=== PATIENT | male | born 1965 | race Caucasian/White ===

== ENCOUNTER → 2018-02-12 16:12 | Outpatient (CLI) | payer MEDICAID, SELFPAY ==
[2018-02-12 16:33] LABS: Creatinine,Urine Random 330 mg/dL (20-320)
[2018-02-12 18:45] LABS: Alanine Aminotransferase 29 U/L (12-78); Albumin Level 3.9 gm/dL (3.4-5.0); Albumin/Globulin Ratio 1.1 (1.1-1.8); Alkaline Phosphatase 65 U/L (46-116); Aspartate Amino Transferase 22 U/L (15-37); Bilirubin,Total 1.1 mg/dL (0.2-1.0); Blood Urea Nitrogen 18 mg/dL (7-18); Carbon Dioxide 30 mmol/L (21.0-32.0); Chloride 105 mmol/L (98-107); Chol/HDL Ratio 1.8 (1-3.5); Cholesterol 128 mg/dL (140-200); Creatinine,Serum 0.96 mg/dL (0.70-1.30); Estimated Glomerular Filt Rate 82 ml/min (>60); GFR (African American) 100 ML/MIN (>60); Globulin 3.4 gm/dl (1.3-3.2); Glucose 101 mg/dL (74-106); HDL Cholesterol 70 mg/dL (27-67); LDL Cholesterol 40 mg/dL (0-130); Sodium 144 mmol/L (136-145); Total Protein,Serum 7.3 gm/dL (6.4-8.2); Triglycerides 88 mg/dL (30-200); VLDL Cholesterol 18 mg/dL (0-40)
[2018-02-12 18:50] LABS: Hemoglobin A1C 5.4 % (0.0-7.0)
== END ==
PROVIDERS: Visit Provider Nurse Practitioner Family
DX: E11.42 Type 2 diabetes mellitus with diabetic polyneuropathy (principal); E78.5 Hyperlipidemia, unspecified; I10 Essential (primary) hypertension
CPT/HCPCS: 36415; 80053; 80061; 82570; 83036

== ENCOUNTER → 2018-08-20 11:19 | Outpatient (CLI) | payer MEDICAID, SELFPAY ==
[2018-08-20 11:55] LABS: Hemoglobin A1C 5.7 % (0.0-7.0)
[2018-08-20 12:49] LABS: Alanine Aminotransferase 25 U/L (12-78); Albumin Level 3.6 gm/dL (3.4-5.0); Albumin/Globulin Ratio 1.1 (1.1-1.8); Alkaline Phosphatase 68 U/L (46-116); Anion Gap 9.8 mEq/L (5-15); Aspartate Amino Transferase 14 U/L (15-37); Blood Urea Nitrogen 13 mg/dL (7-18); Calcium 8.4 mg/dL (8.5-10.1); Carbon Dioxide 29 mmol/L (21.0-32.0); Chloride 104 mmol/L (98-107); Chol/HDL Ratio 1.9 (1-3.5); Cholesterol 114 mg/dL (140-200); Estimated Glomerular Filt Rate 101 ml/min (>60); GFR (African American) 122 ML/MIN (>60); Globulin 3.4 gm/dl (1.3-3.2); Glucose 116 mg/dL (74-106); HDL Cholesterol 60 mg/dL (27-67); LDL Cholesterol 39 mg/dL (0-130); Potassium 3.8 mmoL/L (3.5-5.1); Sodium 139 mmol/L (136-145); Triglycerides 77 mg/dL (30-200); VLDL Cholesterol 15 mg/dL (0-40)
[2018-08-21 10:17] LABS: Creatinine, Urine 115.2 mg/dL (Not Estab.); Microalbumin, Urine 168.2 ug/mL (Not Estab.)
== END ==
PROVIDERS: Visit Provider Nurse Practitioner Family
DX: E11.42 Type 2 diabetes mellitus with diabetic polyneuropathy (principal); E78.5 Hyperlipidemia, unspecified
CPT/HCPCS: 36415; 80053; 80061; 82043; 82570; 83036

== ENCOUNTER → 2019-01-24 16:22 | Outpatient (CLI) | payer MEDICAID, SELFPAY ==
--- NOTE | 2019-01-24 | XR_ITS ---
XR chest 2V HISTORY: Cough, smoker ORDERING PHYSICIAN: aMyra Williamson APRN PATIENT AGE: 53 years COMPARISON: None FINDINGS: The cardiomediastinal silhouette and pulmonary vascularity are within normal limits. The lungs are clear without infiltrates, suspicious nodules, or pleural effusions. Calcified granuloma is present in the right lower lung zone. No acute bony abnormalities. IMPRESSION: Negative chest, no acute finding
[2019-01-24 17:31] LABS: Basophils % 0.2 % (0.1-2.0); Eosinophils # 0.3 K/mm3 (0.0-0.4); Eosinophils % 4.1 % (0.1-12.0); Hematocrit 35.1 % (42.0-52.0); Hemoglobin 12.1 g/dL (14.1-18.0); Lymphocytes # 1.5 K/mm3 (0.7-4.5); Lymphocytes % 21.5 % (10-50); Mean Corpuscular HGB Conc 34.6 g/dL (31.8-35.4); Mean Corpuscular Hemoglobin 33.2 pg (27.0-31.2); Mean Corpuscular Volume 96.1 fl (80-94); Mean Platelet Volume 8.2 fl (7.4-10.4); Monocytes # 0.2 K/mm3 (0.1-1.0); Monocytes % 3.2 % (1.7-9.3); Neutrophils % 70.9 % (37.0-80.0); Platelet Count 137 K/mm3 (142-424); Red Blood Count 3.65 M/mm3 (4.60-6.20); Red Cell Distribution Width 14.1 % (11.5-17.5)
[2019-01-24 18:34] LABS: Alanine Aminotransferase 36 U/L (12-78); Albumin Level 3.7 gm/dL (3.4-5.0); Albumin/Globulin Ratio 1.1 (1.1-1.8); Alkaline Phosphatase 72 U/L (46-116); Anion Gap 15.7 mEq/L (5-15); Aspartate Amino Transferase 20 U/L (15-37); Bilirubin,Total 1.3 mg/dL (0.2-1.0); Blood Urea Nitrogen 10 mg/dL (7-18); Calcium 8.8 mg/dL (8.5-10.1); Carbon Dioxide 27 mmol/L (21.0-32.0); Chloride 104 mmol/L (98-107); Chol/HDL Ratio 1.9 (1-3.5); Cholesterol 110 mg/dL (140-200); Creatinine,Serum 0.89 mg/dL (0.70-1.30); Estimated Glomerular Filt Rate 89 ml/min (>60); GFR (African American) 108 ML/MIN (>60); Globulin 3.3 gm/dl (1.3-3.2); Glucose 95 mg/dL (74-106); HDL Cholesterol 57 mg/dL (27-67); LDL Cholesterol 33 mg/dL (0-130); Potassium 3.7 mmoL/L (3.5-5.1); Sodium 143 mmol/L (136-145); Triglycerides 101 mg/dL (30-200); VLDL Cholesterol 20 mg/dL (0-40)
[2019-01-24 18:58] LABS: Hemoglobin A1C 5.2 % (0.0-7.0)
[2019-01-26 06:18] LABS: Creatinine, Urine 231.1 mg/dL (Not Estab.); Microalbumin, Urine 307.1 ug/mL (Not Estab.)
[2019-01-29 14:03] LABS: Ferritin 367 ng/mL (8-388)
[2019-01-31 08:55] LABS: Iron 142 ug/dL (38-169); UIBC 187 ug/dL (111-343)
[2019-01-31 09:32] LABS: Iron Saturation 43 % (15-55)
[2019-01-31 14:08] LABS: Folate 11.6 ng/mL (>3.0); Vitamin B12 1092 pg/mL (232-1245)
== END ==
PROVIDERS: PCP Nurse Practitioner Family; Visit Provider Nurse Practitioner Family
DX: R05 Cough (principal); E11.42 Type 2 diabetes mellitus with diabetic polyneuropathy; E78.5 Hyperlipidemia, unspecified
CPT/HCPCS: 36415; 71046; 80053; 80061; 82043; 82570; 82607; 82728; 82746; 83036; 83540; 83550; 85025

== ENCOUNTER → 2019-03-29 09:59 | Outpatient (CLI) | payer MEDICAID, SELFPAY ==
--- NOTE | 2019-03-29 10:22 | XR_ITS ---
XR foot RT min 3V HISTORY: ITS.REASON: CELLULITIS OF GREAT TOE ORDERING PHYSICIAN: Fox Chávez MD PATIENT AGE: 54 years COMPARISON: None FINDINGS: No fracture or dislocation. No lytic or blastic change. There is normal mineralization.. The joint spaces are well-preserved. No significant degenerative/arthritic changes. No erosive changes evident. There are calcific densities along the plantar aspect just distal to the small plantar calcaneal spur. IMPRESSION: No acute process. Soft tissue calcifications could be sequela from chronic plantar fasciitis.
[2019-03-29 11:07] LABS: Basophils % 0.3 % (0.1-2.0); Eosinophils # 0.2 K/mm3 (0.0-0.4); Eosinophils % 1.3 % (0.1-12.0); Hematocrit 34.3 % (42.0-52.0); Hemoglobin 10.7 g/dL (14.1-18.0); Lymphocytes # 1.5 K/mm3 (0.7-4.5); Lymphocytes % 11.9 % (10-50); Mean Corpuscular HGB Conc 31.2 g/dL (31.8-35.4); Mean Corpuscular Hemoglobin 30.7 pg (27.0-31.2); Mean Corpuscular Volume 98.3 fl (80-94); Mean Platelet Volume 8.1 fl (7.4-10.4); Monocytes # 0.3 K/mm3 (0.1-1.0); Monocytes % 2.4 % (1.7-9.3); Neutrophils # 10.5 K/mm3 (1.8-7.8); Neutrophils % 84.1 % (37.0-80.0); Platelet Count 192 K/mm3 (142-424); Red Blood Count 3.48 M/mm3 (4.60-6.20); White Blood Count 12.4 K/mm3 (4.8-10.8)
[2019-03-29 11:54] LABS: Alanine Aminotransferase 27 U/L (12-78); Albumin Level 3.1 gm/dL (3.4-5.0); Albumin/Globulin Ratio 0.8 (1.1-1.8); Alkaline Phosphatase 84 U/L (46-116); Anion Gap 10.4 mEq/L (5-15); Aspartate Amino Transferase 15 U/L (15-37); Bilirubin,Total 0.8 mg/dL (0.2-1.0); Blood Urea Nitrogen 14 mg/dL (7-18); C-Reactive Protein 2.1 mg/L (0.0-0.9); Calcium 8.5 mg/dL (8.5-10.1); Carbon Dioxide 29 mmol/L (21.0-32.0); Chloride 101 mmol/L (98-107); Creatinine,Serum 0.87 mg/dL (0.70-1.30); Estimated Glomerular Filt Rate 91 ml/min (>60); GFR (African American) 111 ML/MIN (>60); Glucose 137 mg/dL (74-106); Potassium 4.4 mmoL/L (3.5-5.1); Sodium 136 mmol/L (136-145); Total Protein,Serum 7.1 gm/dL (6.4-8.2)
[2019-03-29 13:40] LABS: Erythrocyte Sedimentation Rate < 140 mm/hr (0-20)
== END ==
PROVIDERS: Visit Provider Internal Medicine Adolescent Medicine
DX: L03.031 Cellulitis of right toe (principal)
CPT/HCPCS: 36415; 73630; 80053; 85025; 85651; 86140; 87040

== ENCOUNTER 2019-04-01 09:16 | Observation (INO) ==
--- NOTE | 2019-04-01 10:36 | Pharmacy Consult Notes ---
[facility] Pharmacy VTE Monitoring - Patient Demographics Admission date: 04/01/19 Report Date: 04/01/19 Time: 10:35 Allergies/Adverse Reactions: Patient Allergies No Known Allergies Allergy (Unverified 03/12/19 13:53) Height: 1.8 m Weight: 109.032 kg - VTE Risk Was VTE Risk Assessment Performed: Yes VTE Score: 2 VTE Risk Level: Very Low Risk Clinical Trial Participant: No - Prophylaxis VTE Prophylaxis Ordered?: Yes Types of VTE Prophylaxis: TEDS Knee High
[2019-04-01 11:28] LABS: Basophils # 0.1 K/mm3 (0-0.2); Basophils % 0.4 % (0.1-2.0); Eosinophils # 0.3 K/mm3 (0.0-0.4); Hematocrit 34.7 % (42.0-52.0); Hemoglobin 10.9 g/dL (14.1-18.0); Lymphocytes # 2.1 K/mm3 (0.7-4.5); Lymphocytes % 15.4 % (10-50); Mean Corpuscular HGB Conc 31.5 g/dL (31.8-35.4); Mean Corpuscular Volume 101.5 fl (80-94); Mean Platelet Volume 8.5 fl (7.4-10.4); Monocytes # 0.2 K/mm3 (0.1-1.0); Monocytes % 1.6 % (1.7-9.3); Neutrophils # 10.8 K/mm3 (1.8-7.8); Neutrophils % 80.6 % (37.0-80.0); Platelet Count 217 K/mm3 (142-424); Red Blood Count 3.42 M/mm3 (4.60-6.20); White Blood Count 13.4 K/mm3 (4.8-10.8)
[2019-04-01 11:58] LABS: Albumin Level 2.8 gm/dL (3.4-5.0); Albumin/Globulin Ratio 0.7 (1.1-1.8); Anion Gap 11.2 mEq/L (5-15); Bilirubin,Total 0.7 mg/dL (0.2-1.0); C-Reactive Protein 0.4 mg/L (0.0-0.9); Calcium 8.4 mg/dL (8.5-10.1); Globulin 4.3 gm/dl (1.3-3.2); Total Protein,Serum 7.1 gm/dL (6.4-8.2)
--- NOTE | 2019-04-01 12:34 | Consult Report ---
*Admission Date: 04/01/19 *Reason for consult:: R great toe cellulitis *History of present illness: Mr. Mendiola is a 54 y/ DM male who was admitted from Dr. Chávez's office this morning for right great toe cellulitis. Patient/ said 1 to 2 weeks ago he was wearing a pair of work boots which rubbed a blister on the medial right great toe. He states last week a wound developed and there was some drainage. He states he saw Dr. Alcala on Monday. Monday x-rays were ordered and taken which were negative for bone infection. Patient states he followed up this morning and the area was more swollen with more drainage and increased pain. He was admitted for a work-up and treatment for possible osteomyelitis. He denies a history of ulceration or amputation. He denies any stents in his heart or leg. Denies tingling and burning pain he just reports some throbbing to the toe. Review of Systems - Review of Systems Review of systems:: pertinent systems reviewed and negative unless documented below - Eyes Denies blurry vision - ENT Denies abnormal hearing - *Cardiovascular Denies chest pain, Denies shortness of breath - *Respiratory Denies cough, Denies shortness of breath - *Gastrointestinal Denies nausea, Denies vomiting - *Genitourinary Denies painful urination - *Musculoskeletal Reports joint swelling (R HIPJ) - Integumentary/Breasts Reports skin ulcer, Reports wounds [facility] History I have reviewed the patient's past medical history: Yes Medical History: Reports:: Diabetes Mellitus Type 2 Denies:: Diabetes Mellitus Type 1 *Have you ever received a pneumonia vaccine?: No *Have you received a flu vaccine this season?: No Other Surgeries: Yes: No Previous Surgery, Colonoscopy - *Social History Educational Level: Attended High School Smoking Status: Former smoker Tobacco Type: cigarettes Smoking End Date: 25 years Alcohol Intake: current Alcohol Intake Frequency:: 0-2 drinks per day *Occupational Status:: employed Housing: house Household Members: significant other *Travel in the last 8 weeks: None - Psychiatric History Expresses thoughts of harming self/others: None Suicide Plan Description: No Plan Family Hx:: No significant family history Meds Home Medications Medication Instructions Recorded Confirmed Type atorvastatin 40 mg tablet 40 mg PO HS 03/13/19 04/01/19 History ferrous sulfate 325 mg (65 mg 325 mg PO HS 03/13/19 04/01/19 History iron) tablet losartan 25 mg tablet 25 mg PO HS 03/13/19 04/01/19 History meloxicam 7.5 mg tablet 7.5 mg PO HS 03/13/19 04/01/19 History metformin 500 mg tablet 500 mg PO HS 03/13/19 04/01/19 History omeprazole 20 mg capsule,delayed 20 mg PO HS 03/13/19 04/01/19 History release Allergies Allergy/AdvReac Type Severity Reaction Status Date / Time No Known Allergies Allergy Unverified 03/12/19 13:53 Exam Vital signs and Labs for Last 24 Hours: Temp Pulse Resp BP Pulse Ox 97.6 F 62 20 137/71 99 04/01/19 09:33 04/01/19 09:33 04/01/19 09:33 04/01/19 09:33 04/01/19 09:33 Laboratory Results - last 24 hr 04/01/19 10:30: WBC 13.4 H, RBC 3.42 L, Hgb 10.9 L, Hct 34.7 L, MCV 101.5 H, MCH 31.9 H, MCHC 31.5 L, RDW 14.0, Plt Count 217, MPV 8.5, Neut % (Auto) 80.6 H, Lymph % (Auto) 15.4, [place] % (Auto) 1.6 L, Eos % (Auto) 2.0, Baso % (Auto) 0.4, Neut # (Auto) 10.8 H, Lymph # (Auto) 2.1, [place] # (Auto) 0.2, Eos # (Auto) 0.3, Baso # (Auto) 0.1 04/01/19 10:30: Sodium 138, Potassium 5.2 H, Chloride 103, Carbon Dioxide 29, Anion Gap 11.2, BUN 13, Creatinine 0.82, Estimated Creat Clear 159, Estimated GFR 98, Est GFR ( Amer) 118, Glucose 130 H, Calcium 8.4 L, Total Bilirubin 0.7, AST 38 H, ALT 29, Alkaline Phosphatase 77, C-Reactive Protein 0.4, Total Protein 7.1, Albumin 2.8 L, Globulin 4.3 H, Albumin/Globulin Ratio 0.7 L 04/01/19 11:03: POC Glucose 128 H I & O for Last 24 hours: Intake & Output 03/30/19 03/31/19 04/01/19 04/02/19 11:59 11:59 11:59 11:59 Weight 240 lb 6 oz - *Routine HEENT Exam Head: Present: normocephalic Eye: Present: PERRL - *Routine Neck Exam Present: supple - *Routine Respiratory Exam Present: accessory muscle use - *Routine Cardiovascular Exam Present: RRR - *Routine Abdominal Exam Present: soft. Absent: guarding - *Routine Rectal Exam Patient deferred: visual exam - *Routine Exam Patient deferred: penile exam - *Routine Extremities Exam Present: edema (R foot), pulses intact. Absent: calf tenderness, amputation - *Routine Skin Exam Present: erythema (R great toe), warm, wounds - *Routine Neurological Exam Present: alert, oriented X3, moving all extremities - Detailed Lower Extremity Exam Top foot image: 1 - Right great toe: 1) Medial dorsal blister: ~1.2 x 1.6cm of discoloration and skin sloughing. Purulence drainage noted when a stab incision made with 15' blade. Does not probe thru deep fascia into bone. 2) Plantar distal hallux ulcer: pre debridement callus 1.4 x 1.4cm. 15' blade thru skin, sub q some serosanginous drainage expressed. Did not probe to bone. Post debridement central ulcer, wound base 100% granular: 0.5 x 0.4 x 0.4cm. Edema and erythema localized to the great toe. No ascending cellulitis noted to foot. Non palpable lymph nodes. Results - Labs Result Diagrams: 04/01/19 10:30 04/01/19 10:30 Labs: Abnormal lab results 04/01/19 04/01/19 04/01/19 Range/Units 10:30 10:30 11:03 WBC 13.4 H (4.8-10.8) K/mm3 RBC 3.42 L (4.60-6.20) M/mm3 Hgb 10.9 L (14.1-18.0) g/dL Hct 34.7 L (42.0-52.0) % MCV 101.5 H (80-94) fl MCH 31.9 H (27.0-31.2) pg MCHC 31.5 L (31.8-35.4) g/dL Neut % (Auto) 80.6 H (37.0-80.0) % [place] % (Auto) 1.6 L (1.7-9.3) % Neut # (Auto) 10.8 H (1.8-7.8) K/mm3 Potassium 5.2 H (3.5-5.1) mmoL/L Glucose 130 H (74-106) mg/dL POC Glucose 128 H (70-110) Calcium 8.4 L (8.5-10.1) mg/dL AST 38 H (15-37) U/L Albumin 2.8 L (3.4-5.0) gm/dL Globulin 4.3 H (1.3-3.2) gm/dl Albumin/Globulin Ratio 0.7 L (1.1-1.8) H & H 04/01/19 Range/Units 10:30 Hgb 10.9 L (14.1-18.0) g/dL Hct 34.7 L (42.0-52.0) % All other labs normal. - Diagnostic results Ankle/Foot x-ray: report reviewed, image reviewed Ankle/Foot MRI: pending Assessment and Plan (1) Cellulitis of great toe, right Current visit: Yes Status: Acute Category: Medical Code(s): L03.031 - Cellulitis of right toe (2) Diabetic ulcer of toe Current visit: Yes Status: Acute Category: Medical Code(s): E11.621 - Type 2 diabetes mellitus with foot ulcer; L97.509 - Non-pressure chronic ulcer of other part of unspecified foot with unspecified severity (3) Diabetes mellitus Current visit: Yes Status: Acute Category: Medical Code(s): E11.9 - Type 2 diabetes mellitus without complications (4) Pain of right great toe Current visit: Yes Status: Acute Category: Medical Code(s): M79.674 - Pain in right toe(s) - Assessment and plan all Dx Assessment and Plan for all problems:: Infected Wound: Right hallux ulcer: I discussed with the patient the importance of proper hygiene and maintaining a clean healthy wound bed to avoid the infection spreading. The wound was cleansed with betadine. Utilizing a 15 blade, the wound was sharply excisionally debrided through skin into sub q layer. Biofilm and fibrotic slough were debrided. The wound did not probe thru deep fascia and into the bone. There was positive drainage and purulence noted from dorsal medial blister. Wound culture obtained. Sujey-wound cellulitis noted. Plantar ulcer debrided in the same manner. It did not probe through deep fascia or bone. Non-palpable popliteal lymph nodes. Post-debridement the wound base was: 100 % granular. The wound measured 0.5 x 0.4 x 0.4 cm. 1. Dressing applied: betadine dry sterile dressing 2. MRI w/wout to evaluate for right hallux osteomyelitis 3. NWB in post op shoe with DME assistance 4. Order infection panel: CBC, ESR, CRP, Ha1c, wound culture. 5. IV antibiotics 6. I explained that the treatment will depend on the results of the MRI. We discussed the x-ray shows no definitive cortical erosion. I explained that there is a 10 to 14-day lag. On x-ray did show osteomyelitis. MRI is more sensitive exam. Obtain MRI today/tomorrow. Discussed local wound care with IV antibiotics vs surgery for right hallux amp if osteomyelitis is present. All questions answered patient and his verbalized understanding. 7. Follow-up after MRI
--- NOTE | 2019-04-01 13:21 | Pharmacy Consult Notes ---
- Pharmacy Consult Date: 04/01/19 Time: 13:20 Referring provider: DR. FIELDS Reason for Consult:: VANCOMYCIN DOSING Allergies and ADEs:: Allergies Allergy/AdvReac Type Severity Reaction Status Date / Time No Known Allergies Allergy Unverified 03/12/19 13:53 Home Medications:: Home Medications Medication Instructions Recorded Confirmed Type atorvastatin 40 mg tablet 40 mg PO HS 03/13/19 04/01/19 History ferrous sulfate 325 mg (65 mg 325 mg PO HS 03/13/19 04/01/19 History iron) tablet losartan 25 mg tablet 25 mg PO HS 03/13/19 04/01/19 History meloxicam 7.5 mg tablet 7.5 mg PO HS 03/13/19 04/01/19 History metformin 500 mg tablet 500 mg PO HS 03/13/19 04/01/19 History omeprazole 20 mg capsule,delayed 20 mg PO HS 03/13/19 04/01/19 History release Height: 1.8 m Weight: 109.032 kg Laboratory Results:: Laboratory Results - last 24 hr 04/01/19 10:30: WBC 13.4 H, RBC 3.42 L, Hgb 10.9 L, Hct 34.7 L, MCV 101.5 H, MCH 31.9 H, MCHC 31.5 L, RDW 14.0, Plt Count 217, MPV 8.5, Neut % (Auto) 80.6 H, Lymph % (Auto) 15.4, [place] % (Auto) 1.6 L, Eos % (Auto) 2.0, Baso % (Auto) 0.4, Neut # (Auto) 10.8 H, Lymph # (Auto) 2.1, [place] # (Auto) 0.2, Eos # (Auto) 0.3, Baso # (Auto) 0.1 04/01/19 10:30: Sodium 138, Potassium 5.2 H, Chloride 103, Carbon Dioxide 29, Anion Gap 11.2, BUN 13, Creatinine 0.82, Estimated Creat Clear 159, Estimated GFR 98, Est GFR ( Amer) 118, Glucose 130 H, Calcium 8.4 L, Total Bilirubin 0.7, AST 38 H, ALT 29, Alkaline Phosphatase 77, C-Reactive Protein 0.4, Total Protein 7.1, Albumin 2.8 L, Globulin 4.3 H, Albumin/Globulin Ratio 0.7 L 04/01/19 11:03: POC Glucose 128 H Medical History: Reports:: Diabetes Mellitus Type 2 Denies:: Diabetes Mellitus Type 1 Assessment and Plan (1) Cellulitis of great toe, right Current visit: Yes Status: Acute Category: Medical Code(s): L03.031 - Cellulitis of right toe (2) Diabetic ulcer of toe Current visit: Yes Status: Acute Category: Medical Code(s): E11.621 - Type 2 diabetes mellitus with foot ulcer; L97.509 - Non-pressure chronic ulcer of other part of unspecified foot with unspecified severity (3) Diabetes mellitus Current visit: Yes Status: Acute Category: Medical Code(s): E11.9 - Type 2 diabetes mellitus without complications (4) Pain of right great toe Current visit: Yes Status: Acute Category: Medical Code(s): M79.674 - Pain in right toe(s) - Assessment and plan all Dx Assessment and Plan for all problems:: BASED ON PATIENT FACTORS, RECOMMEND VANCOMYCIN 2,250MG IV EVERY 12 HOURS. PHARMACY WILL OBTAIN TROUGH LEVEL PRIOR TO FOURTH DOSE AND ADJUST DOSE APPROPRIATE. -DONTAE KAPLAN, FELICIAD
--- NOTE | 2019-04-01 18:03 | History & Physical Report ---
*Admission Date: 04/01/19 *Chief complaint: Right great toe cellulitis-failure of outpatient therapy *History of present illness: Patient presented to my office last week with redness and ulceration of the base of the right great toe. He states that his initial injury was rubbing this on some work boots. Denies fever. In the office he was found to have significant redness of the toe, with infectious ulcer on the ball of the great toe. I could not probe any bony structures and initiated outpatient oral antibiotic therapy, labs showed normal white count, elevated sed rate but x-rays were unremarkable, and I saw him back this morning with no improvement and admitted him for podiatry consultation, IV antibiotics and further diagnostic testing. [facility] History I have reviewed the patient's past medical history: Yes Medical History: Reports:: Diabetes Mellitus Type 2 Denies:: Diabetes Mellitus Type 1 *Have you ever received a pneumonia vaccine?: No *Have you received a flu vaccine this season?: No Other Surgeries: Yes: No Previous Surgery, Colonoscopy - *Social History Educational Level: Attended High School Smoking Status: Former smoker Tobacco Type: cigarettes Smoking End Date: Alcohol Intake: current Alcohol Intake Frequency:: 0-2 drinks per day *Occupational Status:: employed Housing: house Household Members: significant other *Travel in the last 8 weeks: None - Psychiatric History Expresses thoughts of harming self/others: None Suicide Plan Description: No Plan Family Hx:: No significant family history Review of Systems - Review of Systems Review of systems:: pertinent systems reviewed and negative unless documented below Patient denies cardiac, pulmonary, GI or symptoms. No neuro symptoms. No other joints or skin areas involved with redness or swelling. - *Neurologic Denies abnormal hearing Meds Home Medications Medication Instructions Recorded Confirmed Type atorvastatin 40 mg tablet 40 mg PO HS 03/13/19 04/01/19 History ferrous sulfate 325 mg (65 mg 325 mg PO HS 03/13/19 04/01/19 History iron) tablet losartan 25 mg tablet 25 mg PO HS 03/13/19 04/01/19 History meloxicam 7.5 mg tablet 7.5 mg PO HS 03/13/19 04/01/19 History metformin 500 mg tablet 500 mg PO HS 03/13/19 04/01/19 History omeprazole 20 mg capsule,delayed 20 mg PO HS 03/13/19 04/01/19 History release Allergies Allergy/AdvReac Type Severity Reaction Status Date / Time No Known Allergies Allergy Unverified 03/12/19 13:53 Exam Vital signs and Labs for Last 24 Hours: Temp Pulse Resp BP Pulse Ox 98.2 F 58 L 20 182/62 H 99 04/01/19 15:45 04/01/19 15:45 04/01/19 15:45 04/01/19 15:45 04/01/19 15:45 Laboratory Results - last 24 hr 04/01/19 10:30: WBC 13.4 H, RBC 3.42 L, Hgb 10.9 L, Hct 34.7 L, MCV 101.5 H, MCH 31.9 H, MCHC 31.5 L, RDW 14.0, Plt Count 217, MPV 8.5, Neut % (Auto) 80.6 H, Lymph % (Auto) 15.4, [place] % (Auto) 1.6 L, Eos % (Auto) 2.0, Baso % (Auto) 0.4, Neut # (Auto) 10.8 H, Lymph # (Auto) 2.1, [place] # (Auto) 0.2, Eos # (Auto) 0.3, Baso # (Auto) 0.1 04/01/19 10:30: Sodium 138, Potassium 5.2 H, Chloride 103, Carbon Dioxide 29, Anion Gap 11.2, BUN 13, Creatinine 0.82, Estimated Creat Clear 159, Estimated GFR 98, Est GFR ( Amer) 118, Glucose 130 H, Calcium 8.4 L, Total Bilirubin 0.7, AST 38 H, ALT 29, Alkaline Phosphatase 77, C-Reactive Protein 0.4, Total Protein 7.1, Albumin 2.8 L, Globulin 4.3 H, Albumin/Globulin Ratio 0.7 L 04/01/19 10:30: ESR 48 H 04/01/19 10:30: Hemoglobin A1c 6.4 04/01/19 11:03: POC Glucose 128 H I & O for Last 24 hours: Intake & Output 03/30/19 03/31/19 04/01/19 04/02/19 11:59 11:59 11:59 11:59 Intake Total 1047 / 1047 Balance 1047 / 1047 Weight 240 lb 6 oz Microbiology Reports for the Last 24 Hours: Microbiology 04/01/19 10:30 Toe,Right Great Gram Stain - Final 04/01/19 12:14 Toe,Right Great Gram Stain - Final Narrative: Cardiopulmonary exam unremarkable, heart rate regular. Lungs clear. Cranial nerves intact. ENT exam clear. Abdomen soft and nontender. Extremities clear of infection except for the great toe as noted in the H&P. Assessment and Plan (1) Cellulitis of great toe, right Current visit: Yes Status: Acute Category: Medical Code(s): L03.031 - Cellulitis of right toe (2) Diabetic ulcer of toe Current visit: Yes Status: Acute Category: Medical Code(s): E11.621 - Type 2 diabetes mellitus with foot ulcer; L97.509 - Non-pressure chronic ulcer of other part of unspecified foot with unspecified severity (3) Diabetes mellitus Current visit: Yes Status: Acute Category: Medical Code(s): E11.9 - Type 2 diabetes mellitus without complications (4) Pain of right great toe Current visit: Yes Status: Acute Category: Medical Code(s): M79.674 - Pain in right toe(s) - Assessment and plan all Dx Assessment and Plan for all problems:: Given multiple risk factors for immunosuppression I will admit to hospital for vancomycin therapy, intravenous clindamycin and podiatry consultation.
--- NOTE | 2019-04-02 08:21 | Progress Note ---
Subjective Date: 04/02/19 Time: 08:05 Principal diagnosis: R Hallux cellulitis, DM ulcer Interval history: Mr. Mendiola is a 54-year-old diabetic male who was admitted for evaluation diagnostic imaging and IV antibiotics for right great toe cellulitis. He denies any new complaints. He states the pain is swelling has reduced since he started the IV antibiotics. Patient had MRI imaging last night. He denies any new complaints and denies N/V, F/C, SOB/CP. PN: Obj Ex Vital signs: Temp Pulse Resp BP Pulse Ox 97.6 F 66 20 165/78 H 97 04/02/19 08:00 04/02/19 08:00 04/02/19 08:00 04/02/19 08:00 04/02/19 08:00 - Constitutional no acute distress - Routine HEENT Exam Head: Present: normocephalic - Routine Neck Exam Present: supple - Routine Chest/Breast/Axilla Exam Chest wall: Absent: tenderness - Routine Respiratory Exam Present: accessory muscle use - Routine Abdominal Exam Present: soft. Absent: guarding - Routine Extremities Exam Present: edema (decreased to right hallux), pulses intact, normal capillary refill. Absent: calf tenderness, extremity cold to touch - Detailed Lower Extremity Exam Top foot image: 1 - Right great toe: 1) Medial dorsal blister now skin sloughing: ~1.2 x 1.6cm. No purulent drainage. Does not probe thru deep fascia into bone. 2) Plantar distal hallux ulcer: 15' blade thru skin, sub q some serosanginous drainage expressed. Did not probe to deep fasica or bone. Post debridement central ulcer, wound base 100% granular: 0.5 x 0.4 x 0.4cm. Edema and erythema localized to the great toe, improving. No ascending cellulitis noted to foot. Non palpable lymph nodes. Overall decreased pain and swelling. - Routine Skin Exam Present: erythema, wounds - Routine Neurological Exam Present: alert, oriented X3, moving all extremities - Routine Psychiatric Exam Present: normal affect Progress Note: A&P (1) Cellulitis of great toe, right Status: Acute Current Visit: Yes (2) Diabetic ulcer of toe Status: Acute Current Visit: Yes (3) Diabetes mellitus Status: Acute Current Visit: Yes (4) Pain of right great toe Status: Acute Current Visit: Yes Assessment and Plan for All Diagnoses:: Infected Wound: Right hallux ulcer: WCx, 04/01/19: gram stain [facility] MRI right foot, w/wout 04/01/19: Images reviewed and evaluated by myself. Report noted. Skin discussed with patient and his . Skin shows soft tissue swelling around the right hallux. No cortical erosions or bony changes consistent with osteomyelitis. No abscess noted. Incidental finding of a talar osteochondral defect. I discussed with the patient the importance of proper hygiene and maintaining a clean healthy wound bed to avoid the infection spreading. The wound was cleansed with betadine. Utilizing a 15 blade, the wound was sharply excisionally debrided through skin into sub q layer. Biofilm and fibrotic slough were debrided. The wound did not probe thru deep fascia and into the bone. There was no purulent drainage. Sujey-wound cellulitis noted to be improving. Plantar ulcer debrided in the same manner. It did not probe through deep fascia or bone. Non-palpable popliteal lymph nodes. Post-debridement the wound base was: 100 % granular. The wound measured 0.5 x 0.4 x 0.4 cm. 1. Dressing applied: betadine dry sterile dressing 2. MRI w/wout: (-) for right hallux osteomyelitis 3. PWB in short boot to heel with DME assistance (crutches, walker) 4. Transition from IV to oral Abx x 2 weeks 5. Discussed local wound care with antibiotics. Patient to change dressing daily with betadine soaked 4x4s, dry 4x4s, krystle/kerlix, secure with Michael or coban. Keep area clean and dry. All questions answered patient and his verbalized understanding. 6. Follow-up outpatient in one week
--- NOTE | 2019-04-02 10:59 | Discharge Summary ---
General - General Admission date:: 04/01/19 Discharge date: 04/02/19 HPI HPI: Patient presented to my office last week with redness and ulceration of the base of the right great toe. He states that his initial injury was rubbing this on some work boots. Denies fever. In the office he was found to have significant redness of the toe, with infectious ulcer on the ball of the great toe. I could not probe any bony structures and initiated outpatient oral antibiotic therapy, labs showed normal white count, elevated sed rate but x-rays were unremarkable, and I saw him back this morning with no improvement and admitted him for podiatry consultation, IV antibiotics and further diagnostic testing. Hospital Course Hospital Course: Admitted for toe wound. Saw podiatry. Wound was debrided with healthy base noted. MRI obtained to assess for any osteomyelitis. Found to be negative for osteomyelitis and responding to antibiotics as an inpatient. Discussion with podiatry led to decision to discharge with oral antibiotic course and weekly follow-up for reassessment of wound. Counseled to avoid wet environments while wound is healing to minimize any further infection or risk for osteo. Patient is remained afebrile, hemodynamically stable. Denies nausea, vomiting, diarrhea, headache, chest pain, shortness of breath. Wound not painful per his report. Plan to transition oral antibiotics as ordered. Medically stable for discharge home. Close follow-up as scheduled Objective Vital signs: Temp Pulse Resp BP Pulse Ox 97.6 F 66 20 165/78 H 97 04/02/19 08:00 04/02/19 08:00 04/02/19 08:00 04/02/19 08:00 04/02/19 08:00 - *Routine HEENT Exam Head: Present: normocephalic Eye: Present: EOMI, PERRL ENT: Present: mucous membranes moist - *Routine Neck Exam Present: supple. Absent: JVD - *Routine Respiratory Exam Present: CTA bilaterally. Absent: prolonged expiratory phase, rales, wheezes - *Routine Cardiovascular Exam Present: RRR, Normal S1, Normal S2. Absent: murmur - *Routine Abdominal Exam Present: soft, normoactive bowel sounds - *Routine Rectal Exam Patient deferred: visual exam - *Routine Exam Patient deferred: penile exam - *Routine Extremities Exam Absent: cyanosis, clubbing, edema Comments: Right great toe with debrided wound on medial plantar surface, beefy pink tissue with minimal bleeding. No surrounding erythema. Healthy appearing wound. Base visible. - *Routine Skin Exam Present: intact. Absent: cyanosis, erythema - *Routine Neurological Exam Present: alert, oriented X3, CN II-XII intact. Absent: altered mental status Results Labs on day of discharge: Labs from last 24 hours 04/02/19 04/01/19 04/01/19 06:48 22:54 17:53 WBC RBC Hgb Hct MCV MCH MCHC RDW Plt Count MPV Neut % (Auto) Lymph % (Auto) [place] % (Auto) Eos % (Auto) Baso % (Auto) Neut # (Auto) Lymph # (Auto) [place] # (Auto) Eos # (Auto) Baso # (Auto) ESR Sodium Potassium Chloride Carbon Dioxide Anion Gap BUN Creatinine Estimated Creat Clear Estimated GFR Est GFR ( Amer) Glucose POC Glucose 128 H 131 H 107 Hemoglobin A1c Calcium Total Bilirubin AST ALT Alkaline Phosphatase C-Reactive Protein Total Protein Albumin Globulin Albumin/Globulin Ratio 04/01/19 04/01/19 04/01/19 11:03 10:30 10:30 WBC RBC Hgb Hct MCV MCH MCHC RDW Plt Count MPV Neut % (Auto) Lymph % (Auto) [place] % (Auto) Eos % (Auto) Baso % (Auto) Neut # (Auto) Lymph # (Auto) [place] # (Auto) Eos # (Auto) Baso # (Auto) ESR 48 H Sodium Potassium Chloride Carbon Dioxide Anion Gap BUN Creatinine Estimated Creat Clear Estimated GFR Est GFR ( Amer) Glucose POC Glucose 128 H Hemoglobin A1c 6.4 Calcium Total Bilirubin AST ALT Alkaline Phosphatase C-Reactive Protein Total Protein Albumin Globulin Albumin/Globulin Ratio 04/01/19 04/01/19 10:30 10:30 WBC 13.4 H RBC 3.42 L Hgb 10.9 L Hct 34.7 L MCV 101.5 H MCH 31.9 H MCHC 31.5 L RDW 14.0 Plt Count 217 MPV 8.5 Neut % (Auto) 80.6 H Lymph % (Auto) 15.4 [place] % (Auto) 1.6 L Eos % (Auto) 2.0 Baso % (Auto) 0.4 Neut # (Auto) 10.8 H Lymph # (Auto) 2.1 [place] # (Auto) 0.2 Eos # (Auto) 0.3 Baso # (Auto) 0.1 ESR Sodium 138 Potassium 5.2 H Chloride 103 Carbon Dioxide 29 Anion Gap 11.2 BUN 13 Creatinine 0.82 Estimated Creat Clear 159 Estimated GFR 98 Est GFR ( Amer) 118 Glucose 130 H POC Glucose Hemoglobin A1c Calcium 8.4 L Total Bilirubin 0.7 AST 38 H ALT 29 Alkaline Phosphatase 77 C-Reactive Protein 0.4 Total Protein 7.1 Albumin 2.8 L Globulin 4.3 H Albumin/Globulin Ratio 0.7 L DS: Diagnosis - Discharge Diagnosis (1) Cellulitis of great toe, right Status: Acute (2) Diabetic ulcer of toe Status: Acute (3) Diabetes mellitus Status: Chronic (4) Pain of right great toe Status: Acute Discharge Plan - Patient Discharge Instructions ACTIVITY: Continue current activity DIET: continue same diet Patient Instructions: How to Take Care of Your Feet If You Have Diabetes, DI for Cellulitis -- Adult, Cellulitis, How To Wash Your Hands - Follow up Plan Follow up with: Fox Chávez MD [Primary Care Provider] - 04/09/19 12:15 pm Marcia Mares DPM [Staff Physician] - 04/09/19 1:00 pm Disposition: Home, Self-Residential Medications: Home Medications Medication Instructions Recorded Confirmed Type atorvastatin 40 mg tablet 40 mg PO HS 03/13/19 04/01/19 History ferrous sulfate 325 mg (65 mg 325 mg PO HS 03/13/19 04/01/19 History iron) tablet losartan 25 mg tablet 25 mg PO HS 03/13/19 04/01/19 History meloxicam 7.5 mg tablet 7.5 mg PO HS 03/13/19 04/01/19 History metformin 500 mg tablet 500 mg PO HS 03/13/19 04/01/19 History omeprazole 20 mg capsule,delayed 20 mg PO HS 03/13/19 04/01/19 History release Ciprofloxacin [Cipro 500mg/5ml 500 mg PO BID 8 Days #16 ml 04/02/19 Rx Oral Susp] Clindamycin HCl [Clindamycin HCl 300 mg PO Q8 8 Days #24 cap 04/02/19 Rx 300mg Cap] Prescriptions/Medication Reconciliation: New Clindamycin HCl [Clindamycin HCl 300mg Cap] 300 mg PO Q8 8 Days #24 cap Ciprofloxacin [Cipro 500mg/5ml Oral Susp] 500 mg PO BID 8 Days #16 ml Continued omeprazole 20 mg capsule,delayed release 20 mg PO HS atorvastatin 40 mg tablet 40 mg PO HS metformin 500 mg tablet 500 mg PO HS ferrous sulfate 325 mg (65 mg iron) tablet 325 mg PO HS losartan 25 mg tablet 25 mg PO HS meloxicam 7.5 mg tablet 7.5 mg PO HS
--- NOTE | 2019-04-02 14:17 | Pharmacy Consult Notes ---
- Pharmacy Consult Date: 04/02/19 Time: 14:14 Referring provider: DR. FIELDS Reason for Consult:: VANCOMYCIN TROUGH LEVEL Allergies and ADEs:: Allergies Allergy/AdvReac Type Severity Reaction Status Date / Time No Known Allergies Allergy Unverified 03/12/19 13:53 Home Medications:: Home Medications Medication Instructions Recorded Confirmed Type atorvastatin 40 mg tablet 40 mg PO HS 03/13/19 04/01/19 History ferrous sulfate 325 mg (65 mg 325 mg PO HS 03/13/19 04/01/19 History iron) tablet losartan 25 mg tablet 25 mg PO HS 03/13/19 04/01/19 History meloxicam 7.5 mg tablet 7.5 mg PO HS 03/13/19 04/01/19 History metformin 500 mg tablet 500 mg PO HS 03/13/19 04/01/19 History omeprazole 20 mg capsule,delayed 20 mg PO HS 03/13/19 04/01/19 History release Ciprofloxacin [Cipro 500mg/5ml 500 mg PO BID 8 Days #16 ml 04/02/19 Rx Oral Susp] Clindamycin HCl [Clindamycin HCl 300 mg PO Q8 8 Days #24 cap 04/02/19 Rx 300mg Cap] Height: 1.8 m Weight: 120.372 kg Laboratory Results:: Laboratory Results - last 24 hr 04/01/19 10:30: Hemoglobin A1c 6.4 04/01/19 17:53: POC Glucose 107 04/01/19 22:54: POC Glucose 131 H 04/02/19 06:48: POC Glucose 128 H 04/02/19 12:59: Vancomycin Trough 11.6 Medical History: Reports:: Diabetes Mellitus Type 2 Denies:: Diabetes Mellitus Type 1 Assessment and Plan (1) Cellulitis of great toe, right Current visit: Yes Status: Acute Category: Medical Code(s): L03.031 - Cellulitis of right toe (2) Diabetic ulcer of toe Current visit: Yes Status: Acute Category: Medical Code(s): E11.621 - Type 2 diabetes mellitus with foot ulcer; L97.509 - Non-pressure chronic ulcer of other part of unspecified foot with unspecified severity (3) Diabetes mellitus Current visit: Yes Status: Chronic Category: Medical Code(s): E11.9 - Type 2 diabetes mellitus without complications (4) Pain of right great toe Current visit: Yes Status: Acute Category: Medical Code(s): M79.674 - Pain in right toe(s) - Assessment and plan all Dx Assessment and Plan for all problems:: BASED ON VANCOMYCIN TROUGH LEVEL AND PATIENT FACTORS, RECOMMEND CONTINUING VANCOMYCIN 2250 MG IV Q12H. PHARMACY WILL CONTINUE TO MONITOR DAILY.
== END 2019-04-02 14:45 | disposition home or self-care (01) ==
LOC: INTOOBSV 09:16 → 2ND 09:16
PROVIDERS: ADMIT Internal Medicine Adolescent Medicine; ATTEND Internal Medicine Adolescent Medicine
CPT/HCPCS: 36415; 73630; 73720; 80053; 80202; 82962; 83036; 85025; 85651; 86140; 87040; 87070; 87077; 87205; 93005; A9576; G0378; J3370

== ENCOUNTER 2019-05-07 15:30 | Outpatient (RCR) | payer MEDICAID, SELFPAY ==
--- NOTE | 2019-04-24 16:53 | HMH.PTOPWND ---
Rehab Outpt Wound Evaluation Rehab OP Wound Evaluation Start: 04/24/19 16:41 Freq: Status: Active Protocol: Document 04/24/19 16:41 [email or web address] (Rec: 04/24/19 16:53 [email or web address] [id number]) Electronically Signed By Jayden Piedra PT 04/24/19 16:41 Subjective/History History History This is the initial Wound clinic PT evaluation for Kamron Mendiola. PT is a 54 y/o male referred to PT wound clinic for non-healing DFU on R great toe. Pt was referred to PT from DPM Suzan. Pt reports wound occurred in early February after he got a new pair of boots . Pt reports boots rubbed a callous . Pt reports wound grew and became severely infected which required over night hospitalization for IV antibiotics. Subjective Subjective Pt reprots DPM wishes him to begin therapy for wound care and he is changing dressing at home. Pt also reports he has a job where his foot is prone to getting moist. Wound Eval Wound Right Proximal Great Toe Wound Type Diabetic Foot Ulcer Wound Length (cm) 0.5 Wound Width (cm) 0.3 Wound Bed Appearance Beefy Red Percentage Granulated (%) 100 Wound Margins Description Well Defined Surrounding Tissue Appearance Macerated Drainage Description None Drainage Amount None Drainage Odor No Odor Dressing Status Dry & Intact Wound Topical Solution/Irrigant Antibiotic Irrigant Primary Dressing Silver Dressing Comment teg AG mesh Wound Secondary Dressing Type Gauze Roll/Wrap Wound Debridement Method Sharps Wound Debridement Amount of Tissue Minimal Removed Dressing Change Date 04/24/19 Right Distal Great Toe Wound Type Diabetic Foot Ulcer Is This a Chronic Wound Yes Wound Length (cm) 0.5 Wound Width (cm) 0.3 Wound Bed Appearance Beefy Red Percentage Granulated (%) 100 Wound Margins Description Well Defined Surrounding Tissue Appearance Undermined,Macerated Surrounding Tissue Temperature Warm Drainage Description None Drainag
== END 2019-05-07 15:35 | disposition home or self-care (01) ==
LOC: PT 15:30
PROVIDERS: Visit Provider Podiatrist
DX: E11.621 Type 2 diabetes mellitus with foot ulcer (principal); L97.501 Non-pressure chronic ulcer of other part of unspecified foot limited to breakdown of skin
CPT/HCPCS: 97161; 97597

== ENCOUNTER → 2019-10-28 15:44 | Outpatient (CLI) | payer OTHER, SELFPAY ==
--- NOTE | 2019-10-28 | XR_ITS ---
PROCEDURE: XR CHEST 2V CLINICAL HISTORY: COUGH COMPARISON: No exams were available for comparison FINDINGS: Mild cardiomegaly without failure. Increased markings right lung base suggestive of an area of infiltrate. There is some mild bronchial thickening on the right No acute bony abnormalities. IMPRESSION: Patchy infiltrate in the right lung base Dictated by: Reynaldo Issa MD 10/28/2019 17:48 Electronically signed by Reynaldo Issa MD in [place] 10/28/2019 17:48
== END ==
PROVIDERS: PCP Internal Medicine Adolescent Medicine; Visit Provider Nurse Practitioner Family
DX: R05 Cough (principal)
CPT/HCPCS: 71046

== ENCOUNTER → 2020-03-19 16:34 | Outpatient (CLI) | payer OTHER, SELFPAY ==
[2020-03-19 16:48] LABS: Basophils % 0.3 % (0.1-2.0); Eosinophils # 0.1 K/mm3 (0.0-0.4); Eosinophils % 2.3 % (0.1-12.0); Hematocrit 39.1 % (42.0-52.0); Lymphocytes # 1.3 K/mm3 (0.7-4.5); Lymphocytes % 30.5 % (10-50); Mean Corpuscular HGB Conc 33.2 g/dL (31.8-35.4); Mean Corpuscular Hemoglobin 34.6 pg (27.0-31.2); Mean Corpuscular Volume 104.2 fl (80-94); Mean Platelet Volume 8.8 fl (7.4-10.4); Monocytes # 0.1 K/mm3 (0.1-1.0); Monocytes % 1.5 % (1.7-9.3); Neutrophils # 2.8 K/mm3 (1.8-7.8); Neutrophils % 65.3 % (37.0-80.0); Platelet Count 172 K/mm3 (142-424); Red Blood Count 3.75 M/mm3 (4.60-6.20); Red Cell Distribution Width 15.5 % (11.5-17.5); White Blood Count 4.3 K/mm3 (4.8-10.8)
[2020-03-19 17:29] LABS: Creatinine,Urine Random 304 mg/dL (Not Estab.); Hemoglobin A1C 7.5 % (4.0-6.0); Microalbumin/Creatinine Ratio 92.9
[2020-03-19 18:10] LABS: Chloride 99 mmol/L (98-107); Potassium 4.5 mmoL/L (3.5-5.1); Sodium 138 mmol/L (136-145)
[2020-03-19 18:13] LABS: Alanine Aminotransferase 60 U/L (12-78); Albumin Level 4.3 g/dl (3.5-5.0); Albumin/Globulin Ratio 1.4 (1.1-1.8); Alkaline Phosphatase 69 U/L (38-126); Anion Gap 11.5 mEq/L (5-15); Aspartate Amino Transferase 50 U/L (17-59); Bilirubin,Total 1.4 mg/dl (0.2-1.3); Calcium 9.2 mg/dl (8.4-10.2); Carbon Dioxide 32 mmol/L (22.0-30.0); Cholesterol 155 mg/dl (140-200); Glucose 151 mg/dl (74-100); Total Protein,Serum 7.3 g/dl (6.3-8.2); Triglycerides 252 mg/dl (30-150); VLDL Cholesterol 50 mg/dL (0-40)
[2020-03-19 18:14] LABS: Chol/HDL Ratio 3.2 (1-3.5); HDL Cholesterol 48 mg/dl (40-60)
[2020-03-19 18:18] LABS: Blood Urea Nitrogen 19 mg/dl (9-20); Estimated Glomerular Filt Rate 78 ml/min (>60); GFR (African American) 94 ML/MIN (>60)
[2020-03-19 18:24] LABS: Direct LDL Cholesterol 62.93 mg/dL (100-129)
== END ==
PROVIDERS: Visit Provider Nurse Practitioner Family
DX: E78.5 Hyperlipidemia, unspecified (principal); I10 Essential (primary) hypertension; E11.42 Type 2 diabetes mellitus with diabetic polyneuropathy; J44.1 Chronic obstructive pulmonary disease with (acute) exacerbation; Z79.84 Long term (current) use of oral hypoglycemic drugs
CPT/HCPCS: 36415; 80053; 80061; 82043; 82570; 83036; 85025

== ENCOUNTER → 2020-03-25 09:46 | Outpatient (CLI) | payer OTHER, SELFPAY | PROVIDERS: PCP Internal Medicine Adolescent Medicine; Visit Provider Nurse Practitioner Family | DX: R06.09 Other forms of dyspnea (principal) | CPT/HCPCS: 94060; 94727; 94729 ==

== ENCOUNTER 2021-03-15 09:30 | Outpatient (RCR) | payer OTHER, SELFPAY ==
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
== END 2021-03-15 09:35 | disposition home or self-care (01) ==
LOC: PT 09:30
PROVIDERS: PCP Internal Medicine Adolescent Medicine; Visit Provider Nurse Practitioner Family
DX: S51.802D Unspecified open wound of left forearm, subsequent encounter (principal)
CPT/HCPCS: 97162; 97597

== ENCOUNTER → 2021-07-11 17:18 | Outpatient (CLI) | payer OTHER, SELFPAY | PROVIDERS: PCP Nurse Practitioner Family; Visit Provider Nurse Practitioner Family | DX: Z20.822 Contact with and (suspected) exposure to COVID-19 (principal) ==

== ENCOUNTER 2021-07-11 17:36 | Inpatient (IN) | payer OTHER, SELFPAY ==
[2021-07-11] VITALS (14 sets, daily range): BP systolic 107–149; BP diastolic 69–89; PULSE 80–96; RESP 15–34; TEMP 36.7–37.1; O2SAT 74–94; BMI 39.0; BMI 37.6
[2021-07-11 17:54] LABS: Influenza A, PCR Not Detected (NotDetected); Influenza B, PCR Not Detected (NotDetected)
--- NOTE | 2021-07-11 18:10 | XR_ITS ---
PROCEDURE INFORMATION: Exam: XR Chest Exam date and time: 07/11/2021 6:10 PM Age: 56 years old Clinical indication: Cough and shortness of breath; Additional info: R/O covid, cough, SOA, low o2 sat TECHNIQUE: Imaging protocol: XR of the chest. Views: 1 view. COMPARISON: CR XR CHEST 2V 10/28/2019 4:02 PM FINDINGS: Tubes, catheters and devices: Two metallic structures project over the right medial chest. Recommend clinical correlation for something external to the patient. Lungs: Mild bibasilar atelectasis. Pleural spaces: Unremarkable. No pleural effusion. No pneumothorax. Heart/Mediastinum: Unremarkable. No cardiomegaly. Bones/joints: Unremarkable. IMPRESSION: Two metallic structures project over the right medial chest. Recommend clinical correlation for something external to the patient. Mild bibasilar atelectasis.
[2021-07-11 18:14] LABS: ABG Base Excess -0.7 mmol/L (-2.4-2.3); ABG HCO3 23.7 mmhg (22.0-26.0); ABG Oxygen Saturation 96 % (90-100); ABG PH 7.42 mmol/L (7.35-7.45); ABG PO2 77.8 mmhg (80-100); ABG TCO2 24.8 mmhg (23-27); Allen's Test Acceptable; Oxygen 100 %
[2021-07-11 18:15] LABS: Source Left Radial
[2021-07-11 18:19] LABS: Coronavirus 19, PCR Detected (NotDetected)
--- NOTE | 2021-07-11 18:23 | HMH.EDGENADL ---
ED Disposition Clinical Impression: Pneumonia due to COVID-19 virus, Hyperglycemia Respiratory failure with hypoxia Qualifiers: Chronicity: acute Qualified Code(s): J96.01 - Acute respiratory failure with hypoxia Disposition: Admitted As Inpatient Condition on Discharge: Serious Referrals: Mayra Williamson APRN [Primary Care Provider] - - Critical Care Critical Care Time: No Attestation: On 07/11/21, the high probability of a clinically significant, sudden or life threatening deterioration of the following system(s) required my full and direct attention, intervention and personal management. The time I documented below is in addition to time spent performing reported procedures but includes the following listed in this critical care notation. Medical Decision Making - [place] Inquiry Pt receiving controlled substance: No Vital Signs: 07/11/21 17:37 Temperature 98.7 F Temperature Source Oral Pulse Rate [Right Radial] 95 H Respiratory Rate 34 H Blood Pressure [Right Arm] 121/76 Blood Pressure Mean [Right Arm] 91 Blood Pressure Source [Right Arm] Automatic Cuff Blood Pressure Position [Right Arm] Sitting 02 Sat by Pulse Oximetry 74 L Oxygen Delivery Method Room Air - Lab Data Lab Results 07/11/21 17:32: SARS-CoV-2 (PCR) Detected A, Influenza A Untype (PCR) Not detected, Influenza Type B (PCR) Not detected 07/11/21 18:00: WBC 12.6 H, RBC 4.17 L, Hgb 13.0 L, Hct 42.5, MCV 101.8 H, MCH 31.2, MCHC 30.6 L, RDW 14.5, Plt Count 399, MPV 9.5, Neut % (Auto) 87.9 H, Lymph % (Auto) 9.8 L, [place] % (Auto) 1.0 L, Eos % (Auto) 0.2, Baso % (Auto) 1.1, Neut # (Auto) 11.1 H, Lymph # (Auto) 1.2, [place] # (Auto) 0.1, Eos # (Auto) 0.0, Baso # (Auto) 0.1, Total Counted 100, Neutrophils % (Manual) 81 H, Band Neutrophils % 9.0 H, Lymphocytes % (Manual) 10, Platelet Estimate Normal, Hypochromasia 2+, Macrocytosis 1+, Rouleaux 1+ 07/11/21 18:00: Sodium 140, Potassium 4.4, Chloride 98, Carbon Dioxide 29, Anion Gap 17.4 H, BUN 25 H, Creatinine 0.90, Estimated Creat Clear 165, Estimated GFR 87, Est GFR ( Amer) 106, Glucose 258 H, Calcium 8.7, Total Bilirubin 1.7 H, AST 45, ALT 45, Alkaline Phosphatase 78, Total Protein 7.7, Albumin 4.2, Globulin 3.5 H, Albumin/Globulin Ratio 1.2 07/11/21 18:00: Lactate 2.7 H 07/11/21 18:09: Specimen Source Left radial, O2 % 100, ABG pH 7.42, ABG pCO2 37.0, ABG pO2 77.8 L, ABG HCO3 23.7, ABG Total CO2 24.8, ABG O2 Saturation 96, ABG Base Excess -0.7, Reynaldo Test Acceptable Result diagrams: 07/11/21 18:00 07/11/21 18:00 Orders (Tests/Meds): ED MEDICATIONS Generic Name Dose Route Start Last Admin Trade Name Merry PRN Reason Stop Dose Admin Ceftriaxone Sodium 1 gm/ 50 mls @ 100 mls/hr 07/11/21 19:15 07/11/21 19:25 Sodium Chloride IV 07/25/21 19:14 100 mls/hr Q24H ABIODUN Administration Azithromycin 500 mg/ Sodium 250 mls @ 250 mls/hr 07/11/21 19:15 Chloride IV 07/25/21 19:14 Q24H ABIODUN Discontinued Medications Generic Name Dose Route Start Last Admin Trade Name Merry PRN Reason Stop Dose Admin Dexamethasone Sodium Phosphate 10 mg 07/11/21 18:31 07/11/21 18:49 Dexamethasone 4mg/Ml 1ml Vial IV 07/11/21 18:32 10 mg ONCE ONE Administration Iopamidol 70 ml 07/11/21 19:04 07/11/21 19:06 Iopamidol-370 (76%);100ml Bottle IV 07/11/21 19:05 70 ml ONCE ONE Administration Sodium Chloride 40 ml 07/11/21 19:04 07/11/21 19:06 0.9 % Sodium Chloride 50 Ml Vial IV 07/11/21 19:05 40 ml ONCE ONE Administration Sodium Chloride 10 ml 07/11/21 19:04 07/11/21 19:06 Sodium Chloride 0.9% 10ml Syr (Rad Only) IV 07/11/21 19:05 10 ml ONCE ONE Administration ORDERS Category Date Time Status Blood Culture Stat Micro 07/11/21 18:00 Received - CT Data CT Scan: Chest (CTA) Time Received: 19:[address] Reviewed: Yes: I have viewed the radiologist's interpretation Findings Narrative: PROCEDURE INFORMATION: Exam: CTA Chest With Contrast Exam
[2021-07-11 18:27] LABS: Chloride 98 mmol/L (98-107); Potassium 4.4 mmoL/L (3.5-5.1); Sodium 140 mmol/L (136-145)
[2021-07-11 18:28] LABS: Basophils # 0.1 K/mm3 (0-0.2); Basophils % 1.1 % (0.1-2.0); Eosinophils % 0.2 % (0.1-12.0); Hematocrit 42.5 % (42.0-52.0); Lymphocytes # 1.2 K/mm3 (0.7-4.5); Lymphocytes % 9.8 % (10-50); Mean Corpuscular HGB Conc 30.6 g/dL (31.8-35.4); Mean Corpuscular Hemoglobin 31.2 pg (27.0-31.2); Mean Corpuscular Volume 101.8 fl (80-94); Mean Platelet Volume 9.5 fl (7.4-10.4); Monocytes # 0.1 K/mm3 (0.1-1.0); Neutrophils # 11.1 K/mm3 (1.8-7.8); Neutrophils % 87.9 % (37.0-80.0); Platelet Count 399 K/mm3 (142-424); Red Blood Count 4.17 M/mm3 (4.60-6.20); Red Cell Distribution Width 14.5 % (11.5-17.5); White Blood Count 12.6 K/mm3 (4.8-10.8)
[2021-07-11 18:30] LABS: Alanine Aminotransferase 45 U/L (12-78); Albumin Level 4.2 g/dl (3.5-5.0); Albumin/Globulin Ratio 1.2 (1.1-1.8); Alkaline Phosphatase 78 U/L (38-126); Anion Gap 17.4 mEq/L (5-15); Aspartate Amino Transferase 45 U/L (17-59); Bilirubin,Total 1.7 mg/dl (0.2-1.3); Blood Urea Nitrogen 25 mg/dl (9-20); Calcium 8.7 mg/dl (8.4-10.2); Carbon Dioxide 29 mmol/L (22.0-30.0); Creatinine Clearance Estimated 165 mL/min (50-200); Estimated Glomerular Filt Rate 87 ml/min (>60); GFR (African American) 106 ML/MIN (>60); Globulin 3.5 g/dL (1.3-3.2); Glucose 258 mg/dl (74-100); Total Protein,Serum 7.7 g/dl (6.3-8.2)
[2021-07-11 18:31] LABS: Lactic Acid 2.7 mmol/L (0.7-2.1)
[2021-07-11 18:33] LABS: MANUAL DIFFERENTIAL MANUAL DIFFERENTIAL (MANUAL DIFF)
--- NOTE | 2021-07-11 18:33 | CT_ITS ---
PROCEDURE INFORMATION: Exam: CTA Chest With Contrast Exam date and time: 07/11/2021 6:33 PM Age: 56 years old Clinical indication: Cough and shortness of breath and other: Covid 19; Additional info: Hypoxic resp failure, covid 19 TECHNIQUE: Imaging protocol: Computed tomographic angiography of the chest with contrast. 3D rendering (Not supervised by radiologist): MIP and/or 3D reconstructed images were created by the technologist. Radiation optimization: All CT scans at this facility use at least one of these dose optimization techniques: automated exposure control; mA and/or kV adjustment per patient size (includes targeted exams where dose is matched to clinical indication); or iterative reconstruction. Contrast material: ISOVUE 370; Contrast volume: 70 ml; Contrast route: INTRAVENOUS (IV); COMPARISON: CR XR CHEST PORTABLE 07/11/2021 6:18 PM FINDINGS: Pulmonary arteries: No PE to the segmetnal level. Aorta: Unremarkable. No aortic aneurysm. Lungs: Moderate bilateral airspace disease. Pleural spaces: Unremarkable. No pneumothorax. No pleural effusion. Heart: Coronary artery calcifications. Lymph nodes: Unremarkable. No enlarged lymph nodes. Liver: Mild hepatic hypoattenuation. Bones/joints: Unremarkable. No acute fracture. Soft tissues: Unremarkable. Other findings: Gall stones. IMPRESSION: 1. No PE to the segmetnal level. 2. Moderate bilateral airspace disease compatiple with pneumonia. 3. Gall stones.
[2021-07-11 18:47] LABS: Hypochromasia 2+; Lymphocytes % 10 % (10-50); Macrocytosis 1+; Neutrophils % 81 % (42-76); Platelet Estimate Normal; Rouleaux 1+; Total Cells Counted 100
--- NOTE | 2021-07-11 19:29 | PC.NURSE ---
spoke with patient and . obtained water per request. adjusted HOB. at bedside. dr roger leon
--- NOTE | 2021-07-11 19:42 | PC.NURSE ---
speaking with MD Sasha at this time
[2021-07-11 22:14] LABS: Reflex Lactic Add Lactic Reflex
[2021-07-11 22:38] LABS: Lactic Acid Follow Up (RFLX 1) 1.6 mmol/L (0.7-2.1)
[2021-07-12] VITALS (12 sets, daily range): BP systolic 117–165; BP diastolic 55–87; PULSE 60–100; RESP 18–24; TEMP 36.4–36.9; O2SAT 88–99; BMI 37.6
--- NOTE | 2021-07-12 04:52 | PC.NURSE ---
pt admitted 07/11 for + Covid Pneumonia. pt arrived on non rebreather, attempted to switch to nasal cannula at 5L and was unable to keep sats above 85%, non-rebreather placed and order obtained for vapotherm, pt has been on vapotherm 30/100 and o2 sats have been 93 to 100 percent. pt noted to have some occassional sleep apnea through the night. pt with productive cough at times. VSS, NSR.
[2021-07-12 06:24] LABS: Alanine Aminotransferase 34 U/L (12-78); Albumin Level 3.6 g/dl (3.5-5.0); Albumin/Globulin Ratio 1.1 (1.1-1.8); Alkaline Phosphatase 65 U/L (38-126); Anion Gap 9.5 mEq/L (5-15); Aspartate Amino Transferase 36 U/L (17-59); Bilirubin,Total 1.1 mg/dl (0.2-1.3); Blood Urea Nitrogen 26 mg/dl (9-20); Calcium 8.1 mg/dl (8.4-10.2); Carbon Dioxide 32 mmol/L (22.0-30.0); Chloride 100 mmol/L (98-107); Creatinine Clearance Estimated 178 mL/min (50-200); Estimated Glomerular Filt Rate 100 ml/min (>60); GFR (African American) 121 ML/MIN (>60); Globulin 3.4 g/dL (1.3-3.2); Glucose 244 mg/dl (74-100); Potassium 4.5 mmoL/L (3.5-5.1); Sodium 137 mmol/L (136-145)
[2021-07-12 06:42] LABS: Basophils # 0.1 K/mm3 (0-0.2); Basophils % 0.7 % (0.1-2.0); Eosinophils % 0.3 % (0.1-12.0); Hematocrit 38.7 % (42.0-52.0); Hemoglobin 11.9 g/dL (14.1-18.0); Lymphocytes # 1.5 K/mm3 (0.7-4.5); Lymphocytes % 11.2 % (10-50); Mean Corpuscular HGB Conc 30.7 g/dL (31.8-35.4); Mean Corpuscular Hemoglobin 31.2 pg (27.0-31.2); Mean Corpuscular Volume 101.9 fl (80-94); Mean Platelet Volume 9.5 fl (7.4-10.4); Monocytes # 0.2 K/mm3 (0.1-1.0); Monocytes % 1.4 % (1.7-9.3); Neutrophils # 11.9 K/mm3 (1.8-7.8); Neutrophils % 86.4 % (37.0-80.0); Platelet Count 390 K/mm3 (142-424); Red Blood Count 3.79 M/mm3 (4.60-6.20); Red Cell Distribution Width 14.4 % (11.5-17.5); White Blood Count 13.7 K/mm3 (4.8-10.8)
[2021-07-12 06:46] LABS: MANUAL DIFFERENTIAL MANUAL DIFFERENTIAL (MANUAL DIFF)
--- NOTE | 2021-07-12 07:41 | P.CONPHA_ITS ---
[facility] Pharmacy VTE Monitoring - Patient Demographics Admission date: 07/11/21 Report Date: 07/12/21 Time: 07:41 Allergies/Adverse Reactions: Patient Allergies No Known Allergies Allergy (Verified 07/11/21 21:54) Height: 1.8 m Weight: 122.016 kg Patient Problems: Current Active Problems Pneumonia due to COVID-19 virus (Acute) Respiratory failure with hypoxia (Acute) Hyperglycemia (Acute) - VTE Risk Labs: VTE Related Lab Results Hgb 11.9 g/dL (14.1-18.0) L 07/12/21 05:40 Hct 38.7 % (42.0-52.0) L 07/12/21 05:40 Plt Count 390 K/mm3 (142-424) 07/12/21 05:40 BUN 26 mg/dl (9-20) H 07/12/21 05:40 Creatinine 0.80 mg/dl (0.66-1.25) 07/12/21 05:40 Estimated Creat Clear 178 mL/min (50-200) 07/12/21 05:40 Was VTE Risk Assessment Performed: Yes VTE Risk Level: Moderate Risk - Prophylaxis VTE Prophylaxis Ordered?: Yes Types of VTE Prophylaxis: TEDS Knee High, Pharmacological Location of Applied Device: Bilateral Lower Extremeties Pharmacologic Type: Enoxaparin
[2021-07-12 07:43] LABS: Lymphocytes % 11 % (10-50); Monocytes % 1 % (2-9); Neutrophils % 88 % (42-76); Total Cells Counted 100
[2021-07-12 07:44] LABS: Hypochromasia 3+; Macrocytosis 2+; Platelet Estimate Normal
--- NOTE | 2021-07-12 07:50 | HMH.PHAINT ---
MEDICATION RECONCILIATION COMPLETED ON PATIENT USING EXTERNAL FILL HISTORY FROM PHARMACY. -DONTAE KAPLAN, FELICIAD
[2021-07-12 10:00] LABS: Hemoglobin A1C 7.1 % (4.0-6.0)
--- NOTE | 2021-07-12 10:52 | HMH.HP ---
*Admission Date: 07/11/21 *Chief complaint: Cough and shortness of air *History of present illness: 56-year-old white male with history of COPD, chronic bronchitis and heavy tobacco use who is unvaccinated for COVID-19 who 4 days ago was seen in our offices with coughing congestion, did not have a history of Covid exposure, was treated with antibiotics and steroids and really did not improve much, over the next couple of days did realize he been exposed to Covid and came to the emergency department on July 12 to be tested but was noted to be dyspneic, and hypoxic, sent over to the emergency department, found to have Covid pneumonia on chest x-ray and CT scanning. No evidence of PE but was hypoxic, placed on Vapotherm and placed in the COVID intensive care unit. This morning feels better, no complaints of nausea or vomiting, feels less short of air on Vapotherm administration. [facility] History I have reviewed the patient's past medical history: Yes Medical History: Reports:: Chronic Obstructive Pulmonary Disease (COPD), Diabetes Mellitus Type 1, Diabetes Mellitus Type 2, Hyperlipidemia, Hypertension *Have you ever received a pneumonia vaccine?: No *Have you received a flu vaccine this season?: No Other Surgeries: Yes: No Previous Surgery, Colonoscopy Amputation: No Fractures: No - *Social History Last grade of school completed: 11th or 12th Smoking Status: Former smoker Tobacco Type: cigarettes #Yrs smoked (if former smoker): 27 Alcohol Intake: current Alcohol Intake Frequency:: 3 or more drinks per day Substance Use Type: denies use *Occupational Status:: employed Housing: house Household Members: significant other *Travel in the last 8 weeks: None Family Hx:: Other Meds Home Medications Medication Instructions Recorded Confirmed Type meloxicam 7.5 mg tablet 7.5 mg PO HS 03/13/19 07/11/21 History omeprazole 20 mg capsule,delayed 20 mg PO HS 03/13/19 07/11/21 History release albuterol sulfate 90 mcg/actuation 2 puffs IH Q4HP PRN 11/05/19 07/12/21 History aerosol inhaler Atorvastatin Calcium [Lipitor 40mg 40 mg PO HS 07/12/21 07/12/21 History Tab] Doxycycline Monohydrate 100 mg PO BID 07/12/21 07/12/21 History [Doxycycline Amelia 100mg Tab] Glycopyrrolate/Formoterol Fum 2 puffs IH BID 07/12/21 07/12/21 History [Bevespi Aerosphere Inhaler] Losartan Potassium [Cozaar 100mg 100 mg PO DAILY 07/12/21 07/12/21 History Tablets] Metformin HCl [Metformin 1000mg 1,000 mg PO BIDWMEAL 07/12/21 07/12/21 History Tablets] Allergies Allergy/AdvReac Type Severity Reaction Status Date / Time No Known Allergies Allergy Verified 07/11/21 21:54 Exam Vital signs and Labs for Last 24 Hours: Temp Pulse Resp BP Pulse Ox 97.8 F 83 24 117/55 L 94 L 07/12/21 03:48 07/12/21 08:00 07/12/21 08:00 07/12/21 08:00 07/12/21 08:00 Laboratory Results - last 24 hr 07/11/21 17:32: SARS-CoV-2 (PCR) Detected A, Influenza A Untype (PCR) Not detected, Influenza Type B (PCR) Not detected 07/11/21 18:00: WBC 12.6 H, RBC 4.17 L, Hgb 13.0 L, Hct 42.5, MCV 101.8 H, MCH 31.2, MCHC 30.6 L, RDW 14.5, Plt Count 399, MPV 9.5, Neut % (Auto) 87.9 H, Lymph % (Auto) 9.8 L, [place] % (Auto) 1.0 L, Eos % (Auto) 0.2, Baso % (Auto) 1.1, Neut # (Auto) 11.1 H, Lymph # (Auto) 1.2, [place] # (Auto) 0.1, Eos # (Auto) 0.0, Baso # (Auto) 0.1, Total Counted 100, Neutrophils % (Manual) 81 H, Band Neutrophils % 9.0 H, Lymphocytes % (Manual) 10, Platelet Estimate Normal, Hypochromasia 2+, Macrocytosis 1+, Rouleaux 1+ 07/11/21 18:00: Sodium 140, Potassium 4.4, Chloride 98, Carbon Dioxide 29, Anion Gap 17.4 H, BUN 25 H, Creatinine 0.90, Estimated Creat Clear 165, Estimated GFR 87, Est GFR ( Amer) 106, Glucose 258 H, Calcium 8.7, Total Bilirubin 1.7 H, AST 45, ALT 45, Alkaline Phosphatase 78, Total Protein 7.7, Albumin 4.2, Globulin 3.5 H, Albumin/Globulin Ratio 1.2 07/11/21 18:00: Lactate 2.7 H 07/11/21 18:09: Specimen Source Left radial, O2
[2021-07-12 11:31] LABS: POC Glucose,Bedside 236 (70-110)
[2021-07-12 11:31] LABS: POC Glucose,Bedside 202 (70-110)
[2021-07-12 17:12] LABS: POC Glucose,Bedside 241 (70-110)
[2021-07-12 21:37] LABS: POC Glucose,Bedside 176 (70-110)
[2021-07-13] VITALS (12 sets, daily range): BP systolic 107–177; BP diastolic 52–92; PULSE 70–92; RESP 17–26; TEMP 36.7–37.1; O2SAT 88–95; BMI 37.6
--- NOTE | 2021-07-13 08:36 | P.PN_ITS ---
Internal Medicine - PN: Subj *Date: 07/13/21 *Time: 08:36 Interval history: Patient remains hemodynamically stable this morning. Proning intermittently with improvement in his saturations to mid 90s. Still on maximal Vapotherm. Remains afebrile. No nausea or vomiting. Tolerating p.o. intake. Exam Vital signs and Labs for Last 24 Hours: Temp Pulse Resp BP Pulse Ox 98.1 F 74 17 177/92 H 90 L 07/13/21 08:00 07/13/21 08:00 07/13/21 08:00 07/13/21 08:00 07/13/21 08:00 Laboratory Results - last 24 hr 07/11/21 22:04: POC Glucose 202 H 07/12/21 05:40: Hemoglobin A1c 7.1 H 07/12/21 06:36: POC Glucose 236 H 07/12/21 16:41: POC Glucose 241 H 07/12/21 20:57: POC Glucose 176 H I & O for Last 24 hours: Intake & Output 07/11/21 07/11/21 07/12/21 07/13/21 00:59 23:59 23:59 23:59 Intake Total 2751 / 2751 60 / 60 Output Total 801 / 801 Balance 1950 / 1950 60 / 60 Weight 122 kg 122.1 kg Narrative: - Constitutional Mild distress on Vapotherm nasal cannula - *Routine HEENT Exam Head: Present: normocephalic Eye: Present: EOMI, PERRL ENT: Present: mucous membranes moist - *Routine Neck Exam Present: supple. Absent: lymphadenopathy - *Routine Respiratory Exam Present: CTA bilaterally - *Routine Cardiovascular Exam Present: RRR - *Routine Abdominal Exam Present: soft, normoactive bowel sounds. Absent: tenderness - *Routine Extremities Exam Absent: cyanosis, clubbing, edema - *Routine Skin Exam Present: warm. Absent: rash - *Routine Neurological Exam Present: alert, oriented X3 Assessment and Plan (1) Pneumonia due to COVID-19 virus Status: Acute Category: Medical Code(s): U07.1 - COVID-19; J12.82 - Pneumonia due to coronavirus disease 2019 (2) Respiratory failure with hypoxia Status: Acute Qualifiers: Chronicity: acute Qualified Code(s): J96.01 - Acute respiratory failure wit h hypoxia Category: Medical Code(s): J96.91 - Respiratory failure, unspecified with hypoxia (3) Essential hypertension Status: Chronic Category: Medical Code(s): I10 - Essential (primary) hypertension (4) Diabetes mellitus Status: Chronic Category: Medical Code(s): E11.9 - Type 2 diabetes mellitus without complications (5) Obesity, Class II, BMI 35-39.9 Status: Chronic Category: Medical Code(s): E66.9 - Obesity, unspecified - Assessment and plan all Dx Assessment and Plan for all problems:: 56-year-old male admitted for worsening hypoxemic respiratory failure secondary to COVID-19 pneumonia. Initiated on oxygen, tolerating maximal Vapotherm at this time. Problems addressed as follows COVID-19 pneumonia Acute hypoxemic respiratory failure -Treatment per protocol with remdesivir, baricitinib, steroids, vitamin cocktail. -Prophylactic Lovenox -DuoNebs every 6hrs -Continue noninvasive oxygenation with goal saturation greater 90%. Prone if able. Hyperglycemia/diabetes -Sliding scale insulin. Complicates his risk of worsening/complex Covid course. Obesity, complicates all aspects of his care Diabetic diet Full code
[2021-07-13 10:17] LABS: Chloride 103 mmol/L (98-107); Potassium 3.8 mmoL/L (3.5-5.1); Sodium 141 mmol/L (136-145)
[2021-07-13 10:19] LABS: Blood Urea Nitrogen 20 mg/dl (9-20); Creatinine Clearance Estimated 204 mL/min (50-200); Estimated Glomerular Filt Rate 117 ml/min (>60); GFR (African American) 141 ML/MIN (>60)
[2021-07-13 10:20] LABS: Alanine Aminotransferase 33 U/L (12-78); Albumin Level 3.6 g/dl (3.5-5.0); Albumin/Globulin Ratio 1.1 (1.1-1.8); Alkaline Phosphatase 75 U/L (38-126); Anion Gap 9.8 mEq/L (5-15); Aspartate Amino Transferase 41 U/L (17-59); Bilirubin,Total 0.9 mg/dl (0.2-1.3); Carbon Dioxide 32 mmol/L (22.0-30.0); Globulin 3.3 g/dL (1.3-3.2); Glucose 149 mg/dl (74-100); Magnesium 2.5 mg/dl (1.6-2.3); Total Protein,Serum 6.9 g/dl (6.3-8.2)
[2021-07-13 11:21] LABS: POC Glucose,Bedside 137 (70-110)
[2021-07-13 16:33] LABS: POC Glucose,Bedside 208 (70-110)
[2021-07-13 21:17] LABS: POC Glucose,Bedside 149 (70-110)
[2021-07-14] VITALS (12 sets, daily range): BP systolic 124–150; BP diastolic 55–72; PULSE 56–95; RESP 18–25; TEMP 36.6–36.9; O2SAT 85–97; BMI 38.0
--- NOTE | 2021-07-14 04:37 | PC.NURSE ---
no acute changes overnight. pt continues on vapotherm, 40L 100%. Pt has proned for a majority of the shift, sats increase to high 90s when doing so. Sats are otherwise in the low 90s. No c/o pain or difficulty breathing. able to make needs known to staff, VSS, call light in reach, no concerns at this time.
[2021-07-14 05:41] LABS: POC Glucose,Bedside 220 (70-110)
[2021-07-14 06:38] LABS: Alanine Aminotransferase 34 U/L (12-78); Albumin Level 3.2 g/dl (3.5-5.0); Alkaline Phosphatase 70 U/L (38-126); Anion Gap 10.5 mEq/L (5-15); Aspartate Amino Transferase 46 U/L (17-59); Bilirubin,Total 0.9 mg/dl (0.2-1.3); Blood Urea Nitrogen 19 mg/dl (9-20); Calcium 7.8 mg/dl (8.4-10.2); Carbon Dioxide 32 mmol/L (22.0-30.0); Chloride 101 mmol/L (98-107); Creatinine Clearance Estimated 205 mL/min (50-200); Estimated Glomerular Filt Rate 117 ml/min (>60); GFR (African American) 141 ML/MIN (>60); Globulin 3.2 g/dL (1.3-3.2); Glucose 203 mg/dl (74-100); Magnesium 2.5 mg/dl (1.6-2.3); Potassium 4.5 mmoL/L (3.5-5.1); Sodium 139 mmol/L (136-145); Total Protein,Serum 6.4 g/dl (6.3-8.2)
[2021-07-14 06:47] LABS: Basophils # 0.2 K/mm3 (0-0.2); Basophils % 1.2 % (0.1-2.0); Eosinophils # 0.1 K/mm3 (0.0-0.4); Eosinophils % 0.6 % (0.1-12.0); Hemoglobin 11.1 g/dL (14.1-18.0); Lymphocytes # 1.1 K/mm3 (0.7-4.5); Lymphocytes % 5.7 % (10-50); Mean Corpuscular HGB Conc 31.7 g/dL (31.8-35.4); Mean Corpuscular Hemoglobin 31.5 pg (27.0-31.2); Mean Corpuscular Volume 99.2 fl (80-94); Mean Platelet Volume 8.5 fl (7.4-10.4); Monocytes # 0.3 K/mm3 (0.1-1.0); Monocytes % 1.7 % (1.7-9.3); Neutrophils # 18.1 K/mm3 (1.8-7.8); Neutrophils % 90.9 % (37.0-80.0); Platelet Count 425 K/mm3 (142-424); Red Blood Count 3.53 M/mm3 (4.60-6.20); Red Cell Distribution Width 14.1 % (11.5-17.5); White Blood Count 19.9 K/mm3 (4.8-10.8)
[2021-07-14 06:48] LABS: MANUAL DIFFERENTIAL MANUAL DIFFERENTIAL (MANUAL DIFF)
--- NOTE | 2021-07-14 07:41 | HMH.ACPN2 ---
Internal Medicine - PN: Subj *Date: 07/14/21 *Time: 07:41 Interval history: Patient slept comfortably. His FiO2 has gone up just a little bit to 40%, but O2 saturations remain acceptable. He is alert, and oriented. Exam Vital signs and Labs for Last 24 Hours: Temp Pulse Resp BP Pulse Ox 98 F 71 18 130/55 L 96 07/14/21 04:00 07/14/21 06:13 07/14/21 04:00 07/14/21 04:00 07/14/21 06:13 Laboratory Results - last 24 hr 07/13/21 09:35: Sodium 141, Potassium 3.8, Chloride 103, Carbon Dioxide 32 H, Anion Gap 9.8, BUN 20, Creatinine 0.70, Estimated Creat Clear 204, Estimated GFR 117, Est GFR ( Amer) 141, Glucose 149 H, Calcium 8.0 L, Magnesium 2.5 H, Total Bilirubin 0.9, AST 41, ALT 33, Alkaline Phosphatase 75, Total Protein 6.9, Albumin 3.6, Globulin 3.3 H, Albumin/Globulin Ratio 1.1 07/13/21 11:14: POC Glucose 137 H 07/13/21 16:25: POC Glucose 208 H 07/13/21 20:12: POC Glucose 149 H 07/14/21 05:22: WBC 19.9 H D, RBC 3.53 L, Hgb 11.1 L, Hct 35.0 L, MCV 99.2 H, MCH 31.5 H, MCHC 31.7 L, RDW 14.1, Plt Count 425 H, MPV 8.5, Neut % (Auto) 90.9 H, Lymph % (Auto) 5.7 L, [place] % (Auto) 1.7, Eos % (Auto) 0.6, Baso % (Auto) 1.2, Neut # (Auto) 18.1 H, Lymph # (Auto) 1.1, [place] # (Auto) 0.3, Eos # (Auto) 0.1, Baso # (Auto) 0.2 07/14/21 05:22: Sodium 139, Potassium 4.5, Chloride 101, Carbon Dioxide 32 H, Anion Gap 10.5, BUN 19, Creatinine 0.70, Estimated Creat Clear 205, Estimated GFR 117, Est GFR ( Amer) 141, Glucose 203 H D, Calcium 7.8 L, Magnesium 2.5 H, Total Bilirubin 0.9, AST 46, ALT 34, Alkaline Phosphatase 70, Total Protein 6.4, Albumin 3.2 L D, Globulin 3.2, Albumin/Globulin Ratio 1.0 L 07/14/21 05:23: POC Glucose 220 H I & O for Last 24 hours: Intake & Output 07/11/21 07/12/21 07/13/21 07/14/21 11:59 11:59 11:59 11:59 Intake Total 1487 / 1487 1324 / 1324 510 / 510 Output Total 800 / 800 1325 / 1325 Balance 1486 / 1486 524 / 524 -815 / -815 Weight 269 lb 269 lb 2.951 oz 271 lb 8 oz Microbiology Reports for the Last 24 Hours: Microbiology 07/11/21 18:00 Blood Blood Culture - Preliminary NO GROWTH AFTER 48 HOURS 07/11/21 18:00 Blood Blood Culture - Preliminary NO GROWTH AFTER 48 HOURS 07/12/21 02:25 Sputum - Expectorated Sputum Gram Stain - Final 07/12/21 02:25 Sputum - Expectorated Sputum Sputum Culture - Preliminary Narrative: Patient is alert, pleasant. Oriented x3. Some wheezing in both lower lung pollack, but good air movement, no crackles. Heart rate regular. Abdomen soft, no rash. Neurologically intact, oropharynx clear. Assessment and Plan (1) Pneumonia due to COVID-19 virus Status: Acute Category: Medical Code(s): U07.1 - COVID-19; J12.82 - Pneumonia due to coronavirus disease 2019 (2) Respiratory failure with hypoxia Status: Acute Qualifiers: Chronicity: acute Qualified Code(s): J96.01 - Acute respiratory failure with hypoxia Category: Medical Code(s): J96.91 - Respiratory failure, unspecified with hypoxia (3) Essential hypertension Status: Chronic Category: Medical Code(s): I10 - Essential (primary) hypertension (4) Diabetes mellitus Status: Chronic Category: Medical Code(s): E11.9 - Type 2 diabetes mellitus without complications (5) Obesity, Class II, BMI 35-39.9 Status: Chronic Category: Medical Code(s): E66.9 - Obesity, unspecified - Assessment and plan all Dx Assessment and Plan for all problems:: Overall fairly stable, increased oxygen requirement is slightly concerning. Continue current aggressive therapy. Continue supportive care.
[2021-07-14 08:12] LABS: Lymphocytes % 10 % (10-50); Monocytes % 4 % (2-9); Neutrophils % 84 % (42-76); Platelet Estimate Normal; RBC Morphology Normal; Total Cells Counted 100
--- NOTE | 2021-07-14 11:34 | DIET.NUTRFU ---
Addendum entered by Susi Hunter RD, [place] 07/28/21 15:15: PO intakes 50%, BG moderate-high avg. 230, weight down additional 4#. BID supplements on diet order, please encourage/cue at meal times. Addendum entered by Susi Hunter RD, 07/27/21 13:57: PO intakes 50%, BG moderate-high avg. 175. Weight stable. Addendum entered by Susi Hunter RD, 07/23/21 11:40: PO intakes 75%, BG moderate-high avg. 200, weight not documented past 48h. No changes to regimen at this time, continuing to monitor. Addendum entered by Susi Hunter RD, [place] 07/21/21 11:08: PO intakes 75%, BG moderate-high avg. 215, weight down 13# since admission, supplement increased to BID. Addendum entered by Susi Hunter RD, [place] 07/19/21 18:09: PO intakes 50-75%, BG moderate-high avg. 220, weight down 8#. Once daily supplement added to order. Addendum entered by Susi Hunter 07/16/21 14:43: PO intakes 75-100%, BG moderate avg. 180, weight stable. Original Note: PO intakes 50-75%, BG moderate avg 175, weight up 2# from admission.
[2021-07-14 12:04] LABS: POC Glucose,Bedside 189 (70-110)
[2021-07-14 17:05] LABS: POC Glucose,Bedside 248 (70-110)
[2021-07-15] VITALS (11 sets, daily range): BP systolic 104–140; BP diastolic 43–85; PULSE 68–114; RESP 18–32; TEMP 36.5–37.2; O2SAT 88–94; BMI 37.8
[2021-07-15 01:17] LABS: POC Glucose,Bedside 189 (70-110)
--- NOTE | 2021-07-15 06:34 | PC.NURSE ---
Patient takes his non-rebreather on and off.
[2021-07-15 07:06] LABS: Alanine Aminotransferase 35 U/L (12-78); Albumin Level 3.3 g/dl (3.5-5.0); Alkaline Phosphatase 80 U/L (38-126); Anion Gap 8.2 mEq/L (5-15); Aspartate Amino Transferase 42 U/L (17-59); Blood Urea Nitrogen 18 mg/dl (9-20); Calcium 8.2 mg/dl (8.4-10.2); Carbon Dioxide 33 mmol/L (22.0-30.0); Chloride 100 mmol/L (98-107); Creatinine Clearance Estimated 238 mL/min (50-200); Estimated Glomerular Filt Rate 139 ml/min (>60); GFR (African American) 169 ML/MIN (>60); Globulin 3.4 g/dL (1.3-3.2); Glucose 188 mg/dl (74-100); Potassium 4.2 mmoL/L (3.5-5.1); Sodium 137 mmol/L (136-145); Total Protein,Serum 6.7 g/dl (6.3-8.2)
--- NOTE | 2021-07-15 08:15 | XR_ITS ---
PROCEDURE: XR CHEST PORTABLE CLINICAL HISTORY: f/u icu exam COMPARISON: CR XR CHEST 2V from 10/28/[address] ANGIO CHEST PE PROTOCOL from 07/11/2021 CR XR CHEST PORTABLE from 07/11/2021 FINDINGS: There is cardiomegaly. No definite failure. There is overall diffuse ground-glass attenuation of the right lung and left lower lobe consistent with pneumonia which is worse from 07/11/2021. No acute bony abnormalities. IMPRESSION: Worsening right upper lobe, right lower lobe and left lower lobe pneumonia Dictated by: Reynaldo Issa MD 07/15/2021 14:56 Reynaldo Issa MD in [facility] 07/15/2021 14:56
--- NOTE | 2021-07-15 08:16 | HMH.ACPN2 ---
Internal Medicine - PN: Subj *Date: 07/15/21 *Time: 08:16 Interval history: Patient continues to feel okay except for some nasal congestion and has a mild productive cough. Unfortunately, his oxygen requirement has increased and is now on a nonrebreather mask superimposed over his Vapotherm. He is alert, talkative, pleasant and has been eating his food vigorously. Exam Vital signs and Labs for Last 24 Hours: Temp Pulse Resp BP Pulse Ox 98 F 68 20 127/54 L 92 L 07/15/21 04:00 07/15/21 06:40 07/15/21 04:00 07/15/21 04:00 07/15/21 06:40 Laboratory Results - last 24 hr 07/14/21 11:56: POC Glucose 189 H 07/14/21 16:46: POC Glucose 248 H 07/14/21 19:52: POC Glucose 189 H 07/15/21 05:29: Sodium 137, Potassium 4.2, Chloride 100, Carbon Dioxide 33 H, Anion Gap 8.2, BUN 18, Creatinine 0.60 L, Estimated Creat Clear 238, Estimated GFR 139, Est GFR ( Amer) 169, Glucose 188 H, Calcium 8.2 L, Total Bilirubin 1.0, AST 42, ALT 35, Alkaline Phosphatase 80, Total Protein 6.7, Albumin 3.3 L, Globulin 3.4 H, Albumin/Globulin Ratio 1.0 L I & O for Last 24 hours: Intake & Output 07/12/21 07/13/21 07/14/21 07/15/21 11:59 11:59 11:59 11:59 Intake Total 1487 / 1487 1324 / 1324 870 / 870 480 / 480 Output Total 800 / 800 2075 / 2075 1000 / 1000 Balance 1486 / 1486 524 / 524 -1205 / -1205 -520 / -520 Weight 269 lb 269 lb 2.951 oz 271 lb 8 oz 270 lb Microbiology Reports for the Last 24 Hours: Microbiology 07/14/21 10:30 Sputum - Expectorated Sputum Gram Stain - Final 07/12/21 02:25 Sputum - Expectorated Sputum Gram Stain - Final 07/12/21 02:25 Sputum - Expectorated Sputum Sputum Culture - Final Normal Respiratory Marilia Narrative: Loose rhonchi and crackles in both lung pollack. However symmetric and fairly good air entry. Heart rate regular. Abdomen soft, oropharynx clear. No JVD. No rash, no edema. No neurologic deficits. Assessment and Plan (1) Pneumonia due to COVID-19 virus Status: Acute Category: Medical Code(s): U07.1 - COVID-19; J12.82 - Pneumonia due to coronavirus disease 2018 (2) Respiratory failure with hypoxia Status: Acute Qualifiers: Chronicity: acute Qualified Code(s): J96.01 - Acute respiratory failure with hypoxia Category: Medical Code(s): J96.91 - Respiratory failure, unspecified with hypoxia (3) Essential hypertension Status: Chronic Category: Medical Code(s): I10 - Essential (primary) hypertension (4) Diabetes mellitus Status: Chronic Category: Medical Code(s): E11.9 - Type 2 diabetes mellitus without complications (5) Obesity, Class II, BMI 35-39.9 Status: Chronic Category: Medical Code(s): E66.9 - Obesity, unspecified - Assessment and plan all Dx Assessment and Plan for all problems:: Worsening oxygen requirement. Lungs have some crackly sounds, add bacterial coverage with Levaquin. Lasix trial today. Mucomyst for sputum clearance. Continue oxygen support.
--- NOTE | 2021-07-15 11:35 | HMH.ACPN ---
Internal Medicine - PN: Subj *Date: 07/15/21 *Time: 11:35 Exam Vital signs and Labs for Last 24 Hours: Temp Pulse Resp BP Pulse Ox 98.9 F 99 H 32 H 140/62 88 L 07/15/21 08:00 07/15/21 08:00 07/15/21 08:00 07/15/21 08:00 07/15/21 08:00 Laboratory Results - last 24 hr 07/14/21 11:56: POC Glucose 189 H 07/14/21 16:46: POC Glucose 248 H 07/14/21 19:52: POC Glucose 189 H 07/15/21 05:29: Sodium 137, Potassium 4.2, Chloride 100, Carbon Dioxide 33 H, Anion Gap 8.2, BUN 18, Creatinine 0.60 L, Estimated Creat Clear 238, Estimated GFR 139, Est GFR ( Amer) 169, Glucose 188 H, Calcium 8.2 L, Total Bilirubin 1.0, AST 42, ALT 35, Alkaline Phosphatase 80, Total Protein 6.7, Albumin 3.3 L, Globulin 3.4 H, Albumin/Globulin Ratio 1.0 L I & O for Last 24 hours: Intake & Output 07/12/21 07/13/21 07/14/21 07/15/21 23:59 23:59 23:59 23:59 Intake Total 2751 / 2751 570 / 570 840 / 840 240 / 240 Output Total 801 / 801 825 / 1325 2250 / 2250 0 / 0 Balance 1950 / 1950 -255 / -755 -1410 / -1410 240 / 240 Weight 122 kg 122.1 kg 123.15 kg 122.47 kg Microbiology Reports for the Last 24 Hours: Microbiology 07/14/21 10:30 Sputum - Expectorated Sputum Gram Stain - Final 07/12/21 02:25 Sputum - Expectorated Sputum Gram Stain - Final 07/12/21 02:25 Sputum - Expectorated Sputum Sputum Culture - Final Normal Respiratory Marilia Assessment and Plan (1) Pneumonia due to COVID-19 virus Status: Acute Category: Medical Code(s): U07.1 - COVID-19; J12.82 - Pneumonia due to coronavirus disease 2019 (2) Respiratory failure with hypoxia Status: Acute Qualifiers: Chronicity: acute Qualified Code(s): J96.01 - Acute respiratory failure with hypoxia Category: Medical Code(s): J96.91 - Respiratory failure, unspecified with hypoxia (3) Essential hypertension Status: Chronic Category: Medical Code(s): I10 - Essential (primary) hypertension (4) Diabetes mellitus Status: Chronic Category: Medical Code(s): E11.9 - Type 2 diabetes mellitus without complications (5) Obesity, Class II, BMI 35-39.9 Status: Chronic Category: Medical Code(s): E66.9 - Obesity, unspecified The patient's infection will respond to the chosen ABx?: Yes Is the patient receiving the right drug, dose, and route?: Yes Could a more targeted ABx be ordered?: No (AFEBRILE, CONTINUE CURRENT ABX.)
[2021-07-15 16:48] LABS: POC Glucose,Bedside 176 (70-110)
--- NOTE | 2021-07-15 18:23 | PC.NURSE ---
Pt is alert and oriented x4. He remains on 40L vapotherm with 100% NRB. He was given lasix this morning with 1800 mls of urine out thus far. He states that he does feel like he is breathing a little easier and that he hasn't had to supplement with the NRB as much. Glucose was 186/175 at checks. Covered with SSI. He states he is unable to prone so he lays on his side instead. No complaints voiced this shift.
[2021-07-15 21:13] LABS: POC Glucose,Bedside 160 (70-110)
[2021-07-16] VITALS (14 sets, daily range): BP systolic 107–158; BP diastolic 46–76; PULSE 65–92; RESP 18–24; TEMP 36.6–37.6; O2SAT 85–98; BMI 37.5
--- NOTE | 2021-07-16 03:32 | PC.NURSE ---
pt still on vapotherm 40/100 and non rebreather throughout the night, when patient is resting on left side 02 sats remain lower 90's, when patient is up and ambulating or on side of bed sats drop 83 to 86 percent. pt stated he felt better earlier in the day after lasix was administered.
[2021-07-16 05:47] LABS: Basophils # 0.3 K/mm3 (0-0.2); Basophils % 0.9 % (0.1-2.0); Eosinophils # 0.1 K/mm3 (0.0-0.4); Eosinophils % 0.3 % (0.1-12.0); Hematocrit 35.3 % (42.0-52.0); Hemoglobin 11.2 g/dL (14.1-18.0); Lymphocytes # 1.1 K/mm3 (0.7-4.5); Lymphocytes % 3.2 % (10-50); Mean Corpuscular HGB Conc 31.9 g/dL (31.8-35.4); Mean Corpuscular Hemoglobin 31.4 pg (27.0-31.2); Mean Corpuscular Volume 98.5 fl (80-94); Mean Platelet Volume 9.2 fl (7.4-10.4); Monocytes # 0.4 K/mm3 (0.1-1.0); Monocytes % 1.2 % (1.7-9.3); Neutrophils # 32.9 K/mm3 (1.8-7.8); Neutrophils % 94.4 % (37.0-80.0); Platelet Count 530 K/mm3 (142-424); Red Blood Count 3.58 M/mm3 (4.60-6.20); Red Cell Distribution Width 14.7 % (11.5-17.5); White Blood Count 34.9 K/mm3 (4.8-10.8)
[2021-07-16 05:54] LABS: MANUAL DIFFERENTIAL MANUAL DIFFERENTIAL (MANUAL DIFF)
[2021-07-16 05:56] LABS: Alanine Aminotransferase 36 U/L (12-78); Albumin Level 3.3 g/dl (3.5-5.0); Alkaline Phosphatase 87 U/L (38-126); Anion Gap 10.2 mEq/L (5-15); Aspartate Amino Transferase 39 U/L (17-59); Blood Urea Nitrogen 22 mg/dl (9-20); Calcium 8.3 mg/dl (8.4-10.2); Carbon Dioxide 30 mmol/L (22.0-30.0); Chloride 99 mmol/L (98-107); Creatinine Clearance Estimated 203 mL/min (50-200); Estimated Glomerular Filt Rate 117 ml/min (>60); GFR (African American) 141 ML/MIN (>60); Globulin 3.4 g/dL (1.3-3.2); Glucose 196 mg/dl (74-100); Potassium 4.2 mmoL/L (3.5-5.1); Sodium 135 mmol/L (136-145); Total Protein,Serum 6.7 g/dl (6.3-8.2)
[2021-07-16 06:25] LABS: POC Glucose,Bedside 192 (70-110)
--- NOTE | 2021-07-16 06:51 | HMH.ACPN2 ---
Internal Medicine - PN: Subj *Date: 07/16/21 *Time: 08:35 Interval history: Mr. Mendiola is remained stable overnight. On maximal noninvasive therapy with saturations in the low to mid 90s. Afebrile. Reviewed labs this morning showing increase in white cell count. Cultures reviewed, positive for multiple gram-positive pathogens. Afebrile. Tolerating fair p.o. intake. Laying on his left side on exam this morning with sats 93 to 96%. Denies nausea, vomiting, diarrhea. Exam Vital signs and Labs for Last 24 Hours: Temp Pulse Resp BP Pulse Ox 97.8 F 77 22 139/49 L 92 L 07/16/21 04:00 07/16/21 05:40 07/16/21 04:00 07/16/21 04:00 07/16/21 04:00 Laboratory Results - last 24 hr 07/15/21 05:29: Sodium 137, Potassium 4.2, Chloride 100, Carbon Dioxide 33 H, Anion Gap 8.2, BUN 18, Creatinine 0.60 L, Estimated Creat Clear 238, Estimated GFR 139, Est GFR ( Amer) 169, Glucose 188 H, Calcium 8.2 L, Total Bilirubin 1.0, AST 42, ALT 35, Alkaline Phosphatase 80, Total Protein 6.7, Albumin 3.3 L, Globulin 3.4 H, Albumin/Globulin Ratio 1.0 L 07/15/21 16:25: POC Glucose 176 H 07/15/21 20:53: POC Glucose 160 H 07/16/21 05:20: Sodium 135 L, Potassium 4.2, Chloride 99, Carbon Dioxide 30, Anion Gap 10.2, BUN 22 H, Creatinine 0.70, Estimated Creat Clear 203, Estimated GFR 117, Est GFR ( Amer) 141, Glucose 196 H, Calcium 8.3 L, Total Bilirubin 1.0, AST 39, ALT 36, Alkaline Phosphatase 87, Total Protein 6.7, Albumin 3.3 L, Globulin 3.4 H, Albumin/Globulin Ratio 1.0 L 07/16/21 05:20: WBC 34.9 H* D, RBC 3.58 L, Hgb 11.2 L, Hct 35.3 L, MCV 98.5 H, MCH 31.4 H, MCHC 31.9, RDW 14.7, Plt Count 530 H, MPV 9.2, Neut % (Auto) 94.4 H, Lymph % (Auto) 3.2 L, [place] % (Auto) 1.2 L, Eos % (Auto) 0.3, Baso % (Auto) 0.9, Neut # (Auto) 32.9 H, Lymph # (Auto) 1.1, [place] # (Auto) 0.4, Eos # (Auto) 0.1, Baso # (Auto) 0.3 H 07/16/21 05:33: POC Glucose 192 H I & O for Last 24 hours: Intake & Output 07/13/21 07/14/21 07/15/21 07/16/21 23:59 23:59 23:59 23:59 Intake Total 570 / 570 840 / 840 1300 / 1300 Output Total 825 / 1325 2250 / 2250 2100 / 2100 Balance -255 / -755 -1410 / -1410 -800 / -800 Weight 122.1 kg 123.15 kg 122.47 kg 121.8 kg Narrative: - Constitutional Mild distress on Vapotherm nasal cannula - *Routine HEENT Exam Head: Present: normocephalic Eye: Present: EOMI, PERRL ENT: Present: mucous membranes moist - *Routine Neck Exam Present: supple. Absent: lymphadenopathy - *Routine Respiratory Exam Present: CTA bilaterally, no wheeze or crackles - *Routine Cardiovascular Exam Present: RRR - *Routine Abdominal Exam Present: soft, normoactive bowel sounds. Absent: tenderness - *Routine Extremities Exam Absent: cyanosis, clubbing, edema - *Routine Skin Exam Present: warm. Absent: rash - *Routine Neurological Exam Present: alert, oriented X3 Assessment and Plan (1) Pneumonia due to COVID-19 virus Status: Acute Category: Medical Code(s): U07.1 - COVID-19; J12.82 - Pneumonia due to coronavirus disease 2019 (2) Respiratory failure with hypoxia Status: Acute Qualifiers: Chronicity: acute Qualified Code(s): J96.01 - Acute respiratory failure with hypoxia Category: Medical Code(s): J96.91 - Respiratory failure, unspecified with hypoxia (3) Essential hypertension Status: Chronic Category: Medical Code(s): I10 - Essential (primary) hypertension (4) Diabetes mellitus Status: Chronic Category: Medical Code(s): E11.9 - Type 2 diabetes mellitus without complications (5) Obesity, Class II, BMI 35-39.9 Status: Chronic Category: Medical Code(s): E66.9 - Obesity, unspecified - Assessment and plan all Dx Assessment and Plan for all problems:: 56-year-old male admitted for worsening hypoxemic respiratory failure secondary to COVID-19 pneumonia. Initiated on oxygen, tolerating maximal Vapotherm at this time. Problems addressed as follows COVID-19 pneumonia Acute hypoxe
--- NOTE | 2021-07-16 08:52 | HMH.PHACONS ---
- Pharmacy Consult Date: 07/16/21 Time: 08:53 Referring provider: DR TURNER Reason for Consult:: VANCOMYCIN DOSING CONSULT Allergies and ADEs:: Allergies Allergy/AdvReac Type Severity Reaction Status Date / Time No Known Allergies Allergy Verified 07/11/21 21:54 Home Medications:: Home Medications Medication Instructions Recorded Confirmed Type meloxicam 7.5 mg tablet 7.5 mg PO HS 03/13/19 07/11/21 History omeprazole 20 mg capsule,delayed 20 mg PO HS 03/13/19 07/11/21 History release albuterol sulfate 90 mcg/actuation 2 puffs IH Q4HP PRN 11/05/19 07/12/21 History aerosol inhaler Atorvastatin Calcium [Lipitor 40mg 40 mg PO HS 07/12/21 07/12/21 History Tab] Doxycycline Monohydrate 100 mg PO BID 07/12/21 07/12/21 History [Doxycycline Clare 100mg Tab] Glycopyrrolate/Formoterol Fum 2 puffs IH BID 07/12/21 07/12/21 History [Bevespi Aerosphere Inhaler] Losartan Potassium [Cozaar 100mg 100 mg PO DAILY 07/12/21 07/12/21 History Tablets] Metformin HCl [Metformin 1000mg 1,000 mg PO BIDWMEAL 07/12/21 07/12/21 History Tablets] Height: 1.8 m Weight: 121.8 kg Laboratory Results:: Laboratory Results - last 24 hr 07/15/21 16:25: POC Glucose 176 H 07/15/21 20:53: POC Glucose 160 H 07/16/21 05:20: Sodium 135 L, Potassium 4.2, Chloride 99, Carbon Dioxide 30, Anion Gap 10.2, BUN 22 H, Creatinine 0.70, Estimated Creat Clear 203, Estimated GFR 117, Est GFR ( Amer) 141, Glucose 196 H, Calcium 8.3 L, Total Bilirubin 1.0, AST 39, ALT 36, Alkaline Phosphatase 87, Total Protein 6.7, Albumin 3.3 L, Globulin 3.4 H, Albumin/Globulin Ratio 1.0 L 07/16/21 05:20: WBC 34.9 H* D, RBC 3.58 L, Hgb 11.2 L, Hct 35.3 L, MCV 98.5 H, MCH 31.4 H, MCHC 31.9, RDW 14.7, Plt Count 530 H, MPV 9.2, Neut % (Auto) 94.4 H, Lymph % (Auto) 3.2 L, [place] % (Auto) 1.2 L, Eos % (Auto) 0.3, Baso % (Auto) 0.9, Neut # (Auto) 32.9 H, Lymph # (Auto) 1.1, [place] # (Auto) 0.4, Eos # (Auto) 0.1, Baso # (Auto) 0.3 H 07/16/21 05:33: POC Glucose 192 H Medical History: Reports:: Chronic Obstructive Pulmonary Disease (COPD), Diabetes Mellitus Type 1, Diabetes Mellitus Type 2, Hyperlipidemia, Hypertension Assessment and Plan (1) Pneumonia due to COVID-19 virus Status: Acute Category: Medical Code(s): U07.1 - COVID-19; J12.82 - Pneumonia due to coronavirus disease 2019 (2) Respiratory failure with hypoxia Status: Acute Qualifiers: Chronicity: acute Qualified Code(s): J96.01 - Acute respiratory failure with hypoxia Category: Medical Code(s): J96.91 - Respiratory failure, unspecified with hypoxia (3) Essential hypertension Status: Chronic Category: Medical Code(s): I10 - Essential (primary) hypertension (4) Diabetes mellitus Status: Chronic Category: Medical Code(s): E11.9 - Type 2 diabetes mellitus without complications (5) Obesity, Class II, BMI 35-39.9 Status: Chronic Category: Medical Code(s): E66.9 - Obesity, unspecified - Assessment and plan all Dx Assessment and Plan for all problems:: Objective: Age: 56 yo Serum creatinine: 0.7 mg/dL Height: 70.9 Inches Weight (kg): 121.8 Assessment: IBW (kg): 75.07 Dosing wt(kg): 121.8 Estimated Creatinine clearance (ml/min): 125.1 CRCL method: Cockcroft and Gault using ibw(default). Drug selected: Vancomycin Loading dose (mg): Vd (liters): 60.9 (factor used: 0.5 L/kg) Danyel (hr-1): 0.108 Half life (hrs): 6.42 CLvanco=?? 6.577 L/hr Recommended dose: 1500 mg Interval: 12 hrs Infusion time (hrs): 2.0 Predicted peak (mcg/mL): 30.5 Predicted trough (mcg/mL): 10.36 Total body weight is being used for vancomycin dosing. Recommendations: Give Vancomycin 1500 mg q 12 hrs with an expected Cpeak of 30.5 mcg/ml and an expected Ctrough of 10.36 mcg/ml AUC 0-24 /M
[2021-07-16 11:40] LABS: POC Glucose,Bedside 169 (70-110)
[2021-07-16 16:11] LABS: Lymphocytes % 10 % (10-50); Monocytes % 2 % (2-9); Neutrophils % 86 % (42-76); Total Cells Counted 100
[2021-07-16 16:12] LABS: Platelet Estimate Slight Increase
[2021-07-16 20:46] LABS: POC Glucose,Bedside 217 (70-110)
[2021-07-16 20:46] LABS: POC Glucose,Bedside 252 (70-110)
[2021-07-17] VITALS (12 sets, daily range): BP systolic 135–151; BP diastolic 53–67; PULSE 70–101; RESP 20–24; TEMP 36.8–37; O2SAT 89–96; BMI 37.1
[2021-07-17 06:04] LABS: POC Glucose,Bedside 229 (70-110)
[2021-07-17 07:40] LABS: Alanine Aminotransferase 33 U/L (12-78); Albumin Level 3.2 g/dl (3.5-5.0); Albumin/Globulin Ratio 0.9 (1.1-1.8); Alkaline Phosphatase 86 U/L (38-126); Anion Gap 9.1 mEq/L (5-15); Aspartate Amino Transferase 35 U/L (17-59); Bilirubin,Total 0.8 mg/dl (0.2-1.3); Blood Urea Nitrogen 23 mg/dl (9-20); Calcium 8.3 mg/dl (8.4-10.2); Carbon Dioxide 31 mmol/L (22.0-30.0); Chloride 99 mmol/L (98-107); Creatinine Clearance Estimated 201 mL/min (50-200); Estimated Glomerular Filt Rate 117 ml/min (>60); GFR (African American) 141 ML/MIN (>60); Globulin 3.5 g/dL (1.3-3.2); Glucose 196 mg/dl (74-100); Potassium 4.1 mmoL/L (3.5-5.1); Sodium 135 mmol/L (136-145); Total Protein,Serum 6.7 g/dl (6.3-8.2)
[2021-07-17 08:00] LABS: Basophils # 0.6 K/mm3 (0-0.2); Basophils % 1.7 % (0.1-2.0); Eosinophils # 0.1 K/mm3 (0.0-0.4); Eosinophils % 0.2 % (0.1-12.0); Hemoglobin 10.8 g/dL (14.1-18.0); Lymphocytes # 0.4 K/mm3 (0.7-4.5); Lymphocytes % 1.1 % (10-50); Mean Corpuscular HGB Conc 32.7 g/dL (31.8-35.4); Mean Corpuscular Hemoglobin 32.1 pg (27.0-31.2); Mean Corpuscular Volume 98.4 fl (80-94); Mean Platelet Volume 10.2 fl (7.4-10.4); Monocytes # 0.4 K/mm3 (0.1-1.0); Monocytes % 1.2 % (1.7-9.3); Neutrophils # 36.2 K/mm3 (1.8-7.8); Neutrophils % 95.9 % (37.0-80.0); Platelet Count 508 K/mm3 (142-424); Red Blood Count 3.36 M/mm3 (4.60-6.20); Red Cell Distribution Width 14.9 % (11.5-17.5); White Blood Count 37.7 K/mm3 (4.8-10.8)
[2021-07-17 08:05] LABS: MANUAL DIFFERENTIAL MANUAL DIFFERENTIAL (MANUAL DIFF)
--- NOTE | 2021-07-17 08:08 | HMH.ACPN2 ---
Internal Medicine - PN: Subj *Date: 07/17/21 *Time: 08:08 Interval history: Events of yesterday noted with worsening chest x-ray, sputum culture/Gram stain with lots of gram-positive cocci, antibiotic change discussed with Dr. Baez, agree with change. Patient states he feels about the same, continue to have some sputum production. Is not short of air on current oxygen requirement. Exam Vital signs and Labs for Last 24 Hours: Temp Pulse Resp BP Pulse Ox 98.5 F 80 22 144/66 H 94 L 07/17/21 04:00 07/17/21 06:45 07/17/21 04:00 07/17/21 04:00 07/17/21 06:45 Laboratory Results - last 24 hr 07/16/21 05:20: Total Counted 100, Neutrophils % (Manual) 86 H, Band Neutrophils % 2.0, Lymphocytes % (Manual) 10, Monocytes % (Manual) 2, Platelet Estimate Slight increase 07/16/21 11:32: POC Glucose 169 H 07/16/21 16:36: POC Glucose 217 H 07/16/21 20:29: POC Glucose 252 H 07/17/21 05:56: POC Glucose 229 H 07/17/21 06:39: Sodium 135 L, Potassium 4.1, Chloride 99, Carbon Dioxide 31 H, Anion Gap 9.1, BUN 23 H, Creatinine 0.70, Estimated Creat Clear 201, Estimated GFR 117, Est GFR ( Amer) 141, Glucose 196 H, Calcium 8.3 L, Total Bilirubin 0.8, AST 35, ALT 33, Alkaline Phosphatase 86, Total Protein 6.7, Albumin 3.2 L, Globulin 3.5 H, Albumin/Globulin Ratio 0.9 L 07/17/21 06:39: WBC 37.7 H*, RBC 3.36 L, Hgb 10.8 L, Hct 33.0 L, MCV 98.4 H, MCH 32.1 H, MCHC 32.7, RDW 14.9, Plt Count 508 H, MPV 10.2, Neut % (Auto) 95.9 H, Lymph % (Auto) 1.1 L, [place] % (Auto) 1.2 L, Eos % (Auto) 0.2, Baso % (Auto) 1.7, Neut # (Auto) 36.2 H, Lymph # (Auto) 0.4 L, [place] # (Auto) 0.4, Eos # (Auto) 0.1, Baso # (Auto) 0.6 H I & O for Last 24 hours: Intake & Output 07/14/21 07/15/21 07/16/21 07/17/21 11:59 11:59 11:59 11:59 Intake Total 870 / 870 720 / 720 1420 / 1420 1150 / 1150 Output Total 2075 / 2075 1000 / 1000 2950 / 2950 500 / 500 Balance -1205 / -1205 -280 / -280 -1530 / -1530 650 / 650 Weight 271 lb 8 oz 270 lb 268 lb 8.368 oz 265 lb 10.512 oz Microbiology Reports for the Last 24 Hours: Microbiology 07/11/21 18:00 Blood Blood Culture - Final NO GROWTH AFTER 5 DAYS 07/11/21 18:00 Blood Blood Culture - Final NO GROWTH AFTER 5 DAYS 07/14/21 10:30 Sputum - Expectorated Sputum Gram Stain - Final 07/14/21 10:30 Sputum - Expectorated Sputum Sputum Culture - Preliminary Narrative: Alert, pleasant, ENT exam clear. Lungs have good air movement, some rhonchi bilaterally. Heart rate regular. No rash, no edema. Neurologically intact. Abdomen soft. Assessment and Plan (1) Pneumonia due to COVID-19 virus Status: Acute Category: Medical Code(s): U07.1 - COVID-19; J12.82 - Pneumonia due to coronavirus disease 2019 (2) Respiratory failure with hypoxia Status: Acute Qualifiers: Chronicity: acute Qualified Code(s): J96.01 - Acute respiratory failure with hypoxia Category: Medical Code(s): J96.91 - Respiratory failure, unspecified with hypoxia (3) Essential hypertension Status: Chronic Category: Medical Code(s): I10 - Essential (primary) hypertension (4) Diabetes mellitus Status: Chronic Category: Medical Code(s): E11.9 - Type 2 diabetes mellitus without complications (5) Obesity, Class II, BMI 35-39.9 Status: Chronic Category: Medical Code(s): E66.9 - Obesity, unspecified - Assessment and plan all Dx Assessment and Plan for all problems:: Continue current COVID-19 care. Continue oxygen supplementation. Encourage incentive spirometry. Continue current antibiotics.
[2021-07-17 11:03] LABS: Lymphocytes % 3 % (10-50); Monocytes % 2 % (2-9); Neutrophils % 93 % (42-76); Nucleated Red Blood Cells 1; Total Cells Counted 100
[2021-07-17 11:04] LABS: Platelet Estimate Slight Increase; RBC Morphology Normal
[2021-07-17 11:48] LABS: POC Glucose,Bedside 254 (70-110)
[2021-07-17 17:01] LABS: POC Glucose,Bedside 253 (70-110)
[2021-07-17 21:05] LABS: POC Glucose,Bedside 209 (70-110)
[2021-07-17 21:57] LABS: Vancomycin,Trough 8.5 ug/mL (5.0-10.0)
[2021-07-18] VITALS (15 sets, daily range): BP systolic 117–150; BP diastolic 58–75; PULSE 60–109; RESP 18–26; TEMP 36.6–37.1; O2SAT 87–96; BMI 36.1
[2021-07-18 01:59] LABS: Vancomycin,Peak 20.6 ug/ml (11-39)
[2021-07-18 05:47] LABS: POC Glucose,Bedside 216 (70-110)
[2021-07-18 05:54] LABS: Peripheral Smear Review Scanned Result
--- NOTE | 2021-07-18 06:12 | PC.NURSE ---
pt reports he slept on and off throughout the night. states he attempted to sleep on his stomach, however, he could not tolerate it. vapotherm 40L/100% and nonrebreather remain in place. tolerating well. uses the urinal independently. clear yellow urine noted. no c/o pain or discomfort voiced.
[2021-07-18 07:17] LABS: MANUAL DIFFERENTIAL MANUAL DIFFERENTIAL (MANUAL DIFF)
[2021-07-18 07:40] LABS: Alanine Aminotransferase 43 U/L (12-78); Albumin Level 3.7 g/dl (3.5-5.0); Alkaline Phosphatase 104 U/L (38-126); Anion Gap 14.1 mEq/L (5-15); Aspartate Amino Transferase 45 U/L (17-59); Blood Urea Nitrogen 22 mg/dl (9-20); Calcium 9.8 mg/dl (8.4-10.2); Carbon Dioxide 29 mmol/L (22.0-30.0); Chloride 98 mmol/L (98-107); Creatinine Clearance Estimated 195 mL/min (50-200); Estimated Glomerular Filt Rate 117 ml/min (>60); GFR (African American) 141 ML/MIN (>60); Globulin 3.7 g/dL (1.3-3.2); Glucose 188 mg/dl (74-100); Potassium 4.1 mmoL/L (3.5-5.1); Sodium 137 mmol/L (136-145); Total Protein,Serum 7.4 g/dl (6.3-8.2)
--- NOTE | 2021-07-18 08:24 | HMH.ACPN2 ---
Internal Medicine - PN: Subj *Date: 07/18/21 *Time: 08:24 Interval history: Patient is awake, alert. Remains on Vapotherm and nonrebreather. Appears comfortable. Notes that he has been eating well. When he gets up and moves around he becomes short of air and has some coughing. Tolerating antibiotics well. Sputum production continues. Exam Vital signs and Labs for Last 24 Hours: Temp Pulse Resp BP Pulse Ox 97.8 F 109 H 22 117/74 92 L 07/18/21 08:00 07/18/21 08:00 07/18/21 08:00 07/18/21 08:00 07/18/21 08:00 Laboratory Results - last 24 hr 07/17/21 06:39: Total Counted 100, Neutrophils % (Manual) 93 H, Lymphocytes % (Manual) 3 L, Monocytes % (Manual) 2, Basophils % (Manual) 2.0 H, Nucleated RBCs 1, Platelet Estimate Slight increase, RBC Morphology Normal 07/17/21 11:34: POC Glucose 254 H 07/17/21 16:51: POC Glucose 253 H 07/17/21 20:29: Vancomycin Trough 8.5 07/17/21 20:49: POC Glucose 209 H 07/18/21 01:15: Vancomycin Peak 20.6 07/18/21 05:35: POC Glucose 216 H 07/18/21 06:30: Sodium 137, Potassium 4.1, Chloride 98, Carbon Dioxide 29, Anion Gap 14.1, BUN 22 H, Creatinine 0.70, Estimated Creat Clear 195, Estimated GFR 117, Est GFR ( Amer) 141, Glucose 188 H, Calcium 9.8, Total Bilirubin 1.0, AST 45 D, ALT 43 D, Alkaline Phosphatase 104, Total Protein 7.4, Albumin 3.7 D, Globulin 3.7 H, Albumin/Globulin Ratio 1.0 L I & O for Last 24 hours: Intake & Output 07/15/21 07/16/21 07/17/21 07/18/21 11:59 11:59 11:59 11:59 Intake Total 720 / 720 1420 / 1420 1270 / 1270 1260 / 1260 Output Total 1000 / 1000 2950 / 2950 1275 / 1275 1950 / 1950 Balance -280 / -280 -1530 / -1530 -5 / -5 -690 / -690 Weight 270 lb 268 lb 8.368 oz 265 lb 10.512 oz 258 lb Microbiology Reports for the Last 24 Hours: Microbiology 07/14/21 10:30 Sputum - Expectorated Sputum Gram Stain - Final 07/14/21 10:30 Sputum - Expectorated Sputum Sputum Culture - Preliminary Gram Negative Rods Narrative: Pleasant and talkative, alert, oriented. No rash, abdomen soft, heart rate regular. Lungs have rhonchorous air sounds but good air movement. ENT exam otherwise clear. No JVD. No edema noted. Assessment and Plan (1) Pneumonia due to COVID-19 virus Status: Acute Category: Medical Code(s): U07.1 - COVID-19; J12.82 - Pneumonia due to coronavirus disease 2018 (2) Respiratory failure with hypoxia Status: Acute Qualifiers: Chronicity: acute Qualified Code(s): J96.01 - Acute respiratory failure with hypoxia Category: Medical Code(s): J96.91 - Respiratory failure, unspecified with hypoxia (3) Essential hypertension Status: Chronic Category: Medical Code(s): I10 - Essential (primary) hypertension (4) Diabetes mellitus Status: Chronic Category: Medical Code(s): E11.9 - Type 2 diabetes mellitus without complications (5) Obesity, Class II, BMI 35-39.9 Status: Chronic Category: Medical Code(s): E66.9 - Obesity, unspecified - Assessment and plan all Dx Assessment and Plan for all problems:: Remains very tenuous but stable. Continue broad-spectrum antibiotics. Await official sputum culture report. Check labs and chest x-ray tomorrow. Osbaldo today given his good response to this a couple of days ago and hopefully help with oxygenation.
[2021-07-18 08:34] LABS: Basophils # 0.6 K/mm3 (0-0.2); Basophils % 1.1 % (0.1-2.0); Eosinophils # 0.1 K/mm3 (0.0-0.4); Eosinophils % 0.1 % (0.1-12.0); Hematocrit 36.9 % (42.0-52.0); Lymphocytes # 0.7 K/mm3 (0.7-4.5); Lymphocytes % 1.2 % (10-50); Mean Corpuscular HGB Conc 32.5 g/dL (31.8-35.4); Mean Corpuscular Volume 98.3 fl (80-94); Monocytes # 0.5 K/mm3 (0.1-1.0); Neutrophils # 50.4 K/mm3 (1.8-7.8); Neutrophils % 96.6 % (37.0-80.0); Platelet Count 610 K/mm3 (142-424); Red Blood Count 3.75 M/mm3 (4.60-6.20); Red Cell Distribution Width 14.6 % (11.5-17.5)
[2021-07-18 09:33] LABS: White Blood Count 52.2 K/mm3 (4.8-10.8)
--- NOTE | 2021-07-18 09:38 | PC.NURSE ---
lab confirmed repeat draw notified md of critical wbc
[2021-07-18 09:43] LABS: Lymphocytes % 3 % (10-50); Monocytes % 1 % (2-9); Neutrophils % 95 % (42-76); Total Cells Counted 100
[2021-07-18 09:47] LABS: RBC Morphology Normal
[2021-07-18 09:48] LABS: Platelet Estimate Slight Increase
[2021-07-18 11:30] LABS: POC Glucose,Bedside 221 (70-110)
[2021-07-18 16:10] LABS: POC Glucose,Bedside 299 (70-110)
[2021-07-18 21:05] LABS: POC Glucose,Bedside 185 (70-110)
[2021-07-19] VITALS (12 sets, daily range): BP systolic 120–145; BP diastolic 63–84; PULSE 60–100; RESP 18–22; TEMP 36.4–36.9; O2SAT 88–93; BMI 35.8
--- NOTE | 2021-07-19 04:29 | PC.NURSE ---
Pt remains on vapotherm 40L and 100% with o2 saturation 88-92%. Pt has voiced no c/o of pain thus far in shift. Pt gave himself a bed bath and tolerated well.
[2021-07-19 06:06] LABS: POC Glucose,Bedside 219 (70-110)
--- NOTE | 2021-07-19 06:30 | XR_ITS ---
PROCEDURE INFORMATION: Exam: XR Chest Exam date and time: 07/19/2021 6:30 AM Age: 56 years old Clinical indication: Cough and shortness of breath and other: Covid 19; Additional info: F/u icu exam covid SOB cough TECHNIQUE: Imaging protocol: XR of the chest. Views: 1 view. COMPARISON: CR XR CHEST PORTABLE 07/15/2021 9:32 AM FINDINGS: Lungs: Persistent bilateral patchy lung airspace disease with shifting opacities, now worse in the right lower lung field and slightly improved in the left lung base. Pleural spaces: Unremarkable. No pleural effusion. No pneumothorax. Heart/Mediastinum: Cardiomegaly. Bones/joints: Unremarkable. IMPRESSION: Persistent bilateral patchy lung airspace disease compatible with pneumonia.
[2021-07-19 07:05] LABS: Basophils # 0.4 K/mm3 (0-0.2); Basophils % 0.7 % (0.1-2.0); Eosinophils # 0.1 K/mm3 (0.0-0.4); Eosinophils % 0.1 % (0.1-12.0); Hematocrit 32.8 % (42.0-52.0); Hemoglobin 10.8 g/dL (14.1-18.0); Lymphocytes # 1.1 K/mm3 (0.7-4.5); Lymphocytes % 2.1 % (10-50); Mean Corpuscular HGB Conc 32.8 g/dL (31.8-35.4); Mean Corpuscular Hemoglobin 31.6 pg (27.0-31.2); Mean Corpuscular Volume 96.3 fl (80-94); Mean Platelet Volume 10.5 fl (7.4-10.4); Monocytes # 0.6 K/mm3 (0.1-1.0); Monocytes % 1.2 % (1.7-9.3); Neutrophils # 47.8 K/mm3 (1.8-7.8); Neutrophils % 95.9 % (37.0-80.0); Platelet Count 519 K/mm3 (142-424); Red Blood Count 3.41 M/mm3 (4.60-6.20); Red Cell Distribution Width 14.6 % (11.5-17.5)
[2021-07-19 07:32] LABS: Alanine Aminotransferase 37 U/L (12-78); Albumin Level 3.2 g/dl (3.5-5.0); Albumin/Globulin Ratio 0.9 (1.1-1.8); Alkaline Phosphatase 100 U/L (38-126); Anion Gap 11.4 mEq/L (5-15); Aspartate Amino Transferase 47 U/L (17-59); Bilirubin,Total 0.8 mg/dl (0.2-1.3); Blood Urea Nitrogen 26 mg/dl (9-20); Calcium 9.4 mg/dl (8.4-10.2); Carbon Dioxide 29 mmol/L (22.0-30.0); Chloride 99 mmol/L (98-107); Creatinine Clearance Estimated 226 mL/min (50-200); Estimated Glomerular Filt Rate 139 ml/min (>60); GFR (African American) 169 ML/MIN (>60); Globulin 3.6 g/dL (1.3-3.2); Glucose 186 mg/dl (74-100); Potassium 4.4 mmoL/L (3.5-5.1); Sodium 135 mmol/L (136-145); Total Protein,Serum 6.8 g/dl (6.3-8.2)
[2021-07-19 07:51] LABS: White Blood Count 49.8 K/mm3 (4.8-10.8)
[2021-07-19 07:53] LABS: MANUAL DIFFERENTIAL MANUAL DIFFERENTIAL (MANUAL DIFF)
[2021-07-19 07:59] LABS: Lymphocytes % 6 % (10-50); Macrocytosis 2+; Neutrophils % 93 % (42-76); Platelet Estimate Normal; Total Cells Counted 100
[2021-07-19 08:00] LABS: Hypochromasia 2+
--- NOTE | 2021-07-19 08:13 | HMH.ACPN2 ---
Internal Medicine - PN: Subj *Date: 07/19/21 *Time: 08:13 Interval history: Overall patient is unchanged clinically, has been able to be off of the nonrebreather on top of the Vapotherm for the last couple of hours. Did have a little bit of hypoxia this morning when he was being moved around for his x-ray testing. Exam Vital signs and Labs for Last 24 Hours: Temp Pulse Resp BP Pulse Ox 97.6 F 83 20 142/72 H 90 L 07/19/21 04:00 07/19/21 05:44 07/19/21 04:00 07/19/21 04:00 07/19/21 04:00 Laboratory Results - last 24 hr 07/18/21 06:30: WBC 52.2 H* D, RBC 3.75 L, Hgb 12.0 L D, Hct 36.9 L, MCV 98.3 H, MCH 32.0 H, MCHC 32.5, RDW 14.6, Plt Count 610 H, MPV 10.0, Neut % (Auto) 96.6 H, Lymph % (Auto) 1.2 L, [place] % (Auto) 1.0 L, Eos % (Auto) 0.1, Baso % (Auto) 1.1, Neut # (Auto) 50.4 H, Lymph # (Auto) 0.7, [place] # (Auto) 0.5, Eos # (Auto) 0.1, Baso # (Auto) 0.6 H, Total Counted 100, Neutrophils % (Manual) 95 H, Lymphocytes % (Manual) 3 L, Monocytes % (Manual) 1 L, Basophils % (Manual) 1.0, Platelet Estimate Slight increase, RBC Morphology Normal 07/18/21 11:23: POC Glucose 221 H 07/18/21 16:04: POC Glucose 299 H 07/18/21 20:52: POC Glucose 185 H 07/19/21 05:34: Sodium 135 L, Potassium 4.4, Chloride 99, Carbon Dioxide 29, Anion Gap 11.4, BUN 26 H, Creatinine 0.60 L, Estimated Creat Clear 226, Estimated GFR 139, Est GFR ( Amer) 169, Glucose 186 H, Calcium 9.4, Total Bilirubin 0.8, AST 47, ALT 37, Alkaline Phosphatase 100, Total Protein 6.8, Albumin 3.2 L D, Globulin 3.6 H, Albumin/Globulin Ratio 0.9 L 07/19/21 05:34: WBC 49.8 H*, RBC 3.41 L, Hgb 10.8 L, Hct 32.8 L, MCV 96.3 H, MCH 31.6 H, MCHC 32.8, RDW 14.6, Plt Count 519 H, MPV 10.5 H, Neut % (Auto) 95.9 H, Lymph % (Auto) 2.1 L, [place] % (Auto) 1.2 L, Eos % (Auto) 0.1, Baso % (Auto) 0.7, Neut # (Auto) 47.8 H, Lymph # (Auto) 1.1, [place] # (Auto) 0.6, Eos # (Auto) 0.1, Baso # (Auto) 0.4 H, Total Counted 100, Neutrophils % (Manual) 93 H, Band Neutrophils % 1.0, Lymphocytes % (Manual) 6 L, Platelet Estimate Normal, Hypochromasia 2+, Macrocytosis 2+ 07/19/21 05:56: POC Glucose 219 H I & O for Last 24 hours: Intake & Output 07/16/21 07/17/21 07/18/21 07/19/21 11:59 11:59 11:59 11:59 Intake Total 1420 / 1420 1270 / 1270 1260 / 1260 600 / 600 Output Total 2950 / 2950 1275 / 1275 2950 / 2950 1050 / 1050 Balance -1530 / -1530 -5 / -5 -1690 / -1690 -450 / -450 Weight 268 lb 8.368 oz 265 lb 10.512 oz 258 lb 256 lb 1.6 oz Microbiology Reports for the Last 24 Hours: Microbiology 07/14/21 10:30 Sputum - Expectorated Sputum Gram Stain - Final 07/14/21 10:30 Sputum - Expectorated Sputum Sputum Culture - Final Serratia marcescens Narrative: Pleasant, talkative, good spirits. Lungs have rhonchi but good air movement, heart rate regular. Abdomen soft. O2 saturation 95% on Vapotherm. Abdomen soft, no rash. Assessment and Plan (1) Pneumonia due to COVID-19 virus Status: Acute Category: Medical Code(s): U07.1 - COVID-19; J12.82 - Pneumonia due to coronavirus disease 2018 (2) Respiratory failure with hypoxia Status: Acute Qualifiers: Chronicity: acute Qualified Code(s): J96.01 - Acute respiratory failure with hypoxia Category: Medical Code(s): J96.91 - Respiratory failure, unspecified with hypoxia (3) Essential hypertension Status: Chronic Category: Medical Code(s): I10 - Essential (primary) hypertension (4) Diabetes mellitus Status: Chronic Category: Medical Code(s): E11.9 - Type 2 diabetes mellitus without complications (5) Obesity, Class II, BMI 35-39.9 Status: Chronic Category: Medical Code(s): E66.9 - Obesity, unspecified - Assessment and plan all Dx Assessment and Plan for all problems:: Continue current antibiotics. Continue awaiting sputum cultures. Continue COVID-19 treatment and oxygen support. Leukocytosis significantly more prominent yesterday. Back below 50,000 this
[2021-07-19 12:38] LABS: POC Glucose,Bedside 200 (70-110)
[2021-07-19 17:56] LABS: POC Glucose,Bedside 263 (70-110)
[2021-07-19 22:17] LABS: Vancomycin,Trough 12.8 ug/mL (5.0-10.0)
[2021-07-19 22:21] LABS: POC Glucose,Bedside 251 (70-110)
--- NOTE | 2021-07-19 23:04 | PC.NURSE ---
Called [facility] and spoke with christiano Jolley dose of vancomycin is okay to give.
[2021-07-20] VITALS (12 sets, daily range): BP systolic 135–145; BP diastolic 64–77; PULSE 59–100; RESP 12–36; TEMP 36.4–37; O2SAT 88–98; BMI 35.4
[2021-07-20 02:35] LABS: Vancomycin,Peak 34.9 ug/ml (11-39)
--- NOTE | 2021-07-20 03:26 | PC.NURSE ---
Patient has used the non-rebreather intermittently this RN's shift. IS usage reenforced, patient verbalized understanding. Patient monitors own oxygen saturation in the room, patient requests to leave the monitor on.
[2021-07-20 05:34] LABS: POC Glucose,Bedside 208 (70-110)
[2021-07-20 06:26] LABS: Basophils # 0.2 K/mm3 (0-0.2); Basophils % 0.5 % (0.1-2.0); Eosinophils # 0.1 K/mm3 (0.0-0.4); Eosinophils % 0.2 % (0.1-12.0); Hematocrit 33.3 % (42.0-52.0); Hemoglobin 10.7 g/dL (14.1-18.0); Lymphocytes # 1.1 K/mm3 (0.7-4.5); Lymphocytes % 2.5 % (10-50); Mean Corpuscular Hemoglobin 31.2 pg (27.0-31.2); Mean Corpuscular Volume 97.8 fl (80-94); Mean Platelet Volume 9.8 fl (7.4-10.4); Monocytes # 0.5 K/mm3 (0.1-1.0); Monocytes % 1.1 % (1.7-9.3); Neutrophils # 43.1 K/mm3 (1.8-7.8); Neutrophils % 95.7 % (37.0-80.0); Platelet Count 485 K/mm3 (142-424); Red Blood Count 3.41 M/mm3 (4.60-6.20); Red Cell Distribution Width 14.7 % (11.5-17.5)
[2021-07-20 06:34] LABS: Alanine Aminotransferase 41 U/L (12-78); Albumin/Globulin Ratio 0.8 (1.1-1.8); Alkaline Phosphatase 104 U/L (38-126); Anion Gap 9.1 mEq/L (5-15); Aspartate Amino Transferase 40 U/L (17-59); Bilirubin,Total 0.6 mg/dl (0.2-1.3); Blood Urea Nitrogen 23 mg/dl (9-20); Calcium 8.4 mg/dl (8.4-10.2); Carbon Dioxide 31 mmol/L (22.0-30.0); Chloride 98 mmol/L (98-107); Creatinine Clearance Estimated 224 mL/min (50-200); Estimated Glomerular Filt Rate 139 ml/min (>60); GFR (African American) 169 ML/MIN (>60); Globulin 3.6 g/dL (1.3-3.2); Glucose 203 mg/dl (74-100); Potassium 4.1 mmoL/L (3.5-5.1); Sodium 134 mmol/L (136-145); Total Protein,Serum 6.6 g/dl (6.3-8.2)
[2021-07-20 06:37] LABS: MANUAL DIFFERENTIAL MANUAL DIFFERENTIAL (MANUAL DIFF); White Blood Count 45.1 K/mm3 (4.8-10.8)
--- NOTE | 2021-07-20 06:40 | PC.NURSE ---
At 0636 Tabitha from lab called with a critical WBC count of 45.1 Name, and result verified x2. Dr. Wilkerson (oncall) paged at [phone]
--- NOTE | 2021-07-20 07:53 | HMH.ACPN2 ---
Internal Medicine - PN: Subj *Date: 07/20/21 *Time: 07:53 Interval history: Overall patient is unchanged clinically, has been on Vapotherm alone for 24 hours. Oxygen saturations remain between 88 and 92%. Afebrile. Labs this morning show slight improvement in leukocytosis but still quite elevated. Patient has no new complaints Exam Vital signs and Labs for Last 24 Hours: Temp Pulse Resp BP Pulse Ox 97.6 F 83 20 137/71 88 L 07/20/21 04:00 07/20/21 06:26 07/20/21 04:00 07/20/21 04:00 07/20/21 06:26 Laboratory Results - last 24 hr 07/19/21 05:34: Total Counted 100, Neutrophils % (Manual) 93 H, Band Neutrophils % 1.0, Lymphocytes % (Manual) 6 L, Platelet Estimate Normal, Hypochromasia 2+, Macrocytosis 2+ 07/19/21 12:18: POC Glucose 200 H 07/19/21 16:26: POC Glucose 263 H 07/19/21 19:53: POC Glucose 251 H 07/19/21 21:36: Vancomycin Trough 12.8 H 07/20/21 01:55: Vancomycin Peak 34.9 07/20/21 05:17: Sodium 134 L, Potassium 4.1, Chloride 98, Carbon Dioxide 31 H, Anion Gap 9.1, BUN 23 H, Creatinine 0.60 L, Estimated Creat Clear 224, Estimated GFR 139, Est GFR ( Amer) 169, Glucose 203 H, Calcium 8.4, Total Bilirubin 0.6, AST 40, ALT 41, Alkaline Phosphatase 104, Total Protein 6.6, Albumin 3.0 L, Globulin 3.6 H, Albumin/Globulin Ratio 0.8 L 07/20/21 05:17: WBC 45.1 H*, RBC 3.41 L, Hgb 10.7 L, Hct 33.3 L, MCV 97.8 H, MCH 31.2, MCHC 32.0, RDW 14.7, Plt Count 485 H, MPV 9.8, Neut % (Auto) 95.7 H, Lymph % (Auto) 2.5 L, [place] % (Auto) 1.1 L, Eos % (Auto) 0.2, Baso % (Auto) 0.5, Neut # (Auto) 43.1 H, Lymph # (Auto) 1.1, [place] # (Auto) 0.5, Eos # (Auto) 0.1, Baso # (Auto) 0.2 07/20/21 05:17: POC Glucose 208 H I & O for Last 24 hours: Intake & Output 07/17/21 07/18/21 07/19/21 07/20/21 23:59 23:59 23:59 23:59 Intake Total 840 / 1140 1140 / 1140 960 / 960 250 / 250 Output Total 2125 / 2625 2550 / 3150 1850 / 1850 250 / 250 Balance -1285 / -1485 -1410 / -2010 -890 / -890 0 / 0 Weight 120.5 kg 117.027 kg 116.165 kg 114.957 kg Microbiology Reports for the Last 24 Hours: Microbiology 07/14/21 10:30 Sputum - Expectorated Sputum Gram Stain - Final 07/14/21 10:30 Sputum - Expectorated Sputum Sputum Culture - Final Serratia marcescens Narrative: - Constitutional Mild distress on Vapotherm nasal cannula - *Routine HEENT Exam Head: Present: normocephalic Eye: Present: EOMI, PERRL ENT: Present: mucous membranes moist - *Routine Neck Exam Present: supple. Absent: lymphadenopathy - *Routine Respiratory Exam Present: good airmovement, faint crackles in LL base. no wheeze or rhonchi - *Routine Cardiovascular Exam Present: RRR - *Routine Abdominal Exam Present: soft, normoactive bowel sounds. Absent: tenderness - *Routine Extremities Exam Absent: cyanosis, clubbing, edema - *Routine Skin Exam Present: warm. Absent: rash - *Routine Neurological Exam Present: alert, oriented X3 Assessment and Plan (1) Pneumonia due to COVID-19 virus Status: Acute Category: Medical Code(s): U07.1 - COVID-19; J12.82 - Pneumonia due to coronavirus disease 2019 (2) Respiratory failure with hypoxia Status: Acute Qualifiers: Chronicity: acute Qualified Code(s): J96.01 - Acute respiratory failure with hypoxia Category: Medical Code(s): J96.91 - Respiratory failure, unspecified with hypoxia (3) Essential hypertension Status: Chronic Category: Medical Code(s): I10 - Essential (primary) hypertension (4) Diabetes mellitus Status: Chronic Category: Medical Code(s): E11.9 - Type 2 diabetes mellitus without complications (5) Obesity, Class II, BMI 35-39.9 Status: Chronic Category: Medical Code(s): E66.9 - Obesity, unspecified - Assessment and plan all Dx Assessment and Plan for all problems:: 56-year-old male admitted for worsening hypoxemic respiratory failure secondary to COVID-19 pneumonia. Tolerating oxygen, tolerating maximal
[2021-07-20 08:22] LABS: C-Reactive Protein 56.5 mg/L (0-4)
[2021-07-20 08:25] LABS: Hypochromasia 1+; Lymphocytes % 3 % (10-50); Macrocytosis 1+; Neutrophils % 97 % (42-76); Platelet Estimate Normal; Total Cells Counted 100
[2021-07-20 08:52] LABS: Erythrocyte Sedimentation Rate 92 mm/hr (0-20)
[2021-07-20 12:18] LABS: POC Glucose,Bedside 182 (70-110)
--- NOTE | 2021-07-20 13:22 | HMH.ACPN ---
Internal Medicine - PN: Subj *Date: 07/20/21 *Time: 13:22 Exam Vital signs and Labs for Last 24 Hours: Temp Pulse Resp BP Pulse Ox 98.6 F 75 36 H 143/70 H 88 L 07/20/21 12:00 07/20/21 12:00 07/20/21 12:00 07/20/21 12:00 07/20/21 12:00 Laboratory Results - last 24 hr 07/19/21 16:26: POC Glucose 263 H 07/19/21 19:53: POC Glucose 251 H 07/19/21 21:36: Vancomycin Trough 12.8 H 07/20/21 01:55: Vancomycin Peak 34.9 07/20/21 05:17: Sodium 134 L, Potassium 4.1, Chloride 98, Carbon Dioxide 31 H, Anion Gap 9.1, BUN 23 H, Creatinine 0.60 L, Estimated Creat Clear 224, Estimated GFR 139, Est GFR ( Amer) 169, Glucose 203 H, Calcium 8.4, Total Bilirubin 0.6, AST 40, ALT 41, Alkaline Phosphatase 104, Total Protein 6.6, Albumin 3.0 L, Globulin 3.6 H, Albumin/Globulin Ratio 0.8 L 07/20/21 05:17: WBC 45.1 H*, RBC 3.41 L, Hgb 10.7 L, Hct 33.3 L, MCV 97.8 H, MCH 31.2, MCHC 32.0, RDW 14.7, Plt Count 485 H, MPV 9.8, Neut % (Auto) 95.7 H, Lymph % (Auto) 2.5 L, [place] % (Auto) 1.1 L, Eos % (Auto) 0.2, Baso % (Auto) 0.5, Neut # (Auto) 43.1 H, Lymph # (Auto) 1.1, [place] # (Auto) 0.5, Eos # (Auto) 0.1, Baso # (Auto) 0.2, Total Counted 100, Neutrophils % (Manual) 97 H, Lymphocytes % (Manual) 3 L, Platelet Estimate Normal, Hypochromasia 1+, Macrocytosis 1+ 07/20/21 05:17: POC Glucose 208 H 07/20/21 05:17: ESR 92 H 07/20/21 05:17: C-Reactive Protein 56.5 H 07/20/21 12:07: POC Glucose 182 H I & O for Last 24 hours: Intake & Output 07/17/21 07/18/21 07/19/21 07/20/21 23:59 23:59 23:59 23:59 Intake Total 840 / 1140 1140 / 1140 960 / 960 490 / 490 Output Total 2125 / 2625 2550 / 3150 1850 / 1850 250 / 250 Balance -1285 / -1485 -1410 / -2010 -890 / -890 240 / 240 Weight 120.5 kg 117.027 kg 116.165 kg 114.957 kg Assessment and Plan (1) Pneumonia due to COVID-19 virus Status: Acute Category: Medical Code(s): U07.1 - COVID-19; J12.82 - Pneumonia due to coronavirus disease 2019 (2) Respiratory failure with hypoxia Status: Acute Qualifiers: Chronicity: acute Qualified Code(s): J96.01 - Acute respiratory failure with hypoxia Category: Medical Code(s): J96.91 - Respiratory failure, unspecified with hypoxia (3) Essential hypertension Status: Chronic Category: Medical Code(s): I10 - Essential (primary) hypertension (4) Diabetes mellitus Status: Chronic Category: Medical Code(s): E11.9 - Type 2 diabetes mellitus without complications (5) Obesity, Class II, BMI 35-39.9 Status: Chronic Category: Medical Code(s): E66.9 - Obesity, unspecified The patient's infection will respond to the chosen ABx?: Yes Is the patient receiving the right drug, dose, and route?: Yes Could a more targeted ABx be ordered?: No (WBC CONTINUES TO BE ELEVATED 40K+, SPUTUM CX + FOR SERRATIA--SENS TO LEVAQU)
[2021-07-20 17:27] LABS: POC Glucose,Bedside 261 (70-110)
[2021-07-20 20:34] LABS: POC Glucose,Bedside 257 (70-110)
[2021-07-21] VITALS (9 sets, daily range): BP systolic 115–158; BP diastolic 63–76; PULSE 60–104; RESP 14–26; TEMP 36.6–37.2; O2SAT 85–96; BMI 35.3
[2021-07-21 07:20] LABS: Basophils # 0.5 K/mm3 (0-0.2); Basophils % 0.9 % (0.1-2.0); Eosinophils # 0.1 K/mm3 (0.0-0.4); Eosinophils % 0.2 % (0.1-12.0); Hematocrit 35.3 % (42.0-52.0); Hemoglobin 11.4 g/dL (14.1-18.0); Lymphocytes # 0.7 K/mm3 (0.7-4.5); Lymphocytes % 1.3 % (10-50); Mean Corpuscular HGB Conc 32.3 g/dL (31.8-35.4); Mean Corpuscular Hemoglobin 31.3 pg (27.0-31.2); Monocytes # 0.7 K/mm3 (0.1-1.0); Monocytes % 1.2 % (1.7-9.3); Neutrophils # 54.4 K/mm3 (1.8-7.8); Neutrophils % 96.4 % (37.0-80.0); Platelet Count 587 K/mm3 (142-424); Red Blood Count 3.64 M/mm3 (4.60-6.20); Red Cell Distribution Width 14.5 % (11.5-17.5)
[2021-07-21 07:39] LABS: Alanine Aminotransferase 50 U/L (12-78); Albumin Level 3.3 g/dl (3.5-5.0); Albumin/Globulin Ratio 0.9 (1.1-1.8); Alkaline Phosphatase 131 U/L (38-126); Anion Gap 12.2 mEq/L (5-15); Aspartate Amino Transferase 49 U/L (17-59); Bilirubin,Total 0.7 mg/dl (0.2-1.3); Blood Urea Nitrogen 28 mg/dl (9-20); Calcium 8.6 mg/dl (8.4-10.2); Carbon Dioxide 31 mmol/L (22.0-30.0); Chloride 96 mmol/L (98-107); Creatinine Clearance Estimated 167 mL/min (50-200); Estimated Glomerular Filt Rate 100 ml/min (>60); GFR (African American) 121 ML/MIN (>60); Globulin 3.8 g/dL (1.3-3.2); Glucose 168 mg/dl (74-100); Potassium 4.2 mmoL/L (3.5-5.1); Sodium 135 mmol/L (136-145); Total Protein,Serum 7.1 g/dl (6.3-8.2)
[2021-07-21 07:51] LABS: MANUAL DIFFERENTIAL MANUAL DIFFERENTIAL (MANUAL DIFF); White Blood Count 56.5 K/mm3 (4.8-10.8)
--- NOTE | 2021-07-21 08:14 | P.PN_ITS ---
Internal Medicine - PN: Subj *Date: 07/21/21 *Time: 08:14 Interval history: Patient really feels about the same, continues to be in the low 90s on Vapotherm with intermittent nonrebreather. Feels tired but thinks this is just from being in the same room for about 2 weeks. Leukocytosis remains impressive and is gone up over the past 24 hours. Exam Vital signs and Labs for Last 24 Hours: Temp Pulse Resp BP Pulse Ox 98 F 85 18 136/76 96 07/21/21 04:00 07/21/21 06:30 07/21/21 04:00 07/21/21 04:00 07/21/21 06:30 Laboratory Results - last 24 hr 07/20/21 05:17: Total Counted 100, Neutrophils % (Manual) 97 H, Lymphocytes % (Manual) 3 L, Platelet Estimate Normal, Hypochromasia 1+, Macrocytosis 1+ 07/20/21 05:17: ESR 92 H 07/20/21 05:17: C-Reactive Protein 56.5 H 07/20/21 12:07: POC Glucose 182 H 07/20/21 17:11: POC Glucose 261 H 07/20/21 20:21: POC Glucose 257 H 07/21/21 06:10: Sodium 135 L, Potassium 4.2, Chloride 96 L, Carbon Dioxide 31 H, Anion Gap 12.2, BUN 28 H, Creatinine 0.80 D, Estimated Creat Clear 167, Renuka mated GFR 100, Est GFR ( Amer) 121 D, Glucose 168 H, Calcium 8.6, Total Bilirubin 0.7, AST 49, ALT 50, Alkaline Phosphatase 131 H, Total Protein 7.1, Albumin 3.3 L, Globulin 3.8 H, Albumin/Globulin Ratio 0.9 L 07/21/21 06:10: WBC 56.5 H* D, RBC 3.64 L, Hgb 11.4 L, Hct 35.3 L, MCV 97.0 H, MCH 31.3 H, MCHC 32.3, RDW 14.5, Plt Count 587 H, MPV 10.0, Neut % (Auto) 96.4 H , Lymph % (Auto) 1.3 L, [place] % (Auto) 1.2 L, Eos % (Auto) 0.2, Baso % (Auto) 0.9, Neut # (Auto) 54.4 H, Lymph # (Auto) 0.7, [place] # (Auto) 0.7, Eos # (Auto) 0.1, Baso # (Auto) 0.5 H I & O for Last 24 hours: Intake & Output 07/18/21 07/19/21 07/20/21 07/21/21 11:59 11:59 11:59 11:59 Intake Total 1260 / 1260 960 / 960 1090 / 1090 720 / 720 Output Total 2950 / 2950 1050 / 1050 1500 / 1500 1150 / 1150 Balance -1690 / -1690 -90 / -90 -410 / -410 -430 / -430 Weight 258 lb 256 lb 1.6 oz 253 lb 7 oz 252 lb 10 oz Narrative: Patient's exam is unchanged, no rash, breathing fairly easily at rest. Rhonchorous lungs, heart rate regular, soft abdomen, ENT exam clear. Neurologically intact Assessment and Plan (1) Pneumonia due to COVID-19 virus Status: Acute Category: Medical Code(s): U07.1 - COVID-19; J12.82 - Pneumonia due to coronavirus disease 2018 (2) Respiratory failure with hypoxia Status: Acute Qualifiers: Chronicity: acute Qualified Code(s): J96.01 - Acute respiratory failure with hypoxia Category: Medical Code(s): J96.91 - Respiratory failure, unspecified with hypoxia (3) Essential hypertension Status: Chronic Category: Medical Code(s): I10 - Essential (primary) hypertension (4) Diabetes mellitus Status: Chronic Category: Medical Code(s): E11.9 - Type 2 diabetes mellitus without complications (5) Obesity, Class II, BMI 35-39.9 Status: Chronic Category: Medical Code(s): E66.9 - Obesity, unspecified - Assessment and plan all Dx Assessment and Plan for all problems:: Patient is stable but plateaued. Continues to have a significant oxygen requirement. Continue current therapy. I have asked Dr. Nicole to look at a slide to see about his leukocytosis
[2021-07-21 09:02] LABS: Hypochromasia 2+; Lymphocytes % 7 % (10-50); Macrocytosis 2+; Neutrophils % 93 % (42-76); Nucleated Red Blood Cells 1; Platelet Estimate Normal; Total Cells Counted 100
[2021-07-21 12:09] LABS: POC Glucose,Bedside 135 (70-110)
[2021-07-21 17:52] LABS: POC Glucose,Bedside 157 (70-110)
--- NOTE | 2021-07-21 18:15 | PC.NURSE ---
Pt has been pleasant and cooperative this shift. A&O X4. No complaints of pain. SOA reported with exertion. Pt is currently receiving O2 via Vapotherm/Non-Rebreather @ 40 LPM with sats. >85%. Lung sounds reveal expiratory rhonchi. No edema noted. Skin C/D/I. Pt ambulates independently to/from the [facility] and in the room. Pt has sat up on the side of the bed for the majority of the day. Pt also lies laterally and rotates between sides. Pt voids clear, dark-yellow urine without issue. No BM thus far this shift. FSBS results have been 135 and 157. VSS. Call light within reach. Will continue to monitor.
[2021-07-22] VITALS (12 sets, daily range): BP systolic 121–147; BP diastolic 49–70; PULSE 70–100; RESP 14–32; TEMP 36.8–36.9; O2SAT 88–100; BMI 35.3
[2021-07-22 01:34] LABS: POC Glucose,Bedside 197 (70-110)
[2021-07-22 06:25] LABS: POC Glucose,Bedside 211 (70-110)
--- NOTE | 2021-07-22 07:57 | HMH.ACPN2 ---
Internal Medicine - PN: Subj *Date: 07/22/21 *Time: 07:57 Interval history: Patient is up on the side of the bed, continues to be about the same. No major shortness of air episodes and less he does his incentive spirometry more than 3 or 4 times in a row. He still continues to cough up occasional mucus. Exam Vital signs and Labs for Last 24 Hours: Temp Pulse Resp BP Pulse Ox 98.4 F 77 18 146/64 H 88 L 07/22/21 04:00 07/22/21 06:01 07/22/21 04:00 07/22/21 04:00 07/22/21 06:01 Laboratory Results - last 24 hr 07/21/21 05:49: POC Glucose 197 H 07/21/21 06:10: Total Counted 100, Neutrophils % (Manual) 93 H, Lymphocytes % (Manual) 7 L, Nucleated RBCs 1, Platelet Estimate Normal, Hypochromasia 2+, Macrocytosis 2+ 07/21/21 11:57: POC Glucose 135 H 07/21/21 17:07: POC Glucose 157 H 07/22/21 06:11: POC Glucose 211 H I & O for Last 24 hours: Intake & Output 07/19/21 07/20/21 07/21/21 07/22/21 11:59 11:59 11:59 11:59 Intake Total 960 / 960 1090 / 1090 960 / 960 1070 / 1070 Output Total 1050 / 1050 1500 / 1500 1150 / 1725 2150 / 2150 Balance -90 / -90 -410 / -410 -190 / -765 -1080 / -1080 Weight 256 lb 1.6 oz 253 lb 7 oz 252 lb 10 oz 252 lb 10.008 oz Narrative: No change in exam, alert, oriented. Lungs have good air movement but scattered rhonchi, heart rate regular. Abdomen soft. No distal edema. No rash. Neurologically intact. Assessment and Plan (1) Pneumonia due to COVID-19 virus Status: Acute Category: Medical Code(s): U07.1 - COVID-19; J12.82 - Pneumonia due to coronavirus disease 2019 (2) Respiratory failure with hypoxia Status: Acute Qualifiers: Chronicity: acute Qualified Code(s): J96.01 - Acute respiratory failure with hypoxia Category: Medical Code(s): J96.91 - Respiratory failure, unspecified with hypoxia (3) Essential hypertension Status: Chronic Category: Medical Code(s): I10 - Essential (primary) hypertension (4) Diabetes mellitus Status: Chronic Category: Medical Code(s): E11.9 - Type 2 diabetes mellitus without complications (5) Obesity, Class II, BMI 35-39.9 Status: Chronic Category: Medical Code(s): E66.9 - Obesity, unspecified - Assessment and plan all Dx Assessment and Plan for all problems:: Overall's plateaued. Pathology is reviewing the slide for his leukocytosis. Check labs tomorrow.
[2021-07-22 10:30] LABS: Anion Gap 9.2 mEq/L (5-15); Blood Urea Nitrogen 29 mg/dl (9-20); Calcium 8.4 mg/dl (8.4-10.2); Carbon Dioxide 31 mmol/L (22.0-30.0); Chloride 96 mmol/L (98-107); Creatinine Clearance Estimated 134 mL/min (50-200); Estimated Glomerular Filt Rate 77 ml/min (>60); GFR (African American) 94 ML/MIN (>60); Glucose 255 mg/dl (74-100); Potassium 4.2 mmoL/L (3.5-5.1); Sodium 132 mmol/L (136-145)
[2021-07-22 10:35] LABS: Vancomycin,Trough 10.8 ug/mL (5.0-10.0)
--- NOTE | 2021-07-22 10:52 | HMH.PHACONS ---
- Pharmacy Consult Date: 07/22/21 Time: 10:52 Referring provider: DIAMOND Reason for Consult:: VANCOMYCIN DOSING Allergies and ADEs:: Allergies Allergy/AdvReac Type Severity Reaction Status Date / Time No Known Allergies Allergy Verified 07/11/21 21:54 Home Medications:: Home Medications Medication Instructions Recorded Confirmed Type meloxicam 7.5 mg tablet 7.5 mg PO HS 03/13/19 07/11/21 History omeprazole 20 mg capsule,delayed 20 mg PO HS 03/13/19 07/11/21 History release albuterol sulfate 90 mcg/actuation 2 puffs IH Q4HP PRN 11/05/19 07/12/21 History aerosol inhaler Atorvastatin Calcium [Lipitor 40mg 40 mg PO HS 07/12/21 07/12/21 History Tab] Doxycycline Monohydrate 100 mg PO BID 07/12/21 07/12/21 History [Doxycycline [place] 100mg Tab] Glycopyrrolate/Formoterol Fum 2 puffs IH BID 07/12/21 07/12/21 History [Bevespi Aerosphere Inhaler] Losartan Potassium [Cozaar 100mg 100 mg PO DAILY 07/12/21 07/12/21 History Tablets] Metformin HCl [Metformin 1000mg 1,000 mg PO BIDWMEAL 07/12/21 07/12/21 History Tablets] Height: 1.8 m Weight: 114.589 kg Laboratory Results:: Laboratory Results - last 24 hr 07/21/21 05:49: POC Glucose 197 H 07/21/21 11:57: POC Glucose 135 H 07/21/21 17:07: POC Glucose 157 H 07/22/21 06:11: POC Glucose 211 H 07/22/21 09:34: Sodium 132 L, Potassium 4.2, Chloride 96 L, Carbon Dioxide 31 H, Anion Gap 9.2, BUN 29 H, Creatinine 1.00 D, Estimated Creat Clear 134, Estimated GFR 77, Est GFR ( Amer) 94 D, Glucose 255 H, Calcium 8.4 07/22/21 09:34: Vancomycin Trough 10.8 H Medical History: Reports:: Chronic Obstructive Pulmonary Disease (COPD), Diabetes Mellitus Type 1, Diabetes Mellitus Type 2, Hyperlipidemia, Hypertension Assessment and Plan (1) Pneumonia due to COVID-19 virus Status: Acute Category: Medical Code(s): U07.1 - COVID-19; J12.82 - Pneumonia due to coronavirus disease 2019 (2) Respiratory failure with hypoxia Status: Acute Qualifiers: Chronicity: acute Qualified Code(s): J96.01 - Acute respiratory failure with hypoxia Category: Medical Code(s): J96.91 - Respiratory failure, unspecified with hypoxia (3) Essential hypertension Status: Chronic Category: Medical Code(s): I10 - Essential (primary) hypertension (4) Diabetes mellitus Status: Chronic Category: Medical Code(s): E11.9 - Type 2 diabetes mellitus without complications (5) Obesity, Class II, BMI 35-39.9 Status: Chronic Category: Medical Code(s): E66.9 - Obesity, unspecified - Assessment and plan all Dx Assessment and Plan for all problems:: Objective: Age: 56 yo Serum creatinine: 1.0 mg/dL Height: 70.9 Inches Weight (kg): 121.8 Assessment: IBW (kg): 75.07 Dosing wt(kg): 121.8 Estimated Creatinine clearance (ml/min): 125.1 CRCL method: Cockcroft and Gault using ibw(default). Drug selected: Vancomycin Loading dose (mg): Vd (liters): 60.9 (factor used: 0.5 L/kg) Danyel (hr-1): 0.108 Half life (hrs): 6.42 CLvanco=?? 6.577 L/hr Recommended dose: 1500 mg Interval: 12 hrs Infusion time (hrs): 2.0 Predicted peak (mcg/mL): 30.5 Predicted trough (mcg/mL): 10.36 Total body weight is being used for vancomycin dosing. TROUGH: 10.8 (07/22/21 @ 09:34) Recommendations: CONTINUE Vancomycin 1500 mg q 12 hrs with an expected Cpeak of 30.5 mcg/ml and an expected Ctrough of 10.36 mcg/ml AUC 0-24 /MIRANDA Data: MIRANDA 0.5 mcg/mL:?? AUC/MIRANDA:? 912.3 MIRANDA 1.0 mcg/mL:?? AUC/MIRANDA:? 456.1 --------- MIRANDA 1.5 mcg/mL:?? AUC/MIRANDA:? 304.1 MIRANDA 2.0 mcg/mL:?? AUC/MIRANDA:? 228.1 Thank you for the consult, will continue to follow.
[2021-07-22 11:27] LABS: POC Glucose,Bedside 211 (70-110)
--- NOTE | 2021-07-22 17:08 | PC.NURSE ---
Pt has been pleasant and cooperative this shift. A&O X4. No complaints of pain. SOA reported with exertion. Pt is currently receiving O2 via Vapotherm/Non-Rebreather @ 40 LPM with sats. >85%. Lung sounds reveal expiratory rhonchi. No edema noted. Telemetry reveals NSR. Skin C/D/I. Pt ambulates independently to/from the [facility] and in the room. Pt sat up in the recliner for several hours this AM. Pt also lies laterally and rotates between sides. Pt voids clear, dark-yellow urine without issue. No BM thus far this shift. FSBS results have been 211 and 108. VSS. Call light within reach. Will continue to monitor.
[2021-07-22 17:58] LABS: POC Glucose,Bedside 108 (70-110)
[2021-07-22 20:52] LABS: POC Glucose,Bedside 164 (70-110)
[2021-07-23] VITALS (12 sets, daily range): BP systolic 118–144; BP diastolic 62–83; PULSE 57–86; RESP 15–26; TEMP 36.5–36.9; O2SAT 90–96; BMI 35.3
[2021-07-23 06:16] LABS: POC Glucose,Bedside 224 (70-110)
[2021-07-23 06:55] LABS: Basophils # 0.3 K/mm3 (0-0.2); Basophils % 0.8 % (0.1-2.0); Eosinophils # 0.1 K/mm3 (0.0-0.4); Eosinophils % 0.3 % (0.1-12.0); Hematocrit 33.6 % (42.0-52.0); Hemoglobin 10.8 g/dL (14.1-18.0); Lymphocytes # 0.7 K/mm3 (0.7-4.5); Lymphocytes % 1.7 % (10-50); Mean Corpuscular Hemoglobin 30.5 pg (27.0-31.2); Mean Corpuscular Volume 95.3 fl (80-94); Mean Platelet Volume 9.8 fl (7.4-10.4); Monocytes # 0.6 K/mm3 (0.1-1.0); Monocytes % 1.4 % (1.7-9.3); Neutrophils # 37.5 K/mm3 (1.8-7.8); Neutrophils % 95.7 % (37.0-80.0); Platelet Count 461 K/mm3 (142-424); Red Blood Count 3.53 M/mm3 (4.60-6.20); Red Cell Distribution Width 14.8 % (11.5-17.5); White Blood Count 39.2 K/mm3 (4.8-10.8)
[2021-07-23 06:58] LABS: MANUAL DIFFERENTIAL MANUAL DIFFERENTIAL (MANUAL DIFF)
--- NOTE | 2021-07-23 07:05 | HMH.ACPN2 ---
Internal Medicine - PN: Subj *Date: 07/23/21 *Time: 14:13 Interval history: Overall patient is unchanged clinically, continues to have symptoms that are stable. Appears to clinically have plateaued. Continues Vapotherm, occasional nonrebreather when moved and is short of breath. Sitting up on his own, getting to bedside chair. Oxygen saturations in the mid 90s on exam. -Denies diarrhea, nausea, chest pain. Exam Vital signs and Labs for Last 24 Hours: Temp Pulse Resp BP Pulse Ox 98.0 F 69 18 144/70 H 94 L 07/23/21 04:00 07/23/21 06:37 07/23/21 04:00 07/23/21 04:00 07/23/21 06:37 Laboratory Results - last 24 hr 07/22/21 09:34: Sodium 132 L, Potassium 4.2, Chloride 96 L, Carbon Dioxide 31 H, Anion Gap 9.2, BUN 29 H, Creatinine 1.00 D, Estimated Creat Clear 134, Estimated GFR 77, Est GFR ( Amer) 94 D, Glucose 255 H, Calcium 8.4 07/22/21 09:34: Vancomycin Trough 10.8 H 07/22/21 11:03: POC Glucose 211 H 07/22/21 16:09: POC Glucose 108 07/22/21 20:35: POC Glucose 164 H 07/23/21 05:39: WBC 39.2 H* D, RBC 3.53 L, Hgb 10.8 L, Hct 33.6 L, MCV 95.3 H, MCH 30.5, MCHC 32.0, RDW 14.8, Plt Count 461 H, MPV 9.8, Neut % (Auto) 95.7 H, Lymph % (Auto) 1.7 L, [place] % (Auto) 1.4 L, Eos % (Auto) 0.3, Baso % (Auto) 0.8, Neut # (Auto) 37.5 H, Lymph # (Auto) 0.7, [place] # (Auto) 0.6, Eos # (Auto) 0.1, Baso # (Auto) 0.3 H 07/23/21 06:02: POC Glucose 224 H I & O for Last 24 hours: Intake & Output 07/20/21 07/21/21 07/22/21 07/23/21 23:59 23:59 23:59 23:59 Intake Total 1210 / 1210 1310 / 1310 970 / 970 Output Total 1400 / 1400 850 / 1750 1775 / 1775 250 / 250 Balance -190 / -190 460 / -440 -805 / -805 -250 / -250 Weight 114.957 kg 114.589 kg 114.589 kg 114.589 kg Narrative: - Constitutional Mild distress on Vapotherm nasal cannula - *Routine HEENT Exam Head: Present: normocephalic Eye: Present: EOMI, PERRL ENT: Present: mucous membranes moist - *Routine Neck Exam Present: supple. Absent: lymphadenopathy - *Routine Respiratory Exam Present: good airmovement, faint crackles in LL base. no wheeze or rhonchi - *Routine Cardiovascular Exam Present: RRR - *Routine Abdominal Exam Present: soft, normoactive bowel sounds. Absent: tenderness - *Routine Extremities Exam Absent: cyanosis, clubbing, edema - *Routine Skin Exam Present: warm. Absent: rash - *Routine Neurological Exam Present: alert, oriented X3 Assessment and Plan (1) Pneumonia due to COVID-19 virus Status: Acute Category: Medical Code(s): U07.1 - COVID-19; J12.82 - Pneumonia due to coronavirus disease 2019 (2) Respiratory failure with hypoxia Status: Acute Qualifiers: Chronicity: acute Qualified Code(s): J96.01 - Acute respiratory failure with hypoxia Category: Medical Code(s): J96.91 - Respiratory failure, unspecified with hypoxia (3) Essential hypertension Status: Chronic Category: Medical Code(s): I10 - Essential (primary) hypertension (4) Diabetes mellitus Status: Chronic Category: Medical Code(s): E11.9 - Type 2 diabetes mellitus without complications (5) Obesity, Class II, BMI 35-39.9 Status: Chronic Category: Medical Code(s): E66.9 - Obesity, unspecified - Assessment and plan all Dx Assessment and Plan for all problems:: 56-year-old male admitted for worsening hypoxemic respiratory failure secondary to COVID-19 pneumonia. Tolerating oxygen, tolerating maximal Vapotherm at this time. Encouraged incentive spirometer. Problems addressed as follows COVID-19 pneumonia Acute hypoxemic respiratory failure --Clinically appears to have plateaued. No worsening status however not improving as would be anticipated. -Treatment per protocol: Has completed remdesivir. Has 2 more days of baricitinib left. Continuing steroids and vitamins. -Prophylactic Lovenox -DuoNebs every 6hrs; incentive spirometer, aggressive pulmonary toilet -Continue noninvasive oxygenation with goal saturation gr
[2021-07-23 07:12] LABS: Alanine Aminotransferase 43 U/L (12-78); Albumin Level 2.9 g/dl (3.5-5.0); Albumin/Globulin Ratio 0.8 (1.1-1.8); Alkaline Phosphatase 148 U/L (38-126); Anion Gap 10.7 mEq/L (5-15); Aspartate Amino Transferase 47 U/L (17-59); Bilirubin,Total 0.7 mg/dl (0.2-1.3); Blood Urea Nitrogen 25 mg/dl (9-20); Carbon Dioxide 30 mmol/L (22.0-30.0); Chloride 96 mmol/L (98-107); Creatinine Clearance Estimated 191 mL/min (50-200); Estimated Glomerular Filt Rate 117 ml/min (>60); GFR (African American) 141 ML/MIN (>60); Globulin 3.6 g/dL (1.3-3.2); Glucose 201 mg/dl (74-100); Potassium 4.7 mmoL/L (3.5-5.1); Sodium 132 mmol/L (136-145); Total Protein,Serum 6.5 g/dl (6.3-8.2)
[2021-07-23 08:23] LABS: Lymphocytes % 2 % (10-50); Monocytes % 1 % (2-9); Neutrophils % 97 % (42-76); Total Cells Counted 100
[2021-07-23 08:25] LABS: Platelet Estimate Slight Increase; RBC Morphology Normal
[2021-07-23 08:29] LABS: Peripheral Smear Review Scanned Result
[2021-07-23 12:12] LABS: POC Glucose,Bedside 164 (70-110)
--- NOTE | 2021-07-23 17:50 | PC.NURSE ---
Patient is NSR on the monitor. Patient is on 100% non-rebreather abd on vapotherm at 40 L and 100%. Patient is up ad-ortega. Patient up to chair today. Alert and oriented times 4. Bed in lowest position and phone and call light in reach.
[2021-07-23 22:15] LABS: POC Glucose,Bedside 285 (70-110)
[2021-07-24] VITALS (15 sets, daily range): BP systolic 120–143; BP diastolic 59–77; PULSE 57–100; RESP 20–28; TEMP 36.4–36.8; O2SAT 88–98; BMI 35.2
[2021-07-24 07:36] LABS: Basophils # 0.7 K/mm3 (0-0.2); Basophils % 1.3 % (0.1-2.0); Eosinophils # 0.2 K/mm3 (0.0-0.4); Eosinophils % 0.3 % (0.1-12.0); Hematocrit 36.5 % (42.0-52.0); Hemoglobin 11.8 g/dL (14.1-18.0); Lymphocytes # 0.4 K/mm3 (0.7-4.5); Lymphocytes % 0.7 % (10-50); Mean Corpuscular HGB Conc 32.4 g/dL (31.8-35.4); Mean Corpuscular Hemoglobin 31.4 pg (27.0-31.2); Mean Corpuscular Volume 96.7 fl (80-94); Mean Platelet Volume 9.9 fl (7.4-10.4); Monocytes # 0.5 K/mm3 (0.1-1.0); Monocytes % 0.9 % (1.7-9.3); Neutrophils # 50.7 K/mm3 (1.8-7.8); Neutrophils % 96.7 % (37.0-80.0); Platelet Count 606 K/mm3 (142-424); Red Blood Count 3.77 M/mm3 (4.60-6.20); Red Cell Distribution Width 14.8 % (11.5-17.5)
[2021-07-24 07:55] LABS: Alanine Aminotransferase 57 U/L (12-78); Albumin Level 3.5 g/dl (3.5-5.0); Albumin/Globulin Ratio 0.9 (1.1-1.8); Alkaline Phosphatase 214 U/L (38-126); Anion Gap 10.6 mEq/L (5-15); Aspartate Amino Transferase 57 U/L (17-59); Bilirubin,Total 0.9 mg/dl (0.2-1.3); Blood Urea Nitrogen 29 mg/dl (9-20); Calcium 8.7 mg/dl (8.4-10.2); Carbon Dioxide 32 mmol/L (22.0-30.0); Chloride 95 mmol/L (98-107); Creatinine Clearance Estimated 166 mL/min (50-200); Estimated Glomerular Filt Rate 100 ml/min (>60); GFR (African American) 121 ML/MIN (>60); Globulin 4.1 g/dL (1.3-3.2); Glucose 248 mg/dl (74-100); Magnesium 2.4 mg/dl (1.6-2.3); Potassium 4.6 mmoL/L (3.5-5.1); Sodium 133 mmol/L (136-145); Total Protein,Serum 7.6 g/dl (6.3-8.2)
[2021-07-24 08:41] LABS: White Blood Count 52.4 K/mm3 (4.8-10.8)
[2021-07-24 08:42] LABS: MANUAL DIFFERENTIAL MANUAL DIFFERENTIAL (MANUAL DIFF)
--- NOTE | 2021-07-24 08:45 | HMH.ACPN2 ---
Internal Medicine - PN: Subj *Date: 07/24/21 *Time: 08:45 Interval history: No major changes in health patient feels today. Dr. Baez reduced his Vapotherm FiO2 to 95% overnight but then this was increased by respiratory therapy. Patient is comfortable Exam Vital signs and Labs for Last 24 Hours: Temp Pulse Resp BP Pulse Ox 97.5 F L 85 24 143/77 H 98 07/24/21 07:43 07/24/21 07:43 07/24/21 07:43 07/24/21 07:43 07/24/21 07:43 Laboratory Results - last 24 hr 07/23/21 11:37: POC Glucose 164 H 07/23/21 22:06: POC Glucose 285 H 07/24/21 06:48: WBC 52.4 H* D, RBC 3.77 L, Hgb 11.8 L, Hct 36.5 L, MCV 96.7 H, MCH 31.4 H, MCHC 32.4, RDW 14.8, Plt Count 606 H D, MPV 9.9, Neut % (Auto) 96.7 H, Lymph % (Auto) 0.7 L, [place] % (Auto) 0.9 L, Eos % (Auto) 0.3, Baso % (Auto) 1.3, Neut # (Auto) 50.7 H, Lymph # (Auto) 0.4 L, [place] # (Auto) 0.5, Eos # (Auto) 0.2, Baso # (Auto) 0.7 H 07/24/21 06:48: Sodium 133 L, Potassium 4.6, Chloride 95 L, Carbon Dioxide 32 H, Anion Gap 10.6, BUN 29 H, Creatinine 0.80, Estimated Creat Clear 166, Estimated GFR 100, Est GFR ( Amer) 121, Glucose 248 H, Calcium 8.7, Magnesium 2.4 H, Total Bilirubin 0.9, AST 57, ALT 57 D, Alkaline Phosphatase 214 H, Total Protein 7.6, Albumin 3.5 D, Globulin 4.1 H, Albumin/Globulin Ratio 0.9 L I & O for Last 24 hours: Intake & Output 07/21/21 07/22/21 07/23/21 07/24/21 11:59 11:59 11:59 11:59 Intake Total 960 / 960 1430 / 1430 970 / 970 900 / 900 Output Total 1150 / 1725 2625 / 2625 250 / 250 1700 / 1700 Balance -190 / -765 -1195 / -1195 720 / 720 -800 / -800 Weight 252 lb 10 oz 252 lb 10.008 oz 252 lb 10.008 oz 251 lb 9.6 oz Narrative: Patient is pleasant, alert, no changes in oxygenation status. Lungs have rhonchi, good air movement, heart rate regular, abdomen soft, no edema, no clubbing. Assessment and Plan (1) Pneumonia due to COVID-19 virus Status: Acute Category: Medical Code(s): U07.1 - COVID-19; J12.82 - Pneumonia due to coronavirus disease 2018 (2) Respiratory failure with hypoxia Status: Acute Qualifiers: Chronicity: acute Qualified Code(s): J96.01 - Acute respiratory failure with hypoxia Category: Medical Code(s): J96.91 - Respiratory failure, unspecified with hypoxia (3) Essential hypertension Status: Chronic Category: Medical Code(s): I10 - Essential (primary) hypertension (4) Diabetes mellitus Status: Chronic Category: Medical Code(s): E11.9 - Type 2 diabetes mellitus without complications (5) Obesity, Class II, BMI 35-39.9 Status: Chronic Category: Medical Code(s): E66.9 - Obesity, unspecified - Assessment and plan all Dx Assessment and Plan for all problems:: No changes in plan. I weaned his Vapotherm FiO2 down to 95%. I have asked nursing staff to keep it there for any sats over 85%. We need to start weaning and see how we can progress to oxygen delivery more amenable to home use.
--- NOTE | 2021-07-24 09:07 | PC.NURSE ---
Dr. Chávez was made awarw of critical WBC this am. NNO given.
[2021-07-24 10:31] LABS: Lymphocytes % 7 % (10-50); Monocytes % 2 % (2-9); Neutrophils % 91 % (42-76); RBC Morphology Normal; Total Cells Counted 100
[2021-07-24 10:32] LABS: Platelet Estimate Marked Increase
[2021-07-24 12:26] LABS: POC Glucose,Bedside 226 (70-110)
[2021-07-24 17:07] LABS: POC Glucose,Bedside 254 (70-110)
--- NOTE | 2021-07-24 19:43 | PC.NURSE ---
Vapo on [address] and [address] %. [address] Chávez ok with sats 85% and above.
[2021-07-25] VITALS (12 sets, daily range): BP systolic 124–155; BP diastolic 64–83; PULSE 61–100; RESP 21–26; TEMP 36.3–37.1; O2SAT 84–93; BMI 34.9
--- NOTE | 2021-07-25 08:41 | HMH.ACPN2 ---
Internal Medicine - PN: Subj *Date: 07/25/21 *Time: 08:41 Interval history: Patient is been able to tolerate going down to 85% FiO2 on Vapotherm over the past 24 hours. His O2 saturations have been in the low 90% range. He is minimally shortness of air at rest. Eating well. No other complaints. Exam Vital signs and Labs for Last 24 Hours: Temp Pulse Resp BP Pulse Ox 98.5 F 97 H 24 135/72 91 L 07/25/21 07:53 07/25/21 07:53 07/25/21 07:53 07/25/21 07:53 07/25/21 07:53 Laboratory Results - last 24 hr 07/24/21 06:48: WBC 52.4 H* D, RBC 3.77 L, Hgb 11.8 L, Hct 36.5 L, MCV 96.7 H, MCH 31.4 H, MCHC 32.4, RDW 14.8, Plt Count 606 H D, MPV 9.9, Neut % (Auto) 96.7 H, Lymph % (Auto) 0.7 L, [place] % (Auto) 0.9 L, Eos % (Auto) 0.3, Baso % (Auto) 1.3, Neut # (Auto) 50.7 H, Lymph # (Auto) 0.4 L, [place] # (Auto) 0.5, Eos # (Auto) 0.2, Baso # (Auto) 0.7 H, Total Counted 100, Neutrophils % (Manual) 91 H, Lymphocytes % (Manual) 7 L, Monocytes % (Manual) 2, Platelet Estimate Marked increase, RBC Morphology Normal 07/24/21 11:53: POC Glucose 226 H 07/24/21 15:32: POC Glucose 254 H I & O for Last 24 hours: Intake & Output 07/22/21 07/23/21 07/24/21 07/25/21 11:59 11:59 11:59 11:59 Intake Total 1430 / 1430 970 / 970 900 / 900 1140 / 1140 Output Total 2625 / 2625 250 / 250 1700 / 1700 1050 / 1050 Balance -1195 / -1195 720 / 720 -800 / -800 90 / 90 Weight 252 lb 10.008 oz 252 lb 10.008 oz 251 lb 9.6 oz 250 lb Narrative: Patient is pleasant, talkative, vital signs normal. O2 sats were 90% after he finished breakfast on the 85% Vapotherm. Lungs have good air movement. Heart rate regular. No edema or clubbing. No cyanosis or rash. Assessment and Plan (1) Pneumonia due to COVID-19 virus Status: Acute Category: Medical Code(s): U07.1 - COVID-19; J12.82 - Pneumonia due to coronavirus disease 2018 (2) Respiratory failure with hypoxia Status: Acute Qualifiers: Chronicity: acute Qualified Code(s): J96.01 - Acute respiratory failure with hypoxia Category: Medical Code(s): J96.91 - Respiratory failure, unspecified with hypoxia (3) Essential hypertension Status: Chronic Category: Medical Code(s): I10 - Essential (primary) hypertension (4) Diabetes mellitus Status: Chronic Category: Medical Code(s): E11.9 - Type 2 diabetes mellitus without complications (5) Obesity, Class II, BMI 35-39.9 Status: Chronic Category: Medical Code(s): E66.9 - Obesity, unspecified - Assessment and plan all Dx Assessment and Plan for all problems:: Very minimal improvement with oxygenation status. Continue current therapy.
--- NOTE | 2021-07-25 19:04 | PC.NURSE ---
No acute changes. VSS. Remains on vapotherm at 35 L and 85%. has used non rebreather intermittently.
[2021-07-25 20:05] LABS: POC Glucose,Bedside 262 (70-110)
[2021-07-25 21:16] LABS: POC Glucose,Bedside 258 (70-110)
[2021-07-25 21:16] LABS: POC Glucose,Bedside 187 (70-110)
[2021-07-26] VITALS (12 sets, daily range): BP systolic 115–146; BP diastolic 58–89; PULSE 60–104; RESP 18–24; TEMP 36.6–36.8; O2SAT 85–96; BMI 34.8
[2021-07-26 07:27] LABS: Anion Gap 11.4 mEq/L (5-15); Blood Urea Nitrogen 25 mg/dl (9-20); Calcium 8.5 mg/dl (8.4-10.2); Carbon Dioxide 31 mmol/L (22.0-30.0); Chloride 94 mmol/L (98-107); Creatinine Clearance Estimated 188 mL/min (50-200); Estimated Glomerular Filt Rate 117 ml/min (>60); GFR (African American) 141 ML/MIN (>60); Glucose 148 mg/dl (74-100); Potassium 4.4 mmoL/L (3.5-5.1); Sodium 132 mmol/L (136-145)
[2021-07-26 07:30] LABS: Basophils # 0.7 K/mm3 (0-0.2); Basophils % 1.5 % (0.1-2.0); Eosinophils # 0.1 K/mm3 (0.0-0.4); Eosinophils % 0.3 % (0.1-12.0); Hematocrit 33.2 % (42.0-52.0); Hemoglobin 10.7 g/dL (14.1-18.0); Lymphocytes # 0.7 K/mm3 (0.7-4.5); Lymphocytes % 1.5 % (10-50); Mean Corpuscular HGB Conc 32.2 g/dL (31.8-35.4); Mean Corpuscular Hemoglobin 30.7 pg (27.0-31.2); Mean Corpuscular Volume 95.2 fl (80-94); Mean Platelet Volume 9.5 fl (7.4-10.4); Monocytes # 0.5 K/mm3 (0.1-1.0); Monocytes % 1.1 % (1.7-9.3); Neutrophils # 44.9 K/mm3 (1.8-7.8); Neutrophils % 95.7 % (37.0-80.0); Platelet Count 473 K/mm3 (142-424); Red Blood Count 3.49 M/mm3 (4.60-6.20)
[2021-07-26 07:45] LABS: White Blood Count 46.9 K/mm3 (4.8-10.8)
[2021-07-26 07:47] LABS: MANUAL DIFFERENTIAL MANUAL DIFFERENTIAL (MANUAL DIFF)
[2021-07-26 08:32] LABS: Eosinophils % 1 % (0-3); Lymphocytes % 7 % (10-50); Monocytes % 1 % (2-9); Neutrophils % 91 % (42-76); Platelet Estimate Slight Increase; RBC Morphology Normal; Total Cells Counted 100
--- NOTE | 2021-07-26 08:46 | P.PN_ITS ---
Internal Medicine - PN: Subj *Date: 07/26/21 *Time: 08:46 Interval history: Overall patient feels about the same, unfortunately, his FiO2 was turned back to 100% through the night. I had intended for him to be weaned down, with permissive O2 saturations going down to 80 to 85% given his long-term Covid status and normal mental status. I have turned his FiO2 personally down to 90% on his Vapotherm. Exam Vital signs and Labs for Last 24 Hours: Temp Pulse Resp BP Pulse Ox 98.3 F 99 H 24 127/66 86 L 07/26/21 08:00 07/26/21 08:00 07/26/21 08:00 07/26/21 08:00 07/26/21 08:00 Laboratory Results - last 24 hr 07/25/21 11:10: POC Glucose 187 H 07/25/21 15:54: POC Glucose 258 H 07/25/21 19:58: POC Glucose 262 H 07/26/21 05:33: WBC 46.9 H*, RBC 3.49 L, Hgb 10.7 L, Hct 33.2 L, MCV 95.2 H, MCH 30.7, MCHC 32.2, RDW 15.0, Plt Count 473 H, MPV 9.5, Neut % (Auto) 95.7 H, Lymph % (Auto) 1.5 L, [place] % (Auto) 1.1 L, Eos % (Auto) 0.3, Baso % (Auto) 1.5, Neut # (Auto) 44.9 H, Lymph # (Auto) 0.7, [place] # (Auto) 0.5, Eos # (Auto) 0.1, Baso # (Auto) 0.7 H, Total Counted 100, Neutrophils % (Manual) 91 H, Lymphocytes % (Man ual) 7 L, Monocytes % (Manual) 1 L, Eosinophils % (Manual) 1, Platelet Estimate Slight increase, RBC Morphology Normal 07/26/21 05:33: Sodium 132 L, Potassium 4.4, Chloride 94 L, Carbon Dioxide 31 H, Anion Gap 11.4, BUN 25 H, Creatinine 0.70, Estimated Creat Clear 188, Estimated GFR 117, Est GFR ( Amer) 141, Glucose 148 H, Calcium 8.5 I & O for Last 24 hours: Intake & Output 07/23/21 07/24/21 07/25/21 07/26/21 11:59 11:59 11:59 11:59 Intake Total 970 / 970 900 / 900 1140 / 1140 1080 / 1080 Output Total 250 / 250 1700 / 1700 1050 / 1050 1875 / 1875 Balance 720 / 720 -800 / -800 90 / 90 -795 / -795 Weight 252 lb 10.008 oz 251 lb 9.6 oz 250 lb 249 lb Narrative: Patient is alert, O2 saturations are at 88% after he has been moving around and having breakfast. Rhonchorous lung sounds, no rash, pleasant, talkative, extremely tired of being in the hospital. Logically intact. Assessment and Plan (1) Pneumonia due to COVID-19 virus Status: Acute Category: Medical Code(s): U07.1 - COVID-19; J12.82 - Pneumonia due to coronavirus disease 2019 (2) Respiratory failure with hypoxia Status: Acute Qualifiers: Chronicity: acute Qualified Code(s): J96.01 - Acute respiratory failure with hypoxia Category: Medical Code(s): J96.91 - Respiratory failure, unspecified with hypoxia (3) Essential hypertension Status: Chronic Category: Medical Code(s): I10 - Essential (primary) hypertension (4) Diabetes mellitus Status: Chronic Category: Medical Code(s): E11.9 - Type 2 diabetes mellitus without complications (5) Obesity, Class II, BMI 35-39.9 Status: Chronic Category: Medical Code(s): E66.9 - Obesity, unspecified - Assessment and plan all Dx Assessment and Plan for all problems:: My intention is to wean down FiO2 for O2 saturations greater than 85% at rest. I have reiterated this to nursing staff and placed an order in the computer. We will follow his leukocytosis. Pathology report pending.
--- NOTE | 2021-07-26 09:33 | PC.NURSE ---
Kyler gave RT verbal order for SPo2 >80%
--- NOTE | 2021-07-26 12:44 | PC.NURSE ---
Estelason updated permissive spo2 to 85% or greater
--- NOTE | 2021-07-26 14:06 | PC.NURSE ---
Patient had a brief incidence of SPO2 in the 50's with a readable waveform. Patient fio2 increased for less than 5 minutes to hyperoxygenate. Patient returned to fio2 85% 35L. RN will continue to wean patient
[2021-07-26 20:46] LABS: POC Glucose,Bedside 151 (70-110)
[2021-07-27] VITALS (12 sets, daily range): BP systolic 128–151; BP diastolic 56–74; PULSE 69–100; RESP 19–27; TEMP 36.6–36.9; O2SAT 85–94; BMI 34.8
--- NOTE | 2021-07-27 03:54 | PC.NURSE ---
Addendum entered by Teri Gunter RN 07/27/21 04:05: correction: pt currently on 40L 85% on vapotherm, unable to tolerate any lower settings at this time. Original Note: RT has tried multiple times this shift to decrease pt O2 vapotherm settings, pt was unable to tolerate and desated to the 60s each time even when sleeping. Pt currently on 40L 100%, and pt has had to use the NRB several times to recover during these episodes, sats would not recover otherwise.
[2021-07-27 06:09] LABS: POC Glucose,Bedside 203 (70-110)
[2021-07-27 06:09] LABS: POC Glucose,Bedside 227 (70-110)
[2021-07-27 06:09] LABS: POC Glucose,Bedside 132 (70-110)
[2021-07-27 06:30] LABS: Basophils # 0.2 K/mm3 (0-0.2); Basophils % 0.6 % (0.1-2.0); Eosinophils # 0.1 K/mm3 (0.0-0.4); Eosinophils % 0.4 % (0.1-12.0); Hematocrit 32.9 % (42.0-52.0); Hemoglobin 10.7 g/dL (14.1-18.0); Lymphocytes # 0.8 K/mm3 (0.7-4.5); Lymphocytes % 1.9 % (10-50); Mean Corpuscular HGB Conc 32.5 g/dL (31.8-35.4); Mean Corpuscular Hemoglobin 30.9 pg (27.0-31.2); Mean Corpuscular Volume 95.2 fl (80-94); Mean Platelet Volume 9.7 fl (7.4-10.4); Monocytes # 0.4 K/mm3 (0.1-1.0); Monocytes % 1.1 % (1.7-9.3); Neutrophils # 37.4 K/mm3 (1.8-7.8); Platelet Count 442 K/mm3 (142-424); Red Blood Count 3.46 M/mm3 (4.60-6.20); Red Cell Distribution Width 15.1 % (11.5-17.5)
[2021-07-27 06:33] LABS: Alanine Aminotransferase 61 U/L (12-78); Albumin Level 3.1 g/dl (3.5-5.0); Albumin/Globulin Ratio 0.9 (1.1-1.8); Alkaline Phosphatase 176 U/L (38-126); Anion Gap 9.5 mEq/L (5-15); Aspartate Amino Transferase 52 U/L (17-59); Bilirubin,Total 0.8 mg/dl (0.2-1.3); Blood Urea Nitrogen 27 mg/dl (9-20); Calcium 8.4 mg/dl (8.4-10.2); Carbon Dioxide 31 mmol/L (22.0-30.0); Chloride 96 mmol/L (98-107); Creatinine Clearance Estimated 165 mL/min (50-200); Estimated Glomerular Filt Rate 100 ml/min (>60); GFR (African American) 121 ML/MIN (>60); Globulin 3.5 g/dL (1.3-3.2); Glucose 220 mg/dl (74-100); Potassium 4.5 mmoL/L (3.5-5.1); Sodium 132 mmol/L (136-145); Total Protein,Serum 6.6 g/dl (6.3-8.2)
[2021-07-27 06:34] LABS: MANUAL DIFFERENTIAL MANUAL DIFFERENTIAL (MANUAL DIFF)
--- NOTE | 2021-07-27 07:05 | HMH.ACPN2 ---
Internal Medicine - PN: Subj *Date: 07/27/21 *Time: 17:26 Interval history: Continuing to wean oxygen. Patient 80% Vapotherm today with saturations in the high 80s to low 90s at rest. Occasionally needing nonrebreather mask to rebound after periods of exertion. Remains afebrile. Tolerating fair p.o. intake. Not using incentive spirometer regularly. Encouraged to use more often. Exam Vital signs and Labs for Last 24 Hours: Temp Pulse Resp BP Pulse Ox 98 F 71 24 136/74 90 L 07/27/21 04:00 07/27/21 05:41 07/27/21 04:00 07/27/21 04:00 07/27/21 05:41 Laboratory Results - last 24 hr 07/26/21 05:33: WBC 46.9 H*, RBC 3.49 L, Hgb 10.7 L, Hct 33.2 L, MCV 95.2 H, MCH 30.7, MCHC 32.2, RDW 15.0, Plt Count 473 H, MPV 9.5, Neut % (Auto) 95.7 H, Lymph % (Auto) 1.5 L, [place] % (Auto) 1.1 L, Eos % (Auto) 0.3, Baso % (Auto) 1.5, Neut # (Auto) 44.9 H, Lymph # (Auto) 0.7, [place] # (Auto) 0.5, Eos # (Auto) 0.1, Baso # (Auto) 0.7 H, Total Counted 100, Neutrophils % (Manual) 91 H, Lymphocytes % (Manual) 7 L, Monocytes % (Manual) 1 L, Eosinophils % (Manual) 1, Platelet Estimate Slight increase, RBC Morphology Normal 07/26/21 05:33: Sodium 132 L, Potassium 4.4, Chloride 94 L, Carbon Dioxide 31 H, Anion Gap 11.4, BUN 25 H, Creatinine 0.70, Estimated Creat Clear 188, Estimated GFR 117, Est GFR ( Amer) 141, Glucose 148 H, Calcium 8.5 07/26/21 11:36: POC Glucose 151 H 07/26/21 16:45: POC Glucose 132 H 07/26/21 20:27: POC Glucose 203 H 07/27/21 05:22: WBC 39.0 H*, RBC 3.46 L, Hgb 10.7 L, Hct 32.9 L, MCV 95.2 H, MCH 30.9, MCHC 32.5, RDW 15.1, Plt Count 442 H, MPV 9.7, Neut % (Auto) 96.0 H, Lymph % (Auto) 1.9 L, [place] % (Auto) 1.1 L, Eos % (Auto) 0.4, Baso % (Auto) 0.6, Neut # (Auto) 37.4 H, Lymph # (Auto) 0.8, [place] # (Auto) 0.4, Eos # (Auto) 0.1, Baso # (Auto) 0.2 07/27/21 05:22: Sodium 132 L, Potassium 4.5, Chloride 96 L, Carbon Dioxide 31 H, Anion Gap 9.5, BUN 27 H, Creatinine 0.80, Estimated Creat Clear 165, Estimated GFR 100, Est GFR ( Amer) 121, Glucose 220 H D, Calcium 8.4, Total Bilirubin 0.8, AST 52, ALT 61, Alkaline Phosphatase 176 H, Total Protein 6.6, Albumin 3.1 L, Globulin 3.5 H, Albumin/Globulin Ratio 0.9 L 07/27/21 05:23: POC Glucose 227 H I & O for Last 24 hours: Intake & Output 07/24/21 07/25/21 07/26/21 07/27/21 23:59 23:59 23:59 23:59 Intake Total 1140 / 1140 1020 / 1020 4081 / 4081 Output Total 1150 / 1150 1875 / 1875 1200 / 1500 700 / 700 Balance -10 / -10 -855 / -855 2881 / 2581 -700 / -700 Weight 114.124 kg 113.398 kg 112.945 kg 112.945 kg Narrative: - Constitutional Mild distress on Vapotherm nasal cannula - *Routine HEENT Exam Head: Present: normocephalic Eye: Present: EOMI, PERRL ENT: Present: mucous membranes moist - *Routine Neck Exam Present: supple. Absent: lymphadenopathy - *Routine Respiratory Exam Present: good airmovement, faint crackles in LL base. no wheeze or rhonchi - *Routine Cardiovascular Exam Present: RRR - *Routine Abdominal Exam Present: soft, normoactive bowel sounds. Absent: tenderness - *Routine Extremities Exam Absent: cyanosis, clubbing, edema - *Routine Skin Exam Present: warm. Absent: rash - *Routine Neurological Exam Present: alert, oriented X3 Assessment and Plan (1) Pneumonia due to COVID-19 virus Status: Acute Category: Medical Code(s): U07.1 - COVID-19; J12.82 - Pneumonia due to coronavirus disease 2019 (2) Respiratory failure with hypoxia Status: Acute Qualifiers: Chronicity: acute Qualified Code(s): J96.01 - Acute respiratory failure with hypoxia Category: Medical Code(s): J96.91 - Respiratory failure, unspecified with hypoxia (3) Essential hypertension Status: Chronic Category: Medical Code(s): I10 - Essential (primary) hypertension (4) Diabetes mellitus Status: Chronic Category: Medical Code(s): E11.9 - Type 2 diabetes mellitus without complications (5) Obesity, Class II, BMI 35-39.9 Status:
[2021-07-27 09:09] LABS: Hypochromasia 1+; Lymphocytes % 7 % (10-50); Macrocytosis 1+; Monocytes % 1 % (2-9); Neutrophils % 92 % (42-76); Platelet Estimate Normal; Total Cells Counted 100
[2021-07-27 17:05] LABS: POC Glucose,Bedside 247 (70-110)
[2021-07-28] VITALS (15 sets, daily range): BP systolic 126–162; BP diastolic 70–93; PULSE 60–105; RESP 18–33; TEMP 36.3–37.3; O2SAT 84–100; BMI 33.9
--- NOTE | 2021-07-28 05:41 | PC.NURSE ---
no acute changes. Pt currently on 40L 75% vapotherm. NRB used at times. O2 sat 85%. Other VSS. Medications administered per nov. FSBS 200s. No other concerns. Will continue to monitor.
[2021-07-28 06:12] LABS: Basophils # 0.5 K/mm3 (0-0.2); Basophils % 1.1 % (0.1-2.0); Eosinophils # 0.1 K/mm3 (0.0-0.4); Eosinophils % 0.3 % (0.1-12.0); Hematocrit 32.2 % (42.0-52.0); Hemoglobin 10.7 g/dL (14.1-18.0); Lymphocytes # 0.8 K/mm3 (0.7-4.5); Lymphocytes % 1.8 % (10-50); Mean Corpuscular HGB Conc 33.3 g/dL (31.8-35.4); Mean Corpuscular Hemoglobin 31.8 pg (27.0-31.2); Mean Corpuscular Volume 95.6 fl (80-94); Mean Platelet Volume 9.4 fl (7.4-10.4); Monocytes # 0.6 K/mm3 (0.1-1.0); Monocytes % 1.3 % (1.7-9.3); Neutrophils # 44.8 K/mm3 (1.8-7.8); Neutrophils % 95.5 % (37.0-80.0); Platelet Count 432 K/mm3 (142-424); Red Blood Count 3.37 M/mm3 (4.60-6.20); Red Cell Distribution Width 15.4 % (11.5-17.5)
[2021-07-28 06:15] LABS: White Blood Count 46.9 K/mm3 (4.8-10.8)
[2021-07-28 06:16] LABS: Alanine Aminotransferase 52 U/L (12-78); Albumin Level 3.2 g/dl (3.5-5.0); Albumin/Globulin Ratio 0.9 (1.1-1.8); Alkaline Phosphatase 166 U/L (38-126); Anion Gap 7.8 mEq/L (5-15); Aspartate Amino Transferase 40 U/L (17-59); Bilirubin,Total 0.7 mg/dl (0.2-1.3); Blood Urea Nitrogen 28 mg/dl (9-20); Calcium 8.7 mg/dl (8.4-10.2); Carbon Dioxide 33 mmol/L (22.0-30.0); Chloride 96 mmol/L (98-107); Creatinine Clearance Estimated 183 mL/min (50-200); Estimated Glomerular Filt Rate 117 ml/min (>60); GFR (African American) 141 ML/MIN (>60); Globulin 3.6 g/dL (1.3-3.2); Glucose 253 mg/dl (74-100); Magnesium 2.5 mg/dl (1.6-2.3); Potassium 4.8 mmoL/L (3.5-5.1); Sodium 132 mmol/L (136-145); Total Protein,Serum 6.8 g/dl (6.3-8.2)
[2021-07-28 06:17] LABS: MANUAL DIFFERENTIAL MANUAL DIFFERENTIAL (MANUAL DIFF)
--- NOTE | 2021-07-28 06:30 | PC.NURSE ---
Critical lab results WBC 46.9 reported to
--- NOTE | 2021-07-28 07:30 | HMH.ACPN2 ---
Internal Medicine - PN: Subj *Date: 07/28/21 *Time: 11:35 Interval history: Stable overnight in high 80s low 90s on Vapotherm. Continues have difficulty weaning. Desats abruptly with any exertion. Discussed benefits of trying BiPAP given his difficulty recovering after decompensation. Tolerating fair p.o. intake. No fever, nausea, vomiting. Questions answered on rounds Exam Vital signs and Labs for Last 24 Hours: Temp Pulse Resp BP Pulse Ox 97.5 F L 87 25 H 138/73 86 L 07/28/21 04:00 07/28/21 05:30 07/28/21 04:00 07/28/21 04:00 07/28/21 05:30 Laboratory Results - last 24 hr 07/27/21 05:22: Total Counted 100, Neutrophils % (Manual) 92 H, Lymphocytes % (Manual) 7 L, Monocytes % (Manual) 1 L, Platelet Estimate Normal, Hypochromasia 1+, Macrocytosis 1+ 07/27/21 16:57: POC Glucose 247 H 07/28/21 05:26: WBC 46.9 H*, RBC 3.37 L, Hgb 10.7 L, Hct 32.2 L, MCV 95.6 H, MCH 31.8 H, MCHC 33.3, RDW 15.4, Plt Count 432 H, MPV 9.4, Neut % (Auto) 95.5 H, Lymph % (Auto) 1.8 L, [place] % (Auto) 1.3 L, Eos % (Auto) 0.3, Baso % (Auto) 1.1, Neut # (Auto) 44.8 H, Lymph # (Auto) 0.8, [place] # (Auto) 0.6, Eos # (Auto) 0.1, Baso # (Auto) 0.5 H 07/28/21 05:26: Sodium 132 L, Potassium 4.8, Chloride 96 L, Carbon Dioxide 33 H, Anion Gap 7.8, BUN 28 H, Creatinine 0.70, Estimated Creat Clear 183, Estimated GFR 117, Est GFR ( Amer) 141, Glucose 253 H, Calcium 8.7, Magnesium 2.5 H, Total Bilirubin 0.7, AST 40, ALT 52, Alkaline Phosphatase 166 H, Total Protein 6.8, Albumin 3.2 L, Globulin 3.6 H, Albumin/Globulin Ratio 0.9 L I & O for Last 24 hours: Intake & Output 07/25/21 07/26/21 07/27/21 07/28/21 23:59 23:59 23:59 23:59 Intake Total 1020 / 1020 4081 / 4081 1080 / 1080 Output Total 1875 / 1875 1200 / 1500 1025 / 1025 350 / 350 Balance -855 / -855 2881 / 2581 55 / 55 -350 / -350 Weight 113.398 kg 112.945 kg 112.945 kg 110.024 kg Narrative: - Constitutional Mild distress on Vapotherm nasal cannula - *Routine HEENT Exam Head: Present: normocephalic Eye: Present: EOMI, PERRL ENT: Present: mucous membranes moist - *Routine Neck Exam Present: supple. Absent: lymphadenopathy - *Routine Respiratory Exam Present: good airmovement, faint crackles in LL base. no wheeze or rhonchi - *Routine Cardiovascular Exam Present: RRR - *Routine Abdominal Exam Present: soft, normoactive bowel sounds. Absent: tenderness - *Routine Extremities Exam Absent: cyanosis, clubbing, edema - *Routine Skin Exam Present: warm. Absent: rash - *Routine Neurological Exam Present: alert, oriented X3 Assessment and Plan (1) Pneumonia due to COVID-19 virus Status: Acute Category: Medical Code(s): U07.1 - COVID-19; J12.82 - Pneumonia due to coronavirus disease 2019 (2) Respiratory failure with hypoxia Status: Acute Qualifiers: Chronicity: acute Qualified Code(s): J96.01 - Acute respiratory failure with hypoxia Category: Medical Code(s): J96.91 - Respiratory failure, unspecified with hypoxia (3) Essential hypertension Status: Chronic Category: Medical Code(s): I10 - Essential (primary) hypertension (4) Diabetes mellitus Status: Chronic Category: Medical Code(s): E11.9 - Type 2 diabetes mellitus without complications (5) Obesity, Class II, BMI 35-39.9 Status: Chronic Category: Medical Code(s): E66.9 - Obesity, unspecified - Assessment and plan all Dx Assessment and Plan for all problems:: 56-year-old male admitted for worsening hypoxemic respiratory failure secondary to COVID-19 pneumonia. Tolerating oxygen, tolerating Vapotherm at this time. Encouraged incentive spirometer. Problems addressed as follows COVID-19 pneumonia Acute hypoxemic respiratory failure --Clinically appears to have plateaued. No worsening status however marginally improving as would be anticipated. -Treatment per protocol: Has completed remdesivir, baricitinib, - Continuing steroids and vitamins. Weaning steroids given
[2021-07-28 07:40] LABS: Hypochromasia 2+; Lymphocytes % 9 % (10-50); Macrocytosis 2+; Neutrophils % 91 % (42-76); Platelet Estimate Normal; Total Cells Counted 100
--- NOTE | 2021-07-28 09:00 | PC.NURSE ---
pt agreeable to Bipap per Dr. Baez's recommendations. Pt also agreeable to complete facial shave. Education provided regarding Bipap. New order for Bipap 90% 17/02 received and RT (Rosaura) notified.
--- NOTE | 2021-07-28 10:15 | PC.NURSE ---
pt now on Bipap 90% 17/02 rate 18. O2 sat staying above 90%.
[2021-07-28 12:13] LABS: POC Glucose,Bedside 216 (70-110)
--- NOTE | 2021-07-28 12:22 | PC.NURSE ---
pt switched to Vapotherm 40L/90% for meals. Will switch back to Bipap after meal.
[2021-07-28 17:11] LABS: POC Glucose,Bedside 296 (70-110)
[2021-07-29] VITALS (13 sets, daily range): BP systolic 128–152; BP diastolic 61–93; PULSE 64–110; RESP 18–26; TEMP 36.4–37; O2SAT 86–98; BMI 33.5
[2021-07-29 05:16] LABS: POC Glucose,Bedside 120 (70-110)
[2021-07-29 05:16] LABS: POC Glucose,Bedside 185 (70-110)
--- NOTE | 2021-07-29 07:31 | HMH.ACPN2 ---
Internal Medicine - PN: Subj *Date: 07/29/21 *Time: 09:28 Interval history: Tolerated BiPAP overnight. Saturations doing much better in the mid to high 90s. Did not get breakfast this morning as he was not transition to Vapotherm. Discussed transitioning to Vapotherm for eating. Patient able to sit upright in bed for the first time in many days on exam today. Showing slight improvement in tolerance with BiPAP. No nausea, vomiting, fever, diarrhea. Exam Vital signs and Labs for Last 24 Hours: Temp Pulse Resp BP Pulse Ox 98.2 F 73 23 133/70 97 07/29/21 04:00 07/29/21 04:00 07/29/21 04:00 07/29/21 04:00 07/29/21 04:00 Laboratory Results - last 24 hr 07/28/21 05:26: Total Counted 100, Neutrophils % (Manual) 91 H, Lymphocytes % (Manual) 9 L, Platelet Estimate Normal, Hypochromasia 2+, Macrocytosis 2+ 07/28/21 12:06: POC Glucose 216 H 07/28/21 17:04: POC Glucose 296 H 07/28/21 20:36: POC Glucose 185 H 07/29/21 05:05: POC Glucose 120 H I & O for Last 24 hours: Intake & Output 07/26/21 07/27/21 07/28/21 07/29/21 23:59 23:59 23:59 23:59 Intake Total 4081 / 4081 1080 / 1080 1080 / 1080 Output Total 1200 / 1500 1025 / 1025 1000 / 1000 Balance 2881 / 2581 55 / 55 80 / 80 Weight 112.945 kg 112.945 kg 110.024 kg 108.862 kg Narrative: - Constitutional Mild distress on BiPAP - *Routine HEENT Exam Head: Present: normocephalic Eye: Present: EOMI, PERRL ENT: Present: mucous membranes moist - *Routine Neck Exam Present: supple. Absent: lymphadenopathy - *Routine Respiratory Exam Present: good airmovement, no crackles, wheeze or rhonchi - *Routine Cardiovascular Exam Present: RRR - *Routine Abdominal Exam Present: soft, normoactive bowel sounds. Absent: tenderness - *Routine Extremities Exam Absent: cyanosis, clubbing, edema - *Routine Skin Exam Present: warm. Absent: rash - *Routine Neurological Exam Present: alert, oriented X3 Assessment and Plan (1) Pneumonia due to COVID-19 virus Status: Acute Category: Medical Code(s): U07.1 - COVID-19; J12.82 - Pneumonia due to coronavirus disease 2019 (2) Respiratory failure with hypoxia Status: Acute Qualifiers: Chronicity: acute Qualified Code(s): J96.01 - Acute respiratory failure with hypoxia Category: Medical Code(s): J96.91 - Respiratory failure, unspecified with hypoxia (3) Essential hypertension Status: Chronic Category: Medical Code(s): I10 - Essential (primary) hypertension (4) Diabetes mellitus Status: Chronic Category: Medical Code(s): E11.9 - Type 2 diabetes mellitus without complications (5) Obesity, Class II, BMI 35-39.9 Status: Chronic Category: Medical Code(s): E66.9 - Obesity, unspecified - Assessment and plan all Dx Assessment and Plan for all problems:: 56-year-old male admitted for worsening hypoxemic respiratory failure secondary to COVID-19 pneumonia. Tolerating oxygen, tolerating Vapotherm at this time. Encouraged incentive spirometer. Problems addressed as follows COVID-19 pneumonia Acute hypoxemic respiratory failure --Clinically appears to have plateaued. No worsening status however marginally improving as would be anticipated. -Treatment per protocol: Has completed remdesivir, baricitinib, - Continuing steroids and vitamins. Weaning steroids given duration of therapy > 14days. -Prophylactic Lovenox -DuoNebs every 6hrs; incentive spirometer, aggressive pulmonary toilet -Continue noninvasive oxygenation with goal saturation greater 90%. Prone if able. -switched to BiPAP yesterday, subjectively better with improved oxygenation. Vapotherm to eat. - Completed empiric antibiotics, no indication for further antibiotics at this time. - repeat CXR today to assess pneumonia evolution given difficulty weaning O2, actually appears much better with improvement in upper lung pollack bilaterally and improved visualization of costophrenic angles and diaphragm bilaterally H
--- NOTE | 2021-07-29 07:33 | XR_ITS ---
PROCEDURE INFORMATION: Exam: XR Chest Exam date and time: 07/29/2021 7:33 AM Age: 56 years old Clinical indication: Shortness of breath; Additional info: Monitor changes in pneumonia, unable to wean o2 TECHNIQUE: Imaging protocol: XR of the chest. Views: 1 view. COMPARISON: CR XR CHEST PORTABLE 07/19/2021 5:44 AM FINDINGS: Lungs: Patchy bilateral mid lower lung infiltrates with subtle improvement on the right. Pleural spaces: Unremarkable. No pleural effusion. No pneumothorax. Heart/Mediastinum: Unremarkable. No cardiomegaly. Bones/joints: Unremarkable. IMPRESSION: Persistent patchy bilateral mid lower lung infiltrates with subtle improvement on the right.
[2021-07-29 12:29] LABS: POC Glucose,Bedside 215 (70-110)
[2021-07-29 21:53] LABS: POC Glucose,Bedside 217 (70-110)
[2021-07-30] VITALS (11 sets, daily range): BP systolic 106–157; BP diastolic 57–82; PULSE 70–109; RESP 12–28; TEMP 36.6–37.1; O2SAT 87–98; BMI 33.7
--- NOTE | 2021-07-30 05:25 | PC.NURSE ---
pt remained on vapotherm 40L, 100% t/o shift, did have several times that O2 desat to low 70's with exertion and coughing
--- NOTE | 2021-07-30 08:50 | HMH.ACPN2 ---
Internal Medicine - PN: Subj *Date: 07/30/21 *Time: 11:28 Interval history: Patient appears comfortable this morning. Discontinued using BiPAP yesterday midday and is worn just Vapotherm. This is allowed him to eat. Stressed the importance of wearing BiPAP at night however. Afebrile, hemodynamically stable, no nausea, vomiting, diarrhea. Exam Vital signs and Labs for Last 24 Hours: Temp Pulse Resp BP Pulse Ox 98.0 F 109 H 12 129/82 87 L 07/30/21 08:00 07/30/21 08:00 07/30/21 08:00 07/30/21 08:00 07/30/21 08:00 Laboratory Results - last 24 hr 07/29/21 12:06: POC Glucose 215 H 07/29/21 21:40: POC Glucose 217 H I & O for Last 24 hours: Intake & Output 07/27/21 07/28/21 07/29/21 07/30/21 23:59 23:59 23:59 23:59 Intake Total 1080 / 1080 1080 / 1080 480 / 480 240 / 240 Output Total 1025 / 1025 1000 / 1000 575 / 1175 600 / 600 Balance 55 / 55 80 / 80 -95 / -695 -360 / -360 Weight 112.945 kg 110.024 kg 108.862 kg 109.316 kg Narrative: - Constitutional Mild distress on vapotherm - *Routine HEENT Exam Head: Present: normocephalic Eye: Present: EOMI, PERRL ENT: Present: mucous membranes moist - *Routine Neck Exam Present: supple. Absent: lymphadenopathy - *Routine Respiratory Exam Present: good airmovement, no crackles, wheeze or rhonchi - *Routine Cardiovascular Exam Present: RRR - *Routine Abdominal Exam Present: soft, normoactive bowel sounds. Absent: tenderness - *Routine Extremities Exam Absent: cyanosis, clubbing, edema - *Routine Skin Exam Present: warm. Absent: rash - *Routine Neurological Exam Present: alert, oriented X3 Assessment and Plan (1) Pneumonia due to COVID-19 virus Status: Acute Category: Medical Code(s): U07.1 - COVID-19; J12.82 - Pneumonia due to coronavirus disease 2019 (2) Respiratory failure with hypoxia Status: Acute Qualifiers: Chronicity: acute Qualified Code(s): J96.01 - Acute respiratory failure with hypoxia Category: Medical Code(s): J96.91 - Respiratory failure, unspecified with hypoxia (3) Essential hypertension Status: Chronic Category: Medical Code(s): I10 - Essential (primary) hypertension (4) Diabetes mellitus Status: Chronic Category: Medical Code(s): E11.9 - Type 2 diabetes mellitus without complications (5) Obesity, Class II, BMI 35-39.9 Status: Chronic Category: Medical Code(s): E66.9 - Obesity, unspecified - Assessment and plan all Dx Assessment and Plan for all problems:: 56-year-old male admitted for worsening hypoxemic respiratory failure secondary to COVID-19 pneumonia. Tolerating oxygen, tolerating Vapotherm at this time. Encouraged incentive spirometer. Problems addressed as follows COVID-19 pneumonia Acute hypoxemic respiratory failure --Clinically appears to have plateaued. No worsening status however marginally improving as would be anticipated. -Treatment per protocol: Has completed remdesivir, baricitinib, - Continuing steroids and vitamins. Weaning steroids given duration of therapy > 14days. -Prophylactic Lovenox -DuoNebs every 6hrs; incentive spirometer, aggressive pulmonary toilet -Continue noninvasive oxygenation with goal saturation greater 90%. Prone if able. -switched to BiPAP at night, Vapotherm during the day/eating. - Completed empiric antibiotics, no indication for further antibiotics at this time. - repeat CXR today to assess pneumonia evolution given difficulty weaning O2, actually appears much better with improvement in upper lung [place] bilaterally and improved visualization of costophrenic angles and diaphragm bilaterally Hyperglycemia/diabetes -Sliding scale insulin. Complicates his risk of worsening/complex Covid course. Leukocytosis -Peripheral smear reviewed, consistent with reactive neutrophilia. Given mild leukocytosis on admission of 13,000 and drastic increase after initiation of steroids, interpretation is this is all related to his acut
[2021-07-30 09:26] LABS: Basophils # 0.4 K/mm3 (0-0.2); Basophils % 0.9 % (0.1-2.0); Eosinophils # 0.1 K/mm3 (0.0-0.4); Eosinophils % 0.3 % (0.1-12.0); Hematocrit 32.5 % (42.0-52.0); Hemoglobin 10.7 g/dL (14.1-18.0); Lymphocytes # 0.7 K/mm3 (0.7-4.5); Lymphocytes % 1.8 % (10-50); Mean Corpuscular HGB Conc 32.9 g/dL (31.8-35.4); Mean Corpuscular Hemoglobin 31.4 pg (27.0-31.2); Mean Corpuscular Volume 95.2 fl (80-94); Mean Platelet Volume 9.3 fl (7.4-10.4); Monocytes # 0.4 K/mm3 (0.1-1.0); Monocytes % 0.9 % (1.7-9.3); Neutrophils # 37.9 K/mm3 (1.8-7.8); Platelet Count 413 K/mm3 (142-424); Red Blood Count 3.42 M/mm3 (4.60-6.20); Red Cell Distribution Width 15.8 % (11.5-17.5); White Blood Count 39.5 K/mm3 (4.8-10.8)
[2021-07-30 09:30] LABS: MANUAL DIFFERENTIAL MANUAL DIFFERENTIAL (MANUAL DIFF)
[2021-07-30 09:44] LABS: Chloride 95 mmol/L (98-107)
[2021-07-30 09:45] LABS: Potassium 4.7 mmoL/L (3.5-5.1); Sodium 132 mmol/L (136-145)
[2021-07-30 09:47] LABS: Alanine Aminotransferase 49 U/L (12-78); Aspartate Amino Transferase 43 U/L (17-59); Blood Urea Nitrogen 37 mg/dl (9-20); Creatinine Clearance Estimated 142 mL/min (50-200); Estimated Glomerular Filt Rate 87 ml/min (>60); GFR (African American) 106 ML/MIN (>60)
[2021-07-30 09:48] LABS: Albumin Level 3.3 g/dl (3.5-5.0); Albumin/Globulin Ratio 0.9 (1.1-1.8); Alkaline Phosphatase 173 U/L (38-126); Anion Gap 10.7 mEq/L (5-15); Bilirubin,Total 1.5 mg/dl (0.2-1.3); Calcium 8.4 mg/dl (8.4-10.2); Carbon Dioxide 31 mmol/L (22.0-30.0); Globulin 3.5 g/dL (1.3-3.2); Glucose 261 mg/dl (74-100); Magnesium 2.3 mg/dl (1.6-2.3); Total Protein,Serum 6.8 g/dl (6.3-8.2)
[2021-07-30 10:40] LABS: Lymphocytes % 3 % (10-50); Monocytes % 2 % (2-9); Neutrophils % 94 % (42-76); RBC Morphology Normal; Total Cells Counted 100
[2021-07-30 10:41] LABS: Platelet Estimate Normal
--- NOTE | 2021-07-30 12:04 | DIET.NUTRFU ---
Pt with improved PO intake. 50,75, and 50% at last three meals. POC Glucose- 120, 215,217. Diet being supplemented TID. Will continue to monitor.
--- NOTE | 2021-07-30 16:08 | HMH.PTEV ---
Physical Therapy Evaluation Rehab PT IP Evaluation Start: 07/30/21 10:54 Freq: ONCE Status: Active Protocol: Document 07/30/21 15:51 [email or web address] (Rec: 07/30/21 16:07 [email or web address] [id number]) Subjective/History History History Pt. is a 56 year old male who presents to [facility] Inpatient secondary to COVID- 19 and Hypoxia. Pt. currently c's/o fatigue and SOB at rest and w/ activity. Pt. reports he was admitted to the hospital >20 days ago, and that Dr. Baez wants him to participate in Physical Therapy. Pt. reports currently the only ambulating he does is to use his bedside commode at this time. Pt. reports living at home w/ his . Pt . reports working full-time and independent w/ all ADLs prior to admittance to [facility]. PMH includes Chronic Obstructive Pulmonary Disease (COPD), Diabetes Mellitus Type 1, Diabetes Mellitus Type 2, Hyperlipidemia, and Hypertension. Subjective Subjective Pt. c's/o increased fatigue and SOB upon entering room this date. Upon entering pt.'s hospital room pt. was sidelying in hospital bed participating in his breathing treatments. Pt. was willingly and ready to participate in Physical Therapy this date. Pt. was left sidelying and participating in his breathing treatment w/ call light in reach upon leaving pt.'s hospital room. Pt. desats. w/ activity including supine<>sit, sit to stand to transfer. Pt. desat. to 75% w/ sit to stand, required 2.5 minutes to sat. to 90% while being seated w/ current supplemental O2. Rehab PT IP Eval Objective Appearance Patient
--- NOTE | 2021-07-30 16:08 | HMH.PTEV ---
Physical Therapy Evaluation Rehab PT IP Evaluation Start: 07/30/21 10:54 Freq: ONCE Status: Active Protocol: Document 07/30/21 15:51 [email or web address] (Rec: 07/30/21 16:07 [email or web address] [id number]) Subjective/History History History Pt. is a 56 year old male who presents to [facility] Inpatient secondary to COVID- 19 and Hypoxia. Pt. currently c's/o fatigue and SOB at rest and w/ activity. Pt. reports he was admitted to the hospital >20 days ago, and that Dr. Baez wants him to participate in Physical Therapy. Pt. reports currently the only ambulating he does is to use his bedside commode at this time. Pt. reports living at home w/ his . Pt . reports working full-time and independent w/ all ADLs prior to admittance to [facility]. PMH includes Chronic Obstructive Pulmonary Disease (COPD), Diabetes Mellitus Type 1, Diabetes Mellitus Type 2, Hyperlipidemia, and Hypertension. Subjective Subjective Pt. c's/o increased fatigue and SOB upon entering room this date. Upon entering pt.'s hospital room pt. was sidelying in hospital bed participating in his breathing treatments. Pt. was willingly and ready to participate in Physical Therapy this date. Pt. was left sidelying and participating in his breathing treatment w/ call light in reach upon leaving pt.'s hospital room. Pt. desats. w/ activity including supine<>sit, sit to stand to transfer. Pt. desat. to 75% w/ sit to stand, required 2.5 minutes to sat. to 90% while being seated w/ current supplemental O2. Rehab PT IP Eval Objective Appearance Patient
[2021-07-30 16:38] LABS: POC Glucose,Bedside 125 (70-110)
--- NOTE | 2021-07-30 18:52 | PC.NURSE ---
pt has stayed in bed majority of this shift lying on his left side. Pt has refused to turn in bed. Still remains on vapotherm, NRB when pt feels SOB. No other acute changes or complaints, will continue to monitor.
[2021-07-31] VITALS (12 sets, daily range): BP systolic 119–129; BP diastolic 56–72; PULSE 66–97; RESP 12–26; TEMP 36.7–36.8; O2SAT 87–100; BMI 33.7
--- NOTE | 2021-07-31 08:22 | HMH.ACPN2 ---
Internal Medicine - PN: Subj *Date: 07/31/21 *Time: 13:48 Interval history: Tolerated BiPAP overnight. Oxygenation a little better this morning. Eating regularly. Worked with PT yesterday, desatted easily, but stood and got out of bed. Encouraged to get to bedside chair, stand with assistance. no fevers, normal BP. Exam Vital signs and Labs for Last 24 Hours: Temp Pulse Resp BP Pulse Ox 98.0 F 88 12 119/58 L 87 L 07/31/21 08:00 07/31/21 08:00 07/31/21 08:00 07/31/21 08:00 07/31/21 08:00 Laboratory Results - last 24 hr 07/30/21 06:04: POC Glucose 125 H 07/30/21 09:18: WBC 39.5 H*, RBC 3.42 L, Hgb 10.7 L, Hct 32.5 L, MCV 95.2 H, MCH 31.4 H, MCHC 32.9, RDW 15.8, Plt Count 413, MPV 9.3, Neut % (Auto) 96.0 H, Lymph % (Auto) 1.8 L, [place] % (Auto) 0.9 L, Eos % (Auto) 0.3, Baso % (Auto) 0.9, Neut # (Auto) 37.9 H, Lymph # (Auto) 0.7, [place] # (Auto) 0.4, Eos # (Auto) 0.1, Baso # (Auto) 0.4 H, Total Counted 100, Neutrophils % (Manual) 94 H, Band Neutrophils % 1.0, Lymphocytes % (Manual) 3 L, Monocytes % (Manual) 2, Platelet Estimate Normal, RBC Morphology Normal 07/30/21 09:18: Sodium 132 L, Potassium 4.7, Chloride 95 L, Carbon Dioxide 31 H, Anion Gap 10.7, BUN 37 H D, Creatinine 0.90 D, Estimated Creat Clear 142, Estimated GFR 87, Est GFR ( Amer) 106 D, Glucose 261 H, Calcium 8.4, Magnesium 2.3, Total Bilirubin 1.5 H, AST 43, ALT 49, Alkaline Phosphatase 173 H, Total Protein 6.8, Albumin 3.3 L, Globulin 3.5 H, Albumin/Globulin Ratio 0.9 L I & O for Last 24 hours: Intake & Output 07/28/21 07/29/21 07/30/21 07/31/21 23:59 23:59 23:59 23:59 Intake Total 1080 / 1080 480 / 480 840 / 840 240 / 240 Output Total 1000 / 1000 575 / 1175 1000 / 1150 150 / 150 Balance 80 / 80 -95 / -695 -160 / -310 90 / 90 Weight 110.024 kg 108.862 kg 109.316 kg 109.458 kg Narrative: Constitutional: Mild distress on vapotherm HEENT Exam: NCAT, EOMI, PERRL, MMM Respiratory Exam: good airmovement, no crackles, wheeze or rhonchi Cardiovascular Exam: RRR, no murmur Abdominal Exam: soft, normoactive bowel sounds; No tenderness Extremities Exam: No cyanosis, clubbing, edema Skin Exam: warm. No rash Neurological Exam: alert, oriented X3 Assessment and Plan (1) Pneumonia due to COVID-19 virus Status: Acute Category: Medical Code(s): U07.1 - COVID-19; J12.82 - Pneumonia due to coronavirus disease 2018 (2) Respiratory failure with hypoxia Status: Acute Qualifiers: Chronicity: acute Qualified Code(s): J96.01 - Acute respiratory failure with hypoxia Category: Medical Code(s): J96.91 - Respiratory failure, unspecified with hypoxia (3) Essential hypertension Status: Chronic Category: Medical Code(s): I10 - Essential (primary) hypertension (4) Diabetes mellitus Status: Chronic Category: Medical Code(s): E11.9 - Type 2 diabetes mellitus without complications (5) Obesity, Class II, BMI 35-39.9 Status: Chronic Category: Medical Code(s): E66.9 - Obesity, unspecified - Assessment and plan all Dx Assessment and Plan for all problems:: 56-year-old male admitted for worsening hypoxemic respiratory failure secondary to COVID-19 pneumonia. Tolerating oxygen, tolerating Vapotherm at this time. Encouraged incentive spirometer. Problems addressed as follows COVID-19 pneumonia Acute hypoxemic respiratory failure --Clinically plateaued. No worsening status however marginally improving as would be anticipated. -Treatment per protocol: Has completed remdesivir, baricitinib, - Continuing steroids and vitamins. Weaning steroids given duration of therapy > 14days. Dex at 8mg daily today -Prophylactic Lovenox -DuoNebs every 6hrs; incentive spirometer, aggressive pulmonary toilet -Continue noninvasive oxygenation with goal saturation greater 90%. Prone if able. -switched to BiPAP at night, Vapotherm during the day/eating. - Completed empiric antibiotics, no indication for further antibiotics a
[2021-07-31 16:46] LABS: POC Glucose,Bedside 317 (70-110)
[2021-07-31 16:46] LABS: POC Glucose,Bedside 135 (70-110)
[2021-07-31 16:46] LABS: POC Glucose,Bedside 191 (70-110)
--- NOTE | 2021-07-31 16:47 | PC.NURSE ---
Patient remains on vapotherm at this time on 40L/90%, using NRB mask as needed, reports he still feels soa and does not feel this has improved, continues to lay on his left side, reports he is unable to tolerate getting up to chair today, vss, will continue to monitor for changes.
[2021-08-01] VITALS (12 sets, daily range): BP systolic 125–154; BP diastolic 53–74; PULSE 60–94; RESP 12–25; TEMP 36.3–37; O2SAT 90–97; BMI 33.2
--- NOTE | 2021-08-01 05:34 | PC.NURSE ---
Pt currently wearing the vapotherm 40L and 90% with NRB mask used as needed. O2 has maintained at 88-93% thus far in shift. Pt did desat to low 70's while coughing x1 this shift. Pt has rested well t/o shift. Pt voiced no c/o of pain. Pt has continued to lay on his left side.
[2021-08-01 06:49] LABS: Basophils # 0.4 K/mm3 (0-0.2); Eosinophils # 0.2 K/mm3 (0.0-0.4); Eosinophils % 0.6 % (0.1-12.0); Hemoglobin 9.6 g/dL (14.1-18.0); Lymphocytes # 1.2 K/mm3 (0.7-4.5); Lymphocytes % 3.3 % (10-50); Mean Corpuscular HGB Conc 33.5 g/dL (31.8-35.4); Mean Corpuscular Hemoglobin 31.9 pg (27.0-31.2); Mean Corpuscular Volume 95.1 fl (80-94); Mean Platelet Volume 9.3 fl (7.4-10.4); Monocytes # 0.5 K/mm3 (0.1-1.0); Monocytes % 1.3 % (1.7-9.3); Neutrophils # 33.8 K/mm3 (1.8-7.8); Neutrophils % 93.8 % (37.0-80.0); Platelet Count 338 K/mm3 (142-424)
[2021-08-01 06:52] LABS: Hematocrit 28.6 % (42.0-52.0); White Blood Count 36.1 K/mm3 (4.8-10.8)
[2021-08-01 06:54] LABS: MANUAL DIFFERENTIAL MANUAL DIFFERENTIAL (MANUAL DIFF)
[2021-08-01 07:05] LABS: Lymphocytes % 10 % (10-50); Neutrophils % 79 % (42-76); Platelet Estimate Normal; RBC Morphology Normal; Rouleaux 2+; Total Cells Counted 100
[2021-08-01 07:46] LABS: Albumin Level 2.9 g/dl (3.5-5.0); Albumin/Globulin Ratio 0.9 (1.1-1.8); Alkaline Phosphatase 148 U/L (38-126); Anion Gap 9.5 mEq/L (5-15); Aspartate Amino Transferase 43 U/L (17-59); Bilirubin,Total 0.9 mg/dl (0.2-1.3); Blood Urea Nitrogen 32 mg/dl (9-20); Calcium 8.2 mg/dl (8.4-10.2); Carbon Dioxide 31 mmol/L (22.0-30.0); Chloride 98 mmol/L (98-107); Creatinine Clearance Estimated 179 mL/min (50-200); Estimated Glomerular Filt Rate 117 ml/min (>60); GFR (African American) 141 ML/MIN (>60); Globulin 3.2 g/dL (1.3-3.2); Glucose 136 mg/dl (74-100); Magnesium 2.2 mg/dl (1.6-2.3); Potassium 4.5 mmoL/L (3.5-5.1); Sodium 134 mmol/L (136-145); Total Protein,Serum 6.1 g/dl (6.3-8.2)
--- NOTE | 2021-08-01 07:46 | HMH.ACPN2 ---
Internal Medicine - PN: Subj *Date: 08/01/21 *Time: 08:55 Interval history: Remains essentially stable for the past 24 hours. Tolerating 90% Vapotherm with intermittent use of nonrebreather mask when he desats with exertion. Encouraged getting up to the bedside chair today. Also recommended he switch sides as he predominantly lays on his left side. Would benefit from increased movement and mobility. Still having mildly productive cough however sputum is off white to light yellow. Afebrile normotensive. Blood sugar stable. Reviewed insulin requirements, requiring anywhere from 20 to 30 units daily. Blood sugar above 125 this morning with basal insulin last night. Reports he did not wear BiPAP last night. Will discuss this with respiratory. Exam Vital signs and Labs for Last 24 Hours: Temp Pulse Resp BP Pulse Ox 97.8 F 70 24 154/58 H 92 L 08/01/21 04:00 08/01/21 05:50 08/01/21 04:00 08/01/21 04:00 08/01/21 05:50 Laboratory Results - last 24 hr 07/31/21 06:00: POC Glucose 135 H 07/31/21 12:07: POC Glucose 191 H 07/31/21 16:14: POC Glucose 317 H* 08/01/21 05:50: WBC 36.1 H*, RBC 3.00 L, Hgb 9.6 L, Hct 28.6 L, MCV 95.1 H, MCH 31.9 H, MCHC 33.5, RDW 16.0, Plt Count 338, MPV 9.3, Neut % (Auto) 93.8 H, Lymph % (Auto) 3.3 L, [place] % (Auto) 1.3 L, Eos % (Auto) 0.6, Baso % (Auto) 1.0, Neut # (Auto) 33.8 H, Lymph # (Auto) 1.2, [place] # (Auto) 0.5, Eos # (Auto) 0.2, Baso # (Auto) 0.4 H, Total Counted 100, Neutrophils % (Manual) 79 H, Band Neutrophils % 11.0 H, Lymphocytes % (Manual) 10, Platelet Estimate Normal, RBC Morphology Normal, [place] 2+ I & O for Last 24 hours: Intake & Output 07/29/21 07/30/21 07/31/21 08/01/21 23:59 23:59 23:59 23:59 Intake Total 480 / 480 840 / 840 960 / 960 Output Total 575 / 1175 1000 / 1150 150 / 450 300 / 300 Balance -95 / -695 -160 / -310 810 / 510 -300 / -300 Weight 108.862 kg 109.316 kg 109.458 kg 107.547 kg Narrative: Constitutional: Mild distress on vapotherm HEENT Exam: NCAT, EOMI, PERRL, MMM Respiratory Exam: good airmovement, no crackles in right lung field, minimal basilar crackles in left lung field; no wheeze or rhonchi Cardiovascular Exam: RRR, no murmur Abdominal Exam: soft, normoactive bowel sounds; No tenderness Extremities Exam: No cyanosis, clubbing, edema Skin Exam: warm. No rash Neurological Exam: alert, oriented X3 Assessment and Plan (1) Pneumonia due to COVID-19 virus Status: Acute Category: Medical Code(s): U07.1 - COVID-19; J12.82 - Pneumonia due to coronavirus disease 2019 (2) Respiratory failure with hypoxia Status: Acute Qualifiers: Chronicity: acute Qualified Code(s): J96.01 - Acute respiratory failure with hypoxia Category: Medical Code(s): J96.91 - Respiratory failure, unspecified with hypoxia (3) Essential hypertension Status: Chronic Category: Medical Code(s): I10 - Essential (primary) hypertension (4) Diabetes mellitus Status: Chronic Category: Medical Code(s): E11.9 - Type 2 diabetes mellitus without complications (5) Obesity, Class II, BMI 35-39.9 Status: Chronic Category: Medical Code(s): E66.9 - Obesity, unspecified - Assessment and plan all Dx Assessment and Plan for all problems:: 56-year-old male admitted for worsening hypoxemic respiratory failure secondary to COVID-19 pneumonia. Tolerating oxygen, tolerating Vapotherm at this time. Encouraged incentive spirometer. Problems addressed as follows COVID-19 pneumonia Acute hypoxemic respiratory failure --Clinically plateaued. No worsening status however marginally improving as would be anticipated. -Treatment per protocol: Has completed remdesivir, baricitinib, - Continuing steroids and vitamins. Weaning steroids given duration of therapy > 14days. taper q3d - Prophylactic Lovenox - DuoNebs every 6hrs; incentive spirometer, aggressive pulmonary toilet - Continue noninvasive oxygenation with goal saturation greater 90%
[2021-08-01 08:17] LABS: Alanine Aminotransferase 50 U/L (12-78)
[2021-08-01 09:11] LABS: C-Reactive Protein 26.8 mg/L (0-4)
[2021-08-01 09:30] LABS: Lactate Dehydrogenase 492 U/L (313-618)
[2021-08-01 10:34] LABS: POC Glucose,Bedside 311 (70-110)
[2021-08-01 10:34] LABS: POC Glucose,Bedside 146 (70-110)
[2021-08-01 16:54] LABS: POC Glucose,Bedside 364 (70-110)
--- NOTE | 2021-08-01 18:04 | PC.NURSE ---
No acute changes noted this shift, patient got up to chair for 1.5 hours this shift and tolerated well, encouraged patient to sit up longer and to lay on right side while in bed, he did lay on his right side for a very short period of time but reports its too hard for him to lay that way, remains on 40L/90% on vapotherm, bipap at hs, will continue to monitor.
[2021-08-02] VITALS (13 sets, daily range): BP systolic 103–140; BP diastolic 52–78; PULSE 55–96; RESP 8–31; TEMP 36.7–36.9; O2SAT 90–98; BMI 33.2
[2021-08-02 01:49] LABS: POC Glucose,Bedside 241 (70-110)
--- NOTE | 2021-08-02 05:32 | PC.NURSE ---
No acute changes this shift. Beginning of shift pt was on vapotherm 40L and 85%. Pt wore bipap t/o the night and tolerated well with O2 sat >90%. Pt voiced no c/o of pain thus far in shift. Encouraged pt to rotate sides t/o the night. Blood sugars were 21:00-241, 06:00-123. Call light within reach.
--- NOTE | 2021-08-02 07:37 | HMH.ACPN2 ---
Internal Medicine - PN: Subj *Date: 08/02/21 *Time: 08:06 Interval history: Patient able to get up out of bed yesterday into the bedside chair for couple hours. Also switch sides and laid on his right side for period of time. Worse BiPAP last night. Tolerating 85% oxygen on Vapotherm this morning with intermittent use of nonrebreather when he desats with exertion. Patient has no complaints other than shortness of breath. Tolerating breakfast. No nausea, vomiting, diarrhea. Afebrile. Hemodynamically stable. Blood sugar this morning 123 on fingerstick. Tolerating current insulin regimen. Exam Vital signs and Labs for Last 24 Hours: Temp Pulse Resp BP Pulse Ox 98.0 F 67 22 140/78 93 L 08/02/21 04:00 08/02/21 05:20 08/02/21 04:00 08/02/21 04:00 08/02/21 04:00 Laboratory Results - last 24 hr 07/31/21 20:06: POC Glucose 311 H* 08/01/21 05:20: POC Glucose 146 H 08/01/21 05:50: Sodium 134 L, Potassium 4.5, Chloride 98, Carbon Dioxide 31 H, Anion Gap 9.5, BUN 32 H, Creatinine 0.70 D, Estimated Creat Clear 179, Estimated GFR 117, Est GFR ( Amer) 141 D, Glucose 136 H, Calcium 8.2 L, Magnesium 2.2, Total Bilirubin 0.9, AST 43, ALT 50, Alkaline Phosphatase 148 H, Total Protein 6.1 L, Albumin 2.9 L, Globulin 3.2, Albumin/Globulin Ratio 0.9 L 08/01/21 08:38: Lactate Dehydrogenase 492 08/01/21 08:39: C-Reactive Protein 26.8 H 08/01/21 16:47: POC Glucose 364 H* 08/01/21 20:23: POC Glucose 241 H I & O for Last 24 hours: Intake & Output 07/30/21 07/31/21 08/01/21 08/02/21 23:59 23:59 23:59 23:59 Intake Total 840 / 840 960 / 960 840 / 840 Output Total 1000 / 1150 150 / 450 600 / 1200 600 / 600 Balance -160 / -310 810 / 510 240 / -360 -600 / -600 Weight 109.316 kg 109.458 kg 107.547 kg 107.728 kg Microbiology Reports for the Last 24 Hours: Microbiology 08/01/21 17:10 Sputum - Expectorated Sputum Gram Stain - Final Narrative: Constitutional: Mild distress on vapotherm HEENT Exam: NCAT, EOMI, PERRL, MMM Respiratory Exam: good airmovement, no crackles in right lung field, minimal basilar crackles in left lung field; no wheeze or rhonchi Cardiovascular Exam: RRR, no murmur Abdominal Exam: soft, normoactive bowel sounds; No tenderness Extremities Exam: No cyanosis, clubbing, edema Skin Exam: warm. No rash Neurological Exam: alert, oriented X3 Assessment and Plan (1) Pneumonia due to COVID-19 virus Status: Acute Category: Medical Code(s): U07.1 - COVID-19; J12.82 - Pneumonia due to coronavirus disease 2019 (2) Respiratory failure with hypoxia Status: Acute Qualifiers: Chronicity: acute Qualified Code(s): J96.01 - Acute respiratory failure with hypoxia Category: Medical Code(s): J96.91 - Respiratory failure, unspecified with hypoxia (3) Essential hypertension Status: Chronic Category: Medical Code(s): I10 - Essential (primary) hypertension (4) Diabetes mellitus Status: Chronic Category: Medical Code(s): E11.9 - Type 2 diabetes mellitus without complications (5) Obesity, Class II, BMI 35-39.9 Status: Chronic Category: Medical Code(s): E66.9 - Obesity, unspecified - Assessment and plan all Dx Assessment and Plan for all problems:: 56-year-old male admitted for worsening hypoxemic respiratory failure secondary to COVID-19 pneumonia. Tolerating oxygen, tolerating Vapotherm at this time. Encouraged incentive spirometer. Problems addressed as follows COVID-19 pneumonia Acute hypoxemic respiratory failure --Clinically plateaued. No worsening status however marginally improving as would be anticipated. -Treatment per protocol: Has completed remdesivir, baricitinib, - Continuing steroids and vitamins. Weaning steroids given duration of therapy > 14days. taper q2d - Prophylactic Xarelto - DuoNebs every 6hrs; incentive spirometer, aggressive pulmonary toilet - Continue noninvasive oxygenation with goal saturation greater 90%. Prone
--- NOTE | 2021-08-02 11:10 | DIET.NUTRFU ---
Pt PO intake 50% at last several meals. POC glucose- 146, 364, 241. Diet being supplemented BID. Will continue to monitor.
--- NOTE | 2021-08-02 11:22 | PC.NURSE ---
Report given to Acacia Garcia RN @ this time.
[2021-08-02 17:33] LABS: POC Glucose,Bedside 272 (70-110)
[2021-08-02 17:33] LABS: POC Glucose,Bedside 258 (70-110)
--- NOTE | 2021-08-02 19:25 | PC.NURSE ---
Report given to Alcira Garcia RN at 13:00. Provider called and notifiedRN that there has been a urine collection ordered for over 24 hours. RN placed new urinal and sterile container in room to collect. This information will be passed on to maintenance supervisor 2nd shift
[2021-08-02 21:37] LABS: POC Glucose,Bedside 291 (70-110)
--- NOTE | 2021-08-02 23:17 | PC.NURSE ---
He is on a bipap @ 85% FiO2 at this time. He denies pain. He reports SOA with exertion. He has been laying on his side. NSR on telemetry. No acute changes.
[2021-08-03] VITALS (11 sets, daily range): BP systolic 100–123; BP diastolic 53–72; PULSE 60–91; RESP 18–28; TEMP 35.9–36.9; O2SAT 89–99; BMI 33.4
[2021-08-03 03:48] LABS: POC Glucose,Bedside 123 (70-110)
[2021-08-03 05:07] LABS: POC Glucose,Bedside 103 (70-110)
[2021-08-03 05:50] LABS: Basophils # 0.1 K/mm3 (0-0.2); Basophils % 0.4 % (0.1-2.0); Eosinophils # 0.2 K/mm3 (0.0-0.4); Eosinophils % 0.8 % (0.1-12.0); Hematocrit 29.3 % (42.0-52.0); Hemoglobin 9.6 g/dL (14.1-18.0); Lymphocytes # 1.8 K/mm3 (0.7-4.5); Lymphocytes % 6.2 % (10-50); Mean Corpuscular HGB Conc 32.8 g/dL (31.8-35.4); Mean Corpuscular Hemoglobin 31.1 pg (27.0-31.2); Mean Corpuscular Volume 94.8 fl (80-94); Mean Platelet Volume 9.3 fl (7.4-10.4); Monocytes # 0.4 K/mm3 (0.1-1.0); Monocytes % 1.3 % (1.7-9.3); Neutrophils # 26.8 K/mm3 (1.8-7.8); Neutrophils % 91.4 % (37.0-80.0); Platelet Count 269 K/mm3 (142-424); Red Blood Count 3.09 M/mm3 (4.60-6.20); Red Cell Distribution Width 16.4 % (11.5-17.5); White Blood Count 29.3 K/mm3 (4.8-10.8)
[2021-08-03 05:56] LABS: MANUAL DIFFERENTIAL MANUAL DIFFERENTIAL (MANUAL DIFF)
[2021-08-03 05:59] LABS: Alanine Aminotransferase 63 U/L (12-78); Albumin Level 3.2 g/dl (3.5-5.0); Albumin/Globulin Ratio 0.9 (1.1-1.8); Alkaline Phosphatase 133 U/L (38-126); Anion Gap 8.3 mEq/L (5-15); Aspartate Amino Transferase 43 U/L (17-59); Bilirubin,Total 0.9 mg/dl (0.2-1.3); Blood Urea Nitrogen 29 mg/dl (9-20); Carbon Dioxide 33 mmol/L (22.0-30.0); Chloride 98 mmol/L (98-107); Creatinine Clearance Estimated 158 mL/min (50-200); Estimated Glomerular Filt Rate 100 ml/min (>60); GFR (African American) 121 ML/MIN (>60); Globulin 3.4 g/dL (1.3-3.2); Glucose 98 mg/dl (74-100); Potassium 4.3 mmoL/L (3.5-5.1); Sodium 135 mmol/L (136-145); Total Protein,Serum 6.6 g/dl (6.3-8.2)
--- NOTE | 2021-08-03 06:22 | HMH.ACPN2 ---
Internal Medicine - PN: Subj *Date: 08/03/21 *Time: 07:47 Interval history: Overnight saturations remained in the high 80s low 90s. Continues to use intermittent nonrebreather. On Vapotherm this morning 85%. BiPAP used briefly overnight until the hose popped off and it made him uncomfortable to continue to wear. Denies nausea. Complains of shortness of breath. Afebrile. Hemodynamically stable. Blood sugars well controlled Exam Vital signs and Labs for Last 24 Hours: Temp Pulse Resp BP Pulse Ox 97.8 F 67 27 H 117/56 L 92 L 08/03/21 04:00 08/03/21 05:29 08/03/21 04:00 08/03/21 04:00 08/03/21 05:29 Laboratory Results - last 24 hr 08/02/21 05:14: POC Glucose 123 H 08/02/21 12:37: POC Glucose 272 H 08/02/21 16:47: POC Glucose 258 H 08/02/21 20:59: POC Glucose 291 H 08/03/21 05:00: POC Glucose 103 08/03/21 05:25: WBC 29.3 H*, RBC 3.09 L, Hgb 9.6 L, Hct 29.3 L, MCV 94.8 H, MCH 31.1, MCHC 32.8, RDW 16.4, Plt Count 269, MPV 9.3, Neut % (Auto) 91.4 H, Lymph % (Auto) 6.2 L, [place] % (Auto) 1.3 L, Eos % (Auto) 0.8, Baso % (Auto) 0.4, Neut # (Auto) 26.8 H, Lymph # (Auto) 1.8, [place] # (Auto) 0.4, Eos # (Auto) 0.2, Baso # (Auto) 0.1 I & O for Last 24 hours: Intake & Output 07/31/21 08/01/21 08/02/21 08/03/21 23:59 23:59 23:59 23:59 Intake Total 960 / 960 840 / 840 720 / 720 10 / 10 Output Total 150 / 450 600 / 1200 600 / 1200 600 / 600 Balance 810 / 510 240 / -360 120 / -480 -590 / -590 Weight 109.458 kg 107.547 kg 107.728 kg 108.409 kg Narrative: Constitutional: Mild distress on vapotherm HEENT Exam: NCAT, EOMI, PERRL, MMM Respiratory Exam: good air movement, no crackles in bilateral lung field; no wheeze or rhonchi Cardiovascular Exam: RRR, no murmur Abdominal Exam: soft, normoactive bowel sounds; No tenderness Extremities Exam: No cyanosis, clubbing, edema Skin Exam: warm. No rash Neurological Exam: alert, oriented X3 Assessment and Plan (1) Pneumonia due to COVID-19 virus Status: Acute Category: Medical Code(s): U07.1 - COVID-19; J12.82 - Pneumonia due to coronavirus disease 2018 (2) Respiratory failure with hypoxia Status: Acute Qualifiers: Chronicity: acute Qualified Code(s): J96.01 - Acute respiratory failure with hypoxia Category: Medical Code(s): J96.91 - Respiratory failure, unspecified with hypoxia (3) Essential hypertension Status: Chronic Category: Medical Code(s): I10 - Essential (primary) hypertension (4) Diabetes mellitus Status: Chronic Category: Medical Code(s): E11.9 - Type 2 diabetes mellitus without complications (5) Obesity, Class II, BMI 35-39.9 Status: Chronic Category: Medical Code(s): E66.9 - Obesity, unspecified - Assessment and plan all Dx Assessment and Plan for all problems:: 56-year-old male admitted for worsening hypoxemic respiratory failure secondary to COVID-19 pneumonia. Tolerating oxygen, tolerating Vapotherm at this time. Encouraged incentive spirometer. Problems addressed as follows COVID-19 pneumonia Acute hypoxemic respiratory failure --Clinically plateaued. No worsening status however marginally improving as would be anticipated. -Treatment per protocol: Has completed remdesivir, baricitinib, - Continuing steroids and vitamins. Weaning steroids given duration of therapy > 14days. taper q2d - Prophylactic Xarelto - DuoNebs every 6hrs; incentive spirometer, aggressive pulmonary toilet - Continue noninvasive oxygenation with goal saturation greater 90%. Prone if able. - switched to BiPAP at night, Vapotherm during the day/eating. - Completed empiric antibiotics, no indication for further antibiotics at this time. - CRP/LDH today to assess inflammation - Repeat sputum culture from yesterday still pending. Smear shows gram-positive cocci and bacilli. Holding on antibiotics as he remains afebrile and sputum production is stable. - obtained fungal/infectious labs. Given patient's status of plateauing
--- NOTE | 2021-08-03 07:27 | XR_ITS ---
PROCEDURE: XR CHEST PORTABLE CLINICAL HISTORY: continued hypoxia, monitoring pneumonia COMPARISON: CT CT ANGIO CHEST PE PROTOCOL from 07/11/2021 CR XR CHEST PORTABLE from 07/15/2021 CR XR CHEST PORTABLE from 07/19/2021 CR XR CHEST PORTABLE from 07/29/2021 FINDINGS: There is diffuse bilateral airspace disease with some sparing of the left upper lobe. There is space disease may be slightly worse on the right. No evidence of pneumothorax. Mild cardiomegaly without failure. IMPRESSION: Bilateral pneumonia which may be slightly worse on the right Dictated by: Reynaldo Issa MD 08/03/2021 10:38 Reynaldo Issa MD in [facility] 08/03/2021 10:38
[2021-08-03 07:44] LABS: Lymphocytes % 9 % (10-50); Monocytes % 7 % (2-9); Neutrophils % 84 % (42-76); Platelet Estimate Normal; RBC Morphology Normal; Total Cells Counted 100
[2021-08-03 11:31] LABS: POC Glucose,Bedside 161 (70-110)
[2021-08-03 18:14] LABS: POC Glucose,Bedside 218 (70-110)
[2021-08-03 22:26] LABS: Fungitell(Beta D-Glucan) Serum <31 pg/mL (<80)
[2021-08-04] VITALS (10 sets, daily range): BP systolic 100–140; BP diastolic 52–68; PULSE 65–92; RESP 18–26; TEMP 36.5–36.8; O2SAT 91–98; BMI 33.0
[2021-08-04 05:38] LABS: POC Glucose,Bedside 269 (70-110)
[2021-08-04 06:58] LABS: POC Glucose,Bedside 165 (70-110)
--- NOTE | 2021-08-04 07:24 | PC.NURSE ---
pt rested well part of the night on bipap, pt was switched back to vapotherm around 2am, no other issues noted, VSS, pt on on vapotherm with sats maintained in the , tele is NSR,
--- NOTE | 2021-08-04 08:25 | HMH.ACPN2 ---
Internal Medicine - PN: Subj *Date: 08/04/21 *Time: 08:25 Interval history: Not much change, slightly more energy. Is on 85% Vapotherm with O2 saturations 95% with some supplemental nonrebreather mask. Exam Vital signs and Labs for Last 24 Hours: Temp Pulse Resp BP Pulse Ox 98.1 F 69 21 115/52 L 93 L 08/04/21 04:00 08/04/21 05:09 08/04/21 04:00 08/04/21 04:00 08/04/21 05:09 Laboratory Results - last 24 hr 08/01/21 09:39: Beta-(1,3)-D-Glucan <31 08/03/21 11:17: POC Glucose 161 H 08/03/21 16:48: POC Glucose 218 H 08/03/21 20:22: POC Glucose 269 H 08/04/21 06:26: POC Glucose 165 H I & O for Last 24 hours: Intake & Output 08/01/21 08/02/21 08/03/21 08/04/21 11:59 11:59 11:59 11:59 Intake Total 960 / 960 480 / 480 730 / 730 360 / 360 Output Total 300 / 300 900 / 900 600 / 600 1725 / 1725 Balance 660 / 660 -420 / -420 130 / 130 -1365 / -1365 Weight 237 lb 1.6 oz 237 lb 8 oz 239 lb 236 lb Microbiology Reports for the Last 24 Hours: Microbiology 08/01/21 17:10 Sputum - Expectorated Sputum Gram Stain - Final 08/01/21 17:10 Sputum - Expectorated Sputum Sputum Culture - Preliminary Narrative: Alert, pleasant, no rash, lungs clear. Abdomen soft. No edema, no rash, heart rate regular. Oropharynx clear. Neurologically intact Assessment and Plan (1) Pneumonia due to COVID-19 virus Status: Acute Category: Medical Code(s): U07.1 - COVID-19; J12.82 - Pneumonia due to coronavirus disease 2019 (2) Respiratory failure with hypoxia Status: Acute Qualifiers: Chronicity: acute Qualified Code(s): J96.01 - Acute respiratory failure with hypoxia Category: Medical Code(s): J96.91 - Respiratory failure, unspecified with hypoxia (3) Essential hypertension Status: Chronic Category: Medical Code(s): I10 - Essential (primary) hypertension (4) Diabetes mellitus Status: Chronic Category: Medical Code(s): E11.9 - Type 2 diabetes mellitus without complications (5) Obesity, Class II, BMI 35-39.9 Status: Chronic Category: Medical Code(s): E66.9 - Obesity, unspecified - Assessment and plan all Dx Assessment and Plan for all problems:: Slow progress. Continue to wean oxygen. Patient is better in regards to mobility issues.
--- NOTE | 2021-08-04 09:33 | DIET.NUTRFU ---
Plan to continue to wean oxygen per MD progress note. PO intake has been up and down with 25 and 50% at last two recorded meals. Will continue to supplement diet BID and consider an increase if PO intake does not rebound and remain stable. POC glucose- 218, 269, 165. Will continue to monitor.
[2021-08-04 12:26] LABS: POC Glucose,Bedside 152 (70-110)
--- NOTE | 2021-08-04 18:44 | PC.NURSE ---
Patient is NSR on the monitor and on vapotherm and non-rebreather when needed. Patient is up ad-ortega. Alert and oriented times 4. Phone and call light in reach and bed in lowest position. Will continue to monitor.
[2021-08-05] VITALS (11 sets, daily range): BP systolic 107–136; BP diastolic 48–66; PULSE 66–109; RESP 16–30; TEMP 36.4–37.2; O2SAT 85–97; BMI 33.3
--- NOTE | 2021-08-05 05:21 | PC.NURSE ---
Pt tolerated bipap well through the night. No c/o pain. able to use the urinal independently. Switched to vapotherm at 0400. call light in reach, no concerns at this time.
[2021-08-05 06:40] LABS: POC Glucose,Bedside 112 (70-110)
[2021-08-05 12:48] LABS: POC Glucose,Bedside 180 (70-110)
[2021-08-05 16:09] LABS: Histoplasma Gal'mannan Ag Ur <0.5 (<0.5 ng/mL)
[2021-08-05 16:43] LABS: POC Glucose,Bedside 265 (70-110)
[2021-08-05 22:05] LABS: POC Glucose,Bedside 291 (70-110)
[2021-08-06] VITALS (10 sets, daily range): BP systolic 110–145; BP diastolic 56–107; PULSE 66–100; RESP 18–29; TEMP 36.1–37.2; O2SAT 87–99; BMI 33.2
[2021-08-06 00:07] LABS: Aspergillus flavus Negative (Neg:<1:1); Aspergillus fumigatus Negative (Neg:<1:1); Aspergillus niger Negative (Neg:<1:1); Blastomyces Antibody Negative (Neg:<1:1)
[2021-08-06 05:19] LABS: POC Glucose,Bedside 116 (70-110)
--- NOTE | 2021-08-06 06:13 | PC.NURSE ---
Pt was placed on Bipap around 2300 and remained until 0400. He is currently resting on his (L) side. Vapotherm 40L 75%. Has had some desats this AM, but recovered well after applying NRB. VSS. No complaints stated. Medication administered per nov. No other concerns at this time. Will continue to monitor.
--- NOTE | 2021-08-06 06:50 | HMH.ACPN2 ---
Internal Medicine - PN: Subj *Date: 08/06/21 *Time: 08:06 Interval history: Stable overnight. Afebrile. Tolerating wean to 75% oxygen. Will attempt to wean to 70% today. No nausea or vomiting. Tolerating breakfast this morning. Continues to work with physical therapy daily and get up to the bedside chair Exam Vital signs and Labs for Last 24 Hours: Temp Pulse Resp BP Pulse Ox 97.8 F 74 24 125/57 L 94 L 08/06/21 04:00 08/06/21 06:12 08/06/21 04:00 08/06/21 04:00 08/06/21 06:12 Laboratory Results - last 24 hr 08/01/21 09:39: Blastomyces Antibody Negative, Aspergillus flavus Ab Negative, Aspergill fumigatus Ab Negative, Aspergillus niger Ab Negative 08/01/21 20:15: U Histopl Galactoman Ag <0.5, Ref Test Comments Comment 08/05/21 12:22: POC Glucose 180 H 08/05/21 16:32: POC Glucose 265 H 08/05/21 21:16: POC Glucose 291 H 08/06/21 04:53: POC Glucose 116 H I & O for Last 24 hours: Intake & Output 08/03/21 08/04/21 08/05/21 08/06/21 23:59 23:59 23:59 23:59 Intake Total 490 / 490 960 / 960 960 / 960 Output Total 1625 / 2125 1050 / 1200 1425 / 1575 150 / 150 Balance -1135 / -1635 -90 / -240 -465 / -615 -150 / -150 Weight 108.409 kg 107.048 kg 107.774 kg 107.592 kg Narrative: Constitutional: Mild distress on vapotherm HEENT Exam: NCAT, EOMI, PERRL, MMM Respiratory Exam: good air movement, no crackles in bilateral lung field; no wheeze or rhonchi Cardiovascular Exam: RRR, no murmur Abdominal Exam: soft, normoactive bowel sounds; No tenderness Extremities Exam: No cyanosis, clubbing, edema Skin Exam: warm. No rash Neurological Exam: alert, oriented X3 Assessment and Plan (1) Pneumonia due to COVID-19 virus Status: Acute Category: Medical Code(s): U07.1 - COVID-19; J12.82 - Pneumonia due to coronavirus disease 2019 (2) Respiratory failure with hypoxia Status: Acute Qualifiers: Chronicity: acute Qualified Code(s): J96.01 - Acute respiratory failure with hypoxia Category: Medical Code(s): J96.91 - Respiratory failure, unspecified with hypoxia (3) Essential hypertension Status: Chronic Category: Medical Code(s): I10 - Essential (primary) hypertension (4) Diabetes mellitus Status: Chronic Category: Medical Code(s): E11.9 - Type 2 diabetes mellitus without complications (5) Obesity, Class II, BMI 35-39.9 Status: Chronic Category: Medical Code(s): E66.9 - Obesity, unspecified - Assessment and plan all Dx Assessment and Plan for all problems:: 56-year-old male admitted for worsening hypoxemic respiratory failure secondary to COVID-19 pneumonia. Tolerating oxygen, tolerating Vapotherm at this time. Encouraged incentive spirometer. Problems addressed as follows COVID-19 pneumonia Acute hypoxemic respiratory failure --Slow clinical improvement. No worsening status however marginally improving as would be anticipated. -Treatment per protocol: Has completed remdesivir, baricitinib, empiric antibiotics - Continuing steroids and vitamins. Weaning steroids, 2 more days of therapy - Prophylactic Xarelto - DuoNebs every 6hrs; incentive spirometer, aggressive pulmonary toilet - Continue noninvasive oxygenation with goal saturation greater 90%. Prone if able. - BiPAP at night, Vapotherm during the day/eating. - Sputum and fungal labs negative/Normal Resp Amrilia from last week Hyperglycemia/diabetes -Morning glucoses improving, decrease to 6 units of insulin glargine; low intensity sliding scale insulin - Complicates his risk of difficult/complex Covid course. Leukocytosis - Improving slowly - Peripheral smear reviewed, consistent with reactive neutrophilia. Given mild leukocytosis on admission of 13,000 and drastic increase after initiation of steroids, interpretation is this is all related to his acute illness. - no improvement after weaning steroids, will evaluate for neoplastic process Obesity, complicates all aspects of his care PT/OT sai
--- NOTE | 2021-08-06 07:14 | PC.NURSE ---
Vapo cannula changed out per pt request
--- NOTE | 2021-08-06 12:00 | PC.NURSE ---
RN titrated FIO2 to 70% as per provider order
[2021-08-06 12:03] LABS: POC Glucose,Bedside 178 (70-110)
[2021-08-06 16:54] LABS: POC Glucose,Bedside 250 (70-110)
--- NOTE | 2021-08-06 17:00 | DIET.NUTRFU ---
Pt with significant PO improvement. >75% PO intake recorded at last 5 meals. Deepak to continue to attempt to wean oxygen per MD progress note. Will continue with current plan of care and monitor.
--- NOTE | 2021-08-06 17:54 | PC.NURSE ---
RN titrated FIO2 to 70% as per provider order. Patient has maintained well throughout the day with occasional SOB with excessive movement or during mealtimes. No acute events throughout shift.
[2021-08-06 20:50] LABS: POC Glucose,Bedside 279 (70-110)
[2021-08-07] VITALS (9 sets, daily range): BP systolic 110–153; BP diastolic 52–74; PULSE 65–108; RESP 18–26; TEMP 36.5–37.2; O2SAT 88–99; BMI 32.9
--- NOTE | 2021-08-07 04:07 | PC.NURSE ---
A&OX4. PT TOLERATING 40/70 VAPOTHERM WHILE AWAKE AND BIPAP WILE ASLEEP. PT HAS HAD NO C/O THUS FAR. HAS SLEPT MAJORITY OF SHIFT. PT SEEMS TO BE IN HAPPIER SPIRITS. USING URINAL TO VOID. HAS REMAINED IN BED T/O SHIFT. VSS WILL CONTINUE TO MONITOR.
[2021-08-07 06:55] LABS: POC Glucose,Bedside 126 (70-110)
[2021-08-07 07:01] LABS: Basophils % 0.2 % (0.1-2.0); Eosinophils # 0.2 K/mm3 (0.0-0.4); Eosinophils % 0.7 % (0.1-12.0); Hematocrit 27.9 % (42.0-52.0); Hemoglobin 9.1 g/dL (14.1-18.0); Lymphocytes # 1.5 K/mm3 (0.7-4.5); Lymphocytes % 6.8 % (10-50); Mean Corpuscular HGB Conc 32.6 g/dL (31.8-35.4); Mean Corpuscular Hemoglobin 31.6 pg (27.0-31.2); Mean Corpuscular Volume 96.9 fl (80-94); Mean Platelet Volume 9.5 fl (7.4-10.4); Monocytes # 0.3 K/mm3 (0.1-1.0); Monocytes % 1.2 % (1.7-9.3); Neutrophils # 19.6 K/mm3 (1.8-7.8); Neutrophils % 91.1 % (37.0-80.0); Platelet Count 190 K/mm3 (142-424); Red Blood Count 2.88 M/mm3 (4.60-6.20); Red Cell Distribution Width 17.7 % (11.5-17.5); White Blood Count 21.5 K/mm3 (4.8-10.8)
[2021-08-07 07:04] LABS: Chloride 97 mmol/L (98-107); Potassium 4.2 mmoL/L (3.5-5.1); Sodium 135 mmol/L (136-145)
[2021-08-07 07:07] LABS: Anion Gap 9.2 mEq/L (5-15); Blood Urea Nitrogen 26 mg/dl (9-20); Calcium 8.4 mg/dl (8.4-10.2); Carbon Dioxide 33 mmol/L (22.0-30.0); Creatinine Clearance Estimated 178 mL/min (50-200); Estimated Glomerular Filt Rate 117 ml/min (>60); GFR (African American) 141 ML/MIN (>60); Glucose 116 mg/dl (74-100)
[2021-08-07 07:16] LABS: MANUAL DIFFERENTIAL MANUAL DIFFERENTIAL (MANUAL DIFF)
[2021-08-07 07:43] LABS: Anisocytosis 1+; Hypochromasia 1+; Lymphocytes % 9 % (10-50); Macrocytosis 2+; Monocytes % 1 % (2-9); Neutrophils % 90 % (42-76); Platelet Estimate Normal; Total Cells Counted 100
--- NOTE | 2021-08-07 09:00 | P.PN_ITS ---
Internal Medicine - PN: Subj *Date: 08/07/21 *Time: 09:00 Interval history: Patient feels better, down to 70% FiO2 on Vapotherm. Pleasant Exam Vital signs and Labs for Last 24 Hours: Temp Pulse Resp BP Pulse Ox 98.2 F 95 H 18 131/60 89 L 08/07/21 08:00 08/07/21 08:00 08/07/21 08:00 08/07/21 08:00 08/07/21 08:00 Laboratory Results - last 24 hr 08/06/21 11:48: POC Glucose 178 H 08/06/21 16:44: POC Glucose 250 H 08/06/21 20:34: POC Glucose 279 H 08/07/21 05:06: POC Glucose 126 H 08/07/21 06:27: WBC 21.5 H*, RBC 2.88 L, Hgb 9.1 L, Hct 27.9 L, MCV 96.9 H, MCH 31.6 H, MCHC 32.6, RDW 17.7 H, Plt Count 190, MPV 9.5, Neut % (Auto) 91.1 H, Lymph % (Auto) 6.8 L, [place] % (Auto) 1.2 L, Eos % (Auto) 0.7, Baso % (Auto) 0.2, Neut # (Auto) 19.6 H, Lymph # (Auto) 1.5, [place] # (Auto) 0.3, Eos # (Auto) 0.2, Baso # (Auto) 0.0, Total Counted 100, Neutrophils % (Manual) 90 H, Lymphocytes % (Manual) 9 L, Monocytes % (Manual) 1 L, Platelet Estimate Normal, Hypochromasia 1+, Anisocytosis 1+, Macrocytosis 2+ 08/07/21 06:27: Sodium 135 L, Potassium 4.2, Chloride 97 L, Carbon Dioxide 33 H, Anion Gap 9.2, BUN 26 H, Creatinine 0.70, Estimated Creat Clear 178, Estimated GFR 117, Est GFR ( Amer) 141, Glucose 116 H, Calcium 8.4, Magnesium 2.0 I & O for Last 24 hours: Intake & Output 08/04/21 08/05/21 08/06/21 08/07/21 11:59 11:59 11:59 11:59 Intake Total 720 / 720 840 / 840 1200 / 1200 1440 / 1440 Output Total 2074 / 2074 850 / 850 725 / 725 925 / 925 Balance -1355 / -1355 -10 / -10 475 / 475 515 / 515 Weight 236 lb 237 lb 9.6 oz 237 lb 3.2 oz 235 lb 6.4 oz - Constitutional no acute distress - *Routine HEENT Exam Head: Present: normocephalic Eye: Present: EOMI, PERRL ENT: Present: mucous membranes moist - *Routine Neck Exam Present: supple. Absent: lymphadenopathy - *Routine Respiratory Exam Present: CTA bilaterally - *Routine Cardiovascular Exam Present: RRR - *Routine Abdominal Exam Present: soft, normoactive bowel sounds. Absent: tenderness - *Routine Extremities Exam Absent: cyanosis, clubbing, edema - *Routine Skin Exam Present: warm. Absent: rash - *Routine Neurological Exam Present: alert, oriented X3 Assessment and Plan (1) Pneumonia due to COVID-19 virus Status: Acute Category: Medical Code(s): U07.1 - COVID-19; J12.82 - Pneumonia due to coronavirus disease 2019 (2) Respiratory failure with hypoxia Status: Acute Qualifiers: Chronicity: acute Qualified Code(s): J96.01 - Acute respiratory failure with hypoxia Category: Medical Code(s): J96.91 - Respiratory failure, unspecified with hypoxia (3) Essential hypertension Status: Chronic Category: Medical Code(s): I10 - Essential (primary) hypertension (4) Diabetes mellitus Status: Chronic Category: Medical Code(s): E11.9 - Type 2 diabetes mellitus without complications (5) Obesity, Class II, BMI 35-39.9 Status: Chronic Category: Medical Code(s): E66.9 - Obesity, unspecified - Assessment and plan all Dx Assessment and Plan for all problems:: Good improvement, stop Lantus given normalizing glucose. Continue to wean FiO2.
[2021-08-07 11:33] LABS: POC Glucose,Bedside 226 (70-110)
[2021-08-07 21:08] LABS: POC Glucose,Bedside 235 (70-110)
[2021-08-08] VITALS (9 sets, daily range): BP systolic 115–127; BP diastolic 57–77; PULSE 69–100; RESP 18–27; TEMP 36.6–37.1; O2SAT 90–98; BMI 32.7
[2021-08-08 06:26] LABS: POC Glucose,Bedside 107 (70-110)
--- NOTE | 2021-08-08 06:30 | PC.NURSE ---
no issues through the night, pt wore bipap through the night for few hours and is on vapotherm 40/60 currently with use of non rebreather as needed with 02 sats 90-98. FSBS 107 this morning, pt hopeful to go home soon, VSS
[2021-08-08 07:55] LABS: Chloride 96 mmol/L (98-107); Potassium 4.2 mmoL/L (3.5-5.1); Sodium 135 mmol/L (136-145)
[2021-08-08 07:58] LABS: Blood Urea Nitrogen 27 mg/dl (9-20); Creatinine Clearance Estimated 177 mL/min (50-200); Estimated Glomerular Filt Rate 117 ml/min (>60); GFR (African American) 141 ML/MIN (>60)
[2021-08-08 07:59] LABS: Anion Gap 11.2 mEq/L (5-15); Calcium 8.8 mg/dl (8.4-10.2); Carbon Dioxide 32 mmol/L (22.0-30.0); Glucose 114 mg/dl (74-100)
--- NOTE | 2021-08-08 08:35 | P.PN_ITS ---
Internal Medicine - PN: Subj *Date: 08/08/21 *Time: 08:35 Interval history: Patient is awake, alert. Has been up in a chair this morning already. O2 saturations are in the low 90% exclusively on Vapotherm at 60% FiO2 without any facemask supplementation. He feels a little better, continues to feel very tired. Exam Vital signs and Labs for Last 24 Hours: Temp Pulse Resp BP Pulse Ox 98.0 F 83 20 127/57 L 94 L 08/08/21 08:00 08/08/21 08:00 08/08/21 08:00 08/08/21 08:00 08/08/21 08:00 Laboratory Results - last 24 hr 08/07/21 11:12: POC Glucose 226 H 08/07/21 20:49: POC Glucose 235 H 08/08/21 06:10: POC Glucose 107 08/08/21 06:50: Sodium 135 L, Potassium 4.2, Chloride 96 L, Carbon Dioxide 32 H, Anion Gap 11.2, BUN 27 H, Creatinine 0.70, Estimated Creat Clear 177, Estimated GFR 117, Est GFR ( Amer) 141, Glucose 114 H, Calcium 8.8 I & O for Last 24 hours: Intake & Output 08/05/21 08/06/21 08/07/21 08/08/21 11:59 11:59 11:59 11:59 Intake Total 840 / 840 1200 / 1200 1440 / 1440 1320 / 1320 Output Total 850 / 850 725 / 725 925 / 925 900 / 900 Balance -10 / -10 475 / 475 515 / 515 420 / 420 Weight 237 lb 9.6 oz 237 lb 3.2 oz 235 lb 6.4 oz 234 lb Narrative: - Constitutional no acute distress - *Routine HEENT Exam Head: Present: normocephalic Eye: Present: EOMI, PERRL ENT: Present: mucous membranes moist - *Routine Neck Exam Present: supple. Absent: lymphadenopathy - *Routine Respiratory Exam Present: CTA bilaterally - *Routine Cardiovascular Exam Present: RRR - *Routine Abdominal Exam Present: soft, normoactive bowel sounds. Absent: tenderness - *Routine Extremities Exam Absent: cyanosis, clubbing, edema - *Routine Skin Exam Present: warm. Absent: rash - *Routine Neurological Exam Present: alert, oriented X3 Assessment and Plan (1) Pneumonia due to COVID-19 virus Status: Acute Category: Medical Code(s): U07.1 - COVID-19; J12.82 - Pneumonia due to coronavirus disease 2019 (2) Respiratory failure with hypoxia Status: Acute Qualifiers: Chronicity: acute Qualified Code(s): J96.01 - Acute respiratory failure with hypoxia Category: Medical Code(s): J96.91 - Respiratory failure, unspecified with hypoxia (3) Essential hypertension Status: Chronic Category: Medical Code(s): I10 - Essential (primary) hypertension (4) Diabetes mellitus Status: Chronic Category: Medical Code(s): E11.9 - Type 2 diabetes mellitus without complications (5) Obesity, Class II, BMI 35-39.9 Status: Chronic Category: Medical Code(s): E66.9 - Obesity, unspecified - Assessment and plan all Dx Assessment and Plan for all problems:: Nice and steady improvement over the past 3 or 4 days. Continue to wean Vapotherm. Continue to wean down insulin therapy given his relatively norm alizing sugars. We stopped Lantus completely yesterday, monitor morning sugars over the next couple of days. Steroid taper continues.
[2021-08-08 11:40] LABS: POC Glucose,Bedside 182 (70-110)
[2021-08-08 16:33] LABS: POC Glucose,Bedside 284 (70-110)
[2021-08-08 16:57] LABS: POC Glucose,Bedside 265 (70-110)
[2021-08-08 22:01] LABS: POC Glucose,Bedside 253 (70-110)
[2021-08-09] VITALS (10 sets, daily range): BP systolic 107–140; BP diastolic 48–74; PULSE 73–105; RESP 18–30; TEMP 36.5–37.4; O2SAT 90–100; BMI 32.7
--- NOTE | 2021-08-09 05:51 | PC.NURSE ---
pt slept most of the night with bipap, no issues or complaints, vapotherm in use at 40/55-60 with o2 remaining low 90's.
[2021-08-09 07:02] LABS: POC Glucose,Bedside 146 (70-110)
--- NOTE | 2021-08-09 08:45 | HMH.ACPN2 ---
Internal Medicine - PN: Subj *Date: 08/09/21 *Time: 08:45 Interval history: Patient continues to improve, down to 60% FiO2 on Vapotherm. Alert, pleasant, optimistic about his improvement. Exam Vital signs and Labs for Last 24 Hours: Temp Pulse Resp BP Pulse Ox 98.0 F 105 H 22 107/48 L 95 08/09/21 07:59 08/09/21 07:59 08/09/21 07:59 08/09/21 07:59 08/09/21 07:59 Laboratory Results - last 24 hr 08/07/21 16:33: POC Glucose 284 H 08/08/21 11:33: POC Glucose 182 H 08/08/21 16:46: POC Glucose 265 H 08/08/21 20:38: POC Glucose 253 H 08/09/21 06:17: POC Glucose 146 H I & O for Last 24 hours: Intake & Output 08/06/21 08/07/21 08/08/21 08/09/21 11:59 11:59 11:59 11:59 Intake Total 1200 / 1200 1440 / 1440 1320 / 1320 1080 / 1080 Output Total 725 / 725 925 / 925 900 / 900 950 / 950 Balance 475 / 475 515 / 515 420 / 420 130 / 130 Weight 237 lb 3.2 oz 235 lb 6.4 oz 234 lb 234 lb Narrative: Rhonchi in chest, improving. Heart rate regular. Abdomen soft, no rash, globally weak but no neurologic deficits. ENT exam clear. Assessment and Plan (1) Pneumonia due to COVID-19 virus Status: Acute Category: Medical Code(s): U07.1 - COVID-19; J12.82 - Pneumonia due to coronavirus disease 2019 (2) Respiratory failure with hypoxia Status: Acute Qualifiers: Chronicity: acute Qualified Code(s): J96.01 - Acute respiratory failure with hypoxia Category: Medical Code(s): J96.91 - Respiratory failure, unspecified with hypoxia (3) Essential hypertension Status: Chronic Category: Medical Code(s): I10 - Essential (primary) hypertension (4) Diabetes mellitus Status: Chronic Category: Medical Code(s): E11.9 - Type 2 diabetes mellitus without complications (5) Obesity, Class II, BMI 35-39.9 Status: Chronic Category: Medical Code(s): E66.9 - Obesity, unspecified - Assessment and plan all Dx Assessment and Plan for all problems:: I am encouraged by his improvement vis-?-vis FiO2 requirements. Continue weaning as tolerated. Continue ambulation/mobilization/incentive spirometer. Decadron is weaning off today. Off Lantus. Glucose control fairly reasonable.
[2021-08-09 11:37] LABS: POC Glucose,Bedside 201 (70-110)
[2021-08-09 17:21] LABS: POC Glucose,Bedside 236 (70-110)
--- NOTE | 2021-08-09 18:24 | PC.NURSE ---
Remains onnn 35 L & 60% vapotherm. No acute changes. Pt encouraged to use IS and has been up to chair. Sats 92% at this time.
[2021-08-09 20:46] LABS: POC Glucose,Bedside 246 (70-110)
[2021-08-10] VITALS (11 sets, daily range): BP systolic 105–131; BP diastolic 49–69; PULSE 72–102; RESP 18–22; TEMP 36.7–36.9; O2SAT 90–100; BMI 32.8
--- NOTE | 2021-08-10 03:52 | PC.NURSE ---
Beginning of shift pt was on vapotherm 35L/60% with O2 91-95%. Pt was placed on bipap and tolerated well thus far in shift with o2 maintaining 93-94%. Pt has voiced no c/o of pain thus far in shift. Pt has remained in bed t/o shift, and slept well. Pt uses urinal to void. Call tony within reach.
[2021-08-10 05:24] LABS: POC Glucose,Bedside 154 (70-110)
--- NOTE | 2021-08-10 06:33 | SW/DCPLANNER ---
Addendum entered by Masha Sanchez 08/11/21 10:11: PATIENT CONTINUES TO NEED VAPOTHERM, HE IS GOING TO GET A UNIT OF BLOOD TODAY AND SOME LABS TO CHECK IRON LEVELS.. WILL CONTINUE TO FOLLOW DURING HIS ACUTE CARE STAY AND OFFER ANY ASSISTANCE PATIENT MAY NEED... Original Note: PATIENT CONTINUES TO BE IN THE ACUTE HOSPITAL AND SLOWLY IMPROVING..HE CONTINUES TO NEED VAPOTHERM AND MANY ATTEMPTS OF WEANING HAVE BEEN STARTED.. PATIENT RESIDES AT HOME WITH SIGNIFICANT OTHER AND IS GAINFULLY EMPLOYED. ONCE HE IS MEDICALLY READY FOR DISCHARGE HE WILL RETURN BACK HOME.. PATIENT WILL NEED 02 AND THIS WILL BE SET UP PRIOR TO DISCHARGE.. WILL CONTINUE TO FOLLOW PATIENT THROUGH HIS ACUTE CARE STAY...
--- NOTE | 2021-08-10 06:53 | HMH.ACPN2 ---
Internal Medicine - PN: Subj *Date: 08/10/21 *Time: 08:19 Interval history: Remained hemodynamically stable and afebrile overnight. Tolerating Vapotherm at 60% however uses nonrebreather liberally at this time with any desaturations. Nursing has noted that patient perseverates on his O2 monitor and is quick to use nonrebreather mask if he drops below 89%. Continuing to work with physical therapy. Family at bedside. Informed patient that we would move rooms today to de-escalate monitors in the room and for change of scenery. Exam Vital signs and Labs for Last 24 Hours: Temp Pulse Resp BP Pulse Ox 98.4 F 77 20 109/54 L 91 L 08/10/21 04:00 08/10/21 05:31 08/10/21 04:00 08/10/21 04:00 08/10/21 05:31 Laboratory Results - last 24 hr 08/09/21 06:17: POC Glucose 146 H 08/09/21 11:25: POC Glucose 201 H 08/09/21 17:04: POC Glucose 236 H 08/09/21 20:32: POC Glucose 246 H 08/10/21 05:12: POC Glucose 154 H I & O for Last 24 hours: Intake & Output 08/07/21 08/08/21 08/09/21 08/10/21 23:59 23:59 23:59 23:59 Intake Total 1200 / 1200 1320 / 1320 1200 / 1200 Output Total 1200 / 1200 500 / 650 800 / 1150 350 / 350 Balance 0 / 0 820 / 670 400 / 50 -350 / -350 Weight 106.776 kg 106.141 kg 106.141 kg 106.549 kg Narrative: Constitutional: Mild distress on vapotherm HEENT Exam: NCAT, EOMI, PERRL, MMM Respiratory Exam: good air movement, no crackles in bilateral lung field; no wheeze or rhonchi Cardiovascular Exam: RRR, no murmur Abdominal Exam: soft, normoactive bowel sounds; No tenderness Extremities Exam: No cyanosis, clubbing, edema Skin Exam: warm. No rash Neurological Exam: alert, oriented X3 Assessment and Plan (1) Pneumonia due to COVID-19 virus Status: Acute Category: Medical Code(s): U07.1 - COVID-19; J12.82 - Pneumonia due to coronavirus disease 2019 (2) Respiratory failure with hypoxia Status: Acute Qualifiers: Chronicity: acute Qualified Code(s): J96.01 - Acute respiratory failure with hypoxia Category: Medical Code(s): J96.91 - Respiratory failure, unspecified with hypoxia (3) Essential hypertension Status: Chronic Category: Medical Code(s): I10 - Essential (primary) hypertension (4) Diabetes mellitus Status: Chronic Category: Medical Code(s): E11.9 - Type 2 diabetes mellitus without complications (5) Obesity, Class II, BMI 35-39.9 Status: Chronic Category: Medical Code(s): E66.9 - Obesity, unspecified - Assessment and plan all Dx Assessment and Plan for all problems:: 56-year-old male admitted for worsening hypoxemic respiratory failure secondary to COVID-19 pneumonia. Tolerating oxygen, tolerating Vapotherm at this time. Encouraged incentive spirometer. Problems addressed as follows COVID-19 pneumonia Acute hypoxemic respiratory failure --Slow clinical improvement. No worsening status however marginally improving as would be anticipated. - Treatment per protocol has completed remdesivir, baricitinib, empiric antibiotics; finish steroid wean. -Continuing vitamins and prophylactic Xarelto. - DuoNebs every 6hrs; incentive spirometer, aggressive pulmonary toilet - Continue noninvasive oxygenation with goal saturation greater 90%. Prone if able. - BiPAP at night, Vapotherm during the day/eating. -Requested from respiratory and nursing to use nonrebreather selectively and not keep at bedside for patient to use ad ortega. Hyperglycemia/diabetes -Morning glucoses improving, on sliding scale insulin only at this time. -Anticipate transitioning to oral regimen at time of discharge - Complicates his risk of difficult/complex Covid course. Leukocytosis - Improving slowly - Peripheral smear reviewed, consistent with reactive neutrophilia. Given mild leukocytosis on admission of 13,000 and drastic increase after initiation of steroids, interpretation is this is all related to his acute illness. - If no improvement after weaning steroids, will evaluate fo
[2021-08-10 12:04] LABS: POC Glucose,Bedside 191 (70-110)
[2021-08-10 16:19] LABS: POC Glucose,Bedside 229 (70-110)
--- NOTE | 2021-08-10 19:16 | PC.NURSE ---
Pt is alert and oriented and able to make needs known. Pt remains on vapotherm at 30 L and 60 %. Pt was on 25 L and 60 % and 02 was in the high 70's/low 80's. Pts sats have ranged from 84% (with eating, etc) to 90 % at rest. Pt does take time to recover when de-satting, with exertion. CB in reach. VSS.
[2021-08-10 20:22] LABS: POC Glucose,Bedside 226 (70-110)
[2021-08-11] VITALS (20 sets, daily range): BP systolic 109–144; BP diastolic 43–88; PULSE 62–107; RESP 18–24; TEMP 36.6–37.2; O2SAT 80–98; BMI 32.8
[2021-08-11 05:25] LABS: POC Glucose,Bedside 151 (70-110)
[2021-08-11 06:51] LABS: Basophils % 0.2 % (0.1-2.0); Eosinophils # 0.1 K/mm3 (0.0-0.4); Hematocrit 25.4 % (42.0-52.0); Hemoglobin 7.7 g/dL (14.1-18.0); Lymphocytes # 1.1 K/mm3 (0.7-4.5); Lymphocytes % 9.6 % (10-50); Mean Corpuscular HGB Conc 30.6 g/dL (31.8-35.4); Mean Corpuscular Hemoglobin 29.9 pg (27.0-31.2); Mean Corpuscular Volume 97.9 fl (80-94); Mean Platelet Volume 9.5 fl (7.4-10.4); Monocytes # 0.2 K/mm3 (0.1-1.0); Monocytes % 1.6 % (1.7-9.3); Neutrophils # 9.5 K/mm3 (1.8-7.8); Neutrophils % 87.6 % (37.0-80.0); Platelet Count 163 K/mm3 (142-424); Red Blood Count 2.59 M/mm3 (4.60-6.20); Red Cell Distribution Width 18.3 % (11.5-17.5); White Blood Count 10.9 K/mm3 (4.8-10.8)
[2021-08-11 07:02] LABS: MANUAL DIFFERENTIAL MANUAL DIFFERENTIAL (MANUAL DIFF)
--- NOTE | 2021-08-11 07:29 | PC.NURSE ---
Hgb of 7.7 resulted at 05:22. Lab did not report critical. Francisco GLEASON reported lab to provider, MD Kyler. No further orders at this time
[2021-08-11 08:04] LABS: Lymphocytes % 8 % (10-50); Monocytes % 1 % (2-9); Neutrophils % 91 % (42-76); Total Cells Counted 100
[2021-08-11 08:10] LABS: Hypochromasia 1+; Platelet Estimate Normal
--- NOTE | 2021-08-11 08:53 | HMH.ACPN2 ---
Internal Medicine - PN: Subj *Date: 08/11/21 *Time: 08:53 Interval history: Overall patient feels about the same, he has been coughing up a little bit more mucus that looks cloudy and creamy yellow-colored. Exam Vital signs and Labs for Last 24 Hours: Temp Pulse Resp BP Pulse Ox 98.9 F 107 H 18 142/75 H 84 L 08/11/21 07:29 08/11/21 07:29 08/11/21 07:29 08/11/21 07:29 08/11/21 07:29 Laboratory Results - last 24 hr 08/10/21 11:46: POC Glucose 191 H 08/10/21 16:10: POC Glucose 229 H 08/10/21 20:12: POC Glucose 226 H 08/11/21 05:18: POC Glucose 151 H 08/11/21 05:22: WBC 10.9 H, RBC 2.59 L, Hgb 7.7 L, Hct 25.4 L, MCV 97.9 H, MCH 29.9, MCHC 30.6 L, RDW 18.3 H, Plt Count 163, MPV 9.5, Neut % (Auto) 87.6 H, Lymph % (Auto) 9.6 L, [place] % (Auto) 1.6 L, Eos % (Auto) 1.0, Baso % (Auto) 0.2, Neut # (Auto) 9.5 H, Lymph # (Auto) 1.1, [place] # (Auto) 0.2, Eos # (Auto) 0.1, Baso # (Auto) 0.0, Total Counted 100, Neutrophils % (Manual) 91 H, Lymphocytes % (Manual) 8 L, Monocytes % (Manual) 1 L, Platelet Estimate Normal, Hypochromasia 1+ 08/11/21 07:58: Crossmatch (AHG) See Detail I & O for Last 24 hours: Intake & Output 08/08/21 08/09/21 08/10/21 08/11/21 11:59 11:59 11:59 11:59 Intake Total 1320 / 1320 1080 / 1080 1080 / 1080 1840 / 1840 Output Total 900 / 900 950 / 950 1000 / 1000 800 / 800 Balance 420 / 420 130 / 130 80 / 80 1040 / 1040 Weight 234 lb 234 lb 234 lb 14.4 oz 234 lb 6.4 oz Narrative: Alert, pleasant. Oriented. Lungs with minimal rhonchi but good air movement, heart rate regular. Abdomen soft, no edema or clubbing. Assessment and Plan (1) Pneumonia due to COVID-19 virus Status: Acute Category: Medical Code(s): U07.1 - COVID-19; J12.82 - Pneumonia due to coronavirus disease 2018 (2) Respiratory failure with hypoxia Status: Acute Qualifiers: Chronicity: acute Qualified Code(s): J96.01 - Acute respiratory failure with hypoxia Category: Medical Code(s): J96.91 - Respiratory failure, unspecified with hypoxia (3) Essential hypertension Status: Chronic Category: Medical Code(s): I10 - Essential (primary) hypertension (4) Diabetes mellitus Status: Chronic Category: Medical Code(s): E11.9 - Type 2 diabetes mellitus without complications (5) Obesity, Class II, BMI 35-39.9 Status: Chronic Category: Medical Code(s): E66.9 - Obesity, unspecified (6) Anemia of chronic disease Status: Acute Category: Medical Code(s): D63.8 - Anemia in other chronic diseases classified elsewhere - Assessment and plan all Dx Assessment and Plan for all problems:: Hemoglobin has dipped below 8 g. Given his respiratory issues we will transfuse to keep above 8 g. 1 unit today. I think his anemia is probably from chronic disease and metabolic stress. If persist will need iron studies. No evidence of blood loss per patient or nursing staff. Continue oxygen weaning. Sputum culture given his increased mucus production.
[2021-08-11 08:58] LABS: Alanine Aminotransferase 40 U/L (12-78); Albumin Level 3.1 g/dl (3.5-5.0); Albumin/Globulin Ratio 0.9 (1.1-1.8); Alkaline Phosphatase 125 U/L (38-126); Anion Gap 3.9 mEq/L (5-15); Aspartate Amino Transferase 31 U/L (17-59); Bilirubin,Total 1.3 mg/dl (0.2-1.3); Blood Urea Nitrogen 17 mg/dl (9-20); Calcium 8.4 mg/dl (8.4-10.2); Carbon Dioxide 33 mmol/L (22.0-30.0); Chloride 99 mmol/L (98-107); Creatinine Clearance Estimated 207 mL/min (50-200); Estimated Glomerular Filt Rate 139 ml/min (>60); GFR (African American) 169 ML/MIN (>60); Globulin 3.4 g/dL (1.3-3.2); Glucose 129 mg/dl (74-100); Magnesium 1.8 mg/dl (1.6-2.3); Potassium 3.9 mmoL/L (3.5-5.1); Sodium 132 mmol/L (136-145); Total Protein,Serum 6.5 g/dl (6.3-8.2)
[2021-08-11 12:22] LABS: POC Glucose,Bedside 189 (70-110)
[2021-08-11 19:26] LABS: POC Glucose,Bedside 313 (70-110)
[2021-08-11 20:33] LABS: POC Glucose,Bedside 205 (70-110)
[2021-08-12] VITALS (10 sets, daily range): BP systolic 112–130; BP diastolic 52–87; PULSE 75–102; RESP 20–28; TEMP 36.5–36.9; O2SAT 84–98; BMI 33.3
[2021-08-12 05:26] LABS: POC Glucose,Bedside 135 (70-110)
[2021-08-12 07:03] LABS: Alanine Aminotransferase 35 U/L (12-78); Albumin Level 3.1 g/dl (3.5-5.0); Albumin/Globulin Ratio 0.9 (1.1-1.8); Alkaline Phosphatase 130 U/L (38-126); Anion Gap 4.9 mEq/L (5-15); Aspartate Amino Transferase 29 U/L (17-59); Bilirubin,Total 1.5 mg/dl (0.2-1.3); Blood Urea Nitrogen 19 mg/dl (9-20); Calcium 8.4 mg/dl (8.4-10.2); Carbon Dioxide 33 mmol/L (22.0-30.0); Chloride 100 mmol/L (98-107); Creatinine Clearance Estimated 210 mL/min (50-200); Estimated Glomerular Filt Rate 139 ml/min (>60); GFR (African American) 169 ML/MIN (>60); Globulin 3.4 g/dL (1.3-3.2); Glucose 124 mg/dl (74-100); Potassium 3.9 mmoL/L (3.5-5.1); Sodium 134 mmol/L (136-145); Total Protein,Serum 6.5 g/dl (6.3-8.2)
--- NOTE | 2021-08-12 08:40 | PC.NURSE ---
RESP CARE NOTE: Pt FIO2 decreased to 50% FIO2 per Dr Chávez request. Will continue to monitor patient.
--- NOTE | 2021-08-12 11:02 | CA_ITS ---
APPROVED REPORT EXAM: Comprehensive 2D, Doppler, and color-flow Echocardiogram Retail Assistant: Peggy Don CRT Ht: 5 ft 10 in Wt: 238lbs BSA: 2.25 BP: 145/75 mmHg Indications: Covid HX, COPD, Shortness of Breath, Diabetes, Obesity, Hyperlipidemia, Hypertension/HDD, exsmoker 2D Dimensions LVOT 1.97 cm (M/F) 1.5-2.5 M-Mode Dimensions RVDd 3.12 cm (0.9-2.6) LA Diam 4.14 cm (1.9-4.0) LVDd 4.77 cm (3.5-5.7) Ao Diam 4.43 cm (2.0-3.7) LVDs 3.56 cm (3.5-5.7) IVSd 1.48 cm (0.6-1.1) PWd 1.28 cm (0.6-1.1) EF (Teich) 50.00% FS 25.40% EDV (Teich) 106.00 mL TAPSE 1.58 (<1.7) ESV (Teich) 53.00 mL LV Diastology E Decel Time 210.00 (160-240 msec) E/A Ratio 1.02 MED E' 4.30 (< 7 cm/sec) MED A' 8.30 cm/s E'/MED E' Ratio 18.53 (>14) LAT E' 5.10 (<10 cm/sec) LAT A' 8.70 cm/s E/LAT E' Ratio 15.63 (>14) Aortic Valve AO Peak GR. 6.00 mmHg Mitral Valve MV E Max Hiram. 80.00 (40-130 cm/s) MV A Velocity 78.00 (40-130 cm/s) E/A Ratio 1.02 MV Decel. Time 210.00 (160-240 ms) MV PHT 62.00 ms Pulmonary Valve PV Peak Velocity 127.00 (50-150 cm/s) Tricuspid Valve TR P. Velocity 322.00 cm/s RAP Estimate 10.00 mmHg RVSP 51.40 mmHg Left Ventricle Left atrium is mildly enlarged, left ventricle is normal size, mild concentric left ventricular hypertrophy, visually estimated ejection fraction 55% with no regional wall motion abnormality. Diastolic parameters are inconclusive. Right Ventricle Right atrium and right ventricle are mildly enlarged with normal contractility. Aortic Valve Aortic valve is grossly normal, there is no aortic stenosis or aortic insufficiency. Mitral Valve Mitral valve grossly normal, there is trace mitral regurgitation. Tricuspid Valve Tricuspid valve grossly normal, there is trace tricuspid regurgitation, tricuspid regurgitation jet velocity is inadequate for calculation of the right ventricular systolic pressure. Pulmonic Valve Pulmonic valve is poorly visualized. Great Vessels Aortic root is normal size. Inferior vena cava is poorly visualized. Pericardium No significant pericardial effusion noted. Conclusion 1. Mild biatrial enlargement, normal left ventricular size, mild concentric left ventricular hypertrophy, visually estimated ejection fraction 55% with no regional wall motion abnormality, diastolic parameters are inconclusive. 2. Mildly enlarged right ventricle with normal contractility. 3. Trace mitral and tricuspid regurgitation. 4. No significant pericardial effusion noted. 5. Inferior vena cava is poorly visualized. Electronically signed by : Marcello Blanca MD 08/13/2021 16:02:19
--- NOTE | 2021-08-12 15:08 | HMH.ACPN2 ---
Internal Medicine - PN: Subj *Date: 08/12/21 *Time: 15:08 Interval history: Patient is about the same, tolerated 1 unit of packed cells well yesterday. Has a little bit more coughing today and is coughing up some sputum. Exam Vital signs and Labs for Last 24 Hours: Temp Pulse Resp BP Pulse Ox 98.3 F 78 24 124/64 98 08/12/21 12:00 08/12/21 12:00 08/12/21 12:00 08/12/21 12:00 08/12/21 12:00 Laboratory Results - last 24 hr 08/11/21 16:45: POC Glucose 313 H* 08/11/21 20:25: POC Glucose 205 H 08/12/21 05:08: POC Glucose 135 H 08/12/21 05:37: Sodium 134 L, Potassium 3.9, Chloride 100, Carbon Dioxide 33 H, Anion Gap 4.9 L, BUN 19, Creatinine 0.60 L, Estimated Creat Clear 210, Estimated GFR 139, Est GFR ( Amer) 169, Glucose 124 H, Calcium 8.4, Total Bilirubin 1.5 H, AST 29, ALT 35, Alkaline Phosphatase 130 H, Total Protein 6.5, Albumin 3.1 L, Globulin 3.4 H, Albumin/Globulin Ratio 0.9 L I & O for Last 24 hours: Intake & Output 08/10/21 08/11/21 08/12/21 08/13/21 11:59 11:59 11:59 11:59 Intake Total 1080 / 1080 1840 / 1840 1210 / 1210 360 / 360 Output Total 1000 / 1000 800 / 800 600 / 600 Balance 80 / 80 1040 / 1040 610 / 610 360 / 360 Weight 234 lb 14.4 oz 234 lb 6.4 oz 238 lb 5 oz Microbiology Reports for the Last 24 Hours: Microbiology 08/11/21 11:13 Sputum - Expectorated Sputum Gram Stain - Final 08/11/21 11:13 Sputum - Expectorated Sputum Sputum Culture - Preliminary Narrative: Coughing up yellow sputum, loose rhonchi. Abdomen soft, heart rate regular. No edema or clubbing. Neurologically intact, oropharynx clear Assessment and Plan (1) Pneumonia due to COVID-19 virus Status: Acute Category: Medical Code(s): U07.1 - COVID-19; J12.82 - Pneumonia due to coronavirus disease 2019 (2) Respiratory failure with hypoxia Status: Acute Qualifiers: Chronicity: acute Qualified Code(s): J96.01 - Acute respiratory failure with hypoxia Category: Medical Code(s): J96.91 - Respiratory failure, unspecified with hypoxia (3) Essential hypertension Status: Chronic Category: Medical Code(s): I10 - Essential (primary) hypertension (4) Diabetes mellitus Status: Chronic Category: Medical Code(s): E11.9 - Type 2 diabetes mellitus without complications (5) Obesity, Class II, BMI 35-39.9 Status: Chronic Category: Medical Code(s): E66.9 - Obesity, unspecified (6) Anemia of chronic disease Status: Acute Category: Medical Code(s): D63.8 - Anemia in other chronic diseases classified elsewhere - Assessment and plan all Dx Assessment and Plan for all problems:: One dose of Lasix today given recent transfusion. Check labs tomorrow. Echo today given his persistent dyspnea and for ongoing evaluation. Check sputum culture
[2021-08-13] VITALS (8 sets, daily range): BP systolic 115–121; BP diastolic 55–70; PULSE 72–94; RESP 18–36; TEMP 36.2–36.9; O2SAT 85–96; BMI 32.9
[2021-08-13 05:31] LABS: POC Glucose,Bedside 181 (70-110)
[2021-08-13 05:31] LABS: POC Glucose,Bedside 247 (70-110)
[2021-08-13 05:31] LABS: POC Glucose,Bedside 167 (70-110)
--- NOTE | 2021-08-13 06:29 | HMH.ACPN2 ---
Internal Medicine - PN: Subj *Date: 08/13/21 *Time: 08:47 Interval history: Remained stable on 60% Vapotherm. Did not wear BiPAP last night. Denies nausea or vomiting. He is not using incentive spirometer during the day. Staff continue to have a difficult time encouraging patient to participate with physical therapy or increase mobility. Resistant to doing things that make his oxygen drop in any capacity. Exam Vital signs and Labs for Last 24 Hours: Temp Pulse Resp BP Pulse Ox 98.3 F 94 H 21 121/59 L 85 L 08/13/21 04:00 08/13/21 06:14 08/13/21 04:00 08/13/21 04:00 08/13/21 06:14 Laboratory Results - last 24 hr 08/12/21 05:37: Sodium 134 L, Potassium 3.9, Chloride 100, Carbon Dioxide 33 H, Anion Gap 4.9 L, BUN 19, Creatinine 0.60 L, Estimated Creat Clear 210, Estimated GFR 139, Est GFR ( Amer) 169, Glucose 124 H, Calcium 8.4, Total Bilirubin 1.5 H, AST 29, ALT 35, Alkaline Phosphatase 130 H, Total Protein 6.5, Albumin 3.1 L, Globulin 3.4 H, Albumin/Globulin Ratio 0.9 L 08/12/21 12:24: POC Glucose 167 H 08/12/21 17:28: POC Glucose 247 H 08/13/21 05:23: POC Glucose 181 H I & O for Last 24 hours: Intake & Output 08/10/21 08/11/21 08/12/21 08/13/21 23:59 23:59 23:59 23:59 Intake Total 1720 / 1720 1330 / 1330 920 / 920 Output Total 650 / 1050 1400 / 1400 750 / 750 Balance 1070 / 670 -70 / -70 170 / 170 Weight 106.549 kg 106.322 kg 108.097 kg 106.651 kg Microbiology Reports for the Last 24 Hours: Microbiology 08/11/21 11:13 Sputum - Expectorated Sputum Gram Stain - Final 08/11/21 11:13 Sputum - Expectorated Sputum Sputum Culture - Preliminary Narrative: Constitutional: Mild distress on vapotherm HEENT Exam: NCAT, EOMI, PERRL, MMM Respiratory Exam: good air movement, no crackles in bilateral lung field; no wheeze or rhonchi Cardiovascular Exam: RRR, no murmur Abdominal Exam: soft, normoactive bowel sounds; No tenderness Extremities Exam: No cyanosis, clubbing, edema Skin Exam: warm. No rash Neurological Exam: alert, oriented X3 Assessment and Plan (1) Pneumonia due to COVID-19 virus Status: Acute Category: Medical Code(s): U07.1 - COVID-19; J12.82 - Pneumonia due to coronavirus disease 2019 (2) Respiratory failure with hypoxia Status: Acute Qualifiers: Chronicity: acute Qualified Code(s): J96.01 - Acute respiratory failure with hypoxia Category: Medical Code(s): J96.91 - Respiratory failure, unspecified with hypoxia (3) Essential hypertension Status: Chronic Category: Medical Code(s): I10 - Essential (primary) hypertension (4) Diabetes mellitus Status: Chronic Category: Medical Code(s): E11.9 - Type 2 diabetes mellitus without complications (5) Obesity, Class II, BMI 35-39.9 Status: Chronic Category: Medical Code(s): E66.9 - Obesity, unspecified (6) Anemia of chronic disease Status: Acute Category: Medical Code(s): D63.8 - Anemia in other chronic diseases classified elsewhere - Assessment and plan all Dx Assessment and Plan for all problems:: 56-year-old male admitted for worsening hypoxemic respiratory failure secondary to COVID-19 pneumonia. Tolerating oxygen, tolerating Vapotherm at this time. Encouraged incentive spirometer. Problems addressed as follows COVID-19 pneumonia Acute hypoxemic respiratory failure --Slow clinical improvement. No worsening status however marginally improving as would be anticipated. - Treatment per protocol has completed remdesivir, baricitinib, empiric antibiotics; finish steroid wean. - Continuing vitamins and prophylactic Xarelto. - DuoNebs every 6hrs; incentive spirometer, aggressive pulmonary toilet - Continue noninvasive oxygenation with goal saturation greater 90%. Prone if able. - BiPAP at night, Vapotherm during the day/eating. -Awaiting repeat sputum culture. Patient however remains afebrile, no change in sputum production, normalization of white count, and no increase in
[2021-08-13 06:40] LABS: Basophils % 0.3 % (0.1-2.0); Eosinophils # 0.2 K/mm3 (0.0-0.4); Eosinophils % 1.7 % (0.1-12.0); Hematocrit 28.3 % (42.0-52.0); Lymphocytes % 10.3 % (10-50); Mean Corpuscular HGB Conc 31.7 g/dL (31.8-35.4); Mean Corpuscular Hemoglobin 30.3 pg (27.0-31.2); Mean Corpuscular Volume 95.5 fl (80-94); Mean Platelet Volume 9.5 fl (7.4-10.4); Monocytes # 0.2 K/mm3 (0.1-1.0); Monocytes % 1.7 % (1.7-9.3); Neutrophils # 8.7 K/mm3 (1.8-7.8); Neutrophils % 85.9 % (37.0-80.0); Platelet Count 169 K/mm3 (142-424); Red Blood Count 2.96 M/mm3 (4.60-6.20); Red Cell Distribution Width 18.5 % (11.5-17.5); White Blood Count 10.1 K/mm3 (4.8-10.8)
[2021-08-13 06:42] LABS: MANUAL DIFFERENTIAL MANUAL DIFFERENTIAL (MANUAL DIFF)
[2021-08-13 06:46] LABS: Chloride 99 mmol/L (98-107); Potassium 3.9 mmoL/L (3.5-5.1); Sodium 136 mmol/L (136-145)
[2021-08-13 06:49] LABS: Alanine Aminotransferase 35 U/L (12-78); Albumin Level 3.1 g/dl (3.5-5.0); Albumin/Globulin Ratio 0.9 (1.1-1.8); Alkaline Phosphatase 128 U/L (38-126); Anion Gap 9.9 mEq/L (5-15); Aspartate Amino Transferase 31 U/L (17-59); Bilirubin,Total 1.6 mg/dl (0.2-1.3); Blood Urea Nitrogen 24 mg/dl (9-20); Calcium 8.4 mg/dl (8.4-10.2); Carbon Dioxide 31 mmol/L (22.0-30.0); Creatinine Clearance Estimated 207 mL/min (50-200); Estimated Glomerular Filt Rate 139 ml/min (>60); GFR (African American) 169 ML/MIN (>60); Globulin 3.6 g/dL (1.3-3.2); Glucose 123 mg/dl (74-100); Total Protein,Serum 6.7 g/dl (6.3-8.2)
[2021-08-13 08:41] LABS: Eosinophils % 1 % (0-3); Lymphocytes % 12 % (10-50); Monocytes % 1 % (2-9); Neutrophils % 86 % (42-76); Total Cells Counted 100
[2021-08-13 08:42] LABS: Anisocytosis 1+; Platelet Estimate Normal; RBC Morphology Normal
--- NOTE | 2021-08-13 15:21 | PC.NURSE ---
RESP CARE NOTE: Pt 98% SPO2 on 50% Venturi mask. O2 device changed to a high flow nasal cannula at 10lpm. SPO2 remains at 93%, Will continue to monitor patient and wean as tolerated.
--- NOTE | 2021-08-13 15:28 | PC.NURSE ---
RESP CARE NOTE: Pt SPO2 at 97% on 10 lpm hfnc. Oxygen decreased to 8 lpm hfnc SPO2 at 94%. Will continue to monitor and wean as tolerated.
--- NOTE | 2021-08-13 19:36 | PC.NURSE ---
Patient alert and oriented times four. Patient weaned to 8L NC, today. Rapid response was called at approximately 1815, patien't O2 sats dropped to the 50's, nurse was alerted to oxygen level. Upon arrival to room, oxygen leverl dropped to the 30's. Crash cart brought to the door and heart monitor placed on patient. NC was turned up to 15L and non rebreather was also placed on patient. Patient's oxygen levels came back up quickly, the ER physician arrived to room and patient was back to low 90's O2 sats. Patient was placed back on vapotherm for a short time to allow patient to relax. Faulty oxygen equipment in the room, the oxygen wasn't working. Dr. Baez was paged and made aware at 183, no new orders. Patient is resting comfortably. Will continue to monitor and wean oxygen.
[2021-08-13 21:47] LABS: POC Glucose,Bedside 217 (70-110)
[2021-08-14] VITALS (8 sets, daily range): BP systolic 100–127; BP diastolic 49–78; PULSE 61–193; RESP 20–40; TEMP 36.6–36.8; O2SAT 89–99; BMI 32.3
--- NOTE | 2021-08-14 04:45 | PC.NURSE ---
A&OX4. PT HAS TOLERATED 10L HIGH FLOW NC WHILE AWAKE AND BIPAP WHILE SLEEPING. PT HAS HAD NO C/O THUS FAR. O2 SAT IN MID-HIGH 90S THUS FAR. SLEEPING MAJORITY OF SHIFT. VSS WILL CONTINUE TO MONITOR.
[2021-08-14 06:22] LABS: POC Glucose,Bedside 152 (70-110)
--- NOTE | 2021-08-14 07:38 | HMH.ACPN2 ---
Internal Medicine - PN: Subj *Date: 08/14/21 *Time: 11:09 Interval history: Mr. Mendiola had an eventful evening last night. At 1 point had a desaturation down into the 40% range. Was switched over for breathing treatment and oxygen was inappropriately connected leading to hypoxia. Patient recovered well but has been more scared. Increased anxiety about his condition over the past several weeks. Concern for depression. Hemodynamically stable. Oxygen requirement this morning between 10 and 15 L on high flow nasal cannula. Patient scared to get out of bed for bedside commode or working with PT. Asking for bedpan and be able to stay in bed today. I explained to him that he needs to make gradual progress daily. Saturations good at rest. Encouraged incentive spirometry. Encouraged switching to his right side. Denies nausea or vomiting. Did have loss of bowel and bladder control with episode last night. Exam Vital signs and Labs for Last 24 Hours: Temp Pulse Resp BP Pulse Ox 97.9 F 62 24 125/59 L 92 L 08/14/21 04:00 08/14/21 04:00 08/14/21 04:00 08/14/21 04:00 08/14/21 06:46 Laboratory Results - last 24 hr 08/13/21 05:33: Total Counted 100, Neutrophils % (Manual) 86 H, Lymphocytes % (Manual) 12, Monocytes % (Manual) 1 L, Eosinophils % (Manual) 1, Platelet Estimate Normal, RBC Morphology Normal, Anisocytosis 1+ 08/13/21 20:55: POC Glucose 217 H 08/14/21 04:34: POC Glucose 152 H I & O for Last 24 hours: Intake & Output 08/11/21 08/12/21 08/13/21 08/14/21 23:59 23:59 23:59 23:59 Intake Total 1330 / 1330 920 / 920 480 / 480 Output Total 1400 / 1400 750 / 750 200 / 400 200 / 200 Balance -70 / -70 170 / 170 280 / 80 -200 / -200 Weight 106.322 kg 108.097 kg 106.651 kg 104.689 kg Microbiology Reports for the Last 24 Hours: Microbiology 08/11/21 11:13 Sputum - Expectorated Sputum Gram Stain - Final 08/11/21 11:13 Sputum - Expectorated Sputum Sputum Culture - Final Normal Respiratory Marilia Narrative: Constitutional: Mild distress on vapotherm HEENT Exam: NCAT, EOMI, PERRL, MMM Respiratory Exam: good air movement, no crackles in right lung field, fine crackles in LLB; no wheeze or rhonchi Cardiovascular Exam: RRR, no murmur Abdominal Exam: soft, normoactive bowel sounds; No tenderness Extremities Exam: No cyanosis, clubbing, edema Skin Exam: warm. No rash Neurological Exam: alert, oriented X3 Assessment and Plan (1) Pneumonia due to COVID-19 virus Status: Acute Category: Medical Code(s): U07.1 - COVID-19; J12.82 - Pneumonia due to coronavirus disease 2019 (2) Respiratory failure with hypoxia Status: Acute Qualifiers: Chronicity: acute Qualified Code(s): J96.01 - Acute respiratory failure with hypoxia Category: Medical Code(s): J96.91 - Respiratory failure, unspecified with hypoxia (3) Essential hypertension Status: Chronic Category: Medical Code(s): I10 - Essential (primary) hypertension (4) Diabetes mellitus Status: Chronic Category: Medical Code(s): E11.9 - Type 2 diabetes mellitus without complications (5) Obesity, Class II, BMI 35-39.9 Status: Chronic Category: Medical Code(s): E66.9 - Obesity, unspecified (6) Anemia of chronic disease Status: Acute Category: Medical Code(s): D63.8 - Anemia in other chronic diseases classified elsewhere - Assessment and plan all Dx Assessment and Plan for all problems:: 56-year-old male admitted for worsening hypoxemic respiratory failure secondary to COVID-19 pneumonia. Tolerating oxygen, tolerating HiFlow NC at this time. Encouraged incentive spirometer. Problems addressed as follows COVID-19 pneumonia Acute hypoxemic respiratory failure --Slow clinical improvement. No worsening status however marginally improving as would be anticipated. - Treatment per protocol has completed remdesivir, baricitinib, empiric antibiotics; finish steroid wean. - Continuing v
--- NOTE | 2021-08-14 08:49 | XR_ITS ---
PROCEDURE INFORMATION: Exam: XR Chest Exam date and time: 08/14/2021 8:49 AM Age: 56 years old Clinical indication: Shortness of breath; Additional info: Monitor pneumonia progression TECHNIQUE: Imaging protocol: XR of the chest. Views: 1 view. COMPARISON: CR XR CHEST PORTABLE 08/03/2021 8:10 AM FINDINGS: Lungs: Diffuse and bilateral airspace disease, demonstrating worsening in the right upper lobe. Pleural spaces: Unremarkable. No pleural effusion. No pneumothorax. Heart/Mediastinum: Unremarkable. Stable cardiomegaly. Bones/joints: Unremarkable. IMPRESSION: Diffuse and bilateral airspace disease, demonstrating worsening in the right upper lobe.
[2021-08-14 11:21] LABS: POC Glucose,Bedside 182 (70-110)
--- NOTE | 2021-08-14 12:05 | ECG_ITS ---
APPROVED REPORT Exam: Resting ECG HR:193 bpm ECG Measurements Heart Rate 193 AXES QRSd 80 QRS -4 QT 254 T -67 QTc 455 Conclusion Supraventricular tachycardia Isolated q in III Abnormal ECG Electronically signed by : Fox Chávez MD 08/16/2021 20:23:57
--- NOTE | 2021-08-14 12:19 | PC.NURSE ---
pt heartrate increased on monitor and o2 sats decreased. Ekg obtained and vital signs checked. paged and pt placed on 100% NRB over 15LPM high flow cannula as per Sasha.
--- NOTE | 2021-08-14 12:26 | CT_ITS ---
PROCEDURE INFORMATION: Exam: CTA Chest With Contrast Exam date and time: 08/14/2021 12:26 PM Age: 56 years old Clinical indication: Shortness of breath; Additional info: Worsening SOA, recent covid, immobility TECHNIQUE: Imaging protocol: Computed tomographic angiography of the chest with contrast. 3D rendering (Not supervised by radiologist): MIP and/or 3D reconstructed images were created by the technologist. Radiation optimization: All CT scans at this facility use at least one of these dose optimization techniques: automated exposure control; mA and/or kV adjustment per patient size (includes targeted exams where dose is matched to clinical indication); or iterative reconstruction. Contrast material: ISOVUE 370; Contrast volume: 70 ml; Contrast route: INTRAVENOUS (IV); COMPARISON: CT ANGIO CHEST PE PROTOCOL 07/11/2021 7:58 PM FINDINGS: Pulmonary arteries: Negative for acute pulmonary embolism. Aorta: Unremarkable. No aortic aneurysm. No aortic dissection. Lungs: Since previous examination, there has been development of significant interstitial thickening and what appears to be severe scarring or fibrosis. Worsening diffuse airspace densities bilaterally. Pleural spaces: Unremarkable. No pneumothorax. No pleural effusion. Heart: Unremarkable. No cardiomegaly. No pericardial effusion. Lymph nodes: Mediastinal lymphadenopathy, with right paratracheal lymph node measuring 1.4 cm. Bones/joints: Unremarkable. No acute fracture. Soft tissues: Unremarkable. Other findings: Previous granulomatous exposure. IMPRESSION: 1. Negative for acute pulmonary embolism. 2. Since previous examination, there has been development of significant interstitial thickening and what appears to be severe scarring or fibrosis. Worsening diffuse airspace densities bilaterally. 3. Mediastinal lymphadenopathy, with right paratracheal lymph node measuring 1.4 cm.
[2021-08-14 13:17] LABS: Lactate Arterial 1.2 mmol/L (0.4-2.0)
[2021-08-14 13:18] LABS: ABG Base Excess -1.8 mmol/L (-2.4-2.3); ABG HCO3 21.8 mmhg (22.0-26.0); ABG Oxygen Saturation 94 % (90-100); ABG PCO2 30.3 mmhg (35.0-45.0); ABG PH 7.47 mmol/L (7.35-7.45); ABG PO2 72.9 mmhg (80-100); ABG TCO2 22.7 mmhg (23-27)
[2021-08-14 13:21] LABS: Allen's Test Acceptable; Source Left Radial
--- NOTE | 2021-08-14 14:16 | ECG_ITS ---
APPROVED REPORT Exam: Resting ECG HR:94 bpm ECG Measurements Heart Rate 94 AXES MO 128 P 11 QRSd 76 QRS -6 QT 356 T 3 QTc 445 Conclusion Normal sinus rhythm Normal ECG Electronically signed by : Fox Chávez MD 08/16/2021 20:22:04
[2021-08-14 14:30] LABS: Basophils % 0.2 % (0.1-2.0); Eosinophils # 0.1 K/mm3 (0.0-0.4); Hematocrit 29.4 % (42.0-52.0); Hemoglobin 9.1 g/dL (14.1-18.0); Lymphocytes % 9.6 % (10-50); Mean Corpuscular HGB Conc 31.1 g/dL (31.8-35.4); Mean Corpuscular Hemoglobin 30.1 pg (27.0-31.2); Mean Platelet Volume 8.4 fl (7.4-10.4); Monocytes # 0.2 K/mm3 (0.1-1.0); Monocytes % 1.9 % (1.7-9.3); Neutrophils # 9.3 K/mm3 (1.8-7.8); Neutrophils % 87.3 % (37.0-80.0); Platelet Count 211 K/mm3 (142-424); Red Blood Count 3.03 M/mm3 (4.60-6.20); Red Cell Distribution Width 18.1 % (11.5-17.5); White Blood Count 10.7 K/mm3 (4.8-10.8)
[2021-08-14 14:38] LABS: MANUAL DIFFERENTIAL MANUAL DIFFERENTIAL (MANUAL DIFF)
[2021-08-14 14:59] LABS: Chloride 100 mmol/L (98-107)
[2021-08-14 15:00] LABS: Sodium 135 mmol/L (136-145)
[2021-08-14 15:02] LABS: Alanine Aminotransferase 35 U/L (12-78); Aspartate Amino Transferase 37 U/L (17-59); Blood Urea Nitrogen 21 mg/dl (9-20); Creatinine Clearance Estimated 204 mL/min (50-200); Estimated Glomerular Filt Rate 139 ml/min (>60); GFR (African American) 169 ML/MIN (>60)
[2021-08-14 15:03] LABS: Albumin Level 3.2 g/dl (3.5-5.0); Albumin/Globulin Ratio 0.9 (1.1-1.8); Alkaline Phosphatase 130 U/L (38-126); Bilirubin,Total 1.6 mg/dl (0.2-1.3); Calcium 8.1 mg/dl (8.4-10.2); Carbon Dioxide 30 mmol/L (22.0-30.0); Globulin 3.4 g/dL (1.3-3.2); Glucose 162 mg/dl (74-100); Total Protein,Serum 6.6 g/dl (6.3-8.2)
--- NOTE | 2021-08-14 16:11 | PC.NURSE ---
PT IS RESTING IN BED ON HIS LEFT SIDE. ALERT AND ORIENTED X4. PT HAS BEEN ANXIOUS ON AND OFF T/O THE SHIFT. AROUND 1130 PT HAD JUST RECEIVED A BREATHING TREATMENT AND HR WAS IN THE 150'S. O2 SATURATION AT THE TIME WAS MAINTAINING 91-95%. NO COMPLAINTS OF CHEST PAIN. WHEN HR WAS MAINTAINING 180-190 ON TELEMETRY AND PT STATED HE WAS STARTING TO HAVE DIFFICULTY BREATHING EKG WAS DONE AND VERIFIED HR WAS 193 (SVT) AND O2 SATURATION WAS 89% ON 15 L NC. NOTIFIED AND NON REBREATHER WAS APPLIED. HR CONTINUED TO MAINTAIN IN THE 180'S, O2 SATURATION 100%. NOTIFIED . ORDERS RECEIVED CHEST CTA, LOVENOX AND ABX. WHEN PT ARRIVED BACK TO THE FLOOR FROM CT WAS AT BEDSIDE AND ORDERED LOPRESSOR 5 MG IV. AFTER LOPRESSOR PT'S HR DECREASED TO THE 90'S. ANOTHER EKG WAS DONE 30 MIN. LATER ( NSR NOTED ) NOTIFIED. PT HAS STRUGGLED WITH DOING ANY PHYSICAL ACTIVITY THIS SHIFT. THIS MORNING PT DESATTED IN THE 70'S WHILE GETTING UP TO THE BSC. PT HAS BEEN ENCOURAGED TO REPOSITION FROM SIDE TO SIDE IN BED. LUNG SOUNDS DIMINISHED WITH CRACKLES IN THE LT BASE. ABDOMEN SOFT/NON TENDER WITH ACTIVE BOWEL SOUNDS. O2 SATURATION MAINTAINING 93-96% ON 10 L NC. WILL CONTINUE TO MONITOR.
[2021-08-14 17:12] LABS: POC Glucose,Bedside 128 (70-110)
[2021-08-14 18:00] LABS: Hypochromasia 1+; Lymphocytes % 13 % (10-50); Macrocytosis 1+; Neutrophils % 84 % (42-76); Platelet Estimate Normal; Total Cells Counted 100
[2021-08-14 21:11] LABS: POC Glucose,Bedside 220 (70-110)
[2021-08-14 21:33] LABS: POC Glucose,Bedside 257 (70-110)
[2021-08-14 21:33] LABS: POC Glucose,Bedside 191 (70-110)
[2021-08-14 21:33] LABS: POC Glucose,Bedside 180 (70-110)
[2021-08-15] VITALS (9 sets, daily range): BP systolic 105–143; BP diastolic 50–65; PULSE 64–98; RESP 22–26; TEMP 36.5–36.8; O2SAT 85–96; BMI 32.4
[2021-08-15 05:39] LABS: POC Glucose,Bedside 156 (70-110)
--- NOTE | 2021-08-15 06:31 | PC.NURSE ---
Pt has tolerated 10L NC while awake, and wore bipap while sleeping and tolerated well with O2 in low 90's t/o shift. Pt voiced no c/o of pain or SOA this shift. NSR on tele thus far in shift. Pt is able to make needs known to staff.
--- NOTE | 2021-08-15 09:06 | HMH.ACPN2 ---
Internal Medicine - PN: Subj *Date: 08/15/21 *Time: 10:55 Interval history: Patient had a very eventful day yesterday. Had an episode of SVT after his breathing treatment. Also noted to be hypotensive during that episode. Metoprolol slowed his heart rate and his blood pressure drastically improved. Had no further episodes thereafter. Additionally given his dyspnea and increased oxygen requirement, chest CT was obtained and antibiotics were initiated due to concern for worsening right upper lobe consolidation/airspace disease on chest x-ray. This morning states he is feeling little better. Stable on 8 to 10 L of oxygen overnight. Wearing BiPAP nightly. Denies any chest pain or palpitations. Remains afebrile. Tolerating fair p.o. intake. Continue to stress importance of goals including switching sides in the bed, up to the bedside chair daily, using bedside commode, and incentive spirometer daily. Exam Vital signs and Labs for Last 24 Hours: Temp Pulse Resp BP Pulse Ox 97.8 F 98 H 26 H 127/59 L 95 08/15/21 08:00 08/15/21 08:00 08/15/21 08:00 08/15/21 08:00 08/15/21 08:00 Laboratory Results - last 24 hr 08/12/21 20:25: POC Glucose 257 H 08/13/21 11:24: POC Glucose 191 H 08/13/21 16:59: POC Glucose 180 H 08/14/21 11:05: POC Glucose 182 H 08/14/21 12:32: ABG Lactate 1.2 08/14/21 12:32: Specimen Source Left radial, O2 % 100% nrb, ABG pH 7.47 H, ABG pCO2 30.3 L, ABG pO2 72.9 L, ABG HCO3 21.8 L, ABG Total CO2 22.7 L, ABG O2 Saturation 94, ABG Base Excess -1.8, Reynaldo Test Acceptable 08/14/21 14:12: WBC 10.7, RBC 3.03 L, Hgb 9.1 L, Hct 29.4 L, MCV 97.0 H, MCH 30.1, MCHC 31.1 L, RDW 18.1 H, Plt Count 211, MPV 8.4, Neut % (Auto) 87.3 H, Lymph % (Auto) 9.6 L, Barren % (Auto) 1.9, Eos % (Auto) 1.0, Baso % (Auto) 0.2, Neut # (Auto) 9.3 H, Lymph # (Auto) 1.0, Barren # (Auto) 0.2, Eos # (Auto) 0.1, Baso # (Auto) 0.0, Total Counted 100, Neutrophils % (Manual) 84 H, Band Neutrophils % 3.0, Lymphocytes % (Manual) 13, Platelet Estimate Normal, Hypochromasia 1+, Macrocytosis 1+ 08/14/21 14:12: Sodium 135 L, Potassium 4.0, Chloride 100, Carbon Dioxide 30, Anion Gap 9.0, BUN 21 H, Creatinine 0.60 L, Estimated Creat Clear 204, Estimated GFR 139, Est GFR ( Amer) 169, Glucose 162 H, Calcium 8.1 L, Total Bilirubin 1.6 H, AST 37, ALT 35, Alkaline Phosphatase 130 H, Total Protein 6.6, Albumin 3.2 L, Globulin 3.4 H, Albumin/Globulin Ratio 0.9 L 08/14/21 16:34: POC Glucose 128 H 08/14/21 20:41: POC Glucose 220 H 08/15/21 05:22: POC Glucose 156 H I & O for Last 24 hours: Intake & Output 08/12/21 08/13/21 08/14/21 08/15/21 23:59 23:59 23:59 23:59 Intake Total 920 / 920 480 / 480 360 / 360 120 / 120 Output Total 750 / 750 200 / 400 375 / 525 400 / 400 Balance 170 / 170 280 / 80 -15 / -165 -280 / -280 Weight 108.097 kg 106.651 kg 104.689 kg 105.233 kg Narrative: Constitutional: Mild distress on Hi Flow NC at 8L HEENT Exam: NCAT, EOMI, PERRL, MMM Respiratory Exam: good air movement, fine crackles bilaterally, worse in the left lung field. no wheeze or rhonchi Cardiovascular Exam: RRR, no murmur Abdominal Exam: soft, normoactive bowel sounds; No tenderness Extremities Exam: No cyanosis, clubbing, edema Skin Exam: warm. No rash Neurological Exam: alert, oriented X3 Assessment and Plan (1) Pneumonia due to COVID-19 virus Status: Acute Category: Medical Code(s): U07.1 - COVID-19; J12.82 - Pneumonia due to coronavirus disease 2019 (2) Respiratory failure with hypoxia Status: Acute Qualifiers: Chronicity: acute Qualified Code(s): J96.01 - Acute respiratory failure with hypoxia Category: Medical Code(s): J96.91 - Respiratory failure, unspecified with hypoxia (3) Essential hypertension Status: Chronic Category: Medical Code(s): I10 - Essential (primary) hypertension (4) Diabetes mellitus Status: Chronic Category: Medical Code(s): E11.9 - Type 2 diabetes mellitus without complications (5) Obesity
[2021-08-15 11:02] LABS: POC Glucose,Bedside 165 (70-110)
--- NOTE | 2021-08-15 17:50 | PC.NURSE ---
PT IS RESTING IN BED. O2 SATURATION HAS MAINTAINED 90-94% ON 8 L NC. O2 HAD TO BE INCREASED TO 15 L WHEN PT GOT UP TO THE CHAIR THIS SHIFT AFTER PT DESATTED RAPIDLY TO THE 70'S. PT TOLERATED SITTING UP IN THE CHAIR FOR A COUPLE OF HOURS THIS AFTERNOON. LUNG SOUNDS DIMINISHED WITH RT SIDED CRACKLES. ABDOMEN SOFT/NON TENDER WITH ACTIVE BOWEL SOUNDS. EATING AND DRINKING WELL. PT STILL NEEDS TO BE ENCOURAGED TO TURN FROM SIDE TO SIDE AND USE INCENTIVE SPIROMETER. WILL CONTINUE TO MONITOR.
[2021-08-15 21:35] LABS: POC Glucose,Bedside 211 (70-110)
[2021-08-15 21:44] LABS: POC Glucose,Bedside 140 (70-110)
[2021-08-16] VITALS (10 sets, daily range): BP systolic 113–136; BP diastolic 52–72; PULSE 77–101; RESP 19–24; TEMP 36.4–36.6; O2SAT 89–99; BMI 32.5
[2021-08-16 07:02] LABS: Chloride 101 mmol/L (98-107); Sodium 136 mmol/L (136-145)
[2021-08-16 07:05] LABS: Alanine Aminotransferase 25 U/L (12-78); Albumin Level 3.1 g/dl (3.5-5.0); Albumin/Globulin Ratio 0.9 (1.1-1.8); Alkaline Phosphatase 114 U/L (38-126); Aspartate Amino Transferase 26 U/L (17-59); Basophils % 0.1 % (0.1-2.0); Bilirubin,Total 1.3 mg/dl (0.2-1.3); Blood Urea Nitrogen 17 mg/dl (9-20); Calcium 7.9 mg/dl (8.4-10.2); Carbon Dioxide 31 mmol/L (22.0-30.0); Creatinine Clearance Estimated 206 mL/min (50-200); Eosinophils # 0.1 K/mm3 (0.0-0.4); Eosinophils % 1.2 % (0.1-12.0); Estimated Glomerular Filt Rate 139 ml/min (>60); GFR (African American) 169 ML/MIN (>60); Globulin 3.3 g/dL (1.3-3.2); Glucose 137 mg/dl (74-100); Hematocrit 27.3 % (42.0-52.0); Hemoglobin 8.2 g/dL (14.1-18.0); Lymphocytes # 0.9 K/mm3 (0.7-4.5); Lymphocytes % 13.2 % (10-50); Mean Corpuscular HGB Conc 30.2 g/dL (31.8-35.4); Mean Corpuscular Hemoglobin 29.8 pg (27.0-31.2); Mean Corpuscular Volume 98.5 fl (80-94); Mean Platelet Volume 8.3 fl (7.4-10.4); Monocytes # 0.2 K/mm3 (0.1-1.0); Monocytes % 2.2 % (1.7-9.3); Neutrophils # 5.7 K/mm3 (1.8-7.8); Neutrophils % 83.4 % (37.0-80.0); Platelet Count 193 K/mm3 (142-424); Red Blood Count 2.77 M/mm3 (4.60-6.20); Total Protein,Serum 6.4 g/dl (6.3-8.2); White Blood Count 6.8 K/mm3 (4.8-10.8)
[2021-08-16 07:06] LABS: Magnesium 1.9 mg/dl (1.6-2.3)
[2021-08-16 07:11] LABS: C-Reactive Protein 21.1 mg/L (0-4)
--- NOTE | 2021-08-16 08:34 | P.PN_ITS ---
Internal Medicine - PN: Subj *Date: 08/16/21 *Time: 08:34 Interval history: Patient has made some progress on the high flow nasal cannula. Continues to be very weak. Continues to have a cough. CT scan results and notes from the weekend reviewed. Exam Vital signs and Labs for Last 24 Hours: Temp Pulse Resp BP Pulse Ox 97.8 F 77 20 126/61 97 08/16/21 04:00 08/16/21 05:58 08/16/21 04:00 08/16/21 04:00 08/16/21 05:58 Laboratory Results - last 24 hr 08/15/21 10:53: POC Glucose 165 H 08/15/21 16:24: POC Glucose 211 H 08/15/21 21:36: POC Glucose 140 H 08/16/21 05:23: WBC 6.8 D, RBC 2.77 L, Hgb 8.2 L, Hct 27.3 L, MCV 98.5 H, MCH 29.8, MCHC 30.2 L, RDW 18.0 H, Plt Count 193, MPV 8.3, Neut % (Auto) 83.4 H, Lymph % (Auto) 13.2, [place] % (Auto) 2.2, Eos % (Auto) 1.2, Baso % (Auto) 0.1, Neut # (Auto) 5.7, Lymph # (Auto) 0.9, [place] # (Auto) 0.2, Eos # (Auto) 0.1, Baso # (Auto) 0.0 08/16/21 05:23: Sodium 136, Potassium 4.0, Chloride 101, Carbon Dioxide 31 H, Anion Gap 8.0, BUN 17, Creatinine 0.60 L, Estimated Creat Clear 206, Estimated GFR 139, Est GFR ( Amer) 169, Glucose 137 H, Calcium 7.9 L, Magnesium 1.9, Total Bilirubin 1.3, AST 26 D, ALT 25 D, Alkaline Phosphatase 114, C- Reactive Protein 21.1 H, Total Protein 6.4, Albumin 3.1 L, Globulin 3.3 H, Albumin/Globulin Ratio 0.9 L I & O for Last 24 hours: Intake & Output 08/13/21 08/14/21 08/15/21 08/16/21 11:59 11:59 11:59 11:59 Intake Total 800 / 800 480 / 480 360 / 360 360 / 360 Output Total 750 / 750 400 / 400 575 / 575 725 / 725 Balance 50 / 50 80 / 80 -215 / -215 -365 / -365 Weight 235 lb 2 oz 230 lb 12.8 oz 232 lb 233 lb Narrative: Patient is pleasant, alert. Oriented. Globally weak. Continues to cough up lots of sputum, and occasional blood flecks from his nasal passages. Good air expansion. No changes on lung exam. Heart rate regular. Abdomen soft. No extremity edema or clubbing. Assessment and Plan (1) Pneumonia due to COVID-19 virus Status: Acute Category: Medical Code(s): U07.1 - COVID-19; J12.82 - Pneumonia due to coronavirus disease 2018 (2) Respiratory failure with hypoxia Status: Acute Qualifiers: Chronicity: acute Qualified Code(s): J96.01 - Acute respiratory failure with hypoxia Category: Medical Code(s): J96.91 - Respiratory failure, unspecified with hypoxia (3) Essential hypertension Status: Chronic Category: Medical Code(s): I10 - Essential (primary) hypertension (4) Diabetes mellitus Status: Chronic Category: Medical Code(s): E11.9 - Type 2 diabetes mellitus without complications (5) Obesity, Class II, BMI 35-39.9 Status: Chronic Category: Medical Code(s): E66.9 - Obesity, unspecified (6) Anemia of chronic disease Status: Acute Category: Medical Code(s): D63.8 - Anemia in other chronic diseases classified elsewhere - Assessment and plan all Dx Assessment and Plan for all problems:: Possible fibrotic changes on CT scan. Pulmonary consultation. Antibiotics for infiltrate on chest x-ray. Sputum cultures pending. Watch electrolytes carefully. Consider evaluation for long-term care unit/respiratory care unit. Physical therapy will continue.
[2021-08-16 11:22] LABS: POC Glucose,Bedside 181 (70-110)
[2021-08-16 11:46] LABS: Lactate Dehydrogenase 304 U/L (313-618)
[2021-08-16 12:11] LABS: D-Dimer 1.83 ug/mL (0.0-0.5)
--- NOTE | 2021-08-16 16:54 | HMH.PULMCON ---
*Admission Date: 07/11/21 *Reason for consult:: Hypoxic respiratory failure, history of COVID-19 pneumonia *History of present illness: Mr. Mendiola is a 56-year-old male history of COPD, diagnosed with COVID-19 pneumonia admitted to the hospital on 07/12/2021 has been in the hospital since then, initially on high flow nasal cannula, improved however has been on 10 to 12 L nasal cannula for the last 10 days and pulmonary was called for further input. [facility] History Medical History: Reports:: Chronic Obstructive Pulmonary Disease (COPD), Diabetes Mellitus Type 1, Diabetes Mellitus Type 2, Hyperlipidemia, Hypertension *Have you ever received a pneumonia vaccine?: No *Have you received a flu vaccine this season?: No Other Surgeries: Yes: No Previous Surgery, Colonoscopy Amputation: No Fractures: No - *Social History Last grade of school completed: 11th or 12th Smoking Status: Former smoker Tobacco Type: cigarettes #Yrs smoked (if former smoker): 27 Alcohol Intake: current Alcohol Intake Frequency:: 3 or more drinks per day Substance Use Type: denies use *Occupational Status:: employed Housing: house Household Members: significant other *Travel in the last 8 weeks: None Family Hx:: Other ROS - Cons Reports anorexia, Reports fatigue, Reports weakness - Card Reports shortness of breath, Reports shortness of breath with activity - Resp Respiratory: Reports chest congestion, Reports cough, Reports dyspnea on exertion, Reports excessive phlegm production, Denies pain with breathing - GI Gastrointestingal: Denies: abdominal pain - Psych Reports abnormal sleep pattern, Denies thoughts of hurting/killing others, Denies thoughts of hurting/killing yourself Meds Home Medications Medication Instructions Recorded Confirmed Type meloxicam 7.5 mg tablet 7.5 mg PO HS 03/13/19 07/11/21 History omeprazole 20 mg capsule,delayed 20 mg PO HS 03/13/19 07/11/21 History release albuterol sulfate 90 mcg/actuation 2 puffs IH Q4HP PRN 11/05/19 07/12/21 History aerosol inhaler Atorvastatin Calcium [Lipitor 40mg 40 mg PO HS 07/12/21 07/12/21 History Tab] Doxycycline Monohydrate 100 mg PO BID 07/12/21 07/12/21 History [Doxycycline [place]in 100mg Tab] Glycopyrrolate/Formoterol Fum 2 puffs IH BID 07/12/21 07/12/21 History [Bevespi Aerosphere Inhaler] Losartan Potassium [Cozaar 100mg 100 mg PO DAILY 07/12/21 07/12/21 History Tablets] Metformin HCl [Metformin 1000mg 1,000 mg PO BIDWMEAL 07/12/21 07/12/21 History Tablets] Allergies Allergy/AdvReac Type Severity Reaction Status Date / Time No Known Allergies Allergy Verified 07/11/21 21:54 Exam - Constitutional Constitutional:: Absent: no acute distress, comfortable - HENMT Exam HENMT: Present: normocephalic - Eye Exam Eyes:: Present: normal appearance both eyes and related structures - Neck Exam Neck:: Present: normal visual inspection - Respiratory Exam Respiratory:: Present: respiratory distress, crackles, rales. Absent: able to speak in complete sentences, wheezing - Cardiovascular Exam Cardiac:: Present: S1, S2 - GI Exam GI:: Present: soft - Skin Exam Skin: Present: warm, no rash - Neurological Exam Neurological: Present: alert, awake, normal cognition - Extremities Exam Extremities: Present: no cyanosis, no clubbing, no edema Internal Medicine - CN: Reslt - Labs CBC & Chem 7: 08/16/21 05:23 08/16/21 05:23 Labs: Short CBC 08/16/21 Range/Units 05:23 WBC 6.8 D (4.8-10.8) K/mm3 Hgb 8.2 L (14.1-18.0) g/dL Hct 27.3 L (42.0-52.0) % Plt Count 193 (142-424) K/mm3 [facility] 08/16/21 05:23 Sodium 136 Potassium 4.0 Chloride 101 Carbon Dioxide 31 H BUN 17 Creatinine 0.60 L Glucose 137 H Calcium 7.9 L Liver Function 08/16/21 Range/Units 05:23 Total Bilirubin 1.3 (0.2-1.3) mg/dl AST 26 D (17-59) U/L ALT 25 D (12-78) U/L Alkaline Phosphatase 114 (38-126) U/L [place]
[2021-08-16 17:20] LABS: POC Glucose,Bedside 176 (70-110)
[2021-08-16 21:21] LABS: POC Glucose,Bedside 154 (70-110)
[2021-08-17] VITALS (10 sets, daily range): BP systolic 110–137; BP diastolic 54–71; PULSE 62–107; RESP 20–26; TEMP 36.6–37.2; O2SAT 86–96; BMI 31.9
[2021-08-17 06:10] LABS: POC Glucose,Bedside 182 (70-110)
[2021-08-17 06:10] LABS: POC Glucose,Bedside 150 (70-110)
--- NOTE | 2021-08-17 06:46 | HMH.ACPN2 ---
Internal Medicine - PN: Subj *Date: 08/17/21 *Time: 08:00 Interval history: Overall stable this morning. Afebrile, BP in goal range. Stable between 6-10 L NC O2. Tolerating p.o. intake. No nausea or vomiting. at bedside. Exam Vital signs and Labs for Last 24 Hours: Temp Pulse Resp BP Pulse Ox 97.8 F 84 22 110/54 L 86 L 08/17/21 04:00 08/17/21 06:17 08/17/21 04:00 08/17/21 04:00 08/17/21 06:17 Laboratory Results - last 24 hr 08/16/21 05:23: WBC 6.8 D, RBC 2.77 L, Hgb 8.2 L, Hct 27.3 L, MCV 98.5 H, MCH 29.8, MCHC 30.2 L, RDW 18.0 H, Plt Count 193, MPV 8.3, Neut % (Auto) 83.4 H, Lymph % (Auto) 13.2, [place] % (Auto) 2.2, Eos % (Auto) 1.2, Baso % (Auto) 0.1, Neut # (Auto) 5.7, Lymph # (Auto) 0.9, [place] # (Auto) 0.2, Eos # (Auto) 0.1, Baso # (Auto) 0.0 08/16/21 05:23: Sodium 136, Potassium 4.0, Chloride 101, Carbon Dioxide 31 H, Anion Gap 8.0, BUN 17, Creatinine 0.60 L, Estimated Creat Clear 206, Estimated GFR 139, Est GFR ( Amer) 169, Glucose 137 H, Calcium 7.9 L, Magnesium 1.9, Total Bilirubin 1.3, AST 26 D, ALT 25 D, Alkaline Phosphatase 114, C-Reactive Protein 21.1 H, Total Protein 6.4, Albumin 3.1 L, Globulin 3.3 H, Albumin/Globulin Ratio 0.9 L 08/16/21 05:23: Lactate Dehydrogenase 304 L 08/16/21 05:38: POC Glucose 154 H 08/16/21 11:08: POC Glucose 181 H 08/16/21 11:40: D-Dimer 1.83 H 08/16/21 17:10: POC Glucose 176 H 08/16/21 22:54: POC Glucose 182 H 08/17/21 06:03: POC Glucose 150 H I & O for Last 24 hours: Intake & Output 08/14/21 08/15/21 08/16/21 08/17/21 23:59 23:59 23:59 23:59 Intake Total 360 / 360 480 / 480 1200 / 1200 Output Total 375 / 525 875 / 875 250 / 450 425 / 425 Balance -15 / -165 -395 / -395 950 / 750 -425 / -425 Weight 104.689 kg 105.233 kg 105.687 kg 103.51 kg Narrative: Constitutional: Mild distress on Hi Flow NC at 8L HEENT Exam: NCAT, EOMI, PERRL, MMM Respiratory Exam: good air movement, fine crackles bilaterally, worse in the left lung field. no wheeze or rhonchi Cardiovascular Exam: RRR, no murmur Abdominal Exam: soft, normoactive bowel sounds; No tenderness Extremities Exam: No cyanosis, clubbing, edema Skin Exam: warm. No rash Neurological Exam: alert, oriented X3 Assessment and Plan (1) Pneumonia due to COVID-19 virus Status: Acute Category: Medical Code(s): U07.1 - COVID-19; J12.82 - Pneumonia due to coronavirus disease 2018 (2) Respiratory failure with hypoxia Status: Acute Qualifiers: Chronicity: acute Qualified Code(s): J96.01 - Acute respiratory failure with hypoxia Category: Medical Code(s): J96.91 - Respiratory failure, unspecified with hypoxia (3) Essential hypertension Status: Chronic Category: Medical Code(s): I10 - Essential (primary) hypertension (4) Diabetes mellitus Status: Chronic Category: Medical Code(s): E11.9 - Type 2 diabetes mellitus without complications (5) Obesity, Class II, BMI 35-39.9 Status: Chronic Category: Medical Code(s): E66.9 - Obesity, unspecified (6) Anemia of chronic disease Status: Acute Category: Medical Code(s): D63.8 - Anemia in other chronic diseases classified elsewhere - Assessment and plan all Dx Assessment and Plan for all problems:: 56-year-old male admitted for worsening hypoxemic respiratory failure secondary to COVID-19 pneumonia. Tolerating oxygen, tolerating HiFlow NC at this time. Encouraged incentive spirometer. Problems addressed as follows COVID-19 pneumonia Acute hypoxemic respiratory failure --Slow clinical improvement. No worsening status however marginally improving as would be anticipated. - Treatment per protocol has completed remdesivir, baricitinib, empiric antibiotics; finish steroid wean. - Continuing vitamins, transition to Lovenox yesterday given concern for PE. CT did not show any pulmonary emboli however will continue Lovenox for the next few days and transition back to Xarelto if remains stable. - Shirley every 6hrs; inc
--- NOTE | 2021-08-17 09:40 | SW/DCPLANNER ---
Addendum entered by Masha Sanchez 08/19/21 10:30: SET UP DME FOR THIS PATIENT, BEDSIDE COMMODE, WHEELCHAIR, HOSPITAL BED AND CONCENTRATOR.. PATIENT WILL ALSO RECEIVE HOME HEALTH SERVICES WITH [facility] PT/OT AND HALF-WAY.. PATIENT IS DISCHARGING HOME TODAY AND WILL FOLLOW UP BY [facility] NEXT WEEK WITH DR FIELDS'S OFFICE.. WILL BE COMING TO GET PATIENT...PORTABLE TANK BROUGHT TO THE HOSPITAL... Original Note: MADE ROUNDS WITH DR TURNER THIS MORNING AND HE SEEMS TO THINK PATIENT IS MEDICALLY STABLE ENOUGH TO DISCHARGE TO ONE OF THE LOCAL CUSTODIAL FACILITIES..THEY WOULD LIKE TO STAY CLOSE IF POSSIBLE BUT NOT AGAINST HIM GOING OUT OF TOWN IF THE NEED BE. I HAVE INQUIRED WITH [facility] AND SENT A REFERRAL, WAITING TO HEAR BACK...
[2021-08-17 11:27] LABS: POC Glucose,Bedside 239 (70-110)
--- NOTE | 2021-08-17 13:07 | HMH.PULMPN ---
Internal Medicine - PN: Subj *Date: 08/17/21 *Time: 13:07 Interval history: No acute respiratory vents overnight. Exam - Constitutional Constitutional:: Present: no acute distress, comfortable - HENMT Exam HENMT: Present: normocephalic, atraumatic - Eye Exam Eyes:: Present: normal appearance both eyes and related structures - Neck Exam Neck:: Present: normal visual inspection - Respiratory Exam Respiratory:: Present: respiratory distress, rales - Cardiovascular Exam Cardiac:: Present: S1, S2 - GI Exam GI:: Present: soft, no hepatosplenomegaly - Skin Exam Skin: Present: warm, no rash - Neurological Exam Neurological: Present: alert, awake, normal cognition - Extremities Exam Extremities: Present: no cyanosis, no clubbing, no edema - Psychiatric Exam Psychiatric: Present: normal affect Assessment and Plan (1) Pneumonia due to COVID-19 virus Status: Acute Category: Medical Code(s): U07.1 - COVID-19; J12.82 - Pneumonia due to coronavirus disease 2019 (2) Respiratory failure with hypoxia Status: Acute Qualifiers: Chronicity: acute Qualified Code(s): J96.01 - Acute respiratory failure with hypoxia Category: Medical Code(s): J96.91 - Respiratory failure, unspecified with hypoxia (3) Essential hypertension Status: Chronic Category: Medical Code(s): I10 - Essential (primary) hypertension (4) Diabetes mellitus Status: Chronic Category: Medical Code(s): E11.9 - Type 2 diabetes mellitus without complications (5) Obesity, Class II, BMI 35-39.9 Status: Chronic Category: Medical Code(s): E66.9 - Obesity, unspecified (6) Anemia of chronic disease Status: Acute Category: Medical Code(s): D63.8 - Anemia in other chronic diseases classified elsewhere - Assessment and plan all Dx Assessment and Plan for all problems:: #Hypoxic respiratory failure: # History of COVID-19 pneumonia: 56-year-old male history of COPD. Not yet vaccinated. Diagnosed and admitted with COVID-19 pneumonia 07/12/2021, initially needing high flow nasal oxygen supplementation intermittently Vapotherm on BiPAP, completed course of remdesivir dexamethasone and prolonged steroid course, prior blood cultures grew Serratia from 07/14/2021, completed levofloxacin repeat blood culture from 08/01 on 08/11 showing normal respiratory dorothea. Patient also has been receiving Mucomyst nebs for most of his hospital course CTA performed on admission and recently on 08/11/2021, upon comparison but did not show any evidence of pulmonary embolism however his most recent CT showed bilateral significantly worsening airspace disease with worsening fibrosis and traction bronchiectasis. Echocardiogram from 08 12 showed no systolic dysfunction, diastolic parameters inconclusive. RA and RV mildly enlarged with normal contractility. Patient currently receiving levofloxacin. Most recent CRP was 21 and LDH was 304. Patient admits very minimal improvement since yesterday. Auscultation no change. He is saturating 94% while sitting on chair this morning. Plan: -Started on Prednisone 40 mg daily along with Bactrim -closely monitor BG, serum potassium and creatinine levels -Continue Xopenex and Atrovent nebs every 6 hours along with budesonide every 12 scheduled -Continue levofloxacin, awaiting repeat sputum cultures. Follow with nasal MRSA PCR -Volume optimization -Aggressive PT/OT Thank you for involving pulmonary in this patient care. We'll continue to follow.
[2021-08-17 16:48] LABS: POC Glucose,Bedside 198 (70-110)
[2021-08-17 20:28] LABS: POC Glucose,Bedside 311 (70-110)
[2021-08-18] VITALS (13 sets, daily range): BP systolic 101–139; BP diastolic 53–71; PULSE 74–106; RESP 18–26; TEMP 36.5–37; O2SAT 77–100; BMI 32.3
[2021-08-18 06:01] LABS: POC Glucose,Bedside 203 (70-110)
--- NOTE | 2021-08-18 08:24 | P.PN_ITS ---
Internal Medicine - PN: Subj *Date: 08/18/21 *Time: 08:24 Interval history: Patient continues to be weak, reports minimal improvement. Nursing staff reports that he has significant issues with anxiety and effort regarding his self-care activities. His agrees with this. Exam Vital signs and Labs for Last 24 Hours: Temp Pulse Resp BP Pulse Ox 97.7 F 74 18 129/53 L 98 08/18/21 04:00 08/18/21 05:47 08/18/21 04:00 08/18/21 04:00 08/18/21 05:47 Laboratory Results - last 24 hr 08/17/21 11:09: POC Glucose 239 H 08/17/21 16:39: POC Glucose 198 H 08/17/21 20:19: POC Glucose 311 H* 08/18/21 05:33: POC Glucose 203 H I & O for Last 24 hours: Intake & Output 08/15/21 08/16/21 08/17/21 08/18/21 11:59 11:59 11:59 11:59 Intake Total 360 / 360 840 / 840 840 / 840 180 / 180 Output Total 575 / 575 725 / 725 425 / 425 675 / 675 Balance -215 / -215 115 / 115 415 / 415 -495 / -495 Weight 232 lb 233 lb 228 lb 3.2 oz 231 lb 8 oz Microbiology Reports for the Last 24 Hours: Microbiology 08/16/21 12:49 Sputum - Expectorated Sputum Gram Stain - Final - Constitutional no acute distress - *Routine HEENT Exam Head: Present: normocephalic Eye: Present: EOMI, PERRL ENT: Present: mucous membranes moist - *Routine Neck Exam Present: supple. Absent: lymphadenopathy - *Routine Respiratory Exam Present: rhonchi - *Routine Cardiovascular Exam Present: RRR - *Routine Abdominal Exam Present: soft, normoactive bowel sounds. Absent: tenderness - *Routine Extremities Exam Absent: cyanosis, clubbing, edema - *Routine Skin Exam Present: warm. Absent: rash - *Routine Neurological Exam Present: alert, oriented X3 Assessment and Plan (1) Pneumonia due to COVID-19 virus Status: Acute Category: Medical Code(s): U07.1 - COVID-19; J12.82 - Pneumonia due to coronavirus disease 2019 (2) Respiratory failure with hypoxia Status: Acute Qualifiers: Chronicity: acute Qualified Code(s): J96.01 - Acute respiratory failure with hypoxia Category: Medical Code(s): J96.91 - Respiratory failure, unspecified with hypoxia (3) Essential hypertension Status: Chronic Category: Medical Code(s): I10 - Essential (primary) hypertension (4) Diabetes mellitus Status: Chronic Category: Medical Code(s): E11.9 - Type 2 diabetes mellitus without complications (5) Obesity, Class II, BMI 35-39.9 Status: Chronic Category: Medical Code(s): E66.9 - Obesity, unspecified (6) Anemia of chronic disease Status: Acute Category: Medical Code(s): D63.8 - Anemia in other chronic diseases classified elsewhere - Assessment and plan all Dx Assessment and Plan for all problems:: Long discussion with patient, care management staff, patient's and nursing staff about options. Very limited long-term care options for PT/OT/rehab. I think the best course for patient to help his psychological issues and his self-care activities would be to go home with home health. Care management will make efforts to get a bedside commode, shower chair, high flow oxygen and PT will work with him today to get up the couple of steps he has to get up into his house. Hopefully home tomorrow with home health and close follow-up with jacquelyn rodriguez and us as an outpatient.
--- NOTE | 2021-08-18 11:28 | HMH.PULMPN ---
Internal Medicine - PN: Subj *Date: 08/18/21 *Time: : Interval history: No acute respiratory distress Exam - Constitutional Constitutional:: Absent: no acute distress - HENMT Exam HENMT: Present: normocephalic, atraumatic - Eye Exam Eyes:: Present: normal appearance both eyes and related structures - Neck Exam Neck:: Present: normal visual inspection - Respiratory Exam Respiratory:: Present: able to speak in complete sentences, respiratory distress, rales - Cardiovascular Exam Cardiac:: Present: S1, S2 - GI Exam GI:: Present: soft - Skin Exam Skin: Present: warm, no rash - Neurological Exam Neurological: Present: alert, awake - Extremities Exam Extremities: Present: no cyanosis, no clubbing, no edema - Psychiatric Exam Psychiatric: Present: normal affect Assessment and Plan (1) Pneumonia due to COVID-19 virus Status: Acute Category: Medical Code(s): U07.1 - COVID-19; J12.82 - Pneumonia due to coronavirus disease 2019 (2) Respiratory failure with hypoxia Status: Acute Qualifiers: Chronicity: acute Qualified Code(s): J96.01 - Acute respiratory failure with hypoxia Category: Medical Code(s): J96.91 - Respiratory failure, unspecified with hypoxia (3) Essential hypertension Status: Chronic Category: Medical Code(s): I10 - Essential (primary) hypertension (4) Diabetes mellitus Status: Chronic Category: Medical Code(s): E11.9 - Type 2 diabetes mellitus without complications (5) Obesity, Class II, BMI 35-39.9 Status: Chronic Category: Medical Code(s): E66.9 - Obesity, unspecified (6) Anemia of chronic disease Status: Acute Category: Medical Code(s): D63.8 - Anemia in other chronic diseases classified elsewhere - Assessment and plan all Dx Assessment and Plan for all problems:: #Hypoxic respiratory failure: # History of COVID-19 pneumonia: 56-year-old male history of COPD. Not yet vaccinated. Diagnosed and admitted with COVID-19 pneumonia 07/12/2021, initially needing high flow nasal oxygen supplementation intermittently Vapotherm on BiPAP, completed course of remdesivir dexamethasone and prolonged steroid course, prior blood cultures grew Serratia from 07/14/2021, completed levofloxacin repeat blood culture from 08/01 on 08/11 showing normal respiratory dorothea. Patient also has been receiving Mucomyst nebs for most of his hospital course CTA performed on admission and recently on 08/11/2021, upon comparison but did not show any evidence of pulmonary embolism however his most recent CT showed bilateral significantly worsening airspace disease with worsening fibrosis and traction bronchiectasis. Echocardiogram from 08/12 showed no systolic dysfunction, diastolic parameters inconclusive. RA and RV mildly enlarged with normal contractility. Patient currently receiving levofloxacin. Most recent CRP was 21 and LDH was 304. Interval update: Patient continued to receive diuretics along with prednisone and Bactrim. Admits only minimal improvement. He this morning on 8 L nasal cannula saturating 96%, wean to 6 L nasal cannula. Plan: -Continue oxygen supplementation to maintain O2 saturation goal of 88% level, 4 to 6 L at rest and 68 with exertion. -Continue Prednisone 40 mg daily along with Bactrim -closely monitor BG, serum potassium and creatinine levels -Continue Xopenex and Atrovent nebs every 6 hours along with budesonide every 12 scheduled -Continue levofloxacin, awaiting repeat sputum cultures. Follow with nasal MRSA PCR. Prelim sputum culture gram-positive cocci in pairs and chains. -Volume optimization -Aggressive PT/OT Thank you for involving pulmonary in this patient care. We'll continue to follow.
[2021-08-18 12:05] LABS: POC Glucose,Bedside 209 (70-110)
[2021-08-18 17:58] LABS: POC Glucose,Bedside 260 (70-110)
[2021-08-18 22:06] LABS: POC Glucose,Bedside 253 (70-110)
[2021-08-19] VITALS: BP 120/56; PULSE 80; RESP 20; TEMP 36.8; O2SAT 97
[2021-08-19 04:00] VITALS: BP 125/62; PULSE 65; PULSE 71; RESP 14; TEMP 36.7; O2SAT 95
[2021-08-19 05:00] VITALS: BMI 31.8
--- NOTE | 2021-08-19 05:51 | PC.NURSE ---
pt has rested well this shift, no complaints, has remained on high flow NC with O2 sats 92-97
[2021-08-19 06:20] VITALS: PULSE 74; O2SAT 89
[2021-08-19 07:09] LABS: POC Glucose,Bedside 134 (70-110)
[2021-08-19 08:00] VITALS: BP 112/56; BP 98/74; PULSE 65; PULSE 95; PULSE 99; RESP 20; RESP 24; TEMP 36.8; TEMP 36.9; O2SAT 88; O2SAT 94
--- NOTE | 2021-08-19 08:47 | DIET.NUTRFU ---
Pt has been eating fair with 50-75-50% recorded at last three meals. Pt diet is still being supplement BID. Plan for pt to potential go home with home health today per MD progress note. Will continue to monitor.
--- NOTE | 2021-08-19 08:52 | HMH.DCSUM ---
General - General Admission date:: 07/11/21 Discharge date: 08/19/21 HPI HPI: 56-year-old white male with history of COPD, chronic bronchitis and heavy tobacco use who is unvaccinated for COVID-19 who 4 days ago was seen in our offices with coughing congestion, did not have a history of Covid exposure, was treated with antibiotics and steroids and really did not improve much, over the next couple of days did realize he been exposed to Covid and came to the emergency department on July 12 to be tested but was noted to be dyspneic, and hypoxic, sent over to the emergency department, found to have Covid pneumonia on chest x-ray and CT scanning. No evidence of PE but was hypoxic, placed on Vapotherm and placed in the COVID intensive care unit. This morning feels better, no complaints of nausea or vomiting, feels less short of air on Vapotherm administration. Hospital Course Hospital Course: Patient was admitted and found to have significant respiratory distress from COVID-19 pneumonia. Was admitted to intensive care unit and placed on high flow Vapotherm and nonrebreather. Placed on standard remdesivir and antiviral medications as currently accepted by emergency use authorization guidelines. Patient spent several days in the intensive care unit and had an extremely long and very slow to improve hospital course. He was treated with Levaquin twice during his hospital course because of infiltrates. He was treated with aggressive respiratory therapy, was placed on blood thinners because of high risk of DVT/PE given his comorbidities and bedbound status. 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 He was globally very weak throughout most of his hospital stay and PT work with him. He made an extremely slow but steady progress throughout the weeks in the hospital. Over the past week he has begun to improve more incrementally, and has been able to be weaned off to a high flow nasal cannula at 8 L, with O2 saturations at rest of the mid 90s and declining with activity to the low 80% range. Pulmonary evaluated him because of repeat CT scanning showing fibrosis. They recommended starting 40 mg of prednisone daily and Bactrim every other day along with finishing up his Levaquin. Given patient's stabilization on current oxygen flow rates, his ability to do some self-care activities and the lack of other current inpatient interventions that will be necessary patient will be discharged home today. He will need follow-up with PT/OT/home health nursing care/home safety evaluation for home health services. He is extremely weak, and cannot drive. He will follow-up in our office on Monday, and with pulmonary on that day also. He will continue 8 L of nasal cannula and medications as noted. Objective Vital signs: Temp Pulse Resp BP Pulse Ox 98.3 F 65 20 98/74 L 88 L 08/19/21 08:00 08/19/21 08:00 08/19/21 08:00 08/19/21 08:00 08/19/21 08:00 no acute distress, chronically ill appearing - *Routine HEENT Exam Head: Present: normocephalic Eye: Present: EOMI, PERRL ENT: Present: mucous membranes moist - *Routine Neck Exam Present: supple - *Routine Respiratory Exam Present: rhonchi - *Routine Cardiovascular Exam Present: RRR - *Routine Abdominal Exam Present: soft, normoactive bowel sounds. Absent: tenderness - *Routine Extremities Exam Absent: cyanosis, clubbing, edema - *Routine Skin Exam Present: warm. Absent: rash - *Routine Neurological Exam Present: alert, oriented X3 Globally weak but no focal deficits - Detailed Eye Exam Eyelids: Bilateral normal inspection Results Labs on day of discharge: Labs from last 24 hours 08/19/21 08/18/21 08/18/21 06:27 21:56 17:51 POC Glucose 134 H 253 H 260 H 08/18/21 11:52 POC Glucose 209 H Preliminary micro results at discharge 08/16/21 12:49 Sputum Culture - P
[2021-08-19 10:28] LABS: C-Reactive Protein 9.8 mg/L (0-4)
--- NOTE | 2021-08-19 10:29 | HMH.ACPN2 ---
Internal Medicine - PN: Subj *Date: 08/19/21 *Time: 10:29 Exam Vital signs and Labs for Last 24 Hours: Temp Pulse Resp BP Pulse Ox 98.4 F 95 H 24 112/56 L 94 L 08/19/21 08:00 08/19/21 08:00 08/19/21 08:00 08/19/21 08:00 08/19/21 08:00 Laboratory Results - last 24 hr 08/18/21 11:52: POC Glucose 209 H 08/18/21 17:51: POC Glucose 260 H 08/18/21 21:56: POC Glucose 253 H 08/19/21 06:27: POC Glucose 134 H 08/19/21 09:37: C-Reactive Protein 9.8 H I & O for Last 24 hours: Intake & Output 08/16/21 08/17/21 08/18/21 08/19/21 23:59 23:59 23:59 23:59 Intake Total 1200 / 1200 300 / 300 300 / 300 Output Total 250 / 450 700 / 1100 1300 / 1300 200 / 200 Balance 950 / 750 -400 / -800 -1000 / -1000 -200 / -200 Weight 105.687 kg 103.51 kg 105.007 kg 103.011 kg Microbiology Reports for the Last 24 Hours: Microbiology 08/16/21 12:49 Sputum - Expectorated Sputum Gram Stain - Final 08/16/21 12:49 Sputum - Expectorated Sputum Sputum Culture - Preliminary Assessment and Plan (1) Pneumonia due to COVID-19 virus Status: Acute Category: Medical Code(s): U07.1 - COVID-19; J12.82 - Pneumonia due to coronavirus disease 2019 (2) Respiratory failure with hypoxia Status: Acute Qualifiers: Chronicity: acute Qualified Code(s): J96.01 - Acute respiratory failure with hypoxia Category: Medical Code(s): J96.91 - Respiratory failure, unspecified with hypoxia (3) Essential hypertension Status: Chronic Category: Medical Code(s): I10 - Essential (primary) hypertension (4) Diabetes mellitus Status: Chronic Category: Medical Code(s): E11.9 - Type 2 diabetes mellitus without complications (5) Obesity, Class II, BMI 35-39.9 Status: Chronic Category: Medical Code(s): E66.9 - Obesity, unspecified (6) Anemia of chronic disease Status: Acute Category: Medical Code(s): D63.8 - Anemia in other chronic diseases classified elsewhere The patient's infection will respond to the chosen ABx?: Yes Is the patient receiving the right drug, dose, and route?: Yes Could a more targeted ABx be ordered?: No
[2021-08-19 11:00] VITALS: O2SAT 89
--- NOTE | 2021-08-19 11:29 | P.PN_ITS ---
Internal Medicine - PN: Subj *Date: 08/19/21 *Time: 11:29 Interval history: No acute respiratory events overnight. Exam - Constitutional Constitutional:: Present: no acute distress, comfortable - HENMT Exam HENMT: Present: normocephalic - Eye Exam Eyes:: Present: normal appearance both eyes and related structures - Neck Exam Neck:: Present: normal visual inspection - Respiratory Exam Respiratory:: Present: able to speak in complete sentences, respiratory distress, rales - Cardiovascular Exam Cardiac:: Present: S1, S2 - GI Exam GI:: Present: soft - Skin Exam Skin: Present: warm, no rash - Neurological Exam Neurological: Present: alert, awake, normal cognition - Extremities Exam Extremities: Present: no cyanosis, no clubbing, no edema Assessment and Plan (1) Pneumonia due to COVID-19 virus Status: Acute Category: Medical Code(s): U07.1 - COVID-19; J12.82 - Pneumonia due to coronavirus disease 2019 (2) Respiratory failure with hypoxia Status: Acute Qualifiers: Chronicity: acute Qualified Code(s): J96.01 - Acute respiratory failure with hypoxia Category: Medical Code(s): J96.91 - Respiratory failure, unspecified with hypoxia (3) Essential hypertension Status: Chronic Category: Medical Code(s): I10 - Essential (primary) hypertension (4) Diabetes mellitus Status: Chronic Category: Medical Code(s): E11.9 - Type 2 diabetes mellitus without complications (5) Obesity, Class II, BMI 35-39.9 Status: Chronic Category: Medical Code(s): E66.9 - Obesity, unspecified (6) Anemia of chronic disease Status: Acute Category: Medical Code(s): D63.8 - Anemia in other chronic diseases classified elsewhere - Assessment and plan all Dx Assessment and Plan for all problems:: #Hypoxic respiratory failure: # History of COVID-19 pneumonia: 56-year-old male history of COPD. Not yet vaccinated. Diagnosed and admitted with COVID-19 pneumonia 07/12/2021, initially needing high flow nasal oxygen supplementation intermittently Vapotherm on BiPAP, completed course of remdesivir dexamethasone and prolonged steroid course, prior blood cultures grew Serratia from 07/14/2021, completed levofloxacin repeat blood culture from 08/01 on 08/11 showing normal respiratory dorothea. Patient also has been receiving Mucomyst nebs for most of his hospital course CTA performed on admission and recently on 08/11/2021, upon comparison but did not show any evidence of pulmonary embolism however his most recent CT showed bilateral significantly worsening airspace disease with worsening fibrosis and traction bronchiectasis. Echocardiogram from 08/12 showed no systolic dysfunction, diastolic parameters inconclusive. RA and RV mildly enlarged with normal contractility. Patient currently receiving levofloxacin. Most recent CRP was 21 and LDH was 304. Initiated on prednisone 40 mg daily, CRP today 9.8 Plan: Patient on 6 L nasal cannula saturating 90 to 92%. Repeat sputum cultures mixed respiratory dorothea. Nasal MRSA PCR pending. Completed levofloxacin. Will discharge the patient on prednisone 40 mg daily along with Bactrim and will see the patient in 10 days in the clinic on 08/30/2021 and plan further care. We will also recommend continuing triple inhaler therapy at home along with albuterol every 6 hours as needed. Recommend arrange nebulizer and oxygen before discharge. Aggressive PT/OT Thank you for involving pulmonary in this patient care. We will follow the luana cassidy in pulmonary clinic on 08/30/2021.
[2021-08-19 12:27] LABS: POC Glucose,Bedside 186 (70-110)
== END 2021-08-19 14:35 | disposition home health service (06) | DRG 177 ==
LOC: ER 18:38 → ICU 19:57 → 2ND 07-12 21:24
PROVIDERS: Internal Medicine Pulmonary Disease; Pathology Anatomic Pathology & Clinical Pathology; Admitting Provider Internal Medicine Adolescent Medicine; Emergency Provider Emergency Medicine; PCP Nurse Practitioner Family; Visit Provider Internal Medicine Adolescent Medicine
DX: U07.1 COVID-19 (principal); J12.82 Pneumonia due to coronavirus disease 2019; J96.01 Acute respiratory failure with hypoxia; J44.0 Chronic obstructive pulmonary disease with (acute) lower respiratory infection; I47.1 Supraventricular tachycardia; I10 Essential (primary) hypertension; Z79.4 Long term (current) use of insulin; Z79.51 Long term (current) use of inhaled steroids; Z79.899 Other long term (current) drug therapy; Z87.891 Personal history of nicotine dependence; E66.9 Obesity, unspecified; Z68.30 Body mass index [BMI] 30.0-30.9, adult; D63.8 Anemia in other chronic diseases classified elsewhere; Z79.84 Long term (current) use of oral hypoglycemic drugs; E11.65 Type 2 diabetes mellitus with hyperglycemia; F32.A Depression, unspecified; F41.9 Anxiety disorder, unspecified
CPT/HCPCS: 36415; 71045; 71275; 80048; 80053; 80202; 82803; 82962; 83036; 83605; 83615; 83735; 85007; 85014; 85018; 85025; 85048; 85049; 85378; 85651; 86140; 86606; 86612; 86850; 87040; 87070; 87077; 87081; 87186; 87205; 87385; 87449; 93005; 93306; 94640; 94660; 94667; 94760; 94761; 96365; 96375; 97110; 97161; 97530; 99285; C9803; J0456; J1956; J3370; P9016; Q9967; U0003; U0005

== ENCOUNTER → 2021-09-27 14:22 | Outpatient (CLI) | payer OTHER, SELFPAY ==
[2021-09-27 16:48] LABS: C-Reactive Protein 5.7 mg/L (0-4)
[2021-09-29 08:16] LABS: Alpha-1-Antitrypsin 197 mg/dL (101-187)
== END ==
PROVIDERS: PCP Internal Medicine Adolescent Medicine; Visit Provider Internal Medicine Pulmonary Disease
DX: R06.00 Dyspnea, unspecified (principal); J44.9 Chronic obstructive pulmonary disease, unspecified
CPT/HCPCS: 36415; 82103; 86140

== ENCOUNTER 2021-10-26 13:50 | Outpatient (RCR) | payer OTHER, SELFPAY ==
--- NOTE | 2021-10-26 14:50 | HMH.PTOPEV ---
PT Outpatient Evaluation Rehab PT Outpatient Evaluation Start: 10/26/21 14:21 Freq: Status: Active Protocol: Document 10/26/21 14:22 JONATHON (Rec: 10/26/21 14:49 ASHLEYANGELA [id number]) Electronically Signed By Wilbert Duffy, PT 10/26/21 14:22 Outpatient Therapy Subjective History Subjective History Patient is a 56 year old male presenting to outpatient PT with reports of overall physical deconditioning secondary to prolonged stay in hospital with COVID-19. Patient was admitted to [facility] and discharged 08/19/21. Patient has been receiving home health PT/OT since discharge. Patients main complaint is difficulty/ shortness of breath with exertion and prolonged standing/walking activities. Patient reports that recently he was walking for a short period of time and his O2 sats dropped to 59. Patient reports no falls or loss of balance, though he occasionally uses a SPC for support with ambulation. Comorbidities include hx of COPD, diabetes, HTN and intermittent cervical and lumbar pain. Chief Complaint Other Symptoms Aggravated By Standing,Physical Activity, Walking Prior Functional Limitations None Current Functional Limitations Housework,Standing,Recreation Activity,Walking,Stairs Symptom Description Intermittent Shoulder/Elbow Eval Shoulder Objective Measurements Shoulder ROM Bilateral full ROM shoulder exam standard bilateral Shoulder MMT Shoulder Abduction Strength Grade 5 Normal Shoulder Extension Strength Grade 5 Normal Shoulder Flexion Strength Grade 5 Normal Shoulder External Rotation Strength 5 Normal Grade Shoulder Internal Rotation Strength 5 Normal Grade Elbow Objective Measurements Elbow ROM Bilateral full ROM elbow exam standard bilateral Elbow MMT Elbow Flexion Strength Grade 5 Normal Biceps Brachii Strength Grade 5 Normal Elbow Extension Strength Grade 5 Normal Triceps Brachii Strength Grade 4 Good Hip/Knee Eval G
== END 2021-10-26 13:55 | disposition home or self-care (01) ==
LOC: PT 13:50
PROVIDERS: PCP Internal Medicine Adolescent Medicine; Visit Provider Nurse Practitioner Family
DX: R53.81 Other malaise (principal)
CPT/HCPCS: 97163

== ENCOUNTER 2021-11-01 12:47 | Outpatient (RCR) | payer OTHER, SELFPAY | END 2021-11-01 12:50 | disposition home or self-care (01) | LOC: PT 12:47 | PROVIDERS: Visit Provider Internal Medicine Adolescent Medicine | DX: J44.9 Chronic obstructive pulmonary disease, unspecified (principal); U09.9 Post COVID-19 condition, unspecified | CPT/HCPCS: 94626 ==

== ENCOUNTER → 2021-11-22 12:54 | Outpatient (CLI) | payer OTHER, SELFPAY ==
--- NOTE | 2021-11-22 12:55 | NM_ITS ---
FINAL REPORT CLINICAL HISTORY: Hypoxia post COVID 07/25 1:10PM 35.3 MCI TC DTPA 1:50PM 8.12 MCI TC MAA INJ INTO LT ANT CXR ALSO DONE TODAY FINDINGS: VENTILATION PERFUSION SCAN No significant perfusion defects are seen. Ventilatory images are unremarkable. CONCLUSION: Essentially normal ventilation-perfusion scan. Extremely low probability for pulmonary embolism. Reviewed, Interpreted and Dictated by Tristen Blunt MD Transcribed by Yanira Wang Authenticated by Tristen Blunt MD on 11/22/2021 03:02:[address] [facility]
--- NOTE | 2021-11-22 14:01 | XR_ITS ---
FINAL REPORT CLINICAL HISTORY: PULMONARY HYPERTENSION, VQ SCAN DONE TODAY FINDINGS: 2 views of the chest were obtained . The heart is mildly enlarged. The mediastinum is within normal limits. There are coarse interstitial opacities, right greater than left with volume loss of the right hemithorax. Lungs are otherwise clear. There is no pneumothorax. Osseous structures are unremarkable. IMPRESSION: Coarse interstitial opacities, right greater than left with volume loss of the right hemithorax. Reviewed, Interpreted and Dictated by Tristen Blunt MD Transcribed by Yanira Wang Authenticated by Tristen Blunt MD on 11/22/2021 03:02:10 PM [facility]
[2021-11-22 15:40] VITALS: PULSE 77; PULSE 80
== END ==
PROVIDERS: PCP Internal Medicine Adolescent Medicine; Visit Provider Internal Medicine Pulmonary Disease
DX: J96.11 Chronic respiratory failure with hypoxia; I27.20 Pulmonary hypertension, unspecified; Z86.16 Personal history of COVID-19
CPT/HCPCS: 71046; 78582; 94060; 94618; 94640; 94727; 94729; A9540; A9567

== ENCOUNTER → 2021-12-08 10:27 | Outpatient (CLI) | payer OTHER, SELFPAY ==
--- NOTE | 2021-12-08 10:27 | CT_ITS ---
FINAL REPORT TECHNIQUE: Axial CT images were performed from the lung apices through the upper abdomen. Coronal reformats were submitted. High-resolution technique was obtained with inspiration, expiration, and prone images. CLINICAL HISTORY: SOB COMPARISON: 10/15/2010 FINDINGS: There are new, anterior mediastinal masses measuring up to 3.9 cm consistent with mediastinal adenopathy. Findings are worrisome for neoplasm. There is moderate coronary artery calcification. There is a presumed pneumatocele in the right upper lobe measuring 31 mm. There is moderate, predominantly peripheral fibrosis which is greater in the right upper lobe. There has been significant interval improvement in the bilateral groundglass opacities with mild persistent groundglass opacities. There is no significant air trapping. Note is made of mild bronchiectasis involving the right lung. There is bronchial wall thickening, right greater than left. There is no evidence of emphysema. Limited images of the upper abdomen reveal several gallstones. IMPRESSION: Moderate peripheral fibrosis, greatest in the right upper lobe. Significant improvement but persistent groundglass opacities. Mild bronchiectasis. New, anterior mediastinal masses consistent with adenopathy, may represent neoplasm versus reactive. Cholelithiasis. Reviewed, Interpreted and Dictated by Frank Jimenez III, MD Transcribed by Sharron Thornton Authenticated by Frank Jimenez III, MD on 12/08/2021 12:56:06 PM [facility]
== END ==
PROVIDERS: PCP Internal Medicine Adolescent Medicine; Visit Provider Internal Medicine Pulmonary Disease
DX: J84.9 Interstitial pulmonary disease, unspecified (principal)
CPT/HCPCS: 71250

== ENCOUNTER 2022-01-10 15:54 | Emergency (ER) | payer OTHER, SELFPAY ==
[2022-01-10 15:56] VITALS: BP 146/67; PULSE 94; RESP 18; TEMP 36.8; O2SAT 96; BMI 34.8
--- NOTE | 2022-01-10 16:01 | HMH.EDHA ---
ED Disposition Clinical Impression: 6th nerve palsy Qualifiers: Laterality: left Qualified Code(s): H49.22 - Sixth [abducent] nerve palsy, left eye Disposition: Home, Self-Care Condition on Discharge: Fair Additional Instructions: Follow-up with Dr. Alcala in his office this at 11:15 AM. Return to the emergency department if you feel worse in any way. The medication you have been prescribed is very likely to increase your blood sugar. Please check your sugar frequently. Prescriptions: dexAMETHasone [Dexamethasone] 4 mg PO BID #14 tab Transmission Status: Pending to [facility] Referrals: Fox Chávez MD [Primary Care Provider] - - Critical Care Critical Care Time: No Attestation: On , the high probability of a clinically significant, sudden or life threatening deterioration of the following system(s) required my full and direct attention, intervention and personal management. The time I documented below is in addition to time spent performing reported procedures but includes the following listed in this critical care notation. Medical Decision Making - [place] Inquiry Pt receiving controlled substance: No Vital Signs: 01/10/22 15:56 01/10/22 16:32 Temperature 98.2 F Temperature Source Oral Pulse Rate 83 Pulse Rate [Right Radial] 94 H Respiratory Rate 18 16 Blood Pressure 110/57 L Blood Pressure [Right Arm] 146/67 H Blood Pressure Mean 74 Blood Pressure Mean [Right Arm] 93 Blood Pressure Source [Right Arm] Automatic Cuff Blood Pressure Position [Right Arm] Sitting 02 Sat by Pulse Oximetry 96 99 Oxygen Delivery Method Room Air Nasal Cannula Oxygen Flow Rate (LPM) 4 - Lab Data Lab results reviewed: Yes: I reviewed the patient's lab results. Lab Results 01/10/22 16:00: WBC 8.4, RBC 3.86 L, Hgb 11.7 L, Hct 36.1 L, MCV 93.6, MCH 30.3, MCHC 32.3, RDW 15.4, Plt Count 221, MPV 9.3, Neut % (Auto) 78.8, Lymph % (Auto) 12.6, [place] % (Auto) 1.8, Eos % (Auto) 5.7, Baso % (Auto) 1.1, Neut # (Auto) 6.6, Lymph # (Auto) 1.1, [place] # (Auto) 0.2, Eos # (Auto) 0.5 H, Baso # (Auto) 0.1 01/10/22 16:00: PT 12.0, INR 1.07 01/10/22 16:00: Sodium 136, Potassium 4.1, Chloride 101, Carbon Dioxide 27, Anion Gap 12.1, BUN 15, Creatinine 0.80, Estimated Creat Clear 165, Estimated GFR 100, Est GFR ( Amer) 121, Glucose 194 H, Calcium 9.4, Total Bilirubin 1.4 H, AST 38, ALT 29, Alkaline Phosphatase 91, Total Protein 7.5, Albumin 4.0, Globulin 3.5 H, Albumin/Globulin Ratio 1.1 Result diagrams: 01/10/22 16:00 01/10/22 16:00 Orders (Tests/Meds): ED MEDICATIONS Discontinued Medications Generic Name Dose Route Start Last Admin Trade Name Freq PRN Reason Stop Dose Admin Ketorolac Tromethamine 30 mg 01/10/22 17:10 Ketorolac 30mg/Ml Vial IV 01/10/22 17:11 ONCE ONE Metoclopramide HCl 10 mg 01/10/22 17:10 Metoclopramide Hcl 10mg/2ml Vial IVP 01/10/22 17:11 ONCE ONE - CT Data CT Scan: Head Time Received: 17:[address] Reviewed: Yes: I have viewed the radiologist's interpretation - Physician Consults Physician Consulted: Kyler Time: 17:28 Reason -: Neurological Eval/Care Comment/Response: Dr. Chávez has asked the patient to come see him in the office this at 11:15 AM. Meanwhile he is recommending that the patient be started on dexamethasone 4 mg twice a day for 1 week. - Reevaluation(s) Time: 17:20 Reevaluation #1: States that his headache is now resolved. He continues to have diplopia on leftward gaze. For he will not be given Toradol and Reglan for headache. Medical Decision Narrative: The patient presents to the emergency department with approximately 1 week history of diplopia on leftward gaze with obvious 6th nerve palsy on the left side. He is a diabetic. A CT of the head did not show any acute intracranial abnormality. His headache resolved spontaneously. His laboratory work-up is unremarkable. I feel that the patient is probably suff
--- NOTE | 2022-01-10 16:07 | CT_ITS ---
PROCEDURE INFORMATION: Exam: CT Head Without Contrast Exam date and time: 01/10/2022 4:18 PM Age: 56 years old Clinical indication: Visual disturbance and other: Headache; Additional info: Headache and diplopia TECHNIQUE: Imaging protocol: Computed tomography of the head without contrast. Radiation optimization: All CT scans at this facility use at least one of these dose optimization techniques: automated exposure control; mA and/or kV adjustment per patient size (includes targeted exams where dose is matched to clinical indication); or iterative reconstruction. COMPARISON: No relevant prior studies available. FINDINGS: Brain: Normal. No hemorrhage. Unremarkable white matter. No mass effect. Cerebral ventricles: No ventriculomegaly. Paranasal sinuses: Visualized sinuses are unremarkable. No fluid levels. Mastoid air cells: Visualized mastoid air cells are well aerated. Bones/joints: Unremarkable. No acute fracture. Soft tissues: Unremarkable. IMPRESSION: No acute intracranial abnormality.
[2022-01-10 16:18] LABS: Basophils # 0.1 K/mm3 (0-0.2); Basophils % 1.1 % (0.1-2.0); Eosinophils # 0.5 K/mm3 (0.0-0.4); Eosinophils % 5.7 % (0.1-12.0); Hematocrit 36.1 % (42.0-52.0); Hemoglobin 11.7 g/dL (14.1-18.0); Lymphocytes # 1.1 K/mm3 (0.7-4.5); Lymphocytes % 12.6 % (10-50); Mean Corpuscular HGB Conc 32.3 g/dL (31.8-35.4); Mean Corpuscular Hemoglobin 30.3 pg (27.0-31.2); Mean Corpuscular Volume 93.6 fl (80-94); Mean Platelet Volume 9.3 fl (7.4-10.4); Monocytes # 0.2 K/mm3 (0.1-1.0); Monocytes % 1.8 % (1.7-9.3); Neutrophils # 6.6 K/mm3 (1.8-7.8); Neutrophils % 78.8 % (37.0-80.0); Platelet Count 221 K/mm3 (142-424); Red Blood Count 3.86 M/mm3 (4.60-6.20); Red Cell Distribution Width 15.4 % (11.5-17.5); White Blood Count 8.4 K/mm3 (4.8-10.8)
--- NOTE | 2022-01-10 16:20 | PC.NURSE ---
Pt to rad
[2022-01-10 16:24] LABS: Chloride 101 mmol/L (98-107); Potassium 4.1 mmoL/L (3.5-5.1); Sodium 136 mmol/L (136-145)
[2022-01-10 16:26] LABS: Blood Urea Nitrogen 15 mg/dl (9-20); Creatinine Clearance Estimated 165 mL/min (50-200); Estimated Glomerular Filt Rate 100 ml/min (>60); GFR (African American) 121 ML/MIN (>60)
[2022-01-10 16:27] LABS: Alanine Aminotransferase 29 U/L (12-78); Albumin/Globulin Ratio 1.1 (1.1-1.8); Alkaline Phosphatase 91 U/L (38-126); Anion Gap 12.1 mEq/L (5-15); Aspartate Amino Transferase 38 U/L (17-59); Bilirubin,Total 1.4 mg/dl (0.2-1.3); Calcium 9.4 mg/dl (8.4-10.2); Carbon Dioxide 27 mmol/L (22.0-30.0); Globulin 3.5 g/dL (1.3-3.2); Glucose 194 mg/dl (74-100); Total Protein,Serum 7.5 g/dl (6.3-8.2)
[2022-01-10 16:28] LABS: INR 1.07 (0.9-1.1)
[2022-01-10 16:32] VITALS: BP 110/57; PULSE 83; RESP 16; O2SAT 99
--- NOTE | 2022-01-10 17:19 | PC.NURSE ---
Dr. Kyler leon
--- NOTE | 2022-01-10 17:25 | PC.NURSE ---
speaking with DR. Chávez
[2022-01-10 18:01] VITALS: BP 114/67; PULSE 80; RESP 16; TEMP 36.8; O2SAT 98
== END 2022-01-10 18:02 | disposition home or self-care (01) ==
PROVIDERS: Emergency Provider Emergency Medicine; PCP Internal Medicine Adolescent Medicine
DX: H49.22 Sixth [abducent] nerve palsy, left eye (principal); E11.9 Type 2 diabetes mellitus without complications; I10 Essential (primary) hypertension; E78.5 Hyperlipidemia, unspecified; Z79.899 Other long term (current) drug therapy
CPT/HCPCS: 70450; 80053; 85025; 85610; 99284

== ENCOUNTER 2022-01-23 18:24 | Inpatient (IN) | payer OTHER, SELFPAY ==
[2022-01-23 18:25] VITALS: BP 115/77; PULSE 82; RESP 16; TEMP 36.5; O2SAT 99; BMI 34.8
[2022-01-23 18:34] VITALS: BP 118/71; PULSE 77
--- NOTE | 2022-01-23 18:35 | ECG_ITS ---
APPROVED REPORT Exam: Resting ECG HR:76 bpm ECG Measurements Heart Rate 76 AXES PA 140 P 14 QRSd 86 QRS 7 QT 377 T 45 QTc 408 Conclusion SINUS RHYTHM NONSPECIFIC T-WAVE ABNORMALITY BORDERLINE ECG UNCONFIRMED REPORT Electronically signed by : Fox Chávez MD 01/24/2022 17:47:24
--- NOTE | 2022-01-23 18:35 | XR_ITS ---
PROCEDURE INFORMATION: Exam: XR Chest Exam date and time: 01/23/2022 6:37 PM Age: 56 years old Clinical indication: Shortness of breath; Additional info: SOB TECHNIQUE: Imaging protocol: XR of the chest. Views: 1 view. COMPARISON: CT HR CHEST X3 12/08/2021 10:32 AM FINDINGS: Lungs: Diffuse interstitial infiltrate of the right lung as seen on recent CT scan. Cystic spaces are not as evident. Interstitial changes within the left lung seen on recent CT scan are not reproduced on the current conventional radiographs. Pleural spaces: Unremarkable. No pleural effusion. No pneumothorax. Heart/Mediastinum: Heart is enlarged. Cardiac silhouette projects enlarged. Bones/joints: Unremarkable. IMPRESSION: 1. Diffuse interstitial infiltrate of the right lung as seen on recent CT scan. Cystic spaces are not as evident. 2. Interstitial changes within the left lung seen on recent CT scan are not reproduced on the current conventional radiographs. 3. Cardiac silhouette projects enlarged.
--- NOTE | 2022-01-23 18:37 | CT_ITS ---
PROCEDURE INFORMATION: Exam: CT Head Without Contrast Exam date and time: 01/23/2022 6:42 PM Age: 56 years old Clinical indication: Numbness / parasthesia; Right; Additional info: R sided numbness TECHNIQUE: Imaging protocol: Computed tomography of the head without contrast. Radiation optimization: All CT scans at this facility use at least one of these dose optimization techniques: automated exposure control; mA and/or kV adjustment per patient size (includes targeted exams where dose is matched to clinical indication); or iterative reconstruction. COMPARISON: CT HEAD/BRAIN WO CON 01/10/2022 4:18 PM FINDINGS: Brain: Normal. No hemorrhage. Unremarkable white matter. No mass effect. Cerebral ventricles: No ventriculomegaly. Paranasal sinuses: Visualized sinuses are unremarkable. No fluid levels. Mastoid air cells: Fluid in the left mastoid air cells. Bones/joints: Unremarkable. No acute fracture. Soft tissues: Unremarkable. IMPRESSION: 1. No evidence of acute intracranial process. 2. Left mastoid effusion.
[2022-01-23 18:47] LABS: Chloride 100 mmol/L (98-107); Potassium 4.4 mmoL/L (3.5-5.1); Sodium 137 mmol/L (136-145)
[2022-01-23 18:50] LABS: Anion Gap 11.4 mEq/L (5-15); Basophils # 0.1 K/mm3 (0-0.2); Basophils % 1.3 % (0.1-2.0); Blood Urea Nitrogen 9 mg/dl (9-20); Calcium 9.2 mg/dl (8.4-10.2); Carbon Dioxide 30 mmol/L (22.0-30.0); Creatinine Clearance Estimated 220 mL/min (50-200); Eosinophils # 0.5 K/mm3 (0.0-0.4); Eosinophils % 4.9 % (0.1-12.0); Estimated Glomerular Filt Rate 139 ml/min (>60); GFR (African American) 169 ML/MIN (>60); Glucose 135 mg/dl (74-100); Hemoglobin 12.3 g/dL (14.1-18.0); Lymphocytes # 0.7 K/mm3 (0.7-4.5); Lymphocytes % 7.9 % (10-50); Mean Corpuscular HGB Conc 31.6 g/dL (31.8-35.4); Mean Corpuscular Hemoglobin 29.4 pg (27.0-31.2); Mean Corpuscular Volume 92.8 fl (80-94); Mean Platelet Volume 9.1 fl (7.4-10.4); Monocytes # 0.1 K/mm3 (0.1-1.0); Monocytes % 1.2 % (1.7-9.3); Neutrophils % 84.7 % (37.0-80.0); Platelet Count 362 K/mm3 (142-424); Red Cell Distribution Width 15.5 % (11.5-17.5); White Blood Count 9.4 K/mm3 (4.8-10.8)
--- NOTE | 2022-01-23 18:58 | HMH.EDGENADL ---
ED Disposition Condition on Discharge: Fair - Critical Care Critical Care Time: No <AngelicaMatias rodriguez - Last Filed: 01/23/22 21:10> <Kendall Priest - Last Filed: 01/23/22 23:07> Clinical Impression: Mediastinal mass, Lab test positive for detection of COVID-19 virus, Shortness of breath, TIA (transient ischemic attack) Mastoiditis Qualifiers: Laterality: left Qualified Code(s): H70.92 - Unspecified mastoiditis, left ear Abducens nerve palsy Qualifiers: Laterality: left Qualified Code(s): H49.22 - Sixth [abducent] nerve palsy, left eye Disposition: Admitted As Inpatient Attestation: On 01/23/22, the high probability of a clinically significant, sudden or life threatening deterioration of the following system(s) required my full and direct attention, intervention and personal management. The time I documented below is in addition to time spent performing reported procedures but includes the following listed in this critical care notation. Medical Decision Making - Medical Records Medical records reviewed: Yes: I reviewed the patient's medical records. MR Comment: Reviewed recent CT high resolution chest done in December that showed mediastinal masses. Discussed with patient and . They have not been notified of this and were unaware. - [place] Inquiry Pt receiving controlled substance: No - Lab Data Result diagrams: 01/23/22 18:30 01/23/22 18:30 - Radiology Data #1 Image(s): Chest Image Reviewed: Yes I reviewed the patient's radiology image, Yes I have reviewed radiologist's interpretation - CT Data CT Scan: Head, Chest (cta), Other (cta head and neck) Time Received: 19:[address] Reviewed: Yes: I have viewed the radiologist's interpretation - Physician Consults Physician Consulted: Neus Time: 19:40 Reason -: Admission, Pt condition Comment/Response: Request CT angiogram chest to rule out PE. CT angiogram of head and neck will also be performed for further evaluation of his episodic right facial numbness. Call him back when results obtained. He requests vancomycin and Unasyn for new mastoid effusion which is on the same side as his 6th nerve palsy. Additional Consult: Neus Time: 21:11 Reason -: Pt condition Comment/Response: Advised of CTA chest head and neck findings. Advised that Dr. Priest will pursue transfer to [facility]. <Matias Messina - Last Filed: 01/23/22 21:10> - Lab Data Lab results reviewed: Yes: I reviewed the patient's lab results. Result diagrams: 01/23/22 18:30 01/23/22 18:30 - Physician Consults Additional Consult: Reason -: Pt condition <Kendall Priest - Last Filed: 01/23/22 23:07> Vital Signs: 01/23/22 18:25 01/23/22 18:34 01/23/22 19:00 Temperature 97.7 F Temperature Source Oral Pulse Rate 77 80 Pulse Rate [Radial] 82 Respiratory Rate 16 20 Blood Pressure 118/71 128/72 Blood Pressure [Right Arm] 115/77 Blood Pressure Mean 85 Blood Pressure Mean [Right Arm] 89 Blood Pressure Position [Right Arm] Sitting 02 Sat by Pulse Oximetry 99 95 Oxygen Delivery Method Nasal Cannula Nasal Cannula Oxygen Flow Rate (LPM) 6 6 01/23/22 19:31 Temperature Temperature Source Pulse Rate 78 Pulse Rate [Radial] Respiratory Rate 18 Blood Pressure 129/71 Blood Pressure [Right Arm] Blood Pressure Mean Blood Pressure Mean [Right Arm] Blood Pressure Position [Right Arm] 02 Sat by Pulse Oximetry 98 Oxygen Delivery Method Nasal Cannula Oxygen Flow Rate (LPM) 6 - Lab Data Lab Results 01/23/22 18:30: WBC 9.4, RBC 4.20 L, Hgb 12.3 L, Hct 39.0 L, MCV 92.8, MCH 29.4, MCHC 31.6 L, RDW 15.5, Plt Count 362, MPV 9.1, Neut % (Auto) 84.7 H, Lymph % (Auto) 7.9 L, [place] % (Auto) 1.2 L, Eos % (Auto) 4.9, Baso % (Auto) 1.3, Neut # (Auto) 8.0 H, Lymph # (Auto) 0.7, [place] # (Auto) 0.1, Eos # (Auto) 0.5 H, Baso # (Auto) 0.1 01/23/22 18:30: Sodium 137, Potassium 4.4, Chloride 100, Carbon Dioxide 30, Anion Gap 11.4, BUN 9, Creatinine 0.60
[2022-01-23 19:00] VITALS: BP 128/72; PULSE 80; RESP 20; O2SAT 95
[2022-01-23 19:03] LABS: Troponin I < 0.01 ng/ml (0.00-0.034)
[2022-01-23 19:31] VITALS: BP 129/71; PULSE 78; RESP 18; O2SAT 98
--- NOTE | 2022-01-23 19:35 | PC.NURSE ---
order desk caller for Dr. Chávez paged at this time.
--- NOTE | 2022-01-23 19:36 | PC.NURSE ---
ZURI MCDANIEL speaking to Dr. Pike
[2022-01-23 19:42] LABS: Influenza A, PCR Not Detected (NotDetected); Influenza B, PCR Not Detected (NotDetected)
--- NOTE | 2022-01-23 19:43 | CT_ITS ---
PROCEDURE INFORMATION: Exam: CT Angiography Head With Contrast, Arteriography Exam date and time: 01/23/2022 7:47 PM Age: 56 years old Clinical indication: Numbness; Additional info: Episodic numbness R face TECHNIQUE: Imaging protocol: Computed tomography angiography of the head with contrast. Exam focused on the arteries. 3D rendering (Not supervised by radiologist): MIP and/or 3D reconstructed images were created by the technologist. Radiation optimization: All CT scans at this facility use at least one of these dose optimization techniques: automated exposure control; mA and/or kV adjustment per patient size (includes targeted exams where dose is matched to clinical indication); or iterative reconstruction. Contrast material: ISOVUE 370; Contrast volume: 100 ml; Contrast route: INTRAVENOUS (IV); COMPARISON: CT HEAD/BRAIN WO CON 01/23/2022 6:42 PM FINDINGS: ANTERIOR CIRCULATION: Right internal carotid artery: Unremarkable. Intracranial segment is patent with no significant stenosis. No aneurysm. Right middle cerebral artery: Unremarkable. No occlusion or significant stenosis. No aneurysm. Right anterior cerebral artery: Unremarkable. No occlusion or significant stenosis. No aneurysm. Left internal carotid artery: Unremarkable. Intracranial segment is patent with no significant stenosis. No aneurysm. Left middle cerebral artery: Unremarkable. No occlusion or significant stenosis. No aneurysm. Left anterior cerebral artery: Unremarkable. No occlusion or significant stenosis. No aneurysm. POSTERIOR CIRCULATION: Right vertebral artery: Unremarkable. No occlusion or significant stenosis. No aneurysm. Left vertebral artery: Unremarkable. No occlusion or significant stenosis. No aneurysm. Basilar artery: Unremarkable. No occlusion or significant stenosis. No aneurysm. Right posterior cerebral artery: Unremarkable. No occlusion or significant stenosis. No aneurysm. Left posterior cerebral artery: Unremarkable. No occlusion or significant stenosis. No aneurysm. Brain: No definite mass, mass effect, or midline shift. Cerebral ventricles: No ventriculomegaly. Bones/joints: Unremarkable. No acute fracture. Soft tissues: Unremarkable. IMPRESSION: No large vessel stenosis or occlusion.
--- NOTE | 2022-01-23 19:43 | CT_ITS ---
PROCEDURE INFORMATION: Exam: CTA Chest With Contrast Exam date and time: 01/23/2022 7:53 PM Age: 56 years old Clinical indication: Shortness of breath; Additional info: SOA, o2 desats TECHNIQUE: Imaging protocol: Computed tomographic angiography of the chest with contrast. 3D rendering (Not supervised by radiologist): MIP and/or 3D reconstructed images were created by the technologist. Radiation optimization: All CT scans at this facility use at least one of these dose optimization techniques: automated exposure control; mA and/or kV adjustment per patient size (includes targeted exams where dose is matched to clinical indication); or iterative reconstruction. Contrast material: ISOVUE 370; Contrast volume: 70 ml; Contrast route: INTRAVENOUS (IV); COMPARISON: CT ANGIO CHEST PE PROTOCOL 08/14/2021 12:46 PM FINDINGS: Pulmonary arteries: No evidence of pulmonary embolus. Aorta: Unremarkable. No aortic aneurysm. No aortic dissection. Lungs: Ground-glass regions of opacification throughout both lungs. Prominent cystic changes in the right upper lobe. Regions of mucous plugging in the lower lobes. Pleural spaces: Pleural based mass lateral aspect left upper lobe. This measures 2 cm in maximum dimensions. Heart: Unremarkable. No cardiomegaly. No pericardial effusion. Mediastinal space: Evidence of prior granulomatous disease. Large anterior mediastinal mass now demonstrated. Findings new since 10/15/2020. This measures 11 cm in length by 5 cm in AP dimensions by 10 cm transversely. Lymph nodes: Calcified pretracheal and right perihilar noncalcified lymph nodes also demonstrated in the pretracheal space . Gallbladder and bile ducts: Cholelithiasis. Bones/joints: Unremarkable. No acute fracture. Soft tissues: Incomplete visualization of the upper abdomen suggestive of splenomegaly. Asymmetric nodularity of the left diaphragm also demonstrated. IMPRESSION: 1. No evidence of pulmonary embolus. 2. Extensive ground-glass regions of opacification with superimposed findings suggesting interstitial lung disease with regions of cystic change. History of respiratory failure and Covid [address] angio chest dated 07/11/2021. Lung parenchymal findings consistent with that history. 3. Anterior superior mediastinal mass measuring approximately 11 x 5 x 10 cm. Findings new since 10/15/2020. Demonstration of noncalcified mediastinal lymph nodes. Findings may correspond to lymphoma. Metastatic involvement should also be considered. 4. Demonstration of approximate 2 cm pleural base mass left upper lobe lateral aspect. 5. Incomplete visualization of findings suggesting splenomegaly. Consider follow-up with PET-CT imaging of the chest abdomen pelvis for further evaluation.
--- NOTE | 2022-01-23 19:43 | CT_ITS ---
PROCEDURE INFORMATION: Exam: CT Angiography Neck With Contrast Exam date and time: 01/23/2022 7:47 PM Age: 56 years old Clinical indication: Numbness; Additional info: Episodic numbness R face TECHNIQUE: Imaging protocol: Computed tomography angiography of the neck with contrast. 3D rendering (Not supervised by radiologist): MIP and/or 3D reconstructed images were created by the technologist. Radiation optimization: All CT scans at this facility use at least one of these dose optimization techniques: automated exposure control; mA and/or kV adjustment per patient size (includes targeted exams where dose is matched to clinical indication); or iterative reconstruction. Contrast material: ISOVUE 370; Contrast volume: 100 ml; Contrast route: INTRAVENOUS (IV); COMPARISON: CT ANGIO CHEST PE PROTOCOL 08/14/2021 12:46 PM FINDINGS: Right common carotid artery: No stenosis. No dissection or occlusion. Right internal carotid artery: No stenosis of the extracranial segment. No dissection or occlusion. Right external carotid artery: No occlusion or stenosis of the origin. Left common carotid artery: No stenosis. No dissection or occlusion. Left internal carotid artery: Minimal atherosclerotic plaque at its origin. No stenosis of the extracranial segment. No dissection or occlusion. Left external carotid artery: No occlusion or stenosis of the origin. Right vertebral artery: No stenosis. No dissection or occlusion. Left vertebral artery: No stenosis. No dissection or occlusion. Soft tissues: Normal. No significant soft tissue swelling. Bones/joints: No acute fracture. Mediastinal space: Anterior superior mediastinal mass measures 11 x 5 x 9 cm on today's exam. This is a new finding since the prior CT of the chest of August 14, 2021. Bilateral interstitial and airspace infiltrates with cystic changes in the apices, right greater than left. Follow-up repeat CT of the chest. IMPRESSION: 1. No evidence for aneurysm, stenosis, dissection or rupture on CTA of the aortic arch, the innominate artery, the subclavian arteries, the vertebral arteries, the common carotid arteries, the internal carotid arteries, the external carotid arteries or the respective visualized branches. 2. Anterior superior mediastinal mass measures 11 x 5 x 9 cm on today's exam. This is a new finding since the prior CT of the chest of August 14, 2021. Bilateral interstitial and airspace infiltrates with cystic changes in the apices, right greater than left. Follow-up repeat CT of the chest. REFERENCES: NASCET CRITERIA. The degree of internal carotid artery stenosis is based on NASCET criteria. Normal is no stenosis. Mild is less than 50% stenosis. Moderate is 50-69% stenosis. Severe is 70% to 99% stenosis. Total occlusion is no detectable patent lumen.
--- NOTE | 2022-01-23 19:47 | PC.NURSE ---
Pt gone to RAD
--- NOTE | 2022-01-23 20:00 | PC.NURSE ---
Pt back from RAD
[2022-01-23 20:04] LABS: Coronavirus 19, PCR Detected (NotDetected)
--- NOTE | 2022-01-23 20:30 | PC.NURSE ---
Spoke with Alaina from [facility] at this time to obtain vancomycin dosing.
[2022-01-23 22:11] LABS: Troponin I < 0.01 ng/ml (0.00-0.034)
--- NOTE | 2022-01-23 22:26 | PC.NURSE ---
ER speaking with [facility]
[2022-01-23 23:07] VITALS: BMI 33.7
--- NOTE | 2022-01-23 23:17 | PC.NURSE ---
Report given to Buddy Adam RN at this time.
--- NOTE | 2022-01-23 23:51 | PC.NURSE ---
PT ARRIVED TO FLOOR VIA W/C FROM ED W/STAFF @ [id number]
[2022-01-24] VITALS (8 sets, daily range): BP systolic 123–177; BP diastolic 59–82; PULSE 65–90; RESP 20–24; TEMP 36.5–37; O2SAT 94–98; BMI 33.8
[2022-01-24 00:48] LABS: Troponin I < 0.01 ng/ml (0.00-0.034)
--- NOTE | 2022-01-24 03:57 | PC.NURSE ---
Addendum entered by Francie Adam RN 01/24/22 04:50: Tele - NSR/Sinus Arrhythmia Original Note: No acute episodes or changes since admission to floor. Pt is currently on 6 L NC, normally wears 3-4 L NC at home. IV infusing per order. Around 0300, pt c/o a headache rating it a 3/10. Medicated per NOV. Pt is on tele - NSR. Maintaining airborne/contact precautions. No other complaints or needs voiced at this time. Call light in reach.
[2022-01-24 06:47] LABS: Basophils # 0.1 K/mm3 (0-0.2); Basophils % 0.5 % (0.1-2.0); Eosinophils # 0.4 K/mm3 (0.0-0.4); Eosinophils % 3.9 % (0.1-12.0); Hematocrit 36.4 % (42.0-52.0); Hemoglobin 11.5 g/dL (14.1-18.0); Lymphocytes % 9.4 % (10-50); Mean Corpuscular HGB Conc 31.6 g/dL (31.8-35.4); Mean Corpuscular Hemoglobin 29.6 pg (27.0-31.2); Mean Corpuscular Volume 93.8 fl (80-94); Mean Platelet Volume 8.8 fl (7.4-10.4); Monocytes # 0.2 K/mm3 (0.1-1.0); Monocytes % 1.6 % (1.7-9.3); Neutrophils # 8.6 K/mm3 (1.8-7.8); Neutrophils % 84.4 % (37.0-80.0); Platelet Count 297 K/mm3 (142-424); Red Blood Count 3.88 M/mm3 (4.60-6.20); Red Cell Distribution Width 15.5 % (11.5-17.5); White Blood Count 10.2 K/mm3 (4.8-10.8)
[2022-01-24 06:48] LABS: Anion Gap 10.9 mEq/L (5-15); Blood Urea Nitrogen 12 mg/dl (9-20); Calcium 9.2 mg/dl (8.4-10.2); Carbon Dioxide 32 mmol/L (22.0-30.0); Chloride 99 mmol/L (98-107); Creatinine Clearance Estimated 183 mL/min (50-200); Estimated Glomerular Filt Rate 117 ml/min (>60); GFR (African American) 141 ML/MIN (>60); Glucose 128 mg/dl (74-100); Magnesium 1.7 mg/dl (1.6-2.3); Potassium 3.9 mmoL/L (3.5-5.1); Sodium 138 mmol/L (136-145)
--- NOTE | 2022-01-24 07:15 | HMH.PHAVTE ---
[facility] VTE Monitoring - Patient Demographics Admission date: 01/23/22 Report Date: 01/24/22 Time: 07:15 Allergies/Adverse Reactions: Patient Allergies No Known Allergies Allergy (Verified 11/30/21 13:28) Height: 1.8 m Weight: 109.769 kg Patient Problems: Current Active Problems 6th nerve palsy (Acute) Mediastinal mass (Acute) Lab test positive for detection of COVID-19 virus (Acute) Shortness of breath (Acute) Mastoiditis (Acute) TIA (transient ischemic attack) (Acute) - VTE Risk Labs: VTE Related Lab Results Hgb 11.5 g/dL (14.1-18.0) L 01/24/22 06:15 Hct 36.4 % (42.0-52.0) L 01/24/22 06:15 Plt Count 297 K/mm3 (142-424) 01/24/22 06:15 BUN 12 mg/dl (9-20) D 01/24/22 06:15 Creatinine 0.70 mg/dl (0.66-1.25) 01/24/22 06:15 Estimated Creat Clear 183 mL/min (50-200) 01/24/22 06:15 VTE Score: 5 VTE Risk Level: Low Risk - Prophylaxis VTE Prophylaxis Ordered?: Yes Types of VTE Prophylaxis: TEDS Knee High Location of Applied Device: Bilateral Lower Extremeties
[2022-01-24 08:04] LABS: POC Glucose,Bedside 120 (70-110)
--- NOTE | 2022-01-24 08:19 | HMH.PHACONS ---
- Pharmacy Consult Date: 01/24/22 Time: 08:19 Referring provider: DR. FIELDS Reason for Consult:: VANCOMYCIN DOSING Allergies and ADEs:: Allergies Allergy/AdvReac Type Severity Reaction Status Date / Time No Known Allergies Allergy Verified 11/30/21 13:28 Home Medications:: Home Medications Medication Instructions Recorded Confirmed Type omeprazole 20 mg capsule,delayed 20 mg PO HS 03/13/19 01/23/22 History release Atorvastatin Calcium [Lipitor 40mg 40 mg PO HS 07/12/21 01/23/22 History Tab] Losartan Potassium [Cozaar 100mg 100 mg PO DAILY 07/12/21 01/23/22 History Tablets] Ascorbic Acid [Vitamin C 500mg 500 mg PO BID 01/23/22 01/23/22 History tablet] Ergocalciferol (Vitamin D2) 50,000 unit PO WEEKLY 01/23/22 01/23/22 History [Drisdol 50,000 units (1.25mg) capsule] Famotidine [Pepcid 20mg Tablet] 20 mg PO BID 01/23/22 01/23/22 History Glycopyrrolate/Formoterol Fum 2 puff IH BID 01/23/22 01/23/22 History [Bevespi Aerosphere] Insulin Glargine,Hum.rec.anlog 100 unit SQ HS 01/23/22 History [Lantus Solostar] Rivaroxaban [Xarelto 10mg tablet] 10 mg PO QPMWITHMEAL 01/23/22 History Zinc Sulfate [Zinc Sulfate 220mg 220 mg PO DAILY 01/23/22 01/23/22 History capsule] Albuterol Sulfate [Albuterol 2.5 mg IH Q6H 01/24/22 01/24/22 History 0.083% 2.5mg/3mL neb] Albuterol Sulfate [Proair Hfa] 2 puff IH Q4HP PRN 01/24/22 01/24/22 History Fluoxetine HCl [Prozac] 20 mg PO DAILY 01/24/22 01/24/22 History Meloxicam 15 mg PO DAILY 01/24/22 01/24/22 History Semaglutide [Ozempic] 0.25 mg SQ WEEKLY 01/24/22 01/24/22 History Height: 1.8 m Weight: 109.769 kg Laboratory Results:: Laboratory Results - last 24 hr 01/23/22 18:30: WBC 9.4, RBC 4.20 L, Hgb 12.3 L, Hct 39.0 L, MCV 92.8, MCH 29.4, MCHC 31.6 L, RDW 15.5, Plt Count 362, MPV 9.1, Neut % (Auto) 84.7 H, Lymph % (Auto) 7.9 L, [place] % (Auto) 1.2 L, Eos % (Auto) 4.9, Baso % (Auto) 1.3, Neut # (Auto) 8.0 H, Lymph # (Auto) 0.7, [place] # (Auto) 0.1, Eos # (Auto) 0.5 H, Baso # (Auto) 0.1 01/23/22 18:30: Sodium 137, Potassium 4.4, Chloride 100, Carbon Dioxide 30, Anion Gap 11.4, BUN 9, Creatinine 0.60 L, Estimated Creat Clear 220, Estimated GFR 139, Est GFR ( Amer) 169, Glucose 135 H, Calcium 9.2, Troponin I < 0.01 01/23/22 19:39: SARS-CoV-2 (PCR) Detected A, Influenza A Untype (PCR) Not detected, Influenza Type B (PCR) Not detected 01/23/22 21:35: Troponin I < 0.01 01/24/22 00:20: Troponin I < 0.01 01/24/22 05:44: POC Glucose 120 H 01/24/22 06:15: WBC 10.2, RBC 3.88 L, Hgb 11.5 L, Hct 36.4 L, MCV 93.8, MCH 29.6, MCHC 31.6 L, RDW 15.5, Plt Count 297, MPV 8.8, Neut % (Auto) 84.4 H, Lymph % (Auto) 9.4 L, [place] % (Auto) 1.6 L, Eos % (Auto) 3.9, Baso % (Auto) 0.5, Neut # (Auto) 8.6 H, Lymph # (Auto) 1.0, [place] # (Auto) 0.2, Eos # (Auto) 0.4, Baso # (Auto) 0.1 01/24/22 06:15: Sodium 138, Potassium 3.9, Chloride 99, Carbon Dioxide 32 H, Anion Gap 10.9, BUN 12 D, Creatinine 0.70, Estimated Creat Clear 183, Estimated GFR 117, Est GFR ( Amer) 141, Glucose 128 H, Calcium 9.2, Magnesium 1.7 Medical History: Reports:: Chronic Obstructive Pulmonary Disease (COPD), Diabetes Mellitus Type 2, Hyperlipidemia, Hypertension Denies:: Cancer, Diabetes Mellitus Type 1, MRSA Assessment and Plan - Assessment and plan all Dx Assessment and Plan for all problems:: Age: 56 yo Serum creatinine: 0.7 mg/dL Height: 70.9 Inches Weight (kg): 109.8 IBW (kg): 75.07 Dosing wt(kg): 109.8 Estimated Creatinine clearance (ml/min): 125.1 CRCL method: Cockcroft and Gault using ibw(default). Drug selected: Vancomycin Loading dose (mg): 0 Vd (liters): 87.8 (factor used: 0.8 L/kg) Danyel (hr-1): 0.108 Half life (hrs): 6.42 Recommended dose: 1750 mg Interval: 8 hrs Infusion time (hrs): 2.0 Predicted peak (mcg/mL): 31.0 Predicted trough (mcg/mL): 16.22 Total body weight is being used for vancomyc
--- NOTE | 2022-01-24 08:27 | HMH.HP ---
*Admission Date: 01/23/22 *Chief complaint: Cough/congestion/right facial numbness *History of present illness: 56-year-old white male with history of diabetes, history of COPD and a history of COVID-19 infection in July 2021, who has had his primary vaccination series for COVID-19. 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 Seen in my office and has been doing well. He has an appointment with neuro-ophthalmology for prism glasses, and has been stable. Came to the ER last night because his right facial tingling and numbness. In the ER work-up showed evidence of groundglass infiltrate in his chest, he had a significant work-up in the ER because of the right facial numbness that showed no changes in the brain on CTA scanning, he also had moderate carotid occlusion/plaques on CTA of the neck. CT of the chest was done which revealed groundglass infiltrates but no evidence of PE. Consideration was given for transfer to but patient was neurologically stable. Patient was admitted here for treatment of his pneumonitis, respiratory status with slightly increased oxygen requirement and further evaluation of his right facial numbness and his mastoiditis which was found on CTA of the head. In the ER he was started on vancomycin and Unasyn for the mastoiditis. [facility] History I have reviewed the patient's past medical history: Yes Medical History: Reports:: Chronic Obstructive Pulmonary Disease (COPD), Diabetes Mellitus Type 2, Hyperlipidemia, Hypertension Denies:: Cancer, Diabetes Mellitus Type 1, MRSA *Have you ever received a pneumonia vaccine?: No *Have you received a flu vaccine this season?: Yes Other Medical History: Reports: Arthritis Other Surgeries: Yes: No Previous Surgery, Colonoscopy Amputation: No Fractures: No - *Social History Last grade of school completed: 11th or 12th Smoking Status: Former smoker Tobacco Type: cigarettes #Yrs smoked (if former smoker): 27 Alcohol Intake: current Alcohol Intake Frequency:: a few times a week Substance Use Type: denies use *Occupational Status:: disabled Housing: house Household Members: significant other *Travel in the last 8 weeks: Inside the [facility] Family Hx:: Asthma, Cancer Review of Systems - Review of Systems Review of systems:: pertinent systems reviewed and negative unless documented below - *Neurologic Reports headache(s), Reports numbness Meds Home Medications Medication Instructions Recorded Confirmed Type omeprazole 20 mg capsule,delayed 20 mg PO HS 03/13/19 01/23/22 History release Atorvastatin Calcium [Lipitor 40mg 40 mg PO HS 07/12/21 01/23/22 History Tab] Losartan Potassium [Cozaar 100mg 100 mg PO DAILY 07/12/21 01/23/22 History Tablets] Ascorbic Acid [Vitamin C 500mg 500 mg PO BID 01/23/22 01/23/22 History tablet] Ergocalciferol (Vitamin D2) 50,000 unit PO WEEKLY 01/23/22 01/23/22 History [Drisdol 50,000 units (1.25mg) capsule] Famotidine [Pepcid 20mg Tablet] 20 mg PO BID 01/23/22 01/23/22 History Glycopyrrolate/Formoterol Fum 2 puff IH BID 01/23/22 01/23/22 History [Bevespi Aerosphere] Insulin Glargine,Hum.rec.anlog 100 unit SQ HS 01/23/22 History [Lantus Solostar] Rivaroxaban [Xarelto 10mg tablet] 10 mg PO QPMWITHMEAL 01/23/22 History Zinc Sulfate [Zinc Sulfate 220mg 220 mg PO DAILY 01/23/22 01/23/22 History capsule] Albuterol Sulfate [Albuterol 2.5 mg IH Q6H 01/24/22 01/24/22 History 0.083% 2.5mg/3mL neb] Albuterol Sulfate [Proair Hfa] 2 puff IH Q4HP PRN 01/24/22 01/24/22 History Fluoxetine HCl [Prozac] 20 mg PO DAILY 01/24/22 01/24/22 History Meloxicam 15 mg PO DAILY 01/24/22 01/24/22 History Semaglutide [Ozempic] 0.25 mg SQ WEEKLY 01/24/22 01/24/22 History Allergies Allergy/AdvReac Type Severity React
--- NOTE | 2022-01-24 10:07 | MR_ITS ---
FINAL REPORT TECHNIQUE: Multiplanar and multisequence imaging of the brain was obtained without contrast. CLINICAL HISTORY: RIGHT FACIAL PALSY. COVID POSITIVE. FINDINGS: The gyri and sulci are within normal limits for age. There is no mass effect or midline shift. The ventricles are symmetric in size and configuration without hydrocephalus. There are no areas of abnormal signal intensity. The cerebellum and brainstem have a normal appearance. There are no areas of restricted diffusion on diffusion weighted images to suggest acute infarct. There is fluid in the bilateral mastoid air cells. Soft tissues are otherwise without acute abnormality. IMPRESSION: No acute intracranial abnormality. Bilateral mastoiditis Reviewed, Interpreted and Dictated by Maria De Jesus Ahumada MD Transcribed by Samira Pelayo Authenticated by Maria De Jesus Ahumada MD on 01/24/2022 01:19:51 PM [facility]
--- NOTE | 2022-01-24 10:30 | HMH.PHAINT ---
MEDICATION RECONCILIATION COMPLETED ON PATIENT USING EXTERNAL FILL HISTORY FROM PHARMACY, CALL TO CLINIC PHARMACY, AND CALL TO PCP OFFICE. -FELICIA VELEZD
--- NOTE | 2022-01-24 10:48 | HMH.PULMCON ---
*Admission Date: 01/23/22 *Reason for consult:: Acute on chronic hypoxic respiratory failure *History of present illness: Me. Mendiola is a a 56-year-old male history of COVID-19 pneumonia, chronic hypoxic respiratory failure pulmonary fibrosis after COVID-19 pneumonia presented to hospital with worsening facial weakness and found to have an anterior mediastinal mass and pulmonary was called for further management. [facility] History Medical History: Reports:: Chronic Obstructive Pulmonary Disease (COPD), Diabetes Mellitus Type 2, Hyperlipidemia, Hypertension Denies:: Cancer, Diabetes Mellitus Type 1, MRSA *Have you ever received a pneumonia vaccine?: No *Have you received a flu vaccine this season?: Yes Other Medical History: Reports: Arthritis Other Surgeries: Yes: No Previous Surgery, Colonoscopy Amputation: No Fractures: No - *Social History Last grade of school completed: 11th or 12th Smoking Status: Former smoker Tobacco Type: cigarettes #Yrs smoked (if former smoker): 27 Alcohol Intake: current Alcohol Intake Frequency:: a few times a week Substance Use Type: denies use *Occupational Status:: disabled Housing: house Household Members: significant other *Travel in the last 8 weeks: Inside the [facility] Family Hx:: Asthma, Cancer ROS - Cons Reports anorexia, Reports fatigue - Eyes Denies change in vision - ENT Denies facial pain, Denies nasal congestion - Card Reports shortness of breath, Reports shortness of breath with activity, Reports shortness of breath when lying down - Resp Respiratory: Reports dyspnea, Reports dyspnea on exertion, Denies excessive phlegm production - GI Gastrointestingal: Denies: abdominal pain - [place] Musculoskeletal: Reports muscle weakness - Psych Denies thoughts of hurting/killing others, Denies thoughts of hurting/killing yourself Meds Home Medications Medication Instructions Recorded Confirmed Type omeprazole 20 mg capsule,delayed 20 mg PO HS 03/13/19 01/23/22 History release Atorvastatin Calcium [Lipitor 40mg 40 mg PO HS 07/12/21 01/23/22 History Tab] Losartan Potassium [Cozaar 100mg 100 mg PO DAILY 07/12/21 01/23/22 History Tablets] Ascorbic Acid [Vitamin C 500mg 500 mg PO BID 01/23/22 01/23/22 History tablet] Ergocalciferol (Vitamin D2) 50,000 unit PO WEEKLY 01/23/22 01/23/22 History [Drisdol 50,000 units (1.25mg) capsule] Famotidine [Pepcid 20mg Tablet] 20 mg PO BID 01/23/22 01/23/22 History Glycopyrrolate/Formoterol Fum 2 puff IH BID 01/23/22 01/23/22 History [Bevespi Aerosphere] Zinc Sulfate [Zinc Sulfate 220mg 220 mg PO DAILY 01/23/22 01/23/22 History capsule] Albuterol Sulfate [Albuterol 2.5 mg IH Q6H 01/24/22 01/24/22 History 0.083% 2.5mg/3mL neb] Albuterol Sulfate [Proair Hfa] 2 puff IH Q4HP PRN 01/24/22 01/24/22 History Fluoxetine HCl [Prozac] 20 mg PO DAILY 01/24/22 01/24/22 History Meloxicam 15 mg PO DAILY 01/24/22 01/24/22 History Semaglutide [Ozempic] 0.25 mg SQ WEEKLY 01/24/22 01/24/22 History Allergies Allergy/AdvReac Type Severity Reaction Status Date / Time No Known Allergies Allergy Verified 11/30/21 13:28 Exam - Constitutional Constitutional:: Present: no acute distress, comfortable - HENMT Exam HENMT: Present: normocephalic - Eye Exam Eyes:: Present: normal appearance both eyes and related structures - Neck Exam Neck:: Present: normal visual inspection - Respiratory Exam Respiratory:: Present: able to speak in complete sentences, no respiratory distress, rales. Absent: wheezing - Cardiovascular Exam Cardiac:: Present: S1, S2 - GI Exam GI:: Present: soft - Skin Exam Skin: Present: warm, no rash - Neurological Exam Neurological: Present: alert, awake, normal cognition. Absent: CN II-XII intact - Extremities Exam Extremities: Present: no cyanosis, no clubbing, no edema - Psychiatric Exam Psychiatric: Present: normal affect Internal Medicine - CN: Reslt - [place]
[2022-01-24 12:32] LABS: POC Glucose,Bedside 128 (70-110)
[2022-01-24 13:25] LABS: Lactate Dehydrogenase 322 U/L (313-618)
[2022-01-24 14:11] LABS: HCG,Quantitative < 2 mIU/ml (0-5.42)
[2022-01-24 16:11] LABS: POC Glucose,Bedside 109 (70-110)
--- NOTE | 2022-01-24 16:55 | PC.NURSE ---
PT IS RESTING IN BED. REPOSITIONING FROM SIDE TO SIDE INDEPENDENTLY NEEDED. ALERT AND ORIENTED X4. LUNG SOUNDS DIMINISHED. ABDOMEN SOFT/NON TENDER WITH ACTIVE BOWEL SOUNDS. O2 SATURATION HAS MAINTAINED 90-95% ON 2 L NC T/O THE SHIFT. PT STATES HE ONLY GETS SOA AND FEELS LIKE HE NEEDS MORE OXYGEN WITH EXERTION. WILL CONTINUE TO MONITOR.
[2022-01-24 20:54] LABS: POC Glucose,Bedside 120 (70-110)
[2022-01-25] VITALS (8 sets, daily range): BP systolic 146–165; BP diastolic 63–84; PULSE 67–90; RESP 17–20; TEMP 36.5–37.1; O2SAT 96–99; BMI 34.1; BMI 33.9
[2022-01-25 05:52] LABS: POC Glucose,Bedside 111 (70-110)
[2022-01-25 07:58] LABS: Basophils # 0.1 K/mm3 (0-0.2); Basophils % 1.4 % (0.1-2.0); Eosinophils # 0.3 K/mm3 (0.0-0.4); Eosinophils % 3.7 % (0.1-12.0); Hematocrit 38.3 % (42.0-52.0); Hemoglobin 12.1 g/dL (14.1-18.0); Mean Corpuscular HGB Conc 31.6 g/dL (31.8-35.4); Mean Corpuscular Volume 95.1 fl (80-94); Mean Platelet Volume 9.6 fl (7.4-10.4); Monocytes # 0.1 K/mm3 (0.1-1.0); Monocytes % 1.3 % (1.7-9.3); Neutrophils # 7.4 K/mm3 (1.8-7.8); Neutrophils % 82.7 % (37.0-80.0); Platelet Count 293 K/mm3 (142-424); Red Blood Count 4.02 M/mm3 (4.60-6.20); Red Cell Distribution Width 15.2 % (11.5-17.5)
[2022-01-25 08:26] LABS: Alanine Aminotransferase 23 U/L (12-78); Albumin/Globulin Ratio 1.3 (1.1-1.8); Alkaline Phosphatase 85 U/L (38-126); Anion Gap 10.7 mEq/L (5-15); Aspartate Amino Transferase 33 U/L (17-59); Bilirubin,Total 1.3 mg/dl (0.2-1.3); Blood Urea Nitrogen 10 mg/dl (9-20); Calcium 8.9 mg/dl (8.4-10.2); Carbon Dioxide 31 mmol/L (22.0-30.0); Chloride 100 mmol/L (98-107); Creatinine Clearance Estimated 161 mL/min (50-200); Estimated Glomerular Filt Rate 100 ml/min (>60); GFR (African American) 121 ML/MIN (>60); Globulin 3.2 g/dL (1.3-3.2); Glucose 185 mg/dl (74-100); Potassium 3.7 mmoL/L (3.5-5.1); Sodium 138 mmol/L (136-145); Total Protein,Serum 7.2 g/dl (6.3-8.2)
[2022-01-25 09:14] LABS: AFP, Tumor Marker 1.7 ng/mL (0.0-8.4)
--- NOTE | 2022-01-25 09:14 | HMH.DCSUM ---
General - General Admission date:: 01/24/22 Discharge date: 01/25/22 HPI HPI: 56-year-old white male with history of diabetes, history of COPD and a history of COVID-19 infection in July 2021, who has had his primary vaccination series for COVID-19. 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 Seen in my office and has been doing well. He has an appointment with neuro-ophthalmology for prism glasses, and has been stable. Came to the ER last night because his right facial tingling and numbness. In the ER work-up showed evidence of groundglass infiltrate in his chest, he had a significant work-up in the ER because of the right facial numbness that showed no changes in the brain on CTA scanning, he also had moderate carotid occlusion/plaques on CTA of the neck. CT of the chest was done which revealed groundglass infiltrates but no evidence of PE. Consideration was given for transfer to but patient was neurologically stable. Patient was admitted here for treatment of his pneumonitis, respiratory status with slightly increased oxygen requirement and further evaluation of his right facial numbness and his mastoiditis which was found on CTA of the head. In the ER he was started on vancomycin and Unasyn for the mastoiditis. Hospital Course Hospital Course: 56-year-old male with prior history of COVID-pneumonia. Had a prolonged hospital course leading to pulmonary fibrosis and chronic hypoxic respiratory failure. He presented on this admission to the ER complaining of facial weakness and found to be positive again for COVID-19. He has had some mild worsening of his respiratory distress. Admitted managed inpatient. Pulmonary consulted during admission. Appreciate their recommendations. Problems addressed as follows: 1. Acute on chronic hypoxic respiratory failure 2/2 COVID-19 pneumonia with pulmonary fibrosis: - CTA performed on this admission, pulmonary parenchyma did not show any significant difference from his most recent CAT scan, parenchymal changes actually improved.. Patient also noted a large anterior mediastinal mass rapidly increasing in size. - No significant change in mediastinal or hilar lymphadenopathy noted from his most recent CAT scan. - Has remained stable on 2-3 L O2, with saturations in mid 90s. - Treated with vancomycin and unasyn during admission. Will wean to Augmentin to complete an empiric course upon discharge -Oxygen supplementation to maintain O2 saturation goal of 90% and above. Continue Combivent every 6 hours scheduled, sent home with inhaler. - Continue remdesivir x3 days (day 2/3), will bring him back to outpatient infusion tomorrow 01/26 for dose 3 given risk of progressing to severe COVID-19 pneumonia 2. Anterior mediastinal mass: - CT of chest noted to have large anterior mediastinal mass 11 cm in length by 5 cm in AP dimensions by 10 cm transversely. It appears to be rapidly growing compared to recent HRCT from December 2021. Also noted have left pleural based nodule worsening in size. This lesion is concerning for thymoma versus lymphoma. 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 Patient would benefit from core biopsy performed by VATS or mediastinoscopy. He has been referred to CT surgery at [facility] for further management. Informed patient that they will contact him for further work-up. -Labs obtained including LDH, beta-hCG, and AFP that are within normal limits. Will have close follow-up with patient to monitor for improvement in symptoms. Stable for discharge home. Examined on day of discharge. Objective Vital signs: Temp Pulse Resp BP Pulse Ox 97.9 F 85 18 146/63 H 99 01/25/22 07:21 01/25/22 07:21 01/25/22 07:21 01/25/22 07:01/03
--- NOTE | 2022-01-25 10:42 | HMH.PULMPN ---
Internal Medicine - PN: Subj *Date: 01/25/22 *Time: 10:42 Interval history: No acute respiratory vents overnight. Denies any new respiratory complaints. Exam - Constitutional Constitutional:: Present: no acute distress, comfortable - HENMT Exam HENMT: Present: normocephalic, atraumatic - Eye Exam Eyes:: Present: normal appearance both eyes and related structures - Neck Exam Neck:: Present: normal visual inspection - Respiratory Exam Respiratory:: Present: able to speak in complete sentences, no respiratory distress, normal respiratory effort, rales. Absent: wheezing - Cardiovascular Exam Cardiac:: Present: S1, S2 - GI Exam GI:: Present: soft - Skin Exam Skin: Present: warm, no rash - Neurological Exam Neurological: Present: alert, awake - Extremities Exam Extremities: Present: no cyanosis, no clubbing, no edema Assessment and Plan (1) 6th nerve palsy Status: Acute Qualifiers: Laterality: left Qualified Code(s): H49.22 - Sixth [abducent] nerve palsy, left eye Category: Medical Code(s): H49.20 - Sixth [abducent] nerve palsy, unspecified eye (2) Lab test positive for detection of COVID-19 virus Status: Acute Category: Medical Code(s): U07.1 - COVID-19 (3) Mastoiditis Status: Acute Qualifiers: Laterality: left Qualified Code(s): H70.92 - Unspecified mastoiditis, left ear Category: Medical Code(s): H70.90 - Unspecified mastoiditis, unspecified ear - Assessment and plan all Dx Assessment and Plan for all problems:: #Acute on chronic hypoxic respiratory failure: #Pulmonary fibrosis #COVID-19 pneumonia: 56-year-old prior history of COVID-19 pneumonia prolonged hospital course leading to pulmonary fibrosis & chronic hypoxic respiratory failure. Patient presented complaining of facial weakness and found to be positive for COVID-19 pneumonia again. Patient admits mild worsening respiratory distress. CTA performed on this admission, pulmonary parenchyma did not show any significant difference from his most recent CAT scan, parenchymal changes actually improved.. Patient also noted a large anterior mediastinal mass rapidly increasing in size. No significant change in mediastinal or hilar lymphadenopathy noted from his most recent CAT scan. Interval update: No acute respiratory vents overnight. Patient continues to remain on 1 to 2 L at rest with saturations maintained at 95% and above. Plan: -Wean antibiotics to Augmentin to complete a total of 5-day course upon discharge -Oxygen supplementation to maintain O2 saturation goal of 90% and above. Continue Combivent every 6 hours scheduled, can be discharged home inhaler therapy which include Bevespi -Continue remdesivir x3 days (day 2/3)given patient's high risk for progressing to severe COVID-19 pneumonia #Anterior mediastinal mass: Patient on the CT noted to have large anterior mediastinal mass around 11 cm and rapidly growing compared to his most recent HRCT from December 2021. Also noted have left pleural based nodule worsening in size. Concerning for thymoma especially given presentation with weakness along with other possible differentials for anterior mediastinal mass. Patient did not have any significant mediastinal or hilar lymphadenopathy amendable for EBUS at this point of time. He would benefit from core biopsy via VATS/mediastinoscopy. LDH, beta HCG and AFP WNL Plan:- -Recommend transferring patient to a facility where such procedure can be facilitated LEBRON especially in setting of worsening weakness rapidly growing anterior mediastinal mass and normal brain MRI -F/U ACh receptor Ab. -Evaluate for other possible etiology of patient's weakness as per primary team #Thank for involving pulmonary in this patient care. We will continue to follow.
[2022-01-25 11:21] LABS: POC Glucose,Bedside 106 (70-110)
[2022-01-25 13:13] LABS: Vancomycin,Trough 23.5 ug/mL (5.0-10.0)
--- NOTE | 2022-01-25 13:15 | PC.NURSE ---
Received critical lab notification on pt. Vanc trough 23.5. notified primary ROSIBEL Loco at [phone]
--- NOTE | 2022-01-25 13:22 | PC.NURSE ---
Pharmacy notified of critical value vanc trough so dosage can be adjusted.
--- NOTE | 2022-01-25 13:33 | HMH.PHACONS ---
- Pharmacy Consult Date: 01/25/22 Time: 13:34 Referring provider: DR FIELDS Reason for Consult:: VANCOMYCIN DOSING ADJUSTMENT Allergies and ADEs:: Allergies Allergy/AdvReac Type Severity Reaction Status Date / Time No Known Allergies Allergy Verified 11/30/21 13:28 Home Medications:: Home Medications Medication Instructions Recorded Confirmed Type omeprazole 20 mg capsule,delayed 20 mg PO HS 03/13/19 01/23/22 History release Atorvastatin Calcium [Lipitor 40mg 40 mg PO HS 07/12/21 01/23/22 History Tab] Losartan Potassium [Cozaar 100mg 100 mg PO DAILY 07/12/21 01/23/22 History Tablets] Ascorbic Acid [Vitamin C 500mg 500 mg PO BID 01/23/22 01/23/22 History tablet] Ergocalciferol (Vitamin D2) 50,000 unit PO WEEKLY 01/23/22 01/23/22 History [Drisdol 50,000 units (1.25mg) capsule] Famotidine [Pepcid 20mg Tablet] 20 mg PO BID 01/23/22 01/23/22 History Glycopyrrolate/Formoterol Fum 2 puff IH BID 01/23/22 01/23/22 History [Bevespi Aerosphere] Zinc Sulfate [Zinc Sulfate 220mg 220 mg PO DAILY 01/23/22 01/23/22 History capsule] Albuterol Sulfate [Albuterol 2.5 mg IH Q6H 01/24/22 01/24/22 History 0.083% 2.5mg/3mL neb] Albuterol Sulfate [Proair Hfa] 2 puff IH Q4HP PRN 01/24/22 01/24/22 History Fluoxetine HCl [Prozac] 20 mg PO DAILY 01/24/22 01/24/22 History Meloxicam 15 mg PO DAILY 01/24/22 01/24/22 History Semaglutide [Ozempic] 0.25 mg SQ WEEKLY 01/24/22 01/24/22 History Height: 1.8 m Weight: 110.586 kg Laboratory Results:: Laboratory Results - last 24 hr 01/24/22 06:15: Lactate Dehydrogenase 322, HCG, Quant < 2 01/24/22 06:15: Tumor Marker AFP 1.7 01/24/22 15:46: POC Glucose 109 05/23/22 20:42: POC Glucose 120 H 01/25/22 05:21: POC Glucose 111 H 01/25/22 07:43: WBC 9.0, RBC 4.02 L, Hgb 12.1 L, Hct 38.3 L, MCV 95.1 H, MCH 30.0, MCHC 31.6 L, RDW 15.2, Plt Count 293, MPV 9.6, Neut % (Auto) 82.7 H, Lymph % (Auto) 11.0, [place] % (Auto) 1.3 L, Eos % (Auto) 3.7, Baso % (Auto) 1.4, Neut # (Auto) 7.4, Lymph # (Auto) 1.0, [place] # (Auto) 0.1, Eos # (Auto) 0.3, Baso # (Auto) 0.1 01/25/22 07:43: Sodium 138, Potassium 3.7, Chloride 100, Carbon Dioxide 31 H, Anion Gap 10.7, BUN 10, Creatinine 0.80, Estimated Creat Clear 161, Estimated GFR 100, Est GFR ( Amer) 121, Glucose 185 H, Calcium 8.9, Total Bilirubin 1.3, AST 33, ALT 23, Alkaline Phosphatase 85, Total Protein 7.2, Albumin 4.0, Globulin 3.2, Albumin/Globulin Ratio 1.3 01/25/22 11:14: POC Glucose 106 01/25/22 12:26: Vancomycin Trough 23.5 H Medical History: Reports:: Chronic Obstructive Pulmonary Disease (COPD), Diabetes Mellitus Type 2, Hyperlipidemia, Hypertension Denies:: Cancer, Diabetes Mellitus Type 1, MRSA Assessment and Plan (1) 6th nerve palsy Status: Acute Qualifiers: Laterality: left Qualified Code(s): H49.22 - Sixth [abducent] nerve palsy, left eye Category: Medical Code(s): H49.20 - Sixth [abducent] nerve palsy, unspecified eye (2) Lab test positive for detection of COVID-19 virus Status: Acute Category: Medical Code(s): U07.1 - COVID-19 (3) Mastoiditis Status: Acute Qualifiers: Laterality: left Qualified Code(s): H70.92 - Unspecified mastoiditis, left ear Category: Medical Code(s): H70.90 - Unspecified mastoiditis, unspecified ear - Assessment and plan all Dx Assessment and Plan for all problems:: Pharmacokinetic dosing service Weight: 109.8 Kilograms Vancomycin single level analysis: Current dose being given: 1750 mg Current dosing interval: 8 hrs Current infusion time (hrs): 2 Single level Trough Data: Trough level obtained: 23.5 mcg/ml Timing of trough - # of hrs before next dose: 0.5 Hrs Desired peak: 35 mcg/ml Desired trough: 12.5 mcg/ml Estimated PK Parameters: New rate constant (isis): 0.090 hr-1 Half-life: 7.70 Hours Vd from levels: 76.86 Liters (0.7 L/kg) CLvanco=?? 6.917 L/hr Estimated New Dose
--- NOTE | 2022-01-26 12:00 | CARE MANAGER ---
Contacted patient's SO related to discharge from hospital. She states they picked up his medications including his antibiotic. I provided her with CT surgery phone number at [facility] so she could check on the status of his appointment being scheduled. They are also aware of the follow up appointments with Dr. Chávez and Dr. Chicas. Deny any questions or concerns at this time.
== END 2022-01-25 15:16 | disposition home or self-care (01) | DRG 177 ==
LOC: ER 21:47 → 2ND 23:07
PROVIDERS: Emergency Medicine; Internal Medicine Adolescent Medicine; Admitting Provider Family Medicine; Emergency Provider Emergency Medicine; PCP Internal Medicine Adolescent Medicine; Visit Provider Internal Medicine Adolescent Medicine
DX: U07.1 COVID-19 (principal); J12.82 Pneumonia due to coronavirus disease 2019; J96.01 Acute respiratory failure with hypoxia; J98.59 Other diseases of mediastinum, not elsewhere classified; Z87.891 Personal history of nicotine dependence; H70.92 Unspecified mastoiditis, left ear; H49.22 Sixth [abducent] nerve palsy, left eye; E11.9 Type 2 diabetes mellitus without complications; E78.5 Hyperlipidemia, unspecified; I10 Essential (primary) hypertension; M19.90 Unspecified osteoarthritis, unspecified site
CPT/HCPCS: 36415; 70450; 70496; 70498; 70551; 71045; 71275; 80048; 80053; 80202; 82105; 82962; 83615; 83735; 84484; 84702; 85025; 93005; 99285; C9803; J3370; Q9967; U0003; U0005

== ENCOUNTER 2022-01-26 08:48 | Outpatient (CLI) | payer OTHER, SELFPAY ==
[2022-01-26 09:00] VITALS: BP 130/75; PULSE 71; RESP 18; TEMP 36.2; O2SAT 98
[2022-01-26 09:15] VITALS: BP 143/79; PULSE 78; RESP 18; O2SAT 99
[2022-01-26 09:30] VITALS: BP 139/83; PULSE 79; RESP 18; TEMP 36.2; O2SAT 98
[2022-01-26 09:45] VITALS: BP 137/84; PULSE 77; RESP 18; O2SAT 98
[2022-01-26 10:00] VITALS: BP 146/86; PULSE 67; RESP 18; TEMP 36.3; O2SAT 99
== END 2022-01-26 10:00 | disposition home or self-care (01) ==
LOC: COVID.OUT 08:50 → INF 09:03
PROVIDERS: PCP Internal Medicine Adolescent Medicine; Visit Provider Internal Medicine Adolescent Medicine
DX: U07.1 COVID-19 (principal); Z23 Encounter for immunization
CPT/HCPCS: 96365

== ENCOUNTER 2022-02-08 06:34 | Emergency (ER) | payer OTHER, SELFPAY ==
[2022-02-08] VITALS (9 sets, daily range): BP systolic 124–154; BP diastolic 53–87; PULSE 61–67; RESP 14–16; TEMP 36.8–36.9; O2SAT 98–100; BMI 33.5
--- NOTE | 2022-02-08 06:54 | XR_ITS ---
FINAL REPORT CLINICAL HISTORY: chest pain COMPARISON: January 23, 2022 FINDINGS: Two views of the chest were obtained. The heart is enlarged. The pulmonary vascularity is within normal limits. The mediastinum is normal. There are persistent but improved pulmonary opacities which may represent improved pneumonia. There is no pneumothorax. The bony thorax is intact. IMPRESSION: Persistent but improved pulmonary opacities which may represent improved pneumonia. Reviewed, Interpreted and Dictated by Frank Jimenez III, MD Transcribed by Masha Perez Authenticated and [facility]
[2022-02-08 06:56] LABS: POC Glucose,Bedside 172 (70-110)
[2022-02-08 06:59] LABS: Coronavirus 19, PCR Not Detected (NotDetected); Influenza A, PCR Not Detected (NotDetected); Influenza B, PCR Not Detected (NotDetected)
[2022-02-08 07:08] LABS: Basophils # 0.2 K/mm3 (0-0.2); Basophils % 1.4 % (0.1-2.0); Eosinophils # 0.2 K/mm3 (0.0-0.4); Eosinophils % 2.1 % (0.1-12.0); Hematocrit 41.4 % (42.0-52.0); Hemoglobin 13.7 g/dL (14.1-18.0); Lymphocytes # 0.9 K/mm3 (0.7-4.5); Lymphocytes % 7.6 % (10-50); Mean Corpuscular HGB Conc 33.2 g/dL (31.8-35.4); Mean Corpuscular Hemoglobin 30.5 pg (27.0-31.2); Mean Corpuscular Volume 91.9 fl (80-94); Mean Platelet Volume 10.1 fl (7.4-10.4); Monocytes # 0.2 K/mm3 (0.1-1.0); Monocytes % 1.6 % (1.7-9.3); Neutrophils % 87.4 % (37.0-80.0); Platelet Count 258 K/mm3 (142-424); Red Cell Distribution Width 15.1 % (11.5-17.5); White Blood Count 11.4 K/mm3 (4.8-10.8)
[2022-02-08 07:09] LABS: MANUAL DIFFERENTIAL MANUAL DIFFERENTIAL (MANUAL DIFF)
[2022-02-08 07:14] LABS: Chloride 92 mmol/L (98-107); Potassium 4.3 mmoL/L (3.5-5.1); Sodium 134 mmol/L (136-145)
[2022-02-08 07:16] LABS: Amylase 90 U/L (30-110); Lactic Acid 1.9 mmol/L (0.7-2.1)
[2022-02-08 07:17] LABS: Alanine Aminotransferase 35 U/L (12-78); Albumin Level 4.7 g/dl (3.5-5.0); Albumin/Globulin Ratio 1.3 (1.1-1.8); Alkaline Phosphatase 96 U/L (38-126); Anion Gap 13.3 mEq/L (5-15); Aspartate Amino Transferase 41 U/L (17-59); Bilirubin,Total 2.4 mg/dl (0.2-1.3); Blood Urea Nitrogen 16 mg/dl (9-20); Calcium 9.8 mg/dl (8.4-10.2); Carbon Dioxide 33 mmol/L (22.0-30.0); Creatinine Clearance Estimated 181 mL/min (50-200); Estimated Glomerular Filt Rate 117 ml/min (>60); GFR (African American) 141 ML/MIN (>60); Globulin 3.6 g/dL (1.3-3.2); Glucose 181 mg/dl (74-100); Lipase 182 U/L (23-300); Total Protein,Serum 8.3 g/dl (6.3-8.2)
--- NOTE | 2022-02-08 07:23 | HMH.EDHA ---
ED Disposition Condition on Discharge: Fair - Critical Care Critical Care Time: No <Kendall Priest - Last Filed: 02/08/22 08:37> Condition on Discharge: Good - Critical Care Critical Care Time: No <Scar Diaz - Last Filed: 02/08/22 09:25> Clinical Impression: Mediastinal mass, Paraneoplastic syndrome, Vertigo, Frontal headache Disposition: Home, Self-Care Instructions: Vertigo, DI for Headache, DI for Nausea -- Adult Additional Instructions: follow up with PCP 3-5 days, return here for worse Prescriptions: Prochlorperazine Maleate [Compazine 10mg tablet] 10 mg PO Q8 PRN 10 Days #30 tab PRN Reason: Vertigo Transmission Status: Pending to [facility] Referrals: Fox Chávez MD [Primary Care Provider] - Attestation: On 02/08/22, the high probability of a clinically significant, sudden or life threatening deterioration of the following system(s) required my full and direct attention, intervention and personal management. The time I documented below is in addition to time spent performing reported procedures but includes the following listed in this critical care notation. Medical Decision Making - Medical Records Medical records reviewed: Yes: I reviewed the patient's medical records. - Paxton Ocasio Pt receiving controlled substance: No - Lab Data Lab results reviewed: Yes: I reviewed the patient's lab results. Result diagrams: 02/08/22 06:56 02/08/22 06:56 - Physician Consults Physician Consulted: radha Reason -: Pt condition <Kendall Priest - Last Filed: 02/08/22 08:37> - Medical Records Medical records reviewed: Yes: I reviewed the patient's medical records. - Paxton Ocasio Pt receiving controlled substance: No - Lab Data Result diagrams: 02/08/22 06:56 02/08/22 06:56 - Reevaluation(s) Time: 09:21 (09 reval, appears well, neuro intact other than cn palsy which is not new, magana/n/v imrpoved, not requiring any more control, Dr Priest turned over to me advised no ct needed today, recent imaging done, Dr Priest at bedside arranged for outpt f/u, pt/family agreed to plan) <Scar Diaz - Last Filed: 02/08/22 09:25> Vital Signs: 02/08/22 06:35 02/08/22 07:21 Temperature 98.4 F Temperature Source Oral Pulse Rate [Left Radial] 66 Respiratory Rate 14 Blood Pressure 131/75 Blood Pressure [Right Arm] 133/70 Blood Pressure Mean 93 Blood Pressure Mean [Right Arm] 91 Blood Pressure Source [Right Arm] Automatic Cuff Blood Pressure Position [Right Arm] Sitting 02 Sat by Pulse Oximetry 100 100 Oxygen Delivery Method Nasal Cannula Oxygen Flow Rate (LPM) 3 - Lab Data Lab Results 02/08/22 06:41: SARS-CoV-2 (PCR) Not detected, Influenza A Untype (PCR) Not detected, Influenza Type B (PCR) Not detected 02/08/22 06:48: POC Glucose 172 H 02/08/22 06:56: WBC 11.4 H, RBC 4.50 L, Hgb 13.7 L, Hct 41.4 L, MCV 91.9, MCH 30.5, MCHC 33.2, RDW 15.1, Plt Count 258, MPV 10.1, Neut % (Auto) 87.4 H, Lymph % (Auto) 7.6 L, [place] % (Auto) 1.6 L, Eos % (Auto) 2.1, Baso % (Auto) 1.4, Neut # (Auto) 10.0 H, Lymph # (Auto) 0.9, [place] # (Auto) 0.2, Eos # (Auto) 0.2, Baso # (Auto) 0.2, Total Counted 100, Neutrophils % (Manual) 91 H, Lymphocytes % (Manual) 7 L, Monocytes % (Manual) 2, Platelet Estimate Normal, RBC Morphology Normal, ESR 15 02/08/22 06:56: Sodium 134 L, Potassium 4.3, Chloride 92 L, Carbon Dioxide 33 H, Anion Gap 13.3, BUN 16, Creatinine 0.70, Estimated Creat Clear 181, Estimated GFR 117, Est GFR ( Amer) 141, Glucose 181 H, Calcium 9.8, Total Bilirubin 2.4 H, AST 41, ALT 35, Alkaline Phosphatase 96, C-Reactive Protein < 0.3, Total Protein 8.3 H, Albumin 4.7, Globulin 3.6 H, Albumin/Globulin Ratio 1.3, Amylase 90, Lipase 182 02/08/22 06:56: Lactate 1.9 02/08/22 07:28: Urine Color Yellow, Urine Appearance Clear, Urine pH 7.5, Ur Specific [place] 1.020, Urine Protein Trace, Urine Glucose (UA) Trace, Urine Ketones Trace, Urine Blood Negative, Urine Nitrate Negat
[2022-02-08 07:24] LABS: C-Reactive Protein < 0.3 mg/L (0-4)
--- NOTE | 2022-02-08 07:26 | PC.NURSE ---
gave pt urinal for a urine sample.
[2022-02-08 07:32] LABS: Microscopic, Urine URINE MICROSCOPIC (MICROSCOPIC)
--- NOTE | 2022-02-08 07:32 | PC.NURSE ---
ZURI MAHARAJ speaking with Dr. Baez at this time
[2022-02-08 07:33] LABS: Lymphocytes % 7 % (10-50); Monocytes % 2 % (2-9); Neutrophils % 91 % (42-76); Total Cells Counted 100
[2022-02-08 07:34] LABS: Appearance,Urine CLEAR (Clear); Bilirubin,Urine Negative (Negative); Blood, Urine Negative (Negative); Color,Urine YELLOW (Yellow); Glucose,Urine (UA) TRACE (Negative); Ketones,Urine TRACE (Negative); Leukocyte Esterase,Urine Negative (Negative); Nitrate,Urine Negative (Negative); PH,Urine 7.5 (5.0-8.5); Protein,Urine TRACE (Negative)
[2022-02-08 07:34] LABS: Platelet Estimate Normal; RBC Morphology Normal
--- NOTE | 2022-02-08 07:39 | PC.NURSE ---
ZURI MAHARAJ at discussing POC with pt at this time.
[2022-02-08 07:49] LABS: Bacteria,Urine Trace /lpf; Mucus,Urine 2+ /lpf; RBC,Urine Occasional #/hpf (0-3); WBC,Urine Occasional #/hpf (0-3)
[2022-02-08 08:06] LABS: Erythrocyte Sedimentation Rate 15 mm/hr (0-20)
--- NOTE | 2022-02-08 08:11 | PC.NURSE ---
called [facility] for request for transfer; call center paging DR VARNER [phone]
--- NOTE | 2022-02-08 08:22 | PC.NURSE ---
contacted dr. palafox office per ER request, office staff states to page Dr. palafox through the medical exchange with [facility]. contacting medical exchange at this time.
--- NOTE | 2022-02-08 08:23 | PC.NURSE ---
medical exchange paging dr. palafox, waiting front sight attacher back
--- NOTE | 2022-02-08 08:32 | PC.NURSE ---
dr palafox returned call ZURI MAHARAJ on phone speaking to now
--- NOTE | 2022-02-08 08:36 | PC.NURSE ---
[facility] neuro called ZURI MAHARAJ back
--- NOTE | 2022-02-08 09:14 | PC.NURSE ---
[facility] Hospitalist called ER [phone]
--- NOTE | 2022-02-08 09:21 | PC.NURSE ---
cancel bed request at [facility]
== END 2022-02-08 11:13 | disposition home or self-care (01) ==
PROVIDERS: Emergency Provider Emergency Medicine; PCP Internal Medicine Adolescent Medicine
DX: R22.2 Localized swelling, mass and lump, trunk (principal); G13.0 Paraneoplastic neuromyopathy and neuropathy; R42 Dizziness and giddiness; G44.89 Other headache syndrome; Z86.16 Personal history of COVID-19; E11.9 Type 2 diabetes mellitus without complications; J44.9 Chronic obstructive pulmonary disease, unspecified; Z79.84 Long term (current) use of oral hypoglycemic drugs; Z79.51 Long term (current) use of inhaled steroids; Z79.899 Other long term (current) drug therapy; E78.5 Hyperlipidemia, unspecified; I10 Essential (primary) hypertension
CPT/HCPCS: 71046; 80053; 81001; 82150; 82962; 83605; 83690; 85007; 85025; 85651; 86140; 96365; 96375; 99284; C9803; J2405; U0003; U0005

== ENCOUNTER 2022-02-11 09:54 | Observation (INO) | payer OTHER, SELFPAY ==
[2022-02-11] VITALS (19 sets, daily range): BP systolic 131–156; BP diastolic 50–80; PULSE 57–71; RESP 16–18; TEMP 36.6–36.7; O2SAT 99–100; BMI 33.5; BMI 31.9
--- NOTE | 2022-02-11 10:04 | XR_ITS ---
FINAL REPORT CLINICAL HISTORY: cough, sob- previous chest xrays also COMPARISON: February 08, 2022 FINDINGS: A single portable view of the chest was obtained. The heart is enlarged. The pulmonary vascularity is within normal limits. The mediastinum is within normal limits. There are mild but worsening pulmonary opacities, may represent pneumonia or edema. The bony thorax is intact. IMPRESSION: Mild but worsening pulmonary opacities, may represent pneumonia or edema. Cardiomegaly. Reviewed, Interpreted and Dictated by Frank Jimenez III, MD Transcribed by Masha Perez Authenticated and [facility]
--- NOTE | 2022-02-11 10:22 | CT_ITS ---
FINAL REPORT CLINICAL HISTORY: abdominal pain, nausea, vomiting COMPARISON: Chest CT dated January 23, 2022 FINDINGS: CT OF THE ABDOMEN AND PELVIS WITH CONTRAST Axial CT images of the abdomen and pelvis were obtained after the administration of oral and iv contrast. Coronal reformatted images were also obtained and reviewed.This study was performed with techniques to keep radiation doses as low as reasonably achievable (ALARA). Individualized dose reduction techniques using automated exposure control or adjustment of mA and/or kV according to the patient's size were employed. Abdomen: There is mild scarring at the lung bases. There is a small pericardial effusion. The heart is normal in size. The liver has an unremarkable appearance, without evidence of mass or biliary ductal dilatation. There are several gallstones seen in the gallbladder with mild wall thickening, stable. Cholecystitis cannot be excluded. The spleen is unremarkable. No adrenal mass is present. The pancreas has an unremarkable appearance. The kidneys are without evidence of stone or hydronephrosis. There is an 8 mm increased attenuation mass in the lower pole of the left kidney favoring a hyperdense cyst. There is also a 12 mm mass just lateral to this which may represent a simple cyst. These cannot be completely characterized without contrast. There are mild vascular calcifications. There is no free fluid or adenopathy. Pelvis: The appendix is normal. The urinary bladder is unremarkable. No inflammatory process is seen. There is no evidence of mass or adenopathy. There is no evidence of bowel obstruction. There is a small left inguinal hernia containing fat. IMPRESSION: Gallstones in the gallbladder with mild wall thickening,stable. Cholecystitis cannot be entirely excluded. If indicated nuclear medicine hepatic biliary scan may be helpful. Left renal masses which may represent hyperdense and simple cysts. If indicated renal mass protocol CT may be helpful. Reviewed, Interpreted and Dictated by Frank Jimenez III, MD Transcribed by Masha Perez Authenticated and [facility]
--- NOTE | 2022-02-11 10:23 | CT_ITS ---
FINAL REPORT CLINICAL HISTORY: pain- headache, also has nausea , vomiting and cough COMPARISON: January 23, 2022 FINDINGS: Axial images of the head were obtained without contrast. Coronal reformatted images were also obtained.This study was performed with techniques to keep radiation doses as low as reasonably achievable (ALARA). Individualized dose reduction techniques using automated exposure control or adjustment of mA and/or kV according to the patient''s size were employed. There is no evidence of intracranial hemorrhage or mass. The ventricular size is within normal limits. There is no evidence of shift of the midline structures. No abnormal extra axial fluid collection is identified. No skull abnormality is seen on the bone window images. IMPRESSION: No acute intracranial abnormality. Reviewed, Interpreted and Dictated by Frank Jimenez III, MD Transcribed by Masha Perez Authenticated and [facility]
--- NOTE | 2022-02-11 10:24 | HMH.EDGENADL ---
ED Disposition Clinical Impression: Intractable nausea and vomiting Disposition: Still a Patient Condition on Discharge: Good Referrals: Fox Chávez MD [Primary Care Provider] - - Critical Care Critical Care Time: No Attestation: On 02/11/22, the high probability of a clinically significant, sudden or life threatening deterioration of the following system(s) required my full and direct attention, intervention and personal management. The time I documented below is in addition to time spent performing reported procedures but includes the following listed in this critical care notation. Medical Decision Making - [place] Inquiry Pt receiving controlled substance: No Vital Signs: 02/11/22 09:55 02/11/22 10:00 02/11/22 10:30 Temperature 98.0 F Temperature Source Oral Pulse Rate 69 63 Pulse Rate [Right] 71 Respiratory Rate 16 Blood Pressure 138/77 132/69 Blood Pressure [Right Arm] 138/77 Blood Pressure Mean [Right Arm] 97 Blood Pressure Source [Right Arm] Automatic Cuff Blood Pressure Position [Right Arm] Sitting 02 Sat by Pulse Oximetry 100 100 100 Oxygen Delivery Method Nasal Cannula Oxygen Flow Rate (LPM) 2 02/11/22 11:00 Temperature Temperature Source Pulse Rate 68 Pulse Rate [Right] Respiratory Rate Blood Pressure 131/72 Blood Pressure [Right Arm] Blood Pressure Mean [Right Arm] Blood Pressure Source [Right Arm] Blood Pressure Position [Right Arm] 02 Sat by Pulse Oximetry 100 Oxygen Delivery Method Oxygen Flow Rate (LPM) - Lab Data Lab Results 02/11/22 10:12: WBC 14.0 H, RBC 4.11 L, Hgb 12.7 L, Hct 37.5 L, MCV 91.1, MCH 31.0, MCHC 34.0, RDW 15.1, Plt Count 284, MPV 9.1, Neut % (Auto) 88.4 H, Lymph % (Auto) 7.5 L, [place] % (Auto) 2.0, Eos % (Auto) 1.1, Baso % (Auto) 1.0, Neut # (Auto) 12.4 H, Lymph # (Auto) 1.1, [place] # (Auto) 0.3, Eos # (Auto) 0.2, Baso # (Auto) 0.1, Total Counted 100, Neutrophils % (Manual) 83 H, Lymphocytes % (Manual) 12, Monocytes % (Manual) 5, Platelet Estimate Normal, Giant Platelets 1+, Stomatocytes 2+ 02/11/22 10:12: Sodium 135 L, Potassium 4.0, Chloride 93 L, Carbon Dioxide 35 H, Anion Gap 11.0, BUN 16, Creatinine 0.80, Estimated GFR 100, Est GFR ( Amer) 121, Glucose 187 H, Calcium 9.5, Total Bilirubin 1.9 H, AST 36, ALT 31, Alkaline Phosphatase 88, Troponin I < 0.01, Total Protein 7.7, Albumin 4.2, Globulin 3.5 H, Albumin/Globulin Ratio 1.2 Result diagrams: 02/11/22 10:12 02/11/22 10:12 Orders (Tests/Meds): ED MEDICATIONS Discontinued Medications Generic Name Dose Route Start Last Admin Trade Name Freq PRN Reason Stop Dose Admin Lactated Ringer's 1,000 mls @ 999 mls/hr 02/11/22 10:15 02/11/22 11:14 Lactated Ringer's 1000 Ml Bag IV 02/11/22 11:15 999 mls/hr .Q1H1M ABIODUN Administration Morphine Sulfate 4 mg 02/11/22 10:23 02/11/22 11:14 Morphine 4mg/Ml Syringe IV 02/11/22 10:24 4 mg ONCE ONE Administration Ondansetron HCl 4 mg 02/11/22 10:04 02/11/22 11:14 Ondansetron 4mg/2ml Vial IV 02/11/22 10:05 4 mg ONCE ONE Administration Medical Decision Narrative: The patient is a 56 year old male currently undergoing investigation for a mediastinal mass and crainal nerve palsy who presents to the ED with nausea and vomiting for weeks. On arrival he is awake and alert, nontoxic but ill appearing. He does have cranial nerve palsy. His abdomen is benign. Labs including CBC, CMP, troponin were obtained. He was given 1000 mL LR and 4 mg zofran IV and [address] head was obtained and was unremarkable. CT abdomen and pelvis showed gallstones but otherwise no concern - no clinical concern for cholecystitis. Discussed results with patient and - they feel he is not doing well at home, requiring 24 hour assist due to weakness and nausea. Patient having intractable nausea/vomiting. At this point I do think patient requires admission at this time for symptom control. Discussed case with Dr. Angel
[2022-02-11 10:29] LABS: Basophils # 0.1 K/mm3 (0-0.2); Eosinophils # 0.2 K/mm3 (0.0-0.4); Eosinophils % 1.1 % (0.1-12.0); Hematocrit 37.5 % (42.0-52.0); Hemoglobin 12.7 g/dL (14.1-18.0); Lymphocytes # 1.1 K/mm3 (0.7-4.5); Lymphocytes % 7.5 % (10-50); Mean Corpuscular Volume 91.1 fl (80-94); Mean Platelet Volume 9.1 fl (7.4-10.4); Monocytes # 0.3 K/mm3 (0.1-1.0); Neutrophils # 12.4 K/mm3 (1.8-7.8); Neutrophils % 88.4 % (37.0-80.0); Platelet Count 284 K/mm3 (142-424); Red Blood Count 4.11 M/mm3 (4.60-6.20); Red Cell Distribution Width 15.1 % (11.5-17.5)
[2022-02-11 10:30] LABS: MANUAL DIFFERENTIAL MANUAL DIFFERENTIAL (MANUAL DIFF)
--- NOTE | 2022-02-11 10:31 | ECG_ITS ---
APPROVED REPORT Exam: Resting ECG HR:67 bpm ECG Measurements Heart Rate 67 AXES MS 133 P 21 QRSd 84 QRS -2 QT 376 T 59 QTc 391 Conclusion SINUS RHYTHM NONSPECIFIC T-WAVE ABNORMALITY BORDERLINE ECG UNCONFIRMED REPORT Electronically signed by : Fox Chávez MD 02/12/2022 20:19:01
[2022-02-11 10:39] LABS: Alanine Aminotransferase 31 U/L (12-78); Albumin Level 4.2 g/dl (3.5-5.0); Albumin/Globulin Ratio 1.2 (1.1-1.8); Alkaline Phosphatase 88 U/L (38-126); Aspartate Amino Transferase 36 U/L (17-59); Bilirubin,Total 1.9 mg/dl (0.2-1.3); Blood Urea Nitrogen 16 mg/dl (9-20); Calcium 9.5 mg/dl (8.4-10.2); Carbon Dioxide 35 mmol/L (22.0-30.0); Chloride 93 mmol/L (98-107); Estimated Glomerular Filt Rate 100 ml/min (>60); GFR (African American) 121 ML/MIN (>60); Globulin 3.5 g/dL (1.3-3.2); Glucose 187 mg/dl (74-100); Sodium 135 mmol/L (136-145); Total Protein,Serum 7.7 g/dl (6.3-8.2)
[2022-02-11 10:45] LABS: Lymphocytes % 12 % (10-50); Monocytes % 5 % (2-9); Neutrophils % 83 % (42-76); Total Cells Counted 100
[2022-02-11 10:46] LABS: Platelet Estimate Normal; Stomatocytes 2+
[2022-02-11 10:47] LABS: Giant Platelets 1+
[2022-02-11 10:54] LABS: Troponin I < 0.01 ng/ml (0.00-0.034)
--- NOTE | 2022-02-11 10:58 | PC.NURSE ---
ROSIBEL Chacon went in to medicate pt and IV infiltrated, she attempted access x 2, unsuccessful. Trey at bedside attempting IV
--- NOTE | 2022-02-11 11:09 | PC.NURSE ---
20G established in the right hand per ROSIBEL Yang. Pt being medicated per NATHALIA at this time
--- NOTE | 2022-02-11 11:19 | PC.NURSE ---
PT to rad
--- NOTE | 2022-02-11 11:54 | PC.NURSE ---
checked on pt at this time, warm blanket given lights dimmed in room for comfort, pt given water (okayed per ZURI MAHARAJ )
--- NOTE | 2022-02-11 12:22 | PC.NURSE ---
ZURI MAHARAJ speaking with Dr. Baez
--- NOTE | 2022-02-11 12:34 | PC.NURSE ---
Called for transfer to @ [address] LOWE? for consult
--- NOTE | 2022-02-11 12:53 | PC.NURSE ---
Rounded on pt at this time. No new needs, pt attempting to rest
--- NOTE | 2022-02-11 12:56 | PC.NURSE ---
Asked pt if he wanted any jello, broth or anything to eat. He advised not at this time and he would maybe try later, he was going to try and rest. spoke with Dr. Baez regarding pt care
--- NOTE | 2022-02-11 13:04 | PC.NURSE ---
speaking with Jayce
--- NOTE | 2022-02-11 13:04 | PC.NURSE ---
MD on With [facility].
--- NOTE | 2022-02-11 13:21 | PC.NURSE ---
Dr [facility]
--- NOTE | 2022-02-11 13:30 | PC.NURSE ---
Dr Sasha leon
--- NOTE | 2022-02-11 13:55 | PC.NURSE ---
contacted care management for admission, spoke with kellen states she will call back, she is going to contact char house supervisor to check on bed status
--- NOTE | 2022-02-11 13:57 | PC.NURSE ---
yusufrn update pt on poc at this time
[2022-02-11 14:00] LABS: Coronavirus 19, PCR Not Detected (NotDetected); Influenza A, PCR Not Detected (NotDetected); Influenza B, PCR Not Detected (NotDetected)
--- NOTE | 2022-02-11 14:06 | PC.NURSE ---
checked on pt at this time, family at [facility]. States no needs at this time. Notified them I will let them know when here hear back about room assignment for pt.
--- NOTE | 2022-02-11 14:43 | PC.NURSE ---
Went in to update pt and on POC, advised them that there were multiple discharges on the floor and he would have a bed available soon. Both agreeable with POC. Called dietary and asked them to bring patient some chicken broth
--- NOTE | 2022-02-11 15:40 | PC.NURSE ---
assistant housekeeping manager called stating pt assigned to room 215, states they are currently cleaning the room and will notify us when room is ready. Pt and updated at this time
--- NOTE | 2022-02-11 16:20 | PC.NURSE ---
attempted to call report at this time with no answer
--- NOTE | 2022-02-11 16:38 | PC.NURSE ---
report called to manuel stephens on second floor at this time, states she will send staff down to transport pt. Updated pt and family at this time.
--- NOTE | 2022-02-11 16:57 | PC.NURSE ---
pT ARRIVED TO THE FLOOR AT THIS TIME
--- NOTE | 2022-02-11 17:44 | HMH.HP ---
*Admission Date: 02/11/22 *Chief complaint: Headache, Intractable Nausea *History of present illness: Mr. Mendiola is a 56-year-old male with unfortunate recent history complicated by COVID, new diagnosis of mediastinal mass, and long history of hypertension and diabetes. He is currently undergoing work-up for a mediastinal mass and crainal nerve palsy. Resented to the ER today for the second time this week with the same symptoms. He has had development of nausea and vomiting over the past few weeks. This seems to be brought on by any movement, resolves at rest. On arrival he was awake and alert, nontoxic but ill appearing. He has weakness on the right side of his face with ptosis of right eyelid and decreased movement of right eye consistent with cranial nerve palsy. Labs obtained showing minimal electrolyte disturbances but otherwise normal and at baseline for him. CT of head and abdomen with no acute pathologies. He was given IV fluids, morphine for pain, and Zofran for emesis. After multiple attempts to transfer the patient given concern for his symptoms being related to paraneoplastic process, he was admitted to medicine for further management of his intractable nausea and vomiting. Of note, he is established with CT surgery at [facility] in [place]. He is scheduled for surgery with Dr. Coronel (Cardiothoracic surgery) there on February 23. Patient reports that his vomiting is related to dizziness that occurs when he moves. Had no nausea or vomiting in the ER until being placed in a wheelchair to be brought up to the second floor. This caused him to have nausea and emesis. This is all progressed since development of right sided ptosis/nerve palsy. Denies chest pain, shortness of breath, significant headache, abdominal pain, constipation. No blood in vomit or stool. [facility] History I have reviewed the patient's past medical history: Yes Medical History: Reports:: Chronic Obstructive Pulmonary Disease (COPD), Diabetes Mellitus Type 2, Hyperlipidemia, Hypertension Denies:: Cancer, Diabetes Mellitus Type 1, MRSA *Have you ever received a pneumonia vaccine?: No *Have you received a flu vaccine this season?: Yes Other Medical History: Reports: Arthritis Other Surgeries: Yes: No Previous Surgery, Colonoscopy Amputation: No Fractures: No - *Social History Last grade of school completed: 11th or 12th Smoking Status: Former smoker Tobacco Type: cigarettes #Yrs smoked (if former smoker): 27 Alcohol Intake: current Alcohol Intake Frequency:: a few times a month Substance Use Type: denies use *Occupational Status:: disabled Housing: house Household Members: spouse *Travel in the last 8 weeks: None Family Hx:: Cancer, Diabetes, Heart Attack, Hyperlipidemia, Hypertension Review of Systems - Review of Systems Review of systems:: pertinent systems reviewed and negative unless documented below (14 point review of systems performed, pertinent positives and negatives as per HPI) Meds Home Medications Medication Instructions Recorded Confirmed Type omeprazole 20 mg capsule,delayed 20 mg PO HS 03/13/19 02/11/22 History release Atorvastatin Calcium [Lipitor 40mg 40 mg PO HS 07/12/21 02/11/22 History Tab] Losartan Potassium [Cozaar 100mg 100 mg PO DAILY 07/12/21 02/11/22 History Tablets] Ascorbic Acid [Vitamin C 500mg 500 mg PO BID 01/23/22 02/11/22 History tablet] Ergocalciferol (Vitamin D2) 50,000 unit PO WEEKLY 01/23/22 02/11/22 History [Drisdol 50,000 units (1.25mg) capsule] Famotidine [Pepcid 20mg Tablet] 20 mg PO BID 01/23/22 02/11/22 History Glycopyrrolate/Formoterol Fum 2 puff IH BID 01/23/22 02/11/22 History [Bevespi Aerosphere Inhaler] Albuterol Sulfate [Albuterol 2.5 mg IH Q6H 01/24/22 02/11/22 History 0.083% 2.5mg/3mL neb] Albuterol Sulfate [Proair Hfa] 2 puff IH Q4HP PRN 01/24/22 02/11/22 History Fluoxetine HCl [Prozac] 20 mg PO DAILY 01/24/22 02/11/22 History Semaglutide [Ozempic] 0.25
[2022-02-12] VITALS (8 sets, daily range): BP systolic 136–184; BP diastolic 69–80; PULSE 62–92; RESP 17–20; TEMP 36.4–36.8; O2SAT 94–100; BMI 32.1
--- NOTE | 2022-02-12 04:00 | PC.NURSE ---
After notifying oncall of inability to void, pt rang out and was able to void 275mL out in urinal.
--- NOTE | 2022-02-12 05:02 | PC.NURSE ---
pt has rested intermittently t/o this shift, has complained of pain and nausea two times this shift and was treated per NOV, did have some issues with being able to urinate, senior environmental engineer notified and order for small received, before small was placed pt had 275 mL out, remains on 2L NC with O2 sats 94-100%
--- NOTE | 2022-02-12 05:12 | PC.NURSE ---
pt had an additional 400 mL of urine out at this time
[2022-02-12 08:04] LABS: Basophils % 0.2 % (0.1-2.0); Eosinophils # 0.1 K/mm3 (0.0-0.4); Eosinophils % 1.1 % (0.1-12.0); Hematocrit 32.3 % (42.0-52.0); Lymphocytes % 8.7 % (10-50); Mean Corpuscular HGB Conc 33.2 g/dL (31.8-35.4); Mean Corpuscular Hemoglobin 30.2 pg (27.0-31.2); Mean Corpuscular Volume 90.8 fl (80-94); Mean Platelet Volume 9.1 fl (7.4-10.4); Monocytes # 0.2 K/mm3 (0.1-1.0); Monocytes % 2.2 % (1.7-9.3); Neutrophils # 9.5 K/mm3 (1.8-7.8); Neutrophils % 87.7 % (37.0-80.0); Platelet Count 227 K/mm3 (142-424); Red Blood Count 3.55 M/mm3 (4.60-6.20); Red Cell Distribution Width 15.5 % (11.5-17.5); White Blood Count 10.9 K/mm3 (4.8-10.8)
[2022-02-12 08:17] LABS: Chloride 94 mmol/L (98-107); Potassium 3.6 mmoL/L (3.5-5.1); Sodium 132 mmol/L (136-145)
[2022-02-12 08:20] LABS: Anion Gap 7.6 mEq/L (5-15); Blood Urea Nitrogen 13 mg/dl (9-20); Calcium 8.9 mg/dl (8.4-10.2); Carbon Dioxide 34 mmol/L (22.0-30.0); Creatinine Clearance Estimated 173 mL/min (50-200); Estimated Glomerular Filt Rate 117 ml/min (>60); GFR (African American) 141 ML/MIN (>60); Glucose 142 mg/dl (74-100)
[2022-02-12 10:20] LABS: MANUAL DIFFERENTIAL MANUAL DIFFERENTIAL (MANUAL DIFF)
[2022-02-12 10:21] LABS: Hemoglobin 10.9 g/dL (14.1-18.0)
--- NOTE | 2022-02-12 10:39 | HMH.PHAVTE ---
[facility] Pharmacy VTE Monitoring - Patient Demographics Admission date: 02/12/22 Report Date: 02/12/22 Time: 10:39 Allergies/Adverse Reactions: Patient Allergies No Known Allergies Allergy (Verified 11/30/21 13:28) Height: 1.8 m Weight: 103.958 kg Patient Problems: Current Active Problems Diabetes mellitus (Chronic) Respiratory failure with hypoxia (Chronic) Essential hypertension (Chronic) 6th nerve palsy (Acute) Mediastinal mass (Acute) Class 1 obesity (Acute) Paraneoplastic syndrome (Acute) Frontal headache (Acute) Intractable nausea and vomiting (Acute) - VTE Risk Labs: VTE Related Lab Results Hgb 10.9 g/dL (14.1-18.0) L D 02/12/22 06:40 Hct 32.3 % (42.0-52.0) L 02/12/22 06:40 Plt Count 227 K/mm3 (142-424) 02/12/22 06:40 BUN 13 mg/dl (9-20) 02/12/22 06:40 Creatinine 0.70 mg/dl (0.66-1.25) 02/12/22 06:40 Estimated Creat Clear 173 mL/min (50-200) 02/12/22 06:40 Was VTE Risk Assessment Performed: Yes VTE Score: 6 VTE Risk Level: Moderate Risk Clinical Trial Participant: No - Prophylaxis VTE Prophylaxis Ordered?: Yes Types of VTE Prophylaxis: TEDS Knee High
[2022-02-12 11:14] LABS: Eosinophils % 2 % (0-3); Lymphocytes % 15 % (10-50); Monocytes % 1 % (2-9); Neutrophils % 82 % (42-76); Total Cells Counted 100
[2022-02-12 11:15] LABS: Platelet Estimate Normal
[2022-02-12 11:16] LABS: Stomatocytes 1+
--- NOTE | 2022-02-12 11:40 | HMH.ACPN2 ---
Internal Medicine - PN: Subj *Date: 02/12/22 *Time: 11:40 Interval history: Patient has done well overnight still has occasional nausea especially with movement. Ate breakfast. States that is more than he is eaten in the past few weeks. Single episode of emesis this morning that was very scant and mainly mucus. Voiding independently. No fever. Shortness of breath stable, stable oxygen requirement. Headache that occurs when he is dizzy and vomiting. Denies any diarrhea or chest pain. Exam Vital signs and Labs for Last 24 Hours: Temp Pulse Resp BP Pulse Ox 98 F 66 18 136/72 99 02/12/22 04:00 02/12/22 06:46 02/12/22 04:00 02/12/22 04:00 02/12/22 06:46 Laboratory Results - last 24 hr 02/11/22 13:54: SARS-CoV-2 (PCR) Not detected, Influenza A Untype (PCR) Not detected, Influenza Type B (PCR) Not detected 02/12/22 06:40: WBC 10.9 H, RBC 3.55 L, Hgb 10.9 L D, Hct 32.3 L, MCV 90.8, MCH 30.2, MCHC 33.2, RDW 15.5, Plt Count 227, MPV 9.1, Neut % (Auto) 87.7 H, Lymph % (Auto) 8.7 L, [place] % (Auto) 2.2, Eos % (Auto) 1.1, Baso % (Auto) 0.2, Neut # (Auto) 9.5 H, Lymph # (Auto) 1.0, [place] # (Auto) 0.2, Eos # (Auto) 0.1, Baso # (Auto) 0.0, Total Counted 100, Neutrophils % (Manual) 82 H, Lymphocytes % (Manual) 15, Monocytes % (Manual) 1 L, Eosinophils % (Manual) 2, Platelet Estimate Normal, RBC Morphology Not Reportable, Stomatocytes 1+ 02/12/22 06:40: Sodium 132 L, Potassium 3.6, Chloride 94 L, Carbon Dioxide 34 H, Anion Gap 7.6, BUN 13, Creatinine 0.70, Estimated Creat Clear 173, Estimated GFR 117, Est GFR ( Amer) 141, Glucose 142 H D, Calcium 8.9 I & O for Last 24 hours: Intake & Output 02/09/22 02/10/22 02/11/22 02/12/22 23:59 23:59 23:59 23:59 Intake Total 240 / 240 1630 / 1630 Output Total 675 / 675 Balance 240 / 240 955 / 955 Weight 103.986 kg 103.958 kg Narrative: - Constitutional No acute distress, obese, chronically ill appearing - *Routine HEENT Exam Head: Present: normocephalic Eye: Present: PERRL, extraocular movement intact in left eye. Right eye with no downward or medial movement. Right-sided ptosis. ENT: Present: mucous membranes moist - *Routine Neck Exam Present: supple. Absent: lymphadenopathy - *Routine Respiratory Exam Present: CTA bilaterally - *Routine Cardiovascular Exam Present: RRR - *Routine Abdominal Exam Present: soft, normoactive bowel sounds. Absent: tenderness - *Routine Extremities Exam Absent: cyanosis, clubbing, edema - *Routine Skin Exam Present: warm. Absent: rash - *Routine Neurological Exam Present: alert, oriented X3 Assessment and Plan (1) Intractable nausea and vomiting Status: Acute Category: Medical Code(s): R11.2 - Nausea with vomiting, unspecified (2) 6th nerve palsy Status: Acute Qualifiers: Laterality: left Qualified Code(s): H49.22 - Sixth [abducent] nerve palsy, left eye Category: Medical Code(s): H49.20 - Sixth [abducent] nerve palsy, unspecified eye (3) Class 1 obesity Status: Acute Category: Medical Code(s): E66.9 - Obesity, unspecified (4) Frontal headache Status: Acute Category: Medical Code(s): R51.9 - Headache, unspecified (5) Mediastinal mass Status: Acute Category: Medical Code(s): J98.59 - Other diseases of mediastinum, not elsewhere classified (6) Paraneoplastic syndrome Status: Acute Category: Medical (7) Diabetes mellitus Status: Chronic Category: Medical Code(s): E11.9 - Type 2 diabetes mellitus without complications (8) Essential hypertension Status: Chronic Category: Medical Code(s): I10 - Essential (primary) hypertension (9) Respiratory failure with hypoxia Status: Chronic Qualifiers: Chronicity: acute Qualified Code(s): J96.01 - Acute respiratory failure with hypoxia Category: Medical Code(s): J96.91 - Respiratory failure, unspecified with hypoxia - Assessment and plan all Dx Assessment and Plan for all
[2022-02-13] VITALS: BP 157/74; PULSE 75; RESP 17; TEMP 36.7; O2SAT 95
[2022-02-13 00:10] VITALS: PULSE 69; O2SAT 100
--- NOTE | 2022-02-13 03:54 | PC.NURSE ---
Pt has been resting throughout shift. Pt ambulated to the restroom, tolerated well. Pt has had 850mL output through urinal. O2 sat 95-100% on 2L NC. Pt complained of pain twice this shift, treated prn per nov. Pt complained of nausea one time, treated prn per nov.
[2022-02-13 03:55] VITALS: BP 152/70; PULSE 72; RESP 18; TEMP 36.6; O2SAT 100
[2022-02-13 05:18] VITALS: BMI 32.1
[2022-02-13 08:00] VITALS: BP 158/76; PULSE 88; RESP 20; TEMP 36.4; O2SAT 94; O2SAT 95; O2SAT 99
[2022-02-13 08:28] LABS: Basophils # 0.1 K/mm3 (0-0.2); Basophils % 0.4 % (0.1-2.0); Eosinophils # 0.2 K/mm3 (0.0-0.4); Eosinophils % 1.4 % (0.1-12.0); Hemoglobin 11.7 g/dL (14.1-18.0); Lymphocytes # 0.8 K/mm3 (0.7-4.5); Lymphocytes % 6.3 % (10-50); Mean Corpuscular HGB Conc 33.4 g/dL (31.8-35.4); Mean Corpuscular Hemoglobin 30.1 pg (27.0-31.2); Mean Corpuscular Volume 90.2 fl (80-94); Mean Platelet Volume 9.4 fl (7.4-10.4); Monocytes # 0.2 K/mm3 (0.1-1.0); Neutrophils # 10.7 K/mm3 (1.8-7.8); Neutrophils % 89.8 % (37.0-80.0); Platelet Count 274 K/mm3 (142-424); Red Blood Count 3.88 M/mm3 (4.60-6.20); Red Cell Distribution Width 15.4 % (11.5-17.5); White Blood Count 11.9 K/mm3 (4.8-10.8)
[2022-02-13 08:29] LABS: Chloride 95 mmol/L (98-107)
[2022-02-13 08:30] LABS: Potassium 3.5 mmoL/L (3.5-5.1); Sodium 136 mmol/L (136-145)
[2022-02-13 08:31] LABS: MANUAL DIFFERENTIAL MANUAL DIFFERENTIAL (MANUAL DIFF)
[2022-02-13 08:33] LABS: Anion Gap 13.5 mEq/L (5-15); Blood Urea Nitrogen 12 mg/dl (9-20); Calcium 9.5 mg/dl (8.4-10.2); Carbon Dioxide 31 mmol/L (22.0-30.0); Creatinine Clearance Estimated 173 mL/min (50-200); Estimated Glomerular Filt Rate 117 ml/min (>60); GFR (African American) 141 ML/MIN (>60); Glucose 160 mg/dl (74-100); Magnesium 1.8 mg/dl (1.6-2.3)
--- NOTE | 2022-02-13 09:11 | HMH.DCSUM ---
General - General Admission date:: 02/11/22 Discharge date: 02/13/22 HPI HPI: Mr. Mendiola is a 56-year-old male with unfortunate recent history complicated by COVID, new diagnosis of mediastinal mass, and long history of hypertension and diabetes. He is currently undergoing work-up for a mediastinal mass and crainal nerve palsy. Resented to the ER today for the second time this week with the same symptoms. He has had development of nausea and vomiting over the past few weeks. This seems to be brought on by any movement, resolves at rest. On arrival he was awake and alert, nontoxic but ill appearing. He has weakness on the right side of his face with ptosis of right eyelid and decreased movement of right eye consistent with cranial nerve palsy. Labs obtained showing minimal electrolyte disturbances but otherwise normal and at baseline for him. CT of head and abdomen with no acute pathologies. He was given IV fluids, morphine for pain, and Zofran for emesis. After multiple attempts to transfer the patient given concern for his symptoms being related to paraneoplastic process, he was admitted to medicine for further management of his intractable nausea and vomiting. Of note, he is established with CT surgery at [facility] in [place]. He is scheduled for surgery with Dr. Coronel (Cardiothoracic surgery) there on February 23. Patient reports that his vomiting is related to dizziness that occurs when he moves. Had no nausea or vomiting in the ER until being placed in a wheelchair to be brought up to the second floor. This caused him to have nausea and emesis. This is all progressed since development of right sided ptosis/nerve palsy. Denies chest pain, shortness of breath, significant headache, abdominal pain, constipation. No blood in vomit or stool. Hospital Course Hospital Course: Mr. Mendiola ( [place] ) is a 56-year-old male with history of long COVID, subsequent development of chronic hypoxemic respiratory failure, history of diabetes, hypertension, obesity, and recent diagnosis of large anterior mediastinal mass. He has developed new onset facial nerve palsy. On exam today, consistent with third (ptosis), fourth (loss of medial and downward gaze), and 8th (dizziness/balance) on the right side. In error, previously mentioned as 6th nerve palsy. Presented to the ER for the second time this week with significant nausea and vomiting. Worse with movement, better at rest. Unclear etiology but differential diagnosis includes vertigo, paraneoplastic syndrome, myasthenia gravis, brainstem lesion, along with other potential etiologies. Problems addressed as follows during admission: Nausea, vomiting, ache, and dizziness -Differential diagnosis included vertigo, complex migraine, SVC syndrome, paraneoplastic syndrome, myasthenia gravis, brainstem lesion/cranial nerve dysfunction just to name a few. No intracranial pathology on CT this admission. MRI obtained 2 weeks ago at onset of symptoms with no brainstem or cerebellar lesions. Mastoiditis noted bilaterally (patient asymptomatic from this). Symptoms have developed since identification of large anterior mediastinal mass concerning for lymphoma versus thymoma. In setting of suspected thymoma, paraneoplastic syndrome or myasthenia gravis are both possible. He does report that the weakness in his face and eyes appears to progress as the day goes on. Denies shortness of breath at this time. MuSK/AchR antibodies pending at time of discharge. We will follow-up these in the outpatient setting. Plan to continue Compazine for nausea. Started on scopolamine patch with some benefit. We will continue this as well. Patient tolerating good p.o. intake. Ambulating somewhat better. Voiding independently. Meeting criteria for discharge home. Remains hemodynamically stable. Labs back to baseline. Chronic hypoxemic respiratory failure Long COVID -Had COVID this past year with prolonged hospital cou
[2022-02-13 10:43] LABS: Lymphocytes % 14 % (10-50); Monocytes % 1 % (2-9); Neutrophils % 84 % (42-76); Total Cells Counted 100
[2022-02-13 10:44] LABS: Platelet Estimate Normal; RBC Morphology Normal
--- NOTE | 2022-02-14 14:56 | CARE MANAGER ---
Contacted patient related to hospital stay discharge. States he feels about the same. he hasn't picked up new patch but is going to tomorrow. Patient states he is scheduled with [facility] [place] surgery on February 23. He has appointment with Dr. Chávez as well. He just doesn't feel well. Denies any other questions or concerns. ROSIBEL Gutierrez
[2022-02-14 17:23] LABS: AChR Binding Abs 0.06 nmol/L (0.00-0.24)
[2022-02-16 13:10] LABS: AChR Blocking Abs 15 % (0-25)
[2022-02-20 21:10] LABS: MuSK Antibodies <1.0
== END 2022-02-13 11:11 | disposition home or self-care (01) ==
LOC: ER 13:59 → 2ND 14:18
PROVIDERS: Admitting Provider Internal Medicine Adolescent Medicine; Emergency Provider Emergency Medicine; PCP Internal Medicine Adolescent Medicine; Visit Provider Internal Medicine Adolescent Medicine
DX: R11.2 Nausea with vomiting, unspecified (principal); Z20.822 Contact with and (suspected) exposure to COVID-19; Z86.16 Personal history of COVID-19; H49.21 Sixth [abducent] nerve palsy, right eye; J44.9 Chronic obstructive pulmonary disease, unspecified; E11.9 Type 2 diabetes mellitus without complications; Z79.84 Long term (current) use of oral hypoglycemic drugs; I10 Essential (primary) hypertension; E78.5 Hyperlipidemia, unspecified; J96.11 Chronic respiratory failure with hypoxia; H49.11 Fourth [trochlear] nerve palsy, right eye; H49.01 Third [oculomotor] nerve palsy, right eye
CPT/HCPCS: 36415; 70450; 71045; 74176; 80048; 80053; 83735; 84238; 84484; 85007; 85025; 93005; 94640; 94760; 94761; 99285; C9803; G0378; J2405; U0003; U0005

== ENCOUNTER 2022-04-11 10:27 | Outpatient (CLI) | payer OTHER, SELFPAY ==
[2022-04-11] VITALS (8 sets, daily range): BP systolic 95–111; BP diastolic 45–53; PULSE 74–86; RESP 18–20; TEMP 36–36.2; O2SAT 99–100; BMI 29.5
[2022-04-11 10:51] LABS: Chloride 102 mmol/L (98-107)
[2022-04-11 10:52] LABS: Potassium 3.7 mmoL/L (3.5-5.1); Sodium 133 mmol/L (136-145)
[2022-04-11 10:54] LABS: Alanine Aminotransferase 27 U/L (12-78); Aspartate Amino Transferase 18 U/L (17-59); Basophils % 0.4 % (0.1-2.0); Blood Urea Nitrogen 17 mg/dl (9-20); Creatinine Clearance Estimated 222 mL/min (50-200); Eosinophils % 0.5 % (0.1-12.0); Estimated Glomerular Filt Rate 171 ml/min (>60); GFR (African American) 207 ML/MIN (>60); Hematocrit 23.9 % (42.0-52.0); Lymphocytes # 0.1 K/mm3 (0.7-4.5); Lymphocytes % 16.7 % (10-50); Mean Corpuscular HGB Conc 33.3 g/dL (31.8-35.4); Mean Corpuscular Hemoglobin 28.6 pg (27.0-31.2); Mean Platelet Volume 9.7 fl (7.4-10.4); Monocytes % 4.7 % (1.7-9.3); Neutrophils # 0.5 K/mm3 (1.8-7.8); Neutrophils % 77.7 % (37.0-80.0); Red Blood Count 2.78 M/mm3 (4.60-6.20); Red Cell Distribution Width 15.6 % (11.5-17.5)
[2022-04-11 10:55] LABS: Albumin/Globulin Ratio 1.2 (1.1-1.8); Alkaline Phosphatase 93 U/L (38-126); Anion Gap 8.7 mEq/L (5-15); Bilirubin,Total 1.5 mg/dl (0.2-1.3); Calcium 7.8 mg/dl (8.4-10.2); Carbon Dioxide 26 mmol/L (22.0-30.0); Globulin 2.5 g/dL (1.3-3.2); Glucose 240 mg/dl (74-100); Total Protein,Serum 5.5 g/dl (6.3-8.2)
[2022-04-11 10:57] LABS: Platelet Count 6 K/mm3 (142-424); White Blood Count 0.6 K/mm3 (4.8-10.8)
[2022-04-11 10:59] LABS: MANUAL DIFFERENTIAL MANUAL DIFFERENTIAL (MANUAL DIFF)
[2022-04-11 11:24] LABS: Lymphocytes % 25 % (10-50); Monocytes % 5 % (2-9); Neutrophils % 65 % (42-76); Total Cells Counted 20
[2022-04-11 11:25] LABS: Platelet Estimate Marked Decrease; RBC Morphology Normal
--- NOTE | 2022-04-11 11:50 | PC.NURSE ---
critical lab results called from [facility] in lab. WBC of 0.6, plt of 6. standing orders in place to transfuse platelets. critical called to [facility] per order. no additional orders received.
[2022-04-11 16:40] LABS: Platelet Count 22 K/mm3 (142-424)
== END 2022-04-11 16:34 | disposition home or self-care (01) ==
PROVIDERS: PCP Internal Medicine Adolescent Medicine; Visit Provider Internal Medicine
DX: D64.9 Anemia, unspecified (principal); Z45.2 Encounter for adjustment and management of vascular access device
CPT/HCPCS: 36430; 80053; 85007; 85025; 85049; 86900; 86901; P9034

== ENCOUNTER 2022-04-13 08:46 | Outpatient (CLI) | payer OTHER, SELFPAY ==
[2022-04-13] VITALS (11 sets, daily range): BP systolic 97–123; BP diastolic 53–61; PULSE 62–72; RESP 18–20; TEMP 36–36.2; O2SAT 100; BMI 29.5
[2022-04-13 09:04] LABS: Basophils % 0.3 % (0.1-2.0); Eosinophils % 0.6 % (0.1-12.0); Lymphocytes # 0.2 K/mm3 (0.7-4.5); Lymphocytes % 18.6 % (10-50); Mean Corpuscular HGB Conc 34.3 g/dL (31.8-35.4); Mean Corpuscular Hemoglobin 28.4 pg (27.0-31.2); Mean Corpuscular Volume 82.6 fl (80-94); Mean Platelet Volume 10.1 fl (7.4-10.4); Monocytes % 3.7 % (1.7-9.3); Neutrophils # 0.6 K/mm3 (1.8-7.8); Neutrophils % 76.9 % (37.0-80.0); Red Blood Count 2.26 M/mm3 (4.60-6.20); Red Cell Distribution Width 15.5 % (11.5-17.5)
[2022-04-13 09:08] LABS: Hematocrit 18.7 % (42.0-52.0); Hemoglobin 6.4 g/dL (14.1-18.0); Platelet Count 12 K/mm3 (142-424); White Blood Count 0.8 K/mm3 (4.8-10.8)
[2022-04-13 09:10] LABS: MANUAL DIFFERENTIAL MANUAL DIFFERENTIAL (MANUAL DIFF)
--- NOTE | 2022-04-13 09:16 | PC.NURSE ---
critical lab results called from renny in lab. hgb of 6.4, hct 18.7, plt of 12, wbc of 0.9. results, and name repeated and verified. standing orders in place to transfuse one unit PRBCs. critical results called to physician per order.
[2022-04-13 09:47] LABS: Anisocytosis 1+; Lymphocytes % 32 % (10-50); Neutrophils % 68 % (42-76); Ovalocytes 1+; Platelet Estimate Marked Decrease; Total Cells Counted 25
[2022-04-13 13:27] LABS: Hematocrit 21.1 % (42.0-52.0)
[2022-04-13 13:37] LABS: Hemoglobin 7.1 g/dL (14.1-18.0)
== END 2022-04-13 13:20 | disposition home or self-care (01) ==
LOC: INF 08:46
PROVIDERS: PCP Internal Medicine Adolescent Medicine
DX: D64.9 Anemia, unspecified (principal); Z45.2 Encounter for adjustment and management of vascular access device
CPT/HCPCS: 36430; 85007; 85014; 85018; 85025; 86850; P9016

== ENCOUNTER 2022-04-15 08:34 | Outpatient (CLI) | payer OTHER, SELFPAY ==
[2022-04-15] VITALS (17 sets, daily range): BP systolic 97–119; BP diastolic 52–69; PULSE 62–83; RESP 16–18; TEMP 35.9–36.4; O2SAT 100; BMI 29.5
[2022-04-15 08:55] LABS: Basophils % 0.3 % (0.1-2.0); Eosinophils % 0.9 % (0.1-12.0); Lymphocytes # 0.1 K/mm3 (0.7-4.5); Mean Corpuscular HGB Conc 33.9 g/dL (31.8-35.4); Mean Corpuscular Hemoglobin 28.9 pg (27.0-31.2); Mean Corpuscular Volume 85.1 fl (80-94); Mean Platelet Volume 11.5 fl (7.4-10.4); Monocytes % 2.8 % (1.7-9.3); Neutrophils # 0.7 K/mm3 (1.8-7.8); Neutrophils % 80.1 % (37.0-80.0); Red Cell Distribution Width 17.2 % (11.5-17.5)
[2022-04-15 09:02] LABS: Hemoglobin 6.6 g/dL (14.1-18.0); White Blood Count 0.9 K/mm3 (4.8-10.8)
[2022-04-15 09:03] LABS: Hematocrit 19.6 % (42.0-52.0); Platelet Count 7 K/mm3 (142-424)
[2022-04-15 09:04] LABS: MANUAL DIFFERENTIAL MANUAL DIFFERENTIAL (MANUAL DIFF)
--- NOTE | 2022-04-15 09:21 | PC.NURSE ---
critical lab result called from [facility] in lab. WBC of 0.9, Hgb of 6.6, Hct 19.6, plt 7. lab result, name and repeated and verified. Criticals called to MD Colleen Garcia, standing orders in place to transfuse PRBC and platelets.
[2022-04-15 09:45] LABS: Hypochromasia 1+; Lymphocytes % 24 % (10-50); Neutrophils % 64 % (42-76); Ovalocytes 1+; Total Cells Counted 25
[2022-04-15 09:46] LABS: Platelet Estimate Marked Decrease
--- NOTE | 2022-04-15 10:30 | PC.NURSE ---
1026-BLOOD TRANSFUSION INFUSING AT 100ML/HR AT THIS TIME.
--- NOTE | 2022-04-15 11:01 | PC.NURSE ---
1056-INCREASED RATE TO 150ML/HR AT THIS TIME.
--- NOTE | 2022-04-15 11:32 | PC.NURSE ---
1126-INCREASED RATE TO 200ML/HR AT THIS TIME.
--- NOTE | 2022-04-15 13:22 | PC.NURSE ---
1319-PLATELETS STARTED TRANSFUSING BY GRAVITY AT THIS TIME.
[2022-04-15 14:59] LABS: Hemoglobin 6.9 g/dL (14.1-18.0)
[2022-04-15 15:00] LABS: Hematocrit 20.2 % (42.0-52.0); Platelet Count 24 K/mm3 (142-424)
--- NOTE | 2022-04-15 15:03 | PC.NURSE ---
Michelle OSORIO CALLED RN AT 1501 TO REPORT HGB 6.9, HCT, PLT 24. RN REPEATED AND VERIFIED PT NAME, , AND LAB VALUE. RESULT CALLED TO [facility] AND PT WILL RETURN TOMORROW FOR 1 UNIT PRBC
== END 2022-04-15 15:00 | disposition home or self-care (01) ==
LOC: INF 08:34
PROVIDERS: PCP Internal Medicine Adolescent Medicine
DX: D64.9 Anemia, unspecified (principal)
CPT/HCPCS: 36430; 85007; 85014; 85018; 85025; 85049; 86850; P9016; P9034

== ENCOUNTER 2022-04-16 08:49 | Outpatient (CLI) | payer OTHER, SELFPAY ==
[2022-04-16] VITALS (10 sets, daily range): BP systolic 90–120; BP diastolic 52–62; PULSE 67–90; RESP 14–18; TEMP 36.5–36.7; O2SAT 99–100; BMI 29.7
[2022-04-16 13:02] LABS: Hematocrit 23.4 % (42.0-52.0)
--- NOTE | 2022-04-16 13:29 | PC.NURSE ---
HH results faxed to [phone] per order
== END 2022-04-16 12:42 | disposition home or self-care (01) ==
PROVIDERS: PCP Internal Medicine Adolescent Medicine
DX: D64.9 Anemia, unspecified (principal); J98.59 Other diseases of mediastinum, not elsewhere classified
CPT/HCPCS: 36430; 85014; 85018; P9016

== ENCOUNTER 2022-04-18 08:30 | Outpatient (CLI) | payer OTHER, SELFPAY ==
[2022-04-18 08:34] VITALS: BMI 29.5
[2022-04-18 08:52] LABS: Basophils % 1.3 % (0.1-2.0); Eosinophils % 0.4 % (0.1-12.0); Hematocrit 22.4 % (42.0-52.0); Hemoglobin 7.6 g/dL (14.1-18.0); Lymphocytes # 0.2 K/mm3 (0.7-4.5); Lymphocytes % 36.8 % (10-50); Mean Corpuscular HGB Conc 33.9 g/dL (31.8-35.4); Mean Corpuscular Volume 82.6 fl (80-94); Mean Platelet Volume 10.7 fl (7.4-10.4); Monocytes % 4.1 % (1.7-9.3); Neutrophils # 0.4 K/mm3 (1.8-7.8); Neutrophils % 57.4 % (37.0-80.0); Red Blood Count 2.71 M/mm3 (4.60-6.20); Red Cell Distribution Width 17.3 % (11.5-17.5)
[2022-04-18 08:54] LABS: MANUAL DIFFERENTIAL MANUAL DIFFERENTIAL (MANUAL DIFF); Platelet Count 12 K/mm3 (142-424); White Blood Count 0.6 K/mm3 (4.8-10.8)
[2022-04-18 08:56] LABS: Alanine Aminotransferase 24 U/L (12-78); Albumin Level 3.4 g/dl (3.5-5.0); Albumin/Globulin Ratio 1.4 (1.1-1.8); Alkaline Phosphatase 105 U/L (38-126); Anion Gap 10.1 mEq/L (5-15); Aspartate Amino Transferase 22 U/L (17-59); Blood Urea Nitrogen 18 mg/dl (9-20); Calcium 8.8 mg/dl (8.4-10.2); Carbon Dioxide 29 mmol/L (22.0-30.0); Chloride 100 mmol/L (98-107); Creatinine Clearance Estimated 185 mL/min (50-200); Estimated Glomerular Filt Rate 139 ml/min (>60); GFR (African American) 168 ML/MIN (>60); Globulin 2.5 g/dL (1.3-3.2); Glucose 180 mg/dl (74-100); Potassium 5.1 mmoL/L (3.5-5.1); Sodium 134 mmol/L (136-145); Total Protein,Serum 5.9 g/dl (6.3-8.2)
--- NOTE | 2022-04-18 08:57 | PC.NURSE ---
Lachelle Childress called RN and reported wbc-0.6, plt-12. RN repeated and verified pt name, , and lab value. Results called to MD, no new orders noted-pt has standing orders with orders for treatment if needed. Pt labs did not meet requirements today.
[2022-04-18 09:41] LABS: Lymphocytes % 32 % (10-50); Monocytes % 4 % (2-9); Neutrophils % 64 % (42-76); Total Cells Counted 25
[2022-04-18 09:42] LABS: Hypochromasia 1+; Ovalocytes 1+; Platelet Estimate Marked Decrease
== END 2022-04-18 09:00 | disposition home or self-care (01) ==
LOC: INF 08:31
PROVIDERS: PCP Internal Medicine Adolescent Medicine
DX: Z45.2 Encounter for adjustment and management of vascular access device (principal); J98.59 Other diseases of mediastinum, not elsewhere classified
CPT/HCPCS: 36592; 80053; 85007; 85025; G0463

== ENCOUNTER 2022-04-20 12:43 | Outpatient (CLI) | payer OTHER, SELFPAY ==
[2022-04-20 12:48] VITALS: BMI 29.5
--- NOTE | 2022-04-20 12:54 | PC.NURSE ---
Pt presents today for picc blood draw/lab check. Picc line drsg noted cdi, changed here 04/18/22. Picc port accessed and blood drawn per Diamond Brewster RN. Specimen obtained and sent to lab for analysis. Will await results of test to determine poc.
[2022-04-20 13:00] LABS: Basophils % 0.3 % (0.1-2.0); Eosinophils % 0.1 % (0.1-12.0); Hematocrit 23.2 % (42.0-52.0); Hemoglobin 7.8 g/dL (14.1-18.0); Lymphocytes # 0.2 K/mm3 (0.7-4.5); Lymphocytes % 10.5 % (10-50); Mean Corpuscular HGB Conc 33.5 g/dL (31.8-35.4); Mean Corpuscular Hemoglobin 27.9 pg (27.0-31.2); Mean Corpuscular Volume 83.4 fl (80-94); Mean Platelet Volume 10.4 fl (7.4-10.4); Neutrophils # 1.5 K/mm3 (1.8-7.8); Red Blood Count 2.78 M/mm3 (4.60-6.20); Red Cell Distribution Width 16.8 % (11.5-17.5); White Blood Count 1.7 K/mm3 (4.8-10.8)
[2022-04-20 13:01] LABS: Platelet Count 26 K/mm3 (142-424)
[2022-04-20 13:02] LABS: MANUAL DIFFERENTIAL MANUAL DIFFERENTIAL (MANUAL DIFF)
--- NOTE | 2022-04-20 13:03 | PC.NURSE ---
Brianna Pro called RN at 1301 to report plt 26. RN repeated and verified pt's name, , and lab value. Result called to [facility], no new orders noted. Pt has standing orders for transfusion if needed. Pt does not meet requirements today.
[2022-04-20 13:22] LABS: Eosinophils % 1 % (0-3); Lymphocytes % 23 % (10-50); Monocytes % 1 % (2-9); Neutrophils % 70 % (42-76); Platelet Estimate Marked Decrease; Total Cells Counted 100
[2022-04-20 13:23] LABS: Anisocytosis 1+; Hypochromasia 1+; Ovalocytes 1+
== END 2022-04-20 13:12 | disposition home or self-care (01) ==
LOC: INF 12:45
PROVIDERS: PCP Internal Medicine Adolescent Medicine
DX: J98.59 Other diseases of mediastinum, not elsewhere classified (principal)
CPT/HCPCS: 36592; 85007; 85025

== ENCOUNTER 2022-04-25 09:18 | Outpatient (CLI) | payer OTHER, SELFPAY ==
[2022-04-25 09:21] VITALS: BMI 29.5
[2022-04-25 09:47] LABS: Basophils % 0.3 % (0.1-2.0); Eosinophils % 0.3 % (0.1-12.0); Hemoglobin 7.1 g/dL (14.1-18.0); Lymphocytes # 0.3 K/mm3 (0.7-4.5); Lymphocytes % 38.4 % (10-50); Mean Corpuscular HGB Conc 33.7 g/dL (31.8-35.4); Mean Corpuscular Hemoglobin 27.5 pg (27.0-31.2); Mean Corpuscular Volume 81.7 fl (80-94); Mean Platelet Volume 9.8 fl (7.4-10.4); Monocytes % 3.4 % (1.7-9.3); Neutrophils # 0.4 K/mm3 (1.8-7.8); Neutrophils % 57.6 % (37.0-80.0); Red Blood Count 2.57 M/mm3 (4.60-6.20); Red Cell Distribution Width 16.4 % (11.5-17.5)
[2022-04-25 09:53] LABS: Alanine Aminotransferase 27 U/L (12-78); Albumin Level 3.8 g/dl (3.5-5.0); Albumin/Globulin Ratio 1.6 (1.1-1.8); Alkaline Phosphatase 121 U/L (38-126); Anion Gap 13.6 mEq/L (5-15); Aspartate Amino Transferase 28 U/L (17-59); Bilirubin,Total 0.7 mg/dl (0.2-1.3); Blood Urea Nitrogen 14 mg/dl (9-20); Calcium 8.9 mg/dl (8.4-10.2); Carbon Dioxide 26 mmol/L (22.0-30.0); Chloride 99 mmol/L (98-107); Creatinine Clearance Estimated 139 mL/min (50-200); Estimated Glomerular Filt Rate 100 ml/min (>60); GFR (African American) 121 ML/MIN (>60); Globulin 2.4 g/dL (1.3-3.2); Glucose 249 mg/dl (74-100); Potassium 4.6 mmoL/L (3.5-5.1); Sodium 134 mmol/L (136-145); Total Protein,Serum 6.2 g/dl (6.3-8.2)
[2022-04-25 09:55] LABS: White Blood Count 0.7 K/mm3 (4.8-10.8)
[2022-04-25 09:56] LABS: Platelet Count 12 K/mm3 (142-424)
[2022-04-25 09:57] LABS: MANUAL DIFFERENTIAL MANUAL DIFFERENTIAL (MANUAL DIFF)
--- NOTE | 2022-04-25 10:55 | PC.NURSE ---
Emilia Adam from lab called critical results, WBC of 0.7, Plt 12. lab results, name and verified. Standing orders in place from [facility]. Pt does not meet transfusion criteria. Critical labs called and faxed to [facility].
[2022-04-25 11:14] LABS: Lymphocytes % 40 % (10-50); Monocytes % 7 % (2-9); Neutrophils % 53 % (42-76); Total Cells Counted 15
[2022-04-25 11:17] LABS: Hypochromasia 1+; Platelet Estimate Marked Decrease
== END 2022-04-25 09:30 | disposition home or self-care (01) ==
PROVIDERS: PCP Internal Medicine Adolescent Medicine; Visit Provider Allergy & Immunology
DX: D63.8 Anemia in other chronic diseases classified elsewhere (principal); Z45.2 Encounter for adjustment and management of vascular access device
CPT/HCPCS: 36592; 80053; 85007; 85025

== ENCOUNTER 2022-05-02 10:53 | Outpatient (CLI) | payer OTHER, SELFPAY ==
[2022-05-02 11:03] VITALS: BMI 29.5
[2022-05-02 11:21] LABS: Basophils % 0.7 % (0.1-2.0); Hematocrit 26.1 % (42.0-52.0); Hemoglobin 8.8 g/dL (14.1-18.0); Lymphocytes # 0.5 K/mm3 (0.7-4.5); Mean Corpuscular HGB Conc 33.6 g/dL (31.8-35.4); Mean Corpuscular Hemoglobin 27.8 pg (27.0-31.2); Mean Corpuscular Volume 82.7 fl (80-94); Mean Platelet Volume 8.6 fl (7.4-10.4); Monocytes # 0.1 K/mm3 (0.1-1.0); Monocytes % 5.6 % (1.7-9.3); Neutrophils # 0.5 K/mm3 (1.8-7.8); Neutrophils % 46.8 % (37.0-80.0); Red Blood Count 3.16 M/mm3 (4.60-6.20); Red Cell Distribution Width 16.5 % (11.5-17.5); White Blood Count 1.1 K/mm3 (4.8-10.8)
[2022-05-02 11:24] LABS: Platelet Count 14 K/mm3 (142-424)
[2022-05-02 11:25] LABS: Alanine Aminotransferase 22 U/L (12-78); Albumin Level 3.8 g/dl (3.5-5.0); Albumin/Globulin Ratio 1.5 (1.1-1.8); Alkaline Phosphatase 128 U/L (38-126); Anion Gap 9.8 mEq/L (5-15); Aspartate Amino Transferase 25 U/L (17-59); Bilirubin,Total 0.8 mg/dl (0.2-1.3); Blood Urea Nitrogen 15 mg/dl (9-20); Calcium 8.9 mg/dl (8.4-10.2); Carbon Dioxide 29 mmol/L (22.0-30.0); Chloride 101 mmol/L (98-107); Creatinine Clearance Estimated 139 mL/min (50-200); Estimated Glomerular Filt Rate 100 ml/min (>60); GFR (African American) 121 ML/MIN (>60); Globulin 2.5 g/dL (1.3-3.2); Glucose 159 mg/dl (74-100); Potassium 4.8 mmoL/L (3.5-5.1); Sodium 135 mmol/L (136-145); Total Protein,Serum 6.3 g/dl (6.3-8.2)
--- NOTE | 2022-05-02 12:42 | PC.NURSE ---
Brianna Pro called Teri Vigil RN at 1122 to reporr platelet count 14. RN repeated and verified patient name, date of , and lab value. Results called to Dr. Garvin and no new orders received.
== END 2022-05-02 11:35 | disposition home or self-care (01) ==
LOC: INF 10:54
PROVIDERS: PCP Internal Medicine Adolescent Medicine; Visit Provider Internal Medicine
DX: Z45.2 Encounter for adjustment and management of vascular access device (principal); I10 Essential (primary) hypertension; D63.8 Anemia in other chronic diseases classified elsewhere
CPT/HCPCS: 36592; 80053; 85025

== ENCOUNTER 2022-05-06 08:31 | Outpatient (CLI) | payer OTHER, SELFPAY ==
[2022-05-06 08:37] VITALS: BMI 29.5
--- NOTE | 2022-05-06 09:00 | PC.NURSE ---
pt here for labs as ordered per md. accessed pt picc and obtained blood needed for labs, specimen sent to lab for analysis. will await results to determine poc.
[2022-05-06 09:07] LABS: Basophils # 0.1 K/mm3 (0-0.2); Basophils % 0.7 % (0.1-2.0); Eosinophils # 0.1 K/mm3 (0.0-0.4); Eosinophils % 1.3 % (0.1-12.0); Hematocrit 22.8 % (42.0-52.0); Hemoglobin 7.6 g/dL (14.1-18.0); Lymphocytes # 0.7 K/mm3 (0.7-4.5); Lymphocytes % 10.4 % (10-50); Mean Corpuscular HGB Conc 33.3 g/dL (31.8-35.4); Mean Platelet Volume 8.7 fl (7.4-10.4); Monocytes # 0.4 K/mm3 (0.1-1.0); Monocytes % 5.9 % (1.7-9.3); Neutrophils # 5.8 K/mm3 (1.8-7.8); Neutrophils % 81.8 % (37.0-80.0); Red Blood Count 2.71 M/mm3 (4.60-6.20); Red Cell Distribution Width 16.1 % (11.5-17.5); White Blood Count 7.1 K/mm3 (4.8-10.8)
[2022-05-06 09:33] LABS: Platelet Count 14 K/mm3 (142-424)
--- NOTE | 2022-05-06 09:39 | PC.NURSE ---
Brianna Pro called RN at 0932 to report plt count 14. RN repeated and verified pt name, , and lab value. Result called and faxed to bmt clinic Dr. Roman-no new orders noted.
== END 2022-05-06 09:49 | disposition home or self-care (01) ==
LOC: INF 08:31
PROVIDERS: PCP Internal Medicine Adolescent Medicine; Visit Provider Internal Medicine
DX: D64.9 Anemia, unspecified (principal); Z45.2 Encounter for adjustment and management of vascular access device
CPT/HCPCS: 36592; 85025

== ENCOUNTER 2022-05-09 08:56 | Outpatient (CLI) | payer OTHER, SELFPAY ==
[2022-05-09] VITALS (17 sets, daily range): BP systolic 108–149; BP diastolic 52–71; PULSE 69–91; RESP 16–72; TEMP 36.4–37; O2SAT 97–100; BMI 30.2
[2022-05-09 09:28] LABS: Basophils % 0.8 % (0.1-2.0); Eosinophils # 0.2 K/mm3 (0.0-0.4); Eosinophils % 5.1 % (0.1-12.0); Lymphocytes # 0.8 K/mm3 (0.7-4.5); Lymphocytes % 23.9 % (10-50); Mean Corpuscular HGB Conc 34.2 g/dL (31.8-35.4); Mean Corpuscular Volume 81.9 fl (80-94); Mean Platelet Volume 8.9 fl (7.4-10.4); Monocytes # 0.1 K/mm3 (0.1-1.0); Monocytes % 3.1 % (1.7-9.3); Neutrophils # 2.3 K/mm3 (1.8-7.8); Neutrophils % 67.1 % (37.0-80.0); Red Blood Count 2.36 M/mm3 (4.60-6.20); Red Cell Distribution Width 16.1 % (11.5-17.5); White Blood Count 3.4 K/mm3 (4.8-10.8)
[2022-05-09 09:32] LABS: Hematocrit 19.3 % (42.0-52.0); Hemoglobin 6.6 g/dL (14.1-18.0); Platelet Count 8 K/mm3 (142-424)
[2022-05-09 09:34] LABS: Alanine Aminotransferase 23 U/L (12-78); Albumin Level 3.4 g/dl (3.5-5.0); Albumin/Globulin Ratio 1.4 (1.1-1.8); Alkaline Phosphatase 129 U/L (38-126); Anion Gap 10.9 mEq/L (5-15); Aspartate Amino Transferase 30 U/L (17-59); Bilirubin,Total 0.3 mg/dl (0.2-1.3); Blood Urea Nitrogen 9 mg/dl (9-20); Calcium 8.6 mg/dl (8.4-10.2); Carbon Dioxide 27 mmol/L (22.0-30.0); Chloride 102 mmol/L (98-107); Estimated Glomerular Filt Rate 139 ml/min (>60); GFR (African American) 168 ML/MIN (>60); Globulin 2.4 g/dL (1.3-3.2); Glucose 212 mg/dl (74-100); Potassium 3.9 mmoL/L (3.5-5.1); Sodium 136 mmol/L (136-145); Total Protein,Serum 5.8 g/dl (6.3-8.2)
--- NOTE | 2022-05-09 10:30 | PC.NURSE ---
0930: Critical HGB/HCT and Platelets received from Lab. Patient has standing orders to receive 1 unit PRBCs for HGB<7 and receive a 6 pack of platelets for a platelet count <10. Order placed for 1 unit of blood. Colleen calling blood center to request platelets. Patient updated on POC.
--- NOTE | 2022-05-09 11:19 | PC.NURSE ---
0930: DR. REDD AWARE OF CRITICAL RESULTS. STANDING ORDER FOR TRANSFUSION.
--- NOTE | 2022-05-09 11:41 | PC.NURSE ---
1120:Blood transfusion increased to 250ml/hr.
--- NOTE | 2022-05-09 11:47 | PC.NURSE ---
Patient resting in bed. Offered to order a lunch tray for patient; he declined at this time. Blood transfusing. No complaints voiced.
== END 2022-05-09 14:20 | disposition home or self-care (01) ==
LOC: INF 08:57
PROVIDERS: PCP Internal Medicine Adolescent Medicine; Visit Provider Internal Medicine
DX: D64.9 Anemia, unspecified (principal)
CPT/HCPCS: 36430; 36592; 80053; 85025; 86850; G0463; P9016; P9034

== ENCOUNTER 2022-05-11 08:35 | Outpatient (CLI) | payer OTHER, SELFPAY ==
[2022-05-11 08:40] VITALS: BMI 29.5
[2022-05-11 08:54] LABS: Basophils % 0.6 % (0.1-2.0); Eosinophils # 0.1 K/mm3 (0.0-0.4); Eosinophils % 4.2 % (0.1-12.0); Hematocrit 21.8 % (42.0-52.0); Hemoglobin 7.3 g/dL (14.1-18.0); Lymphocytes # 0.7 K/mm3 (0.7-4.5); Lymphocytes % 45.5 % (10-50); Mean Corpuscular HGB Conc 33.6 g/dL (31.8-35.4); Mean Corpuscular Hemoglobin 28.7 pg (27.0-31.2); Mean Corpuscular Volume 85.5 fl (80-94); Mean Platelet Volume 10.2 fl (7.4-10.4); Monocytes % 2.4 % (1.7-9.3); Neutrophils # 0.7 K/mm3 (1.8-7.8); Neutrophils % 47.2 % (37.0-80.0); Red Blood Count 2.55 M/mm3 (4.60-6.20); Red Cell Distribution Width 18.1 % (11.5-17.5); White Blood Count 1.5 K/mm3 (4.8-10.8)
[2022-05-11 08:56] LABS: Platelet Count 19 K/mm3 (142-424)
== END 2022-05-11 09:05 | disposition home or self-care (01) ==
LOC: INF 08:36
PROVIDERS: PCP Internal Medicine Adolescent Medicine; Visit Provider Internal Medicine
DX: Z45.2 Encounter for adjustment and management of vascular access device (principal)
CPT/HCPCS: 36592; 85025

== ENCOUNTER 2022-05-13 08:40 | Outpatient (CLI) | payer OTHER, SELFPAY ==
[2022-05-13 08:44] VITALS: BMI 29.5
[2022-05-13 09:14] LABS: Basophils % 0.4 % (0.1-2.0); Eosinophils # 0.1 K/mm3 (0.0-0.4); Eosinophils % 4.2 % (0.1-12.0); Hematocrit 21.1 % (42.0-52.0); Hemoglobin 7.4 g/dL (14.1-18.0); Lymphocytes # 0.7 K/mm3 (0.7-4.5); Lymphocytes % 51.5 % (10-50); Mean Corpuscular HGB Conc 34.9 g/dL (31.8-35.4); Mean Corpuscular Hemoglobin 28.9 pg (27.0-31.2); Mean Corpuscular Volume 82.8 fl (80-94); Mean Platelet Volume 8.3 fl (7.4-10.4); Monocytes # 0.1 K/mm3 (0.1-1.0); Monocytes % 4.1 % (1.7-9.3); Neutrophils # 0.5 K/mm3 (1.8-7.8); Neutrophils % 39.7 % (37.0-80.0); Red Blood Count 2.54 M/mm3 (4.60-6.20); Red Cell Distribution Width 18.1 % (11.5-17.5); White Blood Count 1.4 K/mm3 (4.8-10.8)
[2022-05-13 09:16] LABS: Platelet Count 14 K/mm3 (142-424)
[2022-05-13 09:18] LABS: MANUAL DIFFERENTIAL MANUAL DIFFERENTIAL (MANUAL DIFF)
--- NOTE | 2022-05-13 09:23 | PC.NURSE ---
Emilia Adam called RN at 0925 to report plt level of 14. RN repeated and verified pt name, , and lab value. Standing orders for pt states that no plts given unless plt level is 10 or less.
[2022-05-13 10:43] LABS: Lymphocytes % 80 % (10-50); Monocytes % 8 % (2-9); Neutrophils % 12 % (42-76); Total Cells Counted 25
[2022-05-13 10:44] LABS: Microcytosis 1+; Platelet Estimate Marked Decrease
== END 2022-05-13 09:00 | disposition home or self-care (01) ==
LOC: INF 08:40
PROVIDERS: PCP Internal Medicine Adolescent Medicine
DX: D63.8 Anemia in other chronic diseases classified elsewhere (principal); Z45.2 Encounter for adjustment and management of vascular access device
CPT/HCPCS: 36592; 85007; 85025

== ENCOUNTER → 2022-05-16 09:02 | Outpatient (CLI) | payer OTHER, SELFPAY ==
[2022-05-16] VITALS (10 sets, daily range): BP systolic 119–140; BP diastolic 56–73; PULSE 68–79; RESP 18; TEMP 36.3–36.5; O2SAT 97–100; BMI 34.7
[2022-05-16 09:18] LABS: Basophils % 0.8 % (0.1-2.0); Eosinophils % 2.8 % (0.1-12.0); Lymphocytes # 0.7 K/mm3 (0.7-4.5); Lymphocytes % 53.3 % (10-50); Mean Corpuscular HGB Conc 34.5 g/dL (31.8-35.4); Mean Corpuscular Hemoglobin 28.8 pg (27.0-31.2); Mean Corpuscular Volume 83.3 fl (80-94); Mean Platelet Volume 10.6 fl (7.4-10.4); Monocytes # 0.1 K/mm3 (0.1-1.0); Monocytes % 5.9 % (1.7-9.3); Neutrophils # 0.5 K/mm3 (1.8-7.8); Neutrophils % 37.3 % (37.0-80.0); Red Blood Count 2.35 M/mm3 (4.60-6.20); White Blood Count 1.3 K/mm3 (4.8-10.8)
[2022-05-16 09:19] LABS: Hemoglobin 6.8 g/dL (14.1-18.0)
[2022-05-16 09:20] LABS: Hematocrit 19.6 % (42.0-52.0); Platelet Count 12 K/mm3 (142-424)
[2022-05-16 09:21] LABS: MANUAL DIFFERENTIAL MANUAL DIFFERENTIAL (MANUAL DIFF)
[2022-05-16 09:28] LABS: Alanine Aminotransferase 32 U/L (12-78); Albumin Level 3.6 g/dl (3.5-5.0); Albumin/Globulin Ratio 1.4 (1.1-1.8); Alkaline Phosphatase 101 U/L (38-126); Anion Gap 12.3 mEq/L (5-15); Aspartate Amino Transferase 32 U/L (17-59); Bilirubin,Total 0.5 mg/dl (0.2-1.3); Blood Urea Nitrogen 16 mg/dl (9-20); Calcium 8.8 mg/dl (8.4-10.2); Carbon Dioxide 27 mmol/L (22.0-30.0); Chloride 102 mmol/L (98-107); Creatinine Clearance Estimated 154 mL/min (50-200); Estimated Glomerular Filt Rate 100 ml/min (>60); GFR (African American) 121 ML/MIN (>60); Globulin 2.5 g/dL (1.3-3.2); Glucose 249 mg/dl (74-100); Potassium 4.3 mmoL/L (3.5-5.1); Sodium 137 mmol/L (136-145); Total Protein,Serum 6.1 g/dl (6.3-8.2)
[2022-05-16 09:49] LABS: Anisocytosis 1+; Hypochromasia 1+; Lymphocytes % 58 % (10-50); Microcytosis 1+; Monocytes % 3 % (2-9); Neutrophils % 39 % (42-76); Ovalocytes 1+; Platelet Estimate Marked Decrease; Total Cells Counted 100
--- NOTE | 2022-05-16 09:55 | PC.NURSE ---
Lachelle Covington from lab called critical lab results. Hgb of 6.8, plt of 12, Hct of 19.6. lab results, name and verified. standing orders in place to transfuse PRBCs. BMT made aware, no new orders received.
[2022-05-16 13:39] LABS: Hematocrit 21.3 % (42.0-52.0)
[2022-05-16 13:50] LABS: Hemoglobin 7.4 g/dL (14.1-18.0)
== END ==
PROVIDERS: PCP Internal Medicine Adolescent Medicine; Visit Provider Internal Medicine
DX: C91.00 Acute lymphoblastic leukemia not having achieved remission (principal)
CPT/HCPCS: 36430; 80053; 85007; 85014; 85018; 85025; 86850; P9016

== ENCOUNTER 2022-05-18 08:44 | Outpatient (CLI) | payer OTHER, SELFPAY ==
[2022-05-18 08:47] VITALS: BMI 29.4
--- NOTE | 2022-05-18 08:50 | PC.NURSE ---
0850-collected labs via left upper arm picc line;pt will wait for results.
[2022-05-18 08:58] LABS: Basophils % 0.7 % (0.1-2.0); Eosinophils % 3.1 % (0.1-12.0); Hematocrit 21.3 % (42.0-52.0); Hemoglobin 7.5 g/dL (14.1-18.0); Lymphocytes # 0.6 K/mm3 (0.7-4.5); Mean Corpuscular HGB Conc 34.9 g/dL (31.8-35.4); Mean Corpuscular Hemoglobin 28.8 pg (27.0-31.2); Mean Corpuscular Volume 82.3 fl (80-94); Mean Platelet Volume 10.3 fl (7.4-10.4); Monocytes # 0.1 K/mm3 (0.1-1.0); Monocytes % 5.3 % (1.7-9.3); Neutrophils # 0.5 K/mm3 (1.8-7.8); Red Blood Count 2.59 M/mm3 (4.60-6.20); Red Cell Distribution Width 17.3 % (11.5-17.5); White Blood Count 1.3 K/mm3 (4.8-10.8)
[2022-05-18 09:01] LABS: Platelet Count 31 K/mm3 (142-424)
--- NOTE | 2022-05-18 09:09 | PC.NURSE ---
0900-Lahcelle Childress called rn at 0900 to report platelet level 31. RN repeated and verified name,, and lab value.Result called to and no new orders received.
== END 2022-05-18 09:04 | disposition home or self-care (01) ==
LOC: INF 08:44
PROVIDERS: PCP Internal Medicine Adolescent Medicine; Visit Provider Internal Medicine
DX: Z45.2 Encounter for adjustment and management of vascular access device (principal); C91.00 Acute lymphoblastic leukemia not having achieved remission
CPT/HCPCS: 36592; 85025

== ENCOUNTER 2022-05-20 08:49 | Outpatient (CLI) | payer OTHER, SELFPAY ==
[2022-05-20 08:52] VITALS: BMI 29.5
[2022-05-20 09:07] LABS: Eosinophils # 0.1 K/mm3 (0.0-0.4); Lymphocytes # 0.6 K/mm3 (0.7-4.5); Lymphocytes % 48.4 % (10-50); Mean Corpuscular HGB Conc 34.8 g/dL (31.8-35.4); Mean Corpuscular Volume 83.2 fl (80-94); Mean Platelet Volume 10.2 fl (7.4-10.4); Monocytes # 0.1 K/mm3 (0.1-1.0); Monocytes % 4.8 % (1.7-9.3); Neutrophils # 0.5 K/mm3 (1.8-7.8); Neutrophils % 39.7 % (37.0-80.0); Red Cell Distribution Width 17.3 % (11.5-17.5); White Blood Count 1.2 K/mm3 (4.8-10.8)
[2022-05-20 09:10] LABS: Platelet Count 26 K/mm3 (142-424)
== END 2022-05-20 09:20 | disposition home or self-care (01) ==
LOC: INF 08:50
PROVIDERS: PCP Internal Medicine Adolescent Medicine; Visit Provider Internal Medicine
DX: Z45.2 Encounter for adjustment and management of vascular access device (principal); C91.00 Acute lymphoblastic leukemia not having achieved remission
CPT/HCPCS: 36592; 85025

== ENCOUNTER 2022-05-23 08:56 | Outpatient (CLI) | payer OTHER, SELFPAY ==
[2022-05-23] VITALS (9 sets, daily range): BP systolic 119–147; BP diastolic 62–84; PULSE 76–89; RESP 18; TEMP 36.6–36.8; O2SAT 100; BMI 29.5
[2022-05-23 09:18] LABS: Basophils % 0.4 % (0.1-2.0); Eosinophils # 0.1 K/mm3 (0.0-0.4); Lymphocytes # 0.6 K/mm3 (0.7-4.5); Lymphocytes % 63.1 % (10-50); Mean Corpuscular HGB Conc 36.1 g/dL (31.8-35.4); Mean Corpuscular Hemoglobin 29.9 pg (27.0-31.2); Mean Corpuscular Volume 82.8 fl (80-94); Mean Platelet Volume 9.8 fl (7.4-10.4); Monocytes % 4.2 % (1.7-9.3); Neutrophils # 0.2 K/mm3 (1.8-7.8); Neutrophils % 25.3 % (37.0-80.0); Red Blood Count 2.17 M/mm3 (4.60-6.20); Red Cell Distribution Width 18.7 % (11.5-17.5)
[2022-05-23 09:23] LABS: Alanine Aminotransferase 34 U/L (12-78); Albumin Level 3.7 g/dl (3.5-5.0); Albumin/Globulin Ratio 1.5 (1.1-1.8); Alkaline Phosphatase 93 U/L (38-126); Anion Gap 15.8 mEq/L (5-15); Aspartate Amino Transferase 36 U/L (17-59); Bilirubin,Total 0.8 mg/dl (0.2-1.3); Blood Urea Nitrogen 17 mg/dl (9-20); Calcium 8.6 mg/dl (8.4-10.2); Carbon Dioxide 25 mmol/L (22.0-30.0); Chloride 98 mmol/L (98-107); Creatinine Clearance Estimated 111 mL/min (50-200); Estimated Glomerular Filt Rate 77 ml/min (>60); GFR (African American) 93 ML/MIN (>60); Globulin 2.4 g/dL (1.3-3.2); Glucose 266 mg/dl (74-100); Potassium 3.8 mmoL/L (3.5-5.1); Sodium 135 mmol/L (136-145); Total Protein,Serum 6.1 g/dl (6.3-8.2)
[2022-05-23 09:25] LABS: White Blood Count 0.9 K/mm3 (4.8-10.8)
[2022-05-23 09:26] LABS: Hemoglobin 6.5 g/dL (14.1-18.0); Platelet Count 27 K/mm3 (142-424)
[2022-05-23 09:28] LABS: MANUAL DIFFERENTIAL MANUAL DIFFERENTIAL (MANUAL DIFF)
--- NOTE | 2022-05-23 10:38 | PC.NURSE ---
0900 Emilia Adam from lab called critical results. Plt 27, Hgb 6.5, Hct 18, WBC 0.9. lab results, and name were verified. standing orders to infuse 1 units PRBC, aware, no additional orders received.
[2022-05-23 11:47] LABS: Eosinophils % 5 % (0-3); Lymphocytes % 65 % (10-50); Monocytes % 5 % (2-9); Neutrophils % 25 % (42-76); Total Cells Counted 20
[2022-05-23 11:48] LABS: Platelet Estimate Marked Decrease
[2022-05-23 11:49] LABS: Anisocytosis 1+; Microcytosis 1+
[2022-05-23 13:38] LABS: Hematocrit 21.2 % (42.0-52.0)
[2022-05-23 16:05] LABS: Hemoglobin 7.6 g/dL (14.1-18.0)
== END 2022-05-23 13:40 | disposition home or self-care (01) ==
LOC: INF 08:56
PROVIDERS: PCP Internal Medicine Adolescent Medicine; Visit Provider Internal Medicine
DX: C91.00 Acute lymphoblastic leukemia not having achieved remission (principal)
CPT/HCPCS: 36430; 80053; 85007; 85014; 85018; 85025; 86850; P9016

== ENCOUNTER 2022-05-25 08:42 | Outpatient (CLI) | payer OTHER, SELFPAY ==
[2022-05-25 08:50] VITALS: BMI 29.5
[2022-05-25 09:22] LABS: Basophils # 0.1 K/mm3 (0-0.2); Basophils % 0.7 % (0.1-2.0); Eosinophils # 0.7 K/mm3 (0.0-0.4); Eosinophils % 10.3 % (0.1-12.0); Hematocrit 21.3 % (42.0-52.0); Hemoglobin 7.3 g/dL (14.1-18.0); Lymphocytes # 0.7 K/mm3 (0.7-4.5); Lymphocytes % 9.8 % (10-50); Mean Corpuscular HGB Conc 34.2 g/dL (31.8-35.4); Mean Corpuscular Hemoglobin 30.1 pg (27.0-31.2); Mean Platelet Volume 8.7 fl (7.4-10.4); Monocytes % 14.6 % (1.7-9.3); Neutrophils # 4.4 K/mm3 (1.8-7.8); Neutrophils % 64.5 % (37.0-80.0); Red Blood Count 2.43 M/mm3 (4.60-6.20); Red Cell Distribution Width 19.7 % (11.5-17.5); White Blood Count 6.8 K/mm3 (4.8-10.8)
[2022-05-25 09:26] LABS: Platelet Count 41 K/mm3 (142-424)
--- NOTE | 2022-05-25 09:31 | PC.NURSE ---
Colleen Dunbar from lab called critical lab results, Plt of 41. lab result, name and verified. standing orders in place, pt does not need replacement products per order. notified. no new orders at this time.
== END 2022-05-25 09:30 | disposition home or self-care (01) ==
LOC: INF 08:42
PROVIDERS: PCP Internal Medicine Adolescent Medicine
DX: Z45.2 Encounter for adjustment and management of vascular access device (principal); D64.9 Anemia, unspecified
CPT/HCPCS: 36592; 85025

== ENCOUNTER 2022-05-27 09:43 | Outpatient (CLI) | payer OTHER, SELFPAY ==
[2022-05-27] VITALS (10 sets, daily range): BP systolic 100–136; BP diastolic 46–71; PULSE 81–91; RESP 16–18; TEMP 35.9–36.7; O2SAT 100; BMI 29.5
[2022-05-27 10:11] LABS: Basophils % 0.4 % (0.1-2.0); Eosinophils # 0.5 K/mm3 (0.0-0.4); Eosinophils % 10.1 % (0.1-12.0); Lymphocytes # 0.7 K/mm3 (0.7-4.5); Lymphocytes % 13.8 % (10-50); Mean Corpuscular HGB Conc 34.4 g/dL (31.8-35.4); Mean Corpuscular Hemoglobin 29.7 pg (27.0-31.2); Mean Corpuscular Volume 86.2 fl (80-94); Mean Platelet Volume 10.4 fl (7.4-10.4); Monocytes # 0.4 K/mm3 (0.1-1.0); Monocytes % 7.1 % (1.7-9.3); Neutrophils # 3.6 K/mm3 (1.8-7.8); Neutrophils % 68.7 % (37.0-80.0); Red Blood Count 2.35 M/mm3 (4.60-6.20); Red Cell Distribution Width 20.8 % (11.5-17.5); White Blood Count 5.2 K/mm3 (4.8-10.8)
[2022-05-27 10:15] LABS: Hematocrit 20.2 % (42.0-52.0); Platelet Count 28 K/mm3 (142-424)
--- NOTE | 2022-05-27 12:18 | PC.NURSE ---
1215-BLOOD TRANSFUSION STARTED AT 100 ML/HR AT THIS TIME.
== END 2022-05-27 15:15 | disposition home or self-care (01) ==
LOC: INF 09:44
PROVIDERS: PCP Internal Medicine Adolescent Medicine
DX: Z45.2 Encounter for adjustment and management of vascular access device (principal); C91.00 Acute lymphoblastic leukemia not having achieved remission
CPT/HCPCS: 36430; 85025; 86850; P9016

== ENCOUNTER 2022-05-30 08:21 | Outpatient (CLI) | payer OTHER, SELFPAY ==
[2022-05-30 08:26] VITALS: BMI 31.3
[2022-05-30 08:39] LABS: Basophils # 0.1 K/mm3 (0-0.2); Basophils % 0.8 % (0.1-2.0); Eosinophils # 0.2 K/mm3 (0.0-0.4); Eosinophils % 2.7 % (0.1-12.0); Hematocrit 22.9 % (42.0-52.0); Hemoglobin 7.7 g/dL (14.1-18.0); Lymphocytes # 0.9 K/mm3 (0.7-4.5); Lymphocytes % 10.1 % (10-50); Mean Corpuscular HGB Conc 33.8 g/dL (31.8-35.4); Mean Corpuscular Hemoglobin 29.5 pg (27.0-31.2); Mean Corpuscular Volume 87.4 fl (80-94); Monocytes # 0.2 K/mm3 (0.1-1.0); Monocytes % 2.5 % (1.7-9.3); Neutrophils % 83.8 % (37.0-80.0); Red Blood Count 2.62 M/mm3 (4.60-6.20); Red Cell Distribution Width 20.8 % (11.5-17.5); White Blood Count 8.3 K/mm3 (4.8-10.8)
[2022-05-30 08:41] LABS: Platelet Count 27 K/mm3 (142-424)
--- NOTE | 2022-05-30 08:42 | PC.NURSE ---
ORA SANTANA CALLED FROM LAB AT 0840 TO REPORT CRITICAL VALUE OF PLATELETS OF 27. RN VERIFIED PT NAME, , AND LAB VALUE. PER STANDING ORDERS FROM [facility] STATES TO TRANSFUSE IF LESS THAN 10.
[2022-05-30 08:43] LABS: Chloride 99 mmol/L (98-107); Sodium 139 mmol/L (136-145)
[2022-05-30 08:44] LABS: Potassium 4.1 mmoL/L (3.5-5.1)
[2022-05-30 08:46] LABS: Alanine Aminotransferase 30 U/L (12-78); Albumin Level 3.9 g/dl (3.5-5.0); Albumin/Globulin Ratio 1.8 (1.1-1.8); Alkaline Phosphatase 126 U/L (38-126); Anion Gap 16.1 mEq/L (5-15); Aspartate Amino Transferase 48 U/L (17-59); Bilirubin,Total 1.1 mg/dl (0.2-1.3); Blood Urea Nitrogen 9 mg/dl (9-20); Carbon Dioxide 28 mmol/L (22.0-30.0); Creatinine Clearance Estimated 123 mL/min (50-200); Estimated Glomerular Filt Rate 87 ml/min (>60); GFR (African American) 105 ML/MIN (>60); Globulin 2.2 g/dL (1.3-3.2); Total Protein,Serum 6.1 g/dl (6.3-8.2)
[2022-05-30 08:47] LABS: Calcium 8.7 mg/dl (8.4-10.2); Glucose 145 mg/dl (74-100)
== END 2022-05-30 08:54 | disposition home or self-care (01) ==
LOC: INF 08:22
PROVIDERS: PCP Internal Medicine Adolescent Medicine
DX: Z45.2 Encounter for adjustment and management of vascular access device (principal); C91.00 Acute lymphoblastic leukemia not having achieved remission
CPT/HCPCS: 36592; 80053; 85025; G0463

== ENCOUNTER 2022-06-01 08:34 | Outpatient (CLI) | payer OTHER, SELFPAY ==
[2022-06-01 08:40] VITALS: BMI 29.5
[2022-06-01 08:54] LABS: Basophils # 0.1 K/mm3 (0-0.2); Basophils % 1.2 % (0.1-2.0); Eosinophils # 0.4 K/mm3 (0.0-0.4); Eosinophils % 3.6 % (0.1-12.0); Hematocrit 23.1 % (42.0-52.0); Hemoglobin 7.8 g/dL (14.1-18.0); Lymphocytes # 1.3 K/mm3 (0.7-4.5); Lymphocytes % 12.9 % (10-50); Mean Corpuscular HGB Conc 33.7 g/dL (31.8-35.4); Mean Corpuscular Hemoglobin 29.4 pg (27.0-31.2); Mean Corpuscular Volume 87.4 fl (80-94); Monocytes # 0.2 K/mm3 (0.1-1.0); Monocytes % 1.6 % (1.7-9.3); Neutrophils # 8.4 K/mm3 (1.8-7.8); Neutrophils % 80.7 % (37.0-80.0); Red Blood Count 2.65 M/mm3 (4.60-6.20); Red Cell Distribution Width 21.8 % (11.5-17.5); White Blood Count 10.4 K/mm3 (4.8-10.8)
[2022-06-01 08:55] LABS: Platelet Count 34 K/mm3 (142-424)
[2022-06-01 09:02] LABS: Alanine Aminotransferase 36 U/L (12-78); Albumin Level 3.7 g/dl (3.5-5.0); Albumin/Globulin Ratio 1.6 (1.1-1.8); Alkaline Phosphatase 137 U/L (38-126); Aspartate Amino Transferase 49 U/L (17-59); Bilirubin,Total 0.7 mg/dl (0.2-1.3); Blood Urea Nitrogen 13 mg/dl (9-20); Calcium 8.6 mg/dl (8.4-10.2); Carbon Dioxide 29 mmol/L (22.0-30.0); Chloride 97 mmol/L (98-107); Creatinine Clearance Estimated 123 mL/min (50-200); Estimated Glomerular Filt Rate 87 ml/min (>60); GFR (African American) 105 ML/MIN (>60); Globulin 2.3 g/dL (1.3-3.2); Glucose 155 mg/dl (74-100); Sodium 136 mmol/L (136-145)
--- NOTE | 2022-06-01 15:05 | PC.NURSE ---
renny danielson from lab called critical results of plt of 34. lab result, name and verified. standing orders in place, pt does not meet requirements for transfusion at this time. notified, no new orders at this time.
== END 2022-06-01 09:00 | disposition home or self-care (01) ==
PROVIDERS: PCP Internal Medicine Adolescent Medicine; Visit Provider Internal Medicine
DX: Z45.2 Encounter for adjustment and management of vascular access device (principal); C91.00 Acute lymphoblastic leukemia not having achieved remission
CPT/HCPCS: 36592; 80053; 85025

== ENCOUNTER 2022-06-03 08:56 | Outpatient (CLI) | payer OTHER, SELFPAY ==
[2022-06-03 08:56] VITALS: BMI 29.5
[2022-06-03 09:08] LABS: MANUAL DIFFERENTIAL MANUAL DIFFERENTIAL (MANUAL DIFF)
[2022-06-03 09:12] LABS: Basophils % 1.2 % (0.1-2.0); Eosinophils # 0.3 K/mm3 (0.0-0.4); Eosinophils % 7.4 % (0.1-12.0); Hematocrit 21.7 % (42.0-52.0); Hemoglobin 7.5 g/dL (14.1-18.0); Lymphocytes # 1.2 K/mm3 (0.7-4.5); Lymphocytes % 33.9 % (10-50); Mean Corpuscular HGB Conc 34.5 g/dL (31.8-35.4); Mean Corpuscular Hemoglobin 30.4 pg (27.0-31.2); Mean Corpuscular Volume 87.9 fl (80-94); Mean Platelet Volume 10.8 fl (7.4-10.4); Monocytes # 0.1 K/mm3 (0.1-1.0); Monocytes % 1.7 % (1.7-9.3); Neutrophils % 55.9 % (37.0-80.0); Red Blood Count 2.47 M/mm3 (4.60-6.20); Red Cell Distribution Width 22.2 % (11.5-17.5); White Blood Count 3.6 K/mm3 (4.8-10.8)
[2022-06-03 09:20] LABS: Platelet Count 37 K/mm3 (142-424)
--- NOTE | 2022-06-03 09:22 | PC.NURSE ---
Karley Holland from lab called crtical lab result of plt 37. Lab result, and value verified. standing orders in place, pt does not meet requirements for replacement. notified, no new orders at this time.
--- NOTE | 2022-06-03 09:25 | PC.NURSE ---
0925-per standing order pt does not need blood products today;pt to be d/c home
[2022-06-03 10:49] LABS: Eosinophils % 2 % (0-3); Lymphocytes % 45 % (10-50); Monocytes % 3 % (2-9); Neutrophils % 50 % (42-76); Platelet Estimate Marked Decrease; RBC Morphology Normal; Total Cells Counted 100
== END 2022-06-03 09:25 | disposition home or self-care (01) ==
LOC: INF 08:56
PROVIDERS: PCP Internal Medicine Adolescent Medicine; Visit Provider Internal Medicine
DX: Z45.2 Encounter for adjustment and management of vascular access device (principal); C91.00 Acute lymphoblastic leukemia not having achieved remission
CPT/HCPCS: 36592; 85007; 85014; 85018; 85048; 85049

== ENCOUNTER 2022-06-06 08:41 | Outpatient (CLI) | payer OTHER, SELFPAY ==
[2022-06-06] VITALS (11 sets, daily range): BP systolic 114–145; BP diastolic 54–81; PULSE 69–81; RESP 18–20; TEMP 36.3–36.4; O2SAT 100; BMI 28.7
[2022-06-06 08:57] LABS: Basophils % 0.5 % (0.1-2.0); Eosinophils # 0.1 K/mm3 (0.0-0.4); Eosinophils % 5.9 % (0.1-12.0); Lymphocytes # 0.7 K/mm3 (0.7-4.5); Lymphocytes % 41.4 % (10-50); Mean Corpuscular HGB Conc 35.1 g/dL (31.8-35.4); Mean Corpuscular Volume 88.3 fl (80-94); Monocytes % 2.6 % (1.7-9.3); Neutrophils # 0.8 K/mm3 (1.8-7.8); Neutrophils % 49.5 % (37.0-80.0); Red Blood Count 2.17 M/mm3 (4.60-6.20); Red Cell Distribution Width 22.4 % (11.5-17.5); White Blood Count 1.7 K/mm3 (4.8-10.8)
[2022-06-06 08:58] LABS: Hemoglobin 6.7 g/dL (14.1-18.0)
[2022-06-06 08:59] LABS: Hematocrit 19.2 % (42.0-52.0); Platelet Count 41 K/mm3 (142-424)
[2022-06-06 09:19] LABS: Alanine Aminotransferase 32 U/L (12-78); Albumin Level 3.7 g/dl (3.5-5.0); Albumin/Globulin Ratio 1.6 (1.1-1.8); Alkaline Phosphatase 87 U/L (38-126); Anion Gap 15.9 mEq/L (5-15); Aspartate Amino Transferase 32 U/L (17-59); Bilirubin,Total 0.6 mg/dl (0.2-1.3); Blood Urea Nitrogen 16 mg/dl (9-20); Calcium 8.5 mg/dl (8.4-10.2); Carbon Dioxide 26 mmol/L (22.0-30.0); Chloride 99 mmol/L (98-107); Creatinine Clearance Estimated 111 mL/min (50-200); Estimated Glomerular Filt Rate 77 ml/min (>60); GFR (African American) 93 ML/MIN (>60); Globulin 2.3 g/dL (1.3-3.2); Glucose 196 mg/dl (74-100); Potassium 3.9 mmoL/L (3.5-5.1); Sodium 137 mmol/L (136-145)
--- NOTE | 2022-06-06 10:06 | PC.NURSE ---
Lachelle Covington called critical results of Hgb of 6.7, Hct of 19.2, Plt of 41. Lab result, name and verified. standing orders in place to transfuse 1 unit PRBC. aware, no new orders at this time.
[2022-06-06 14:09] LABS: Hematocrit 24.3 % (42.0-52.0)
[2022-06-06 17:04] LABS: Hemoglobin 8.4 g/dL (14.1-18.0)
== END 2022-06-06 13:53 | disposition home or self-care (01) ==
LOC: INF 08:41
PROVIDERS: PCP Internal Medicine Adolescent Medicine; Visit Provider Internal Medicine
DX: Z45.2 Encounter for adjustment and management of vascular access device (principal); C91.00 Acute lymphoblastic leukemia not having achieved remission
CPT/HCPCS: 36430; 80053; 85014; 85018; 85025; 86850; P9016

== ENCOUNTER 2022-06-08 08:19 | Outpatient (CLI) | payer OTHER, SELFPAY ==
[2022-06-08 08:25] VITALS: BMI 29.5
[2022-06-08 08:43] LABS: Basophils % 0.7 % (0.1-2.0); Eosinophils # 0.1 K/mm3 (0.0-0.4); Eosinophils % 6.3 % (0.1-12.0); Hematocrit 23.5 % (42.0-52.0); Hemoglobin 7.9 g/dL (14.1-18.0); Lymphocytes # 0.6 K/mm3 (0.7-4.5); Mean Corpuscular HGB Conc 33.5 g/dL (31.8-35.4); Mean Corpuscular Hemoglobin 30.1 pg (27.0-31.2); Mean Corpuscular Volume 89.8 fl (80-94); Mean Platelet Volume 10.1 fl (7.4-10.4); Monocytes # 0.1 K/mm3 (0.1-1.0); Monocytes % 3.9 % (1.7-9.3); Neutrophils # 0.6 K/mm3 (1.8-7.8); Red Blood Count 2.62 M/mm3 (4.60-6.20); Red Cell Distribution Width 21.6 % (11.5-17.5); White Blood Count 1.4 K/mm3 (4.8-10.8)
[2022-06-08 08:55] LABS: Platelet Count 50 K/mm3 (142-424)
== END 2022-06-08 09:00 | disposition home or self-care (01) ==
LOC: INF 08:20
PROVIDERS: PCP Internal Medicine Adolescent Medicine; Visit Provider Internal Medicine
DX: Z45.2 Encounter for adjustment and management of vascular access device (principal); C91.00 Acute lymphoblastic leukemia not having achieved remission
CPT/HCPCS: 36592; 85025

== ENCOUNTER 2022-06-10 08:16 | Outpatient (CLI) | payer OTHER, SELFPAY ==
[2022-06-10 08:22] VITALS: BMI 29.5
[2022-06-10 08:41] LABS: Basophils % 2.2 % (0.1-2.0); Eosinophils # 0.1 K/mm3 (0.0-0.4); Eosinophils % 8.3 % (0.1-12.0); Hematocrit 22.2 % (42.0-52.0); Hemoglobin 7.7 g/dL (14.1-18.0); Lymphocytes # 0.5 K/mm3 (0.7-4.5); Lymphocytes % 44.7 % (10-50); Mean Corpuscular HGB Conc 34.7 g/dL (31.8-35.4); Mean Corpuscular Hemoglobin 30.6 pg (27.0-31.2); Mean Corpuscular Volume 88.3 fl (80-94); Mean Platelet Volume 9.5 fl (7.4-10.4); Monocytes # 0.1 K/mm3 (0.1-1.0); Monocytes % 4.7 % (1.7-9.3); Neutrophils # 0.5 K/mm3 (1.8-7.8); Neutrophils % 40.1 % (37.0-80.0); Platelet Count 59 K/mm3 (142-424); Red Blood Count 2.52 M/mm3 (4.60-6.20); Red Cell Distribution Width 21.8 % (11.5-17.5); White Blood Count 1.1 K/mm3 (4.8-10.8)
== END 2022-06-10 08:50 | disposition home or self-care (01) ==
LOC: INF 08:17
PROVIDERS: PCP Internal Medicine Adolescent Medicine
DX: Z45.2 Encounter for adjustment and management of vascular access device (principal)
CPT/HCPCS: 36592; 85025

== ENCOUNTER 2022-06-13 08:58 | Outpatient (CLI) | payer OTHER, SELFPAY ==
[2022-06-13 09:04] VITALS: BMI 29.5
[2022-06-13 09:22] LABS: Basophils % 0.4 % (0.1-2.0); Eosinophils # 0.1 K/mm3 (0.0-0.4); Eosinophils % 7.3 % (0.1-12.0); Hematocrit 21.9 % (42.0-52.0); Hemoglobin 7.4 g/dL (14.1-18.0); Lymphocytes # 0.4 K/mm3 (0.7-4.5); Lymphocytes % 51.4 % (10-50); Mean Corpuscular HGB Conc 33.6 g/dL (31.8-35.4); Mean Corpuscular Hemoglobin 30.5 pg (27.0-31.2); Mean Corpuscular Volume 90.5 fl (80-94); Mean Platelet Volume 9.1 fl (7.4-10.4); Monocytes # 0.1 K/mm3 (0.1-1.0); Monocytes % 6.3 % (1.7-9.3); Neutrophils # 0.3 K/mm3 (1.8-7.8); Neutrophils % 34.5 % (37.0-80.0); Platelet Count 70 K/mm3 (142-424); Red Blood Count 2.42 M/mm3 (4.60-6.20); Red Cell Distribution Width 22.6 % (11.5-17.5)
[2022-06-13 09:25] LABS: MANUAL DIFFERENTIAL MANUAL DIFFERENTIAL (MANUAL DIFF); White Blood Count 0.9 K/mm3 (4.8-10.8)
--- NOTE | 2022-06-13 09:32 | PC.NURSE ---
Karley Holland called Arturo Garcia RN at 0924 to report wbc-0.9. RN repeated and verified pt name, , and lab value. Result called and faxed to , no new orders-pt has standing orders.
[2022-06-13 09:37] LABS: Chloride 98 mmol/L (98-107); Potassium 4.2 mmoL/L (3.5-5.1); Sodium 138 mmol/L (136-145)
[2022-06-13 09:39] LABS: Blood Urea Nitrogen 18 mg/dl (9-20); Creatinine Clearance Estimated 111 mL/min (50-200); Estimated Glomerular Filt Rate 77 ml/min (>60); GFR (African American) 93 ML/MIN (>60)
[2022-06-13 09:40] LABS: Alanine Aminotransferase 34 U/L (12-78); Albumin/Globulin Ratio 1.7 (1.1-1.8); Alkaline Phosphatase 83 U/L (38-126); Anion Gap 14.2 mEq/L (5-15); Aspartate Amino Transferase 38 U/L (17-59); Bilirubin,Total 1.2 mg/dl (0.2-1.3); Carbon Dioxide 30 mmol/L (22.0-30.0); Globulin 2.3 g/dL (1.3-3.2); Total Protein,Serum 6.3 g/dl (6.3-8.2)
[2022-06-13 09:41] LABS: Calcium 8.6 mg/dl (8.4-10.2); Glucose 176 mg/dl (74-100)
[2022-06-13 09:54] LABS: Eosinophils % 3 % (0-3); Lymphocytes % 55 % (10-50); Monocytes % 6 % (2-9); Neutrophils % 36 % (42-76); Total Cells Counted 100
[2022-06-13 09:55] LABS: Platelet Estimate Marked Decrease; RBC Morphology Normal
== END 2022-06-13 09:55 | disposition home or self-care (01) ==
LOC: INF 09:00
PROVIDERS: PCP Internal Medicine Adolescent Medicine; Visit Provider Internal Medicine
DX: Z45.2 Encounter for adjustment and management of vascular access device (principal); C91.00 Acute lymphoblastic leukemia not having achieved remission
CPT/HCPCS: 36592; 80053; 85007; 85025

== ENCOUNTER 2022-06-15 08:35 | Outpatient (CLI) | payer OTHER, SELFPAY ==
[2022-06-15] VITALS (10 sets, daily range): BP systolic 109–136; BP diastolic 58–67; PULSE 71–84; RESP 16–18; TEMP 35.9–36.6; O2SAT 100; BMI 29.5
[2022-06-15 09:00] LABS: Basophils # 0.1 K/mm3 (0-0.2); Basophils % 0.8 % (0.1-2.0); Eosinophils # 0.5 K/mm3 (0.0-0.4); Eosinophils % 5.1 % (0.1-12.0); Lymphocytes # 0.8 K/mm3 (0.7-4.5); Lymphocytes % 8.3 % (10-50); Mean Corpuscular HGB Conc 33.9 g/dL (31.8-35.4); Mean Corpuscular Hemoglobin 30.6 pg (27.0-31.2); Mean Corpuscular Volume 90.1 fl (80-94); Mean Platelet Volume 9.8 fl (7.4-10.4); Monocytes # 0.8 K/mm3 (0.1-1.0); Monocytes % 8.9 % (1.7-9.3); Neutrophils % 76.8 % (37.0-80.0); Platelet Count 63 K/mm3 (142-424); Red Blood Count 2.25 M/mm3 (4.60-6.20); Red Cell Distribution Width 24.3 % (11.5-17.5); White Blood Count 9.1 K/mm3 (4.8-10.8)
[2022-06-15 09:01] LABS: Hematocrit 20.3 % (42.0-52.0); Hemoglobin 6.9 g/dL (14.1-18.0)
--- NOTE | 2022-06-15 10:58 | PC.NURSE ---
BLOOD TRANSFUSION STARTED AT 100 ML/HR AT THIS TIME.
--- NOTE | 2022-06-15 11:36 | PC.NURSE ---
1125-INCREASED RATE TO 150 ML/HR AT THIS TIME.
--- NOTE | 2022-06-15 12:03 | PC.NURSE ---
1155-INCREASED RATE TO 200 ML/HR AT THIS TIME.
--- NOTE | 2022-06-15 14:36 | PC.NURSE ---
INCREASED RATE TO 250 ML/HR AT 1225.
== END 2022-06-15 14:00 | disposition home or self-care (01) ==
PROVIDERS: PCP Internal Medicine Adolescent Medicine; Visit Provider Internal Medicine
DX: C91.00 Acute lymphoblastic leukemia not having achieved remission (principal)
CPT/HCPCS: 36430; 85025; 86850; P9016

== ENCOUNTER 2022-06-17 08:53 | Outpatient (CLI) | payer OTHER, SELFPAY ==
[2022-06-17 08:53] VITALS: BMI 29.5
[2022-06-17 09:00] VITALS: BP 123/78; PULSE 68; RESP 20; TEMP 36.9; O2SAT 95
[2022-06-17 09:11] LABS: Basophils % 0.3 % (0.1-2.0); Eosinophils # 0.1 K/mm3 (0.0-0.4); Eosinophils % 7.5 % (0.1-12.0); Hemoglobin 7.9 g/dL (14.1-18.0); Lymphocytes # 0.6 K/mm3 (0.7-4.5); Lymphocytes % 43.9 % (10-50); Mean Corpuscular HGB Conc 34.4 g/dL (31.8-35.4); Mean Corpuscular Hemoglobin 30.4 pg (27.0-31.2); Mean Corpuscular Volume 88.5 fl (80-94); Mean Platelet Volume 9.7 fl (7.4-10.4); Monocytes # 0.1 K/mm3 (0.1-1.0); Monocytes % 5.6 % (1.7-9.3); Neutrophils # 0.5 K/mm3 (1.8-7.8); Neutrophils % 42.8 % (37.0-80.0); Platelet Count 73 K/mm3 (142-424); Red Cell Distribution Width 22.6 % (11.5-17.5); White Blood Count 1.2 K/mm3 (4.8-10.8)
== END 2022-06-17 09:25 | disposition home or self-care (01) ==
LOC: INF 08:53
PROVIDERS: PCP Internal Medicine Adolescent Medicine; Visit Provider Internal Medicine
DX: Z45.2 Encounter for adjustment and management of vascular access device (principal); C91.00 Acute lymphoblastic leukemia not having achieved remission
CPT/HCPCS: 36592; 85025

== ENCOUNTER 2022-06-20 08:14 | Outpatient (CLI) | payer OTHER, SELFPAY ==
[2022-06-20 08:20] VITALS: BMI 29.5
[2022-06-20 08:39] LABS: Basophils % 0.5 % (0.1-2.0); Eosinophils # 0.1 K/mm3 (0.0-0.4); Eosinophils % 4.9 % (0.1-12.0); Hematocrit 23.4 % (42.0-52.0); Hemoglobin 7.7 g/dL (14.1-18.0); Lymphocytes # 0.6 K/mm3 (0.7-4.5); Lymphocytes % 48.5 % (10-50); Mean Corpuscular HGB Conc 32.7 g/dL (31.8-35.4); Mean Corpuscular Hemoglobin 30.7 pg (27.0-31.2); Mean Corpuscular Volume 93.6 fl (80-94); Mean Platelet Volume 9.6 fl (7.4-10.4); Monocytes % 2.6 % (1.7-9.3); Neutrophils # 0.5 K/mm3 (1.8-7.8); Neutrophils % 43.6 % (37.0-80.0); Platelet Count 86 K/mm3 (142-424); Red Cell Distribution Width 24.5 % (11.5-17.5); White Blood Count 1.2 K/mm3 (4.8-10.8)
[2022-06-20 08:45] LABS: Chloride 98 mmol/L (98-107); Potassium 3.7 mmoL/L (3.5-5.1); Sodium 138 mmol/L (136-145)
[2022-06-20 08:47] LABS: Alanine Aminotransferase 25 U/L (12-78); Aspartate Amino Transferase 31 U/L (17-59); Blood Urea Nitrogen 14 mg/dl (9-20); Creatinine Clearance Estimated 111 mL/min (50-200); Estimated Glomerular Filt Rate 77 ml/min (>60); GFR (African American) 93 ML/MIN (>60)
[2022-06-20 08:48] LABS: Albumin Level 3.8 g/dl (3.5-5.0); Albumin/Globulin Ratio 1.6 (1.1-1.8); Alkaline Phosphatase 77 U/L (38-126); Anion Gap 14.7 mEq/L (5-15); Bilirubin,Total 1.2 mg/dl (0.2-1.3); Calcium 8.2 mg/dl (8.4-10.2); Carbon Dioxide 29 mmol/L (22.0-30.0); Globulin 2.4 g/dL (1.3-3.2); Glucose 140 mg/dl (74-100); Total Protein,Serum 6.2 g/dl (6.3-8.2)
== END 2022-06-20 09:18 | disposition home or self-care (01) ==
LOC: INF 08:15
PROVIDERS: PCP Internal Medicine Adolescent Medicine; Visit Provider Internal Medicine
DX: Z45.2 Encounter for adjustment and management of vascular access device (principal); C91.00 Acute lymphoblastic leukemia not having achieved remission
CPT/HCPCS: 36592; 80053; 85025

== ENCOUNTER 2022-07-01 09:02 | Outpatient (CLI) | payer OTHER, SELFPAY ==
[2022-07-01 09:09] VITALS: BMI 29.5
[2022-07-01 09:35] LABS: Basophils % 0.8 % (0.1-2.0); Eosinophils % 6.8 % (0.1-12.0); Hematocrit 23.1 % (42.0-52.0); Hemoglobin 7.9 g/dL (14.1-18.0); Lymphocytes # 0.2 K/mm3 (0.7-4.5); Lymphocytes % 44.8 % (10-50); Mean Corpuscular HGB Conc 34.1 g/dL (31.8-35.4); Mean Corpuscular Hemoglobin 30.4 pg (27.0-31.2); Mean Platelet Volume 9.2 fl (7.4-10.4); Monocytes % 1.6 % (1.7-9.3); Neutrophils # 0.2 K/mm3 (1.8-7.8); Platelet Count 58 K/mm3 (142-424); Red Cell Distribution Width 21.8 % (11.5-17.5)
[2022-07-01 09:39] LABS: White Blood Count 0.5 K/mm3 (4.8-10.8)
[2022-07-01 09:40] LABS: Chloride 102 mmol/L (98-107); MANUAL DIFFERENTIAL MANUAL DIFFERENTIAL (MANUAL DIFF); Sodium 137 mmol/L (136-145)
[2022-07-01 09:41] LABS: Potassium 3.6 mmoL/L (3.5-5.1)
[2022-07-01 09:43] LABS: Alanine Aminotransferase 75 U/L (12-78); Albumin Level 3.7 g/dl (3.5-5.0); Albumin/Globulin Ratio 1.6 (1.1-1.8); Alkaline Phosphatase 79 U/L (38-126); Anion Gap 13.6 mEq/L (5-15); Aspartate Amino Transferase 40 U/L (17-59); Bilirubin,Total 1.8 mg/dl (0.2-1.3); Blood Urea Nitrogen 27 mg/dl (9-20); Carbon Dioxide 25 mmol/L (22.0-30.0); Creatinine Clearance Estimated 101 mL/min (50-200); Estimated Glomerular Filt Rate 69 ml/min (>60); GFR (African American) 83 ML/MIN (>60); Globulin 2.3 g/dL (1.3-3.2)
[2022-07-01 09:44] LABS: Calcium 8.9 mg/dl (8.4-10.2); Glucose 172 mg/dl (74-100)
[2022-07-01 11:04] LABS: Eosinophils % 1 % (0-3); Lymphocytes % 53 % (10-50); Monocytes % 3 % (2-9); Neutrophils % 43 % (42-76); Platelet Estimate Marked Decrease; Total Cells Counted 100
[2022-07-01 11:05] LABS: RBC Morphology Normal
== END 2022-07-01 09:45 | disposition home or self-care (01) ==
LOC: INF 09:03
PROVIDERS: Student in an Organized Health Care Education/Training Program; PCP Internal Medicine Adolescent Medicine
DX: C91.00 Acute lymphoblastic leukemia not having achieved remission (principal); Z45.2 Encounter for adjustment and management of vascular access device
CPT/HCPCS: 36592; 80053; 85007; 85025

== ENCOUNTER 2022-07-04 08:37 | Outpatient (CLI) | payer OTHER, SELFPAY ==
[2022-07-04] VITALS (10 sets, daily range): BP systolic 98–125; BP diastolic 55–70; PULSE 65–76; RESP 18; TEMP 36.2–36.3; O2SAT 100; BMI 29.5
[2022-07-04 09:07] LABS: Eosinophils % 0.6 % (0.1-12.0); Lymphocytes # 0.2 K/mm3 (0.7-4.5); Lymphocytes % 61.6 % (10-50); Mean Corpuscular HGB Conc 34.4 g/dL (31.8-35.4); Mean Corpuscular Hemoglobin 30.1 pg (27.0-31.2); Mean Corpuscular Volume 87.5 fl (80-94); Mean Platelet Volume 9.6 fl (7.4-10.4); Monocytes % 1.9 % (1.7-9.3); Neutrophils # 0.1 K/mm3 (1.8-7.8); Neutrophils % 34.8 % (37.0-80.0); Red Blood Count 2.03 M/mm3 (4.60-6.20); Red Cell Distribution Width 20.3 % (11.5-17.5)
[2022-07-04 09:12] LABS: Chloride 101 mmol/L (98-107); Potassium 3.4 mmoL/L (3.5-5.1); Sodium 136 mmol/L (136-145)
[2022-07-04 09:15] LABS: Alanine Aminotransferase 43 U/L (12-78); Albumin Level 3.7 g/dl (3.5-5.0); Albumin/Globulin Ratio 1.7 (1.1-1.8); Alkaline Phosphatase 86 U/L (38-126); Anion Gap 14.4 mEq/L (5-15); Aspartate Amino Transferase 29 U/L (17-59); Bilirubin,Total 1.1 mg/dl (0.2-1.3); Blood Urea Nitrogen 20 mg/dl (9-20); Carbon Dioxide 24 mmol/L (22.0-30.0); Creatinine Clearance Estimated 111 mL/min (50-200); Estimated Glomerular Filt Rate 77 ml/min (>60); GFR (African American) 93 ML/MIN (>60); Globulin 2.2 g/dL (1.3-3.2); Hemoglobin 6.1 g/dL (14.1-18.0); Total Protein,Serum 5.9 g/dl (6.3-8.2); White Blood Count 0.4 K/mm3 (4.8-10.8)
--- NOTE | 2022-07-04 09:15 | PC.NURSE ---
09-Lachelle Childress called rn at 0915 to report wbc level0.4, hgb 6.1, hct 17.7, plt 23. Rn repeated and verified pt name, , and lab values. Result called to , no new orders at this time just follow standing orders for blood products.
[2022-07-04 09:16] LABS: Calcium 8.5 mg/dl (8.4-10.2); Glucose 164 mg/dl (74-100); Hematocrit 17.7 % (42.0-52.0); Platelet Count 23 K/mm3 (142-424)
[2022-07-04 09:17] LABS: MANUAL DIFFERENTIAL MANUAL DIFFERENTIAL (MANUAL DIFF)
[2022-07-04 09:35] LABS: Lymphocytes % 72 % (10-50); Neutrophils % 28 % (42-76); Platelet Estimate Marked Decrease; Total Cells Counted 25
[2022-07-04 09:36] LABS: RBC Morphology Normal
== END 2022-07-04 13:18 | disposition home or self-care (01) ==
PROVIDERS: PCP Internal Medicine Adolescent Medicine; Visit Provider Student in an Organized Health Care Education/Training Program
DX: C91.00 Acute lymphoblastic leukemia not having achieved remission (principal); Z45.2 Encounter for adjustment and management of vascular access device
CPT/HCPCS: 36430; 80053; 85007; 85025; 86850; P9016

== ENCOUNTER 2022-07-08 08:20 | Outpatient (CLI) | payer OTHER, SELFPAY ==
[2022-07-08] VITALS (10 sets, daily range): BP systolic 105–133; BP diastolic 56–87; PULSE 61–81; RESP 16; TEMP 35.6–36.7; O2SAT 100; BMI 29.5
[2022-07-08 08:45] LABS: Basophils % 0.4 % (0.1-2.0); Eosinophils % 1.5 % (0.1-12.0); Lymphocytes # 0.4 K/mm3 (0.7-4.5); Mean Corpuscular HGB Conc 35.2 g/dL (31.8-35.4); Mean Corpuscular Hemoglobin 30.1 pg (27.0-31.2); Mean Corpuscular Volume 85.5 fl (80-94); Mean Platelet Volume 9.2 fl (7.4-10.4); Monocytes % 4.7 % (1.7-9.3); Neutrophils # 0.1 K/mm3 (1.8-7.8); Neutrophils % 25.3 % (37.0-80.0); Red Blood Count 2.24 M/mm3 (4.60-6.20); Red Cell Distribution Width 17.4 % (11.5-17.5)
[2022-07-08 08:53] LABS: Alanine Aminotransferase 27 U/L (12-78); Albumin/Globulin Ratio 1.3 (1.1-1.8); Alkaline Phosphatase 91 U/L (38-126); Anion Gap 13.2 mEq/L (5-15); Aspartate Amino Transferase 26 U/L (17-59); Bilirubin,Total 0.8 mg/dl (0.2-1.3); Blood Urea Nitrogen 13 mg/dl (9-20); Calcium 7.4 mg/dl (8.4-10.2); Carbon Dioxide 24 mmol/L (22.0-30.0); Chloride 105 mmol/L (98-107); Creatinine Clearance Estimated 139 mL/min (50-200); Estimated Glomerular Filt Rate 100 ml/min (>60); GFR (African American) 121 ML/MIN (>60); Globulin 2.3 g/dL (1.3-3.2); Glucose 132 mg/dl (74-100); Potassium 3.2 mmoL/L (3.5-5.1); Sodium 139 mmol/L (136-145); Total Protein,Serum 5.3 g/dl (6.3-8.2); White Blood Count 0.6 K/mm3 (4.8-10.8)
[2022-07-08 08:54] LABS: Hematocrit 19.1 % (42.0-52.0); Hemoglobin 6.7 g/dL (14.1-18.0); Platelet Count 19 K/mm3 (142-424)
[2022-07-08 08:55] LABS: MANUAL DIFFERENTIAL MANUAL DIFFERENTIAL (MANUAL DIFF)
--- NOTE | 2022-07-08 09:45 | PC.NURSE ---
0830-BLOOD DRAWN FOR CBC AND CMP USING BUTTERFLY NEEDLE AT THIS TIME.
[2022-07-08 09:51] LABS: Anisocytosis 1+; Lymphocytes % 76 % (10-50); Neutrophils % 24 % (42-76); Platelet Estimate Marked Decrease; Total Cells Counted 25
--- NOTE | 2022-07-08 10:38 | PC.NURSE ---
1035-BLOOD TRANSFUSION STARTED AT 100 ML/HR AT THIS TIME.
--- NOTE | 2022-07-08 11:07 | PC.NURSE ---
1105-INCREASED RATE TO 150 ML/HR AT THIS TIME.
--- NOTE | 2022-07-08 11:23 | PC.NURSE ---
1120-INCREASED RATE TO 200 ML/HR AT THIS TIME.
--- NOTE | 2022-07-08 11:38 | PC.NURSE ---
1135-INCREASED RATE TO 250 ML/HR AT THIS TIME.
== END 2022-07-08 13:30 | disposition home or self-care (01) ==
LOC: INF 08:21
PROVIDERS: PCP Internal Medicine Adolescent Medicine; Visit Provider Student in an Organized Health Care Education/Training Program
DX: C91.00 Acute lymphoblastic leukemia not having achieved remission (principal); Z45.2 Encounter for adjustment and management of vascular access device
CPT/HCPCS: 36430; 80053; 85007; 85025; 86850; P9016

== ENCOUNTER 2022-07-11 09:10 | Outpatient (CLI) | payer OTHER, SELFPAY ==
[2022-07-11] VITALS (17 sets, daily range): BP systolic 110–143; BP diastolic 62–78; PULSE 65–77; RESP 18; TEMP 36.3–36.6; O2SAT 99–100; BMI 31.3
[2022-07-11 09:25] LABS: Basophils % 0.3 % (0.1-2.0); Eosinophils % 8.1 % (0.1-12.0); Lymphocytes # 0.2 K/mm3 (0.7-4.5); Lymphocytes % 44.4 % (10-50); Mean Corpuscular HGB Conc 34.6 g/dL (31.8-35.4); Mean Corpuscular Hemoglobin 29.2 pg (27.0-31.2); Mean Corpuscular Volume 84.4 fl (80-94); Mean Platelet Volume 22.2 fl (7.4-10.4); Monocytes # 0.1 K/mm3 (0.1-1.0); Monocytes % 9.9 % (1.7-9.3); Neutrophils # 0.2 K/mm3 (1.8-7.8); Neutrophils % 37.4 % (37.0-80.0); Red Blood Count 2.35 M/mm3 (4.60-6.20); Red Cell Distribution Width 16.9 % (11.5-17.5)
[2022-07-11 09:31] LABS: Hematocrit 19.8 % (42.0-52.0); Hemoglobin 6.9 g/dL (14.1-18.0); Platelet Count 8 K/mm3 (142-424); White Blood Count 0.5 K/mm3 (4.8-10.8)
[2022-07-11 09:33] LABS: MANUAL DIFFERENTIAL MANUAL DIFFERENTIAL (MANUAL DIFF)
[2022-07-11 09:35] LABS: Chloride 99 mmol/L (98-107); Sodium 136 mmol/L (136-145)
[2022-07-11 09:38] LABS: Alanine Aminotransferase 27 U/L (12-78); Albumin Level 3.5 g/dl (3.5-5.0); Albumin/Globulin Ratio 1.5 (1.1-1.8); Alkaline Phosphatase 107 U/L (38-126); Aspartate Amino Transferase 32 U/L (17-59); Bilirubin,Total 1.3 mg/dl (0.2-1.3); Blood Urea Nitrogen 11 mg/dl (9-20); Calcium 8.6 mg/dl (8.4-10.2); Carbon Dioxide 27 mmol/L (22.0-30.0); Creatinine Clearance Estimated 123 mL/min (50-200); Estimated Glomerular Filt Rate 87 ml/min (>60); GFR (African American) 105 ML/MIN (>60); Globulin 2.3 g/dL (1.3-3.2); Glucose 148 mg/dl (74-100); Total Protein,Serum 5.8 g/dl (6.3-8.2)
--- NOTE | 2022-07-11 09:41 | PC.NURSE ---
critical lab results called from Ritika Bailey. Hgb 6.9, HCt 19.8, WBC 0.5, Plt 8. Standing orders in place to transfuse pt 1 unit of PRBC and 1 unit of platelets. notified. no additional orders at this time.
[2022-07-11 09:57] LABS: Anisocytosis 1+; Hypochromasia 1+; Lymphocytes % 60 % (10-50); Monocytes % 7 % (2-9); Neutrophils % 33 % (42-76); Ovalocytes 1+; Platelet Estimate Marked Decrease; Total Cells Counted 15
== END 2022-07-11 14:05 | disposition home or self-care (01) ==
LOC: INF 09:11
PROVIDERS: PCP Internal Medicine Adolescent Medicine; Visit Provider Student in an Organized Health Care Education/Training Program
DX: C91.00 Acute lymphoblastic leukemia not having achieved remission (principal)
CPT/HCPCS: 36430; 80053; 85007; 85025; 86850; P9016; P9034

== ENCOUNTER 2022-07-13 08:54 | Outpatient (CLI) | payer OTHER, SELFPAY ==
[2022-07-13 08:58] VITALS: BMI 29.5
[2022-07-13 09:11] LABS: Basophils % 0.5 % (0.1-2.0); Eosinophils # 0.1 K/mm3 (0.0-0.4); Eosinophils % 5.7 % (0.1-12.0); Hematocrit 22.9 % (42.0-52.0); Hemoglobin 7.7 g/dL (14.1-18.0); Lymphocytes # 0.4 K/mm3 (0.7-4.5); Lymphocytes % 45.3 % (10-50); Mean Corpuscular HGB Conc 33.8 g/dL (31.8-35.4); Mean Corpuscular Hemoglobin 29.4 pg (27.0-31.2); Mean Corpuscular Volume 86.8 fl (80-94); Mean Platelet Volume 10.2 fl (7.4-10.4); Monocytes # 0.1 K/mm3 (0.1-1.0); Monocytes % 6.8 % (1.7-9.3); Neutrophils # 0.3 K/mm3 (1.8-7.8); Neutrophils % 41.8 % (37.0-80.0); Red Blood Count 2.63 M/mm3 (4.60-6.20); Red Cell Distribution Width 16.7 % (11.5-17.5)
[2022-07-13 09:13] LABS: White Blood Count 0.8 K/mm3 (4.8-10.8)
[2022-07-13 09:14] LABS: Platelet Count 35 K/mm3 (142-424)
[2022-07-13 09:15] LABS: MANUAL DIFFERENTIAL MANUAL DIFFERENTIAL (MANUAL DIFF)
[2022-07-13 09:27] LABS: Alanine Aminotransferase 28 U/L (12-78); Albumin Level 3.6 g/dl (3.5-5.0); Albumin/Globulin Ratio 1.4 (1.1-1.8); Alkaline Phosphatase 121 U/L (38-126); Anion Gap 16.8 mEq/L (5-15); Aspartate Amino Transferase 28 U/L (17-59); Bilirubin,Total 0.9 mg/dl (0.2-1.3); Blood Urea Nitrogen 10 mg/dl (9-20); Calcium 8.8 mg/dl (8.4-10.2); Carbon Dioxide 26 mmol/L (22.0-30.0); Chloride 99 mmol/L (98-107); Creatinine Clearance Estimated 111 mL/min (50-200); Estimated Glomerular Filt Rate 77 ml/min (>60); GFR (African American) 93 ML/MIN (>60); Globulin 2.6 g/dL (1.3-3.2); Glucose 201 mg/dl (74-100); Potassium 3.8 mmoL/L (3.5-5.1); Sodium 138 mmol/L (136-145); Total Protein,Serum 6.2 g/dl (6.3-8.2)
[2022-07-13 09:45] LABS: Lymphocytes % 64 % (10-50); Monocytes % 4 % (2-9); Neutrophils % 32 % (42-76); Nucleated Red Blood Cells 1; RBC Morphology Normal; Total Cells Counted 25
[2022-07-13 09:46] LABS: Platelet Estimate Moderate Decrease
--- NOTE | 2022-07-13 14:56 | PC.NURSE ---
At 0915 Brianna Pro from lab called critical lab results. WBC of 0.8, Plt 35. lab results repeated and verified and name. Standing orders in place, pt does not meet transfusion criteria at this time. notified. no new orders.
== END 2022-07-13 09:16 | disposition home or self-care (01) ==
PROVIDERS: PCP Internal Medicine Adolescent Medicine; Visit Provider Student in an Organized Health Care Education/Training Program
DX: C91.00 Acute lymphoblastic leukemia not having achieved remission (principal)
CPT/HCPCS: 36592; 80053; 85007; 85025

== ENCOUNTER 2022-07-15 08:38 | Outpatient (CLI) | payer OTHER, SELFPAY ==
[2022-07-15 08:44] VITALS: BMI 29.5
--- NOTE | 2022-07-15 08:45 | PC.NURSE ---
0845-COLLECTED LABS VIA LEFT UPPER ARM PICC LINE;WILL WAIT ON RESULTS IF HGB <7 OR PLT<10 PT TO RECEIVE BLOOD PRODUCTS.
[2022-07-15 09:01] LABS: Alanine Aminotransferase 23 U/L (12-78); Albumin Level 3.7 g/dl (3.5-5.0); Albumin/Globulin Ratio 1.5 (1.1-1.8); Alkaline Phosphatase 124 U/L (38-126); Anion Gap 15.7 mEq/L (5-15); Aspartate Amino Transferase 29 U/L (17-59); Basophils % 0.7 % (0.1-2.0); Bilirubin,Total 0.9 mg/dl (0.2-1.3); Blood Urea Nitrogen 8 mg/dl (9-20); Calcium 8.5 mg/dl (8.4-10.2); Carbon Dioxide 27 mmol/L (22.0-30.0); Chloride 100 mmol/L (98-107); Creatinine Clearance Estimated 123 mL/min (50-200); Eosinophils # 0.1 K/mm3 (0.0-0.4); Eosinophils % 10.6 % (0.1-12.0); Estimated Glomerular Filt Rate 87 ml/min (>60); GFR (African American) 105 ML/MIN (>60); Globulin 2.4 g/dL (1.3-3.2); Glucose 186 mg/dl (74-100); Hematocrit 22.2 % (42.0-52.0); Hemoglobin 7.4 g/dL (14.1-18.0); Lymphocytes # 0.4 K/mm3 (0.7-4.5); Lymphocytes % 51.3 % (10-50); Mean Corpuscular HGB Conc 33.3 g/dL (31.8-35.4); Mean Corpuscular Hemoglobin 29.1 pg (27.0-31.2); Mean Corpuscular Volume 87.3 fl (80-94); Mean Platelet Volume 9.9 fl (7.4-10.4); Monocytes % 3.1 % (1.7-9.3); Neutrophils # 0.3 K/mm3 (1.8-7.8); Neutrophils % 34.3 % (37.0-80.0); Platelet Count 90 K/mm3 (142-424); Potassium 3.7 mmoL/L (3.5-5.1); Red Blood Count 2.54 M/mm3 (4.60-6.20); Red Cell Distribution Width 17.8 % (11.5-17.5); Sodium 139 mmol/L (136-145); Total Protein,Serum 6.1 g/dl (6.3-8.2)
--- NOTE | 2022-07-15 09:02 | PC.NURSE ---
0902-LIAN LENNON CALLED ROSA M GLEASON AT 0902 TO REPORT WBC 0.7. RN REPEATED AND VERIFIED PT NAME, , AND LAB VALUE.RESULT CALLED TO 'S OFFICE NO NEW ORDERS JUST FOLLOW STANDING ORDERS.
[2022-07-15 09:04] LABS: White Blood Count 0.7 K/mm3 (4.8-10.8)
[2022-07-15 09:05] LABS: MANUAL DIFFERENTIAL MANUAL DIFFERENTIAL (MANUAL DIFF)
--- NOTE | 2022-07-15 09:05 | PC.NURSE ---
0905-PT D/C HOME PER STANDING ORDER HGB 7.4 AND PLT 90.
[2022-07-15 09:34] LABS: Anisocytosis 1+; Lymphocytes % 64 % (10-50); Macrocytosis 2+; Monocytes % 4 % (2-9); Neutrophils % 32 % (42-76); Platelet Estimate Marked Decrease; Total Cells Counted 25
== END 2022-07-15 09:05 | disposition home or self-care (01) ==
LOC: INF 08:39
PROVIDERS: PCP Internal Medicine Adolescent Medicine; Visit Provider Student in an Organized Health Care Education/Training Program
DX: C91.00 Acute lymphoblastic leukemia not having achieved remission (principal)
CPT/HCPCS: 36592; 80053; 85007; 85025

== ENCOUNTER 2022-07-18 08:46 | Outpatient (CLI) | payer OTHER, SELFPAY ==
[2022-07-18 08:51] VITALS: BMI 29.5
[2022-07-18 09:18] LABS: Chloride 100 mmol/L (98-107); Potassium 3.5 mmoL/L (3.5-5.1); Sodium 140 mmol/L (136-145)
--- NOTE | 2022-07-18 09:19 | PC.NURSE ---
0900 pac accessed and blood drawn for labs as ordered per md. both ports flushed using saline. will await results to determine poc.
[2022-07-18 09:21] LABS: Alanine Aminotransferase 21 U/L (12-78); Albumin Level 3.7 g/dl (3.5-5.0); Albumin/Globulin Ratio 1.7 (1.1-1.8); Alkaline Phosphatase 106 U/L (38-126); Anion Gap 14.5 mEq/L (5-15); Aspartate Amino Transferase 29 U/L (17-59); Bilirubin,Total 1.1 mg/dl (0.2-1.3); Blood Urea Nitrogen 6 mg/dl (9-20); Carbon Dioxide 29 mmol/L (22.0-30.0); Creatinine Clearance Estimated 123 mL/min (50-200); Estimated Glomerular Filt Rate 87 ml/min (>60); GFR (African American) 105 ML/MIN (>60); Globulin 2.2 g/dL (1.3-3.2); Total Protein,Serum 5.9 g/dl (6.3-8.2)
[2022-07-18 09:22] LABS: Calcium 8.7 mg/dl (8.4-10.2); Glucose 174 mg/dl (74-100)
[2022-07-18 09:26] LABS: Basophils % 0.6 % (0.1-2.0); Eosinophils # 0.1 K/mm3 (0.0-0.4); Hematocrit 23.2 % (42.0-52.0); Hemoglobin 7.6 g/dL (14.1-18.0); Lymphocytes # 0.3 K/mm3 (0.7-4.5); Lymphocytes % 51.2 % (10-50); Mean Corpuscular HGB Conc 32.6 g/dL (31.8-35.4); Mean Corpuscular Hemoglobin 29.2 pg (27.0-31.2); Mean Corpuscular Volume 89.3 fl (80-94); Mean Platelet Volume 9.3 fl (7.4-10.4); Monocytes % 6.1 % (1.7-9.3); Neutrophils # 0.2 K/mm3 (1.8-7.8); Neutrophils % 34.1 % (37.0-80.0); Platelet Count 170 K/mm3 (142-424); Red Blood Count 2.59 M/mm3 (4.60-6.20); Red Cell Distribution Width 19.3 % (11.5-17.5)
[2022-07-18 09:28] LABS: White Blood Count 0.6 K/mm3 (4.8-10.8)
[2022-07-18 09:29] LABS: MANUAL DIFFERENTIAL MANUAL DIFFERENTIAL (MANUAL DIFF)
--- NOTE | 2022-07-18 09:31 | PC.NURSE ---
Brianna Pro called RN at 0927 to report wbc-0.6. RN repeated and verified pt name, , and lab value. Results called and faxed to [facility] Humphries, no new orders noted.
[2022-07-18 09:59] LABS: Lymphocytes % 76 % (10-50); Neutrophils % 24 % (42-76); Total Cells Counted 25
[2022-07-18 10:01] LABS: Anisocytosis 1+; Ovalocytes 1+; Platelet Estimate Normal; Rouleaux 1+
== END 2022-07-18 09:37 | disposition home or self-care (01) ==
LOC: INF 08:46
PROVIDERS: PCP Internal Medicine Adolescent Medicine; Visit Provider Student in an Organized Health Care Education/Training Program
DX: C91.00 Acute lymphoblastic leukemia not having achieved remission (principal)
CPT/HCPCS: 36592; 80053; 85007; 85025

== ENCOUNTER 2022-07-20 08:36 | Outpatient (CLI) | payer OTHER, SELFPAY ==
[2022-07-20 08:41] VITALS: BMI 29.5
[2022-07-20 08:52] LABS: Basophils % 0.9 % (0.1-2.0); Eosinophils # 0.3 K/mm3 (0.0-0.4); Eosinophils % 8.9 % (0.1-12.0); Hemoglobin 8.1 g/dL (14.1-18.0); Lymphocytes # 0.5 K/mm3 (0.7-4.5); Lymphocytes % 12.4 % (10-50); Mean Corpuscular HGB Conc 32.4 g/dL (31.8-35.4); Mean Corpuscular Hemoglobin 29.6 pg (27.0-31.2); Mean Corpuscular Volume 91.5 fl (80-94); Mean Platelet Volume 10.2 fl (7.4-10.4); Monocytes # 0.4 K/mm3 (0.1-1.0); Monocytes % 9.2 % (1.7-9.3); Neutrophils # 2.6 K/mm3 (1.8-7.8); Neutrophils % 68.6 % (37.0-80.0); Platelet Count 183 K/mm3 (142-424); Red Blood Count 2.73 M/mm3 (4.60-6.20); Red Cell Distribution Width 21.3 % (11.5-17.5); White Blood Count 3.8 K/mm3 (4.8-10.8)
[2022-07-20 08:59] LABS: Alanine Aminotransferase 26 U/L (12-78); Albumin Level 3.7 g/dl (3.5-5.0); Albumin/Globulin Ratio 1.6 (1.1-1.8); Alkaline Phosphatase 121 U/L (38-126); Anion Gap 15.4 mEq/L (5-15); Aspartate Amino Transferase 32 U/L (17-59); Bilirubin,Total 1.6 mg/dl (0.2-1.3); Blood Urea Nitrogen 5 mg/dl (9-20); Calcium 8.8 mg/dl (8.4-10.2); Carbon Dioxide 27 mmol/L (22.0-30.0); Chloride 100 mmol/L (98-107); Creatinine Clearance Estimated 139 mL/min (50-200); Estimated Glomerular Filt Rate 100 ml/min (>60); GFR (African American) 121 ML/MIN (>60); Globulin 2.3 g/dL (1.3-3.2); Glucose 194 mg/dl (74-100); Potassium 3.4 mmoL/L (3.5-5.1); Sodium 139 mmol/L (136-145)
== END 2022-07-20 09:00 | disposition home or self-care (01) ==
LOC: INF 08:37
PROVIDERS: PCP Internal Medicine Adolescent Medicine; Visit Provider Student in an Organized Health Care Education/Training Program
DX: C91.00 Acute lymphoblastic leukemia not having achieved remission (principal)
CPT/HCPCS: 36592; 80053; 85025

== ENCOUNTER 2022-07-22 08:37 | Outpatient (CLI) | payer OTHER, SELFPAY ==
[2022-07-22 08:40] VITALS: BMI 29.5
[2022-07-22 09:04] LABS: Basophils % 1.9 % (0.1-2.0); Eosinophils # 0.1 K/mm3 (0.0-0.4); Eosinophils % 3.9 % (0.1-12.0); Hemoglobin 8.7 g/dL (14.1-18.0); Lymphocytes # 0.6 K/mm3 (0.7-4.5); Lymphocytes % 31.2 % (10-50); Mean Corpuscular HGB Conc 32.2 g/dL (31.8-35.4); Mean Corpuscular Hemoglobin 29.2 pg (27.0-31.2); Mean Corpuscular Volume 90.6 fl (80-94); Mean Platelet Volume 9.7 fl (7.4-10.4); Monocytes # 0.1 K/mm3 (0.1-1.0); Monocytes % 5.4 % (1.7-9.3); Neutrophils # 1.1 K/mm3 (1.8-7.8); Neutrophils % 57.6 % (37.0-80.0); Platelet Count 233 K/mm3 (142-424); Red Blood Count 2.98 M/mm3 (4.60-6.20); Red Cell Distribution Width 20.9 % (11.5-17.5); White Blood Count 1.9 K/mm3 (4.8-10.8)
[2022-07-22 09:08] LABS: Alanine Aminotransferase 24 U/L (12-78); Albumin/Globulin Ratio 1.6 (1.1-1.8); Alkaline Phosphatase 135 U/L (38-126); Anion Gap 14.8 mEq/L (5-15); Aspartate Amino Transferase 37 U/L (17-59); Bilirubin,Total 1.5 mg/dl (0.2-1.3); Blood Urea Nitrogen 7 mg/dl (9-20); Calcium 9.3 mg/dl (8.4-10.2); Carbon Dioxide 31 mmol/L (22.0-30.0); Chloride 98 mmol/L (98-107); Creatinine Clearance Estimated 139 mL/min (50-200); Estimated Glomerular Filt Rate 100 ml/min (>60); GFR (African American) 121 ML/MIN (>60); Globulin 2.5 g/dL (1.3-3.2); Glucose 146 mg/dl (74-100); Potassium 3.8 mmoL/L (3.5-5.1); Sodium 140 mmol/L (136-145); Total Protein,Serum 6.5 g/dl (6.3-8.2)
== END 2022-07-22 09:05 | disposition home or self-care (01) ==
LOC: INF 08:38
PROVIDERS: PCP Internal Medicine Adolescent Medicine; Visit Provider Student in an Organized Health Care Education/Training Program
DX: C91.00 Acute lymphoblastic leukemia not having achieved remission (principal)
CPT/HCPCS: 36592; 80053; 85025

== ENCOUNTER 2022-07-25 08:18 | Outpatient (CLI) | payer OTHER, SELFPAY ==
[2022-07-25 08:20] VITALS: BMI 30.4
[2022-07-25 08:36] LABS: Basophils % 1.9 % (0.1-2.0); Eosinophils % 1.4 % (0.1-12.0); Hematocrit 25.7 % (42.0-52.0); Hemoglobin 8.5 g/dL (14.1-18.0); Lymphocytes # 0.5 K/mm3 (0.7-4.5); Lymphocytes % 22.1 % (10-50); Mean Corpuscular HGB Conc 32.9 g/dL (31.8-35.4); Mean Corpuscular Hemoglobin 29.9 pg (27.0-31.2); Mean Corpuscular Volume 90.9 fl (80-94); Mean Platelet Volume 9.3 fl (7.4-10.4); Monocytes # 0.1 K/mm3 (0.1-1.0); Monocytes % 4.7 % (1.7-9.3); Neutrophils # 1.4 K/mm3 (1.8-7.8); Neutrophils % 69.9 % (37.0-80.0); Platelet Count 186 K/mm3 (142-424); Red Blood Count 2.83 M/mm3 (4.60-6.20); Red Cell Distribution Width 22.8 % (11.5-17.5)
[2022-07-25 08:49] LABS: Chloride 98 mmol/L (98-107); Potassium 3.9 mmoL/L (3.5-5.1); Sodium 136 mmol/L (136-145)
[2022-07-25 08:52] LABS: Alanine Aminotransferase 20 U/L (12-78); Albumin Level 3.8 g/dl (3.5-5.0); Albumin/Globulin Ratio 1.5 (1.1-1.8); Alkaline Phosphatase 129 U/L (38-126); Anion Gap 12.9 mEq/L (5-15); Aspartate Amino Transferase 41 U/L (17-59); Bilirubin,Total 1.7 mg/dl (0.2-1.3); Blood Urea Nitrogen 12 mg/dl (9-20); Carbon Dioxide 29 mmol/L (22.0-30.0); Creatinine Clearance Estimated 111 mL/min (50-200); Estimated Glomerular Filt Rate 77 ml/min (>60); GFR (African American) 93 ML/MIN (>60); Globulin 2.6 g/dL (1.3-3.2); Total Protein,Serum 6.4 g/dl (6.3-8.2)
[2022-07-25 08:53] LABS: Calcium 8.7 mg/dl (8.4-10.2); Glucose 159 mg/dl (74-100)
== END 2022-07-25 08:47 | disposition home or self-care (01) ==
LOC: INF 08:18
PROVIDERS: PCP Internal Medicine Adolescent Medicine; Visit Provider Student in an Organized Health Care Education/Training Program
DX: C91.00 Acute lymphoblastic leukemia not having achieved remission (principal)
CPT/HCPCS: 36592; 80053; 85025

== ENCOUNTER 2022-08-08 08:45 | Outpatient (CLI) | payer OTHER, SELFPAY ==
[2022-08-08 08:49] VITALS: BMI 29.5
[2022-08-08 09:11] LABS: Basophils # 0.2 K/mm3 (0-0.2); Basophils % 0.7 % (0.1-2.0); Eosinophils # 0.1 K/mm3 (0.0-0.4); Eosinophils % 0.3 % (0.1-12.0); Hematocrit 28.5 % (42.0-52.0); Hemoglobin 9.6 g/dL (14.1-18.0); Lymphocytes # 0.9 K/mm3 (0.7-4.5); Lymphocytes % 4.2 % (10-50); Mean Corpuscular HGB Conc 33.8 g/dL (31.8-35.4); Mean Corpuscular Hemoglobin 31.6 pg (27.0-31.2); Mean Corpuscular Volume 93.5 fl (80-94); Mean Platelet Volume 9.2 fl (7.4-10.4); Monocytes # 0.6 K/mm3 (0.1-1.0); Neutrophils # 19.2 K/mm3 (1.8-7.8); Neutrophils % 91.9 % (37.0-80.0); Platelet Count 123 K/mm3 (142-424); Red Blood Count 3.05 M/mm3 (4.60-6.20); Red Cell Distribution Width 21.7 % (11.5-17.5); White Blood Count 20.9 K/mm3 (4.8-10.8)
[2022-08-08 09:14] LABS: MANUAL DIFFERENTIAL MANUAL DIFFERENTIAL (MANUAL DIFF)
[2022-08-08 09:21] LABS: Chloride 98 mmol/L (98-107)
[2022-08-08 09:22] LABS: Potassium 3.9 mmoL/L (3.5-5.1); Sodium 129 mmol/L (136-145)
[2022-08-08 09:25] LABS: Alanine Aminotransferase 45 U/L (12-78); Albumin/Globulin Ratio 1.9 (1.1-1.8); Alkaline Phosphatase 165 U/L (38-126); Anion Gap 11.9 mEq/L (5-15); Aspartate Amino Transferase 43 U/L (17-59); Bilirubin,Total 1.1 mg/dl (0.2-1.3); Blood Urea Nitrogen 13 mg/dl (9-20); Calcium 9.1 mg/dl (8.4-10.2); Carbon Dioxide 23 mmol/L (22.0-30.0); Creatinine Clearance Estimated 139 mL/min (50-200); Estimated Glomerular Filt Rate 100 ml/min (>60); GFR (African American) 121 ML/MIN (>60); Globulin 2.1 g/dL (1.3-3.2); Glucose 267 mg/dl (74-100); Total Protein,Serum 6.1 g/dl (6.3-8.2)
[2022-08-08 09:52] LABS: Anisocytosis 1+; Lymphocytes % 8 % (10-50); Monocytes % 11 % (2-9); Neutrophils % 69 % (42-76); Ovalocytes 1+; Platelet Estimate Slight Decrease; Total Cells Counted 100
== END 2022-08-08 09:30 | disposition home or self-care (01) ==
LOC: INF 08:46
PROVIDERS: PCP Internal Medicine Adolescent Medicine; Visit Provider Student in an Organized Health Care Education/Training Program
DX: Z45.2 Encounter for adjustment and management of vascular access device (principal); C91.00 Acute lymphoblastic leukemia not having achieved remission
CPT/HCPCS: 36592; 80053; 85007; 85025

== ENCOUNTER 2022-08-12 08:42 | Outpatient (CLI) | payer OTHER, SELFPAY ==
[2022-08-12 08:50] VITALS: BMI 30.7
[2022-08-12 09:21] LABS: Basophils % 0.7 % (0.1-2.0); Eosinophils % 0.4 % (0.1-12.0); Hematocrit 31.1 % (42.0-52.0); Hemoglobin 10.1 g/dL (14.1-18.0); Lymphocytes # 0.9 K/mm3 (0.7-4.5); Lymphocytes % 27.7 % (10-50); Mean Corpuscular HGB Conc 32.5 g/dL (31.8-35.4); Mean Corpuscular Hemoglobin 30.2 pg (27.0-31.2); Mean Corpuscular Volume 92.9 fl (80-94); Monocytes # 0.1 K/mm3 (0.1-1.0); Monocytes % 2.6 % (1.7-9.3); Neutrophils # 2.2 K/mm3 (1.8-7.8); Neutrophils % 68.5 % (37.0-80.0); Platelet Count 106 K/mm3 (142-424); Red Blood Count 3.34 M/mm3 (4.60-6.20); Red Cell Distribution Width 21.8 % (11.5-17.5); White Blood Count 3.3 K/mm3 (4.8-10.8)
[2022-08-12 09:28] LABS: Chloride 97 mmol/L (98-107); Potassium 3.8 mmoL/L (3.5-5.1); Sodium 134 mmol/L (136-145)
[2022-08-12 09:31] LABS: Alanine Aminotransferase 51 U/L (12-78); Albumin Level 3.7 g/dl (3.5-5.0); Albumin/Globulin Ratio 2.1 (1.1-1.8); Alkaline Phosphatase 88 U/L (38-126); Anion Gap 10.8 mEq/L (5-15); Aspartate Amino Transferase 37 U/L (17-59); Blood Urea Nitrogen 26 mg/dl (9-20); Calcium 9.2 mg/dl (8.4-10.2); Carbon Dioxide 30 mmol/L (22.0-30.0); Creatinine Clearance Estimated 128 mL/min (50-200); Estimated Glomerular Filt Rate 87 ml/min (>60); GFR (African American) 105 ML/MIN (>60); Globulin 1.8 g/dL (1.3-3.2); Glucose 176 mg/dl (74-100); Total Protein,Serum 5.5 g/dl (6.3-8.2)
== END 2022-08-12 09:30 | disposition home or self-care (01) ==
LOC: INF 08:42
PROVIDERS: PCP Internal Medicine Adolescent Medicine; Visit Provider Student in an Organized Health Care Education/Training Program
DX: Z45.2 Encounter for adjustment and management of vascular access device (principal); C91.00 Acute lymphoblastic leukemia not having achieved remission
CPT/HCPCS: 36592; 80053; 85025

== ENCOUNTER 2022-08-15 08:27 | Outpatient (CLI) | payer OTHER, SELFPAY ==
[2022-08-15 08:31] VITALS: BMI 29.5
[2022-08-15 09:04] LABS: Basophils % 0.7 % (0.1-2.0); Chloride 95 mmol/L (98-107); Eosinophils % 0.9 % (0.1-12.0); Hematocrit 30.8 % (42.0-52.0); Hemoglobin 10.1 g/dL (14.1-18.0); Lymphocytes % 21.5 % (10-50); Mean Corpuscular HGB Conc 32.9 g/dL (31.8-35.4); Mean Corpuscular Hemoglobin 32.8 pg (27.0-31.2); Mean Corpuscular Volume 99.8 fl (80-94); Mean Platelet Volume 7.8 fl (7.4-10.4); Monocytes # 0.1 K/mm3 (0.1-1.0); Neutrophils # 3.3 K/mm3 (1.8-7.8); Neutrophils % 73.9 % (37.0-80.0); Platelet Count 280 K/mm3 (142-424); Red Blood Count 3.08 M/mm3 (4.60-6.20); Red Cell Distribution Width 15.4 % (11.5-17.5); Sodium 133 mmol/L (136-145); White Blood Count 4.5 K/mm3 (4.8-10.8)
[2022-08-15 09:05] LABS: Potassium 4.4 mmoL/L (3.5-5.1)
[2022-08-15 09:07] LABS: Alanine Aminotransferase 50 U/L (12-78); Albumin Level 3.7 g/dl (3.5-5.0); Albumin/Globulin Ratio 1.9 (1.1-1.8); Alkaline Phosphatase 89 U/L (38-126); Anion Gap 11.4 mEq/L (5-15); Aspartate Amino Transferase 38 U/L (17-59); Bilirubin,Total 0.8 mg/dl (0.2-1.3); Blood Urea Nitrogen 17 mg/dl (9-20); Calcium 9.3 mg/dl (8.4-10.2); Carbon Dioxide 31 mmol/L (22.0-30.0); Creatinine Clearance Estimated 111 mL/min (50-200); Estimated Glomerular Filt Rate 77 ml/min (>60); GFR (African American) 93 ML/MIN (>60); Glucose 162 mg/dl (74-100); Total Protein,Serum 5.7 g/dl (6.3-8.2)
== END 2022-08-15 09:07 | disposition home or self-care (01) ==
LOC: INF 08:27
PROVIDERS: PCP Internal Medicine Adolescent Medicine; Visit Provider Student in an Organized Health Care Education/Training Program
DX: C91.00 Acute lymphoblastic leukemia not having achieved remission (principal)
CPT/HCPCS: 36592; 80053; 85025

== ENCOUNTER 2022-08-25 08:28 | Outpatient (CLI) | payer OTHER, SELFPAY ==
[2022-08-25 08:29] VITALS: BMI 30.4
[2022-08-25 08:50] LABS: Basophils % 0.2 % (0.1-2.0); Eosinophils # 0.1 K/mm3 (0.0-0.4); Eosinophils % 1.9 % (0.1-12.0); Hematocrit 22.8 % (42.0-52.0); Hemoglobin 7.4 g/dL (14.1-18.0); Lymphocytes # 0.2 K/mm3 (0.7-4.5); Lymphocytes % 2.7 % (10-50); Mean Corpuscular HGB Conc 32.4 g/dL (31.8-35.4); Mean Corpuscular Hemoglobin 30.9 pg (27.0-31.2); Mean Corpuscular Volume 95.5 fl (80-94); Mean Platelet Volume 9.2 fl (7.4-10.4); Monocytes # 0.1 K/mm3 (0.1-1.0); Neutrophils # 5.8 K/mm3 (1.8-7.8); Neutrophils % 94.2 % (37.0-80.0); Platelet Count 57 K/mm3 (142-424); Red Blood Count 2.39 M/mm3 (4.60-6.20); Red Cell Distribution Width 20.7 % (11.5-17.5); White Blood Count 6.2 K/mm3 (4.8-10.8)
[2022-08-25 08:56] LABS: MANUAL DIFFERENTIAL MANUAL DIFFERENTIAL (MANUAL DIFF)
[2022-08-25 09:02] LABS: Chloride 102 mmol/L (98-107); Potassium 3.9 mmoL/L (3.5-5.1); Sodium 135 mmol/L (136-145)
[2022-08-25 09:04] LABS: Alanine Aminotransferase 27 U/L (12-78); Alkaline Phosphatase 70 U/L (38-126); Aspartate Amino Transferase 23 U/L (17-59); Bilirubin,Total 2.4 mg/dl (0.2-1.3); Blood Urea Nitrogen 24 mg/dl (9-20); Creatinine Clearance Estimated 123 mL/min (50-200); Estimated Glomerular Filt Rate 87 ml/min (>60); GFR (African American) 105 ML/MIN (>60)
[2022-08-25 09:05] LABS: Albumin Level 3.4 g/dl (3.5-5.0); Albumin/Globulin Ratio 1.8 (1.1-1.8); Anion Gap 11.9 mEq/L (5-15); Calcium 8.7 mg/dl (8.4-10.2); Carbon Dioxide 25 mmol/L (22.0-30.0); Globulin 1.9 g/dL (1.3-3.2); Glucose 176 mg/dl (74-100); Total Protein,Serum 5.3 g/dl (6.3-8.2)
[2022-08-25 09:18] LABS: Anisocytosis 1+; Hypochromasia 1+; Lymphocytes % 5 % (10-50); Macrocytosis 1+; Monocytes % 3 % (2-9); Neutrophils % 92 % (42-76); Platelet Estimate Marked Decrease; Total Cells Counted 100
== END 2022-08-25 09:10 | disposition home or self-care (01) ==
LOC: INF 08:28
PROVIDERS: PCP Internal Medicine Adolescent Medicine; Visit Provider Student in an Organized Health Care Education/Training Program
DX: Z45.2 Encounter for adjustment and management of vascular access device (principal); C85.90 Non-Hodgkin lymphoma, unspecified, unspecified site
CPT/HCPCS: 36592; 80053; 85007; 85025

== ENCOUNTER 2022-08-29 10:11 | Outpatient (CLI) | payer OTHER, SELFPAY ==
[2022-08-29 10:13] VITALS: BMI 29.4
[2022-08-29 10:29] LABS: Eosinophils % 0.5 % (0.1-12.0); Lymphocytes # 0.2 K/mm3 (0.7-4.5); Lymphocytes % 85.4 % (10-50); Mean Corpuscular HGB Conc 34.1 g/dL (31.8-35.4); Mean Corpuscular Hemoglobin 31.1 pg (27.0-31.2); Mean Corpuscular Volume 91.1 fl (80-94); Mean Platelet Volume 13.7 fl (7.4-10.4); Monocytes % 3.9 % (1.7-9.3); Red Blood Count 1.23 M/mm3 (4.60-6.20); Red Cell Distribution Width 19.9 % (11.5-17.5)
[2022-08-29 10:33] LABS: Chloride 101 mmol/L (98-107); Potassium 4.8 mmoL/L (3.5-5.1); Sodium 135 mmol/L (136-145)
[2022-08-29 10:35] LABS: Alanine Aminotransferase 27 U/L (12-78); Aspartate Amino Transferase 23 U/L (17-59); Blood Urea Nitrogen 35 mg/dl (9-20); Creatinine Clearance Estimated 74 mL/min (50-200); Estimated Glomerular Filt Rate 48 ml/min (>60); GFR (African American) 58 ML/MIN (>60); Hematocrit 11.2 % (42.0-52.0); Neutrophils % 10.2 % (37.0-80.0); Platelet Count 8 K/mm3 (142-424); White Blood Count 0.2 K/mm3 (4.8-10.8)
[2022-08-29 10:36] LABS: Albumin Level 3.4 g/dl (3.5-5.0); Albumin/Globulin Ratio 1.6 (1.1-1.8); Alkaline Phosphatase 69 U/L (38-126); Anion Gap 18.8 mEq/L (5-15); Bilirubin,Total 2.1 mg/dl (0.2-1.3); Carbon Dioxide 20 mmol/L (22.0-30.0); Globulin 2.1 g/dL (1.3-3.2); Glucose 267 mg/dl (74-100); Hemoglobin 3.8 g/dL (14.1-18.0); MANUAL DIFFERENTIAL MANUAL DIFFERENTIAL (MANUAL DIFF); Total Protein,Serum 5.5 g/dl (6.3-8.2)
[2022-08-29 11:16] LABS: Anisocytosis 1+; Hypochromasia 1+; Lymphocytes % 88 % (10-50); Monocytes % 8 % (2-9); Neutrophils % 4 % (42-76); Ovalocytes 1+; Platelet Estimate Marked Decrease; Total Cells Counted 25
--- NOTE | 2022-08-29 11:39 | PC.NURSE ---
pt was transferred to [facility] ER based on the recommendations of Dr. You at BMT. report was called to ruiz ch RN.
--- NOTE | 2022-08-29 11:40 | PC.NURSE ---
Lachelle Covington from lab called critical lab results. WBC of 0.2, Hgb 3.8, Hct 11.2, Plt 8. lab results, name and verified and repeated. This RN called [facility] and spoke to Dr. You who recommended pt be transferred to the ER.
== END 2022-08-29 11:00 | disposition home or self-care (01) ==
LOC: INF 10:12
PROVIDERS: Visit Provider Student in an Organized Health Care Education/Training Program
DX: Z45.2 Encounter for adjustment and management of vascular access device (principal); C91.00 Acute lymphoblastic leukemia not having achieved remission
CPT/HCPCS: 36592; 80053; 85007; 85025

== ENCOUNTER 2022-08-29 11:26 | Emergency (ER) | payer OTHER, SELFPAY ==
--- NOTE | 2022-08-29 11:26 | ECG_ITS ---
APPROVED REPORT Exam: Resting ECG HR:80 bpm ECG Measurements Heart Rate 80 AXES MO 135 P 15 QRSd 85 QRS 16 QT 374 T 62 QTc 410 Conclusion SINUS RHYTHM NONSPECIFIC T-WAVE ABNORMALITY BORDERLINE ECG UNCONFIRMED REPORT Electronically signed by : Fox Chávez MD 08/30/2022 20:12:32
[2022-08-29 11:29] VITALS: BP 148/65; PULSE 82; RESP 18; TEMP 36.6; O2SAT 100; BMI 30.7
[2022-08-29 12:01] VITALS: BP 120/56; PULSE 74; O2SAT 100
--- NOTE | 2022-08-29 12:23 | PC.NURSE ---
BLOOD COLLECTED FOR TYPE AND SCREEN AND BLOOD CULTURES
--- NOTE | 2022-08-29 12:26 | PC.NURSE ---
BLOOD CONSENT SIGNED AT THIS TIME
[2022-08-29 12:30] VITALS: BP 128/48; PULSE 76; O2SAT 100
--- NOTE | 2022-08-29 12:34 | PC.NURSE ---
DR. GAONA AT BEDSIDE
--- NOTE | 2022-08-29 12:44 | PC.NURSE ---
Called [facility], awaiting a call back from Hematology/Oncology
--- NOTE | 2022-08-29 12:58 | HMH.EDGENADL ---
Discharge Plan Disposition Patient Disposition: Xfer Short-Term Hosp Condition: Serious Chief Complaint: Recheck/Abnormal Lab/Rx Prescriptions Prescriptions: No Action omeprazole 20 mg capsule,delayed release(DR/EC) 20 mg PO HS losartan 100 MG tablet 100 mg PO DAILY atorvastatin 40 MG tablet 40 mg PO HS famotidine 20 MG tablet 20 mg PO BID ascorbic acid (vitamin C) 500 MG tablet 500 mg PO BID ergocalciferol (vitamin D2) 50,000 UNIT capsule 50,000 unit PO WEEKLY glycopyrrolate-formoterol 10.7 GM HFA aerosol inhaler 2 puff IH BID albuterol sulfate 2.5 MG/NEB solution for nebulization 2.5 mg IH Q6H albuterol sulfate 8.5 GM HFA aerosol inhaler 2 puff IH Q4HP PRN (Reason: Shortness Of Breath) Label Comments: INHALE TWO PUFFS BY MOUTH EVERY 4 HOURS NEEDED fluoxetine 20 MG capsule 20 mg PO DAILY metformin 500 MG tablet 1,000 mg PO BIDWMEAL prochlorperazine maleate 10 MG tablet 10 mg PO TIDP PRN (Reason: Vertigo) 5 Days Qty: 15 0RF scopolamine base 1 EACH patch 3 day 1 each TD DIRECTED Referrals Follow up/Referrals: Fox Chávez MD [Primary Care Provider] - See instructions Clinical Impressions Clinical Impression: Pancytopenia, ALL (acute lymphoblastic leukemia) Discharge ED Provider: Raymond Parker General Adult HPI General Chief complaint: Recheck/Abnormal Lab/Rx Stated complaint: Weakness Time Seen by Provider: 08/29/22 12:15 Mode of Arrival: Wheelchair Limitations: No Limitations Description of Symptoms (Recalled from ER Triage Doc. by RN): PT RECEIVING TREATMENT OF ALL, TREATMENT ON MONDAY. SEEN TODAY FOR LABS. H&H 3.8/11.2. PT SENT FROM INFUSION FOR FURTHER EVALUATION. PT REPORTS WEAKNESS THAT STARTED YESTERDAY. History of Present Illness HPI narrative: Patient is a 57-year-old gentleman with past medical history of ALL and COPD on chemotherapy who presents emergency department for evaluation of low blood counts. Patient reportedly went for his weekly infusion and it was discovered that he was severely anemic, thrombocytopenic. Patient states that he has felt weak over the last 48 hours, he is on his baseline 2 L nasal cannula with respect to his COPD. No other acute complaints at this time. Per chart review patient has a white blood cell count of 0.2, hemoglobin of 3.8, platelet count of 8, neutrophil count 0. Patient also has an [place] with a normal creatinine baseline, current creatinine 1.5. Anion gap 18.8. Related Data Home Medications Medication Instructions Recorded Confirmed omeprazole 20 mg capsule,delayed 20 mg PO HS acid reflux 03/13/19 07/11/22 release atorvastatin 40 mg tablet 40 mg PO HS Cholesterol 07/12/21 07/11/22 losartan 100 mg tablet 100 mg PO DAILY Hypertension 07/12/21 07/11/22 ascorbic acid (vitamin C) 500 mg 500 mg PO BID Supplement 01/23/22 07/11/22 tablet ergocalciferol (vitamin D2) 1,250 50,000 unit PO WEEKLY Supplement 01/23/22 07/11/22 mcg (50,000 unit) capsule famotidine 20 mg tablet 20 mg PO BID Acid reflux 01/23/22 07/11/22 glycopyrrolate 9 mcg-formoterol 2 puff inhalation BID COPD 01/23/22 07/11/22 4.8 mcg HFA aerosol inhaler albuterol sulfate 2.5 mg/3 mL 2.5 mg inhalation Q6H COPD 01/24/22 07/11/22 (0.083 %) solution for nebulization albuterol sulfate 90 mcg/actuation 2 puff inhalation Q4HP PRN 01/24/22 07/11/22 aerosol inhaler Shortness Of Breath fluoxetine 20 mg capsule 20 mg PO DAILY Depression 01/24/22 07/11/22 metformin 500 mg tablet 1,000 mg PO BIDWMEAL Diabetes 02/08/22 07/11/22 scopolamine base 1 mg over 3 days 1 each transdermal DIRECTED 04/15/22 07/11/22 transdermal patch Nausea & vomiting Previous Rx's Medication Instructions Recorded prochlorperazine maleate 10 mg 10 mg PO TIDP PRN Vertigo 5 days 02/13/22 tablet #15 tabs Allergies Allergy/AdvReac Type Severity Reaction Status Date / Time No Known Allergies Allergy Verified 0
[2022-08-29 13:00] VITALS: BP 114/44; PULSE 75; O2SAT 100
--- NOTE | 2022-08-29 13:04 | PC.NURSE ---
DR. GAONA SPEAKING WITH DR. ARAUJO AT
--- NOTE | 2022-08-29 13:06 | PC.NURSE ---
PT ACCEPTED TO PER DR. ARAUJO
--- NOTE | 2022-08-29 13:22 | PC.NURSE ---
REPORT GIVEN TO [facility] ED
--- NOTE | 2022-08-29 13:25 | PC.NURSE ---
[facility] has been notified
[2022-08-29 14:00] VITALS: BP 125/69; PULSE 70; RESP 18; TEMP 36.6; O2SAT 100
== END 2022-08-29 14:00 | disposition short-term general hospital (02) ==
PROVIDERS: Emergency Provider Emergency Medicine; PCP Internal Medicine Adolescent Medicine
DX: R42 Dizziness and giddiness (principal); R06.02 Shortness of breath; R53.1 Weakness; R79.9 Abnormal finding of blood chemistry, unspecified; Z86.16 Personal history of COVID-19; I10 Essential (primary) hypertension; N17.9 Acute kidney failure, unspecified; E78.5 Hyperlipidemia, unspecified; D38.3 Neoplasm of uncertain behavior of mediastinum; D69.6 Thrombocytopenia, unspecified; D61.818 Other pancytopenia; D64.9 Anemia, unspecified; J44.9 Chronic obstructive pulmonary disease, unspecified; Z79.51 Long term (current) use of inhaled steroids; Z99.81 Dependence on supplemental oxygen; Z92.21 Personal history of antineoplastic chemotherapy; Z86.73 Personal history of transient ischemic attack (TIA), and cerebral infarction without residual deficits; Z87.891 Personal history of nicotine dependence
CPT/HCPCS: 86850; 87040; 93005; 96374; 96375; 99284

== ENCOUNTER 2022-09-07 08:27 | Outpatient (CLI) | payer OTHER, SELFPAY ==
[2022-09-07 08:31] VITALS: BMI 29.9
[2022-09-07 08:50] LABS: Basophils # 0.2 K/mm3 (0-0.2); Basophils % 2.4 % (0.1-2.0); Eosinophils # 0.1 K/mm3 (0.0-0.4); Eosinophils % 0.5 % (0.1-12.0); Hematocrit 24.9 % (42.0-52.0); Hemoglobin 8.5 g/dL (14.1-18.0); Lymphocytes # 0.7 K/mm3 (0.7-4.5); Lymphocytes % 7.4 % (10-50); Mean Corpuscular HGB Conc 34.1 g/dL (31.8-35.4); Mean Corpuscular Hemoglobin 28.1 pg (27.0-31.2); Mean Corpuscular Volume 82.5 fl (80-94); Mean Platelet Volume 10.6 fl (7.4-10.4); Monocytes # 0.7 K/mm3 (0.1-1.0); Neutrophils # 8.2 K/mm3 (1.8-7.8); Neutrophils % 82.8 % (37.0-80.0); Platelet Count 66 K/mm3 (142-424); Red Blood Count 3.01 M/mm3 (4.60-6.20); Red Cell Distribution Width 17.9 % (11.5-17.5); White Blood Count 9.9 K/mm3 (4.8-10.8)
[2022-09-07 08:55] LABS: Chloride 101 mmol/L (98-107); Sodium 134 mmol/L (136-145)
[2022-09-07 08:56] LABS: Potassium 4.8 mmoL/L (3.5-5.1)
[2022-09-07 08:58] LABS: Blood Urea Nitrogen 14 mg/dl (9-20); Creatinine Clearance Estimated 141 mL/min (50-200); Estimated Glomerular Filt Rate 100 ml/min (>60); GFR (African American) 121 ML/MIN (>60)
[2022-09-07 08:59] LABS: Alanine Aminotransferase 21 U/L (12-78); Albumin Level 3.5 g/dl (3.5-5.0); Albumin/Globulin Ratio 1.3 (1.1-1.8); Alkaline Phosphatase 109 U/L (38-126); Anion Gap 10.8 mEq/L (5-15); Aspartate Amino Transferase 25 U/L (17-59); Bilirubin,Total 0.9 mg/dl (0.2-1.3); Calcium 8.6 mg/dl (8.4-10.2); Carbon Dioxide 27 mmol/L (22.0-30.0); Globulin 2.6 g/dL (1.3-3.2); Glucose 183 mg/dl (74-100); Total Protein,Serum 6.1 g/dl (6.3-8.2)
== END 2022-09-07 09:00 | disposition home or self-care (01) ==
LOC: INF 08:28
PROVIDERS: PCP Internal Medicine Adolescent Medicine; Visit Provider Student in an Organized Health Care Education/Training Program
DX: C91.00 Acute lymphoblastic leukemia not having achieved remission (principal); Z45.2 Encounter for adjustment and management of vascular access device
CPT/HCPCS: 36592; 80053; 85025

== ENCOUNTER 2022-09-09 08:59 | Outpatient (CLI) | payer OTHER, SELFPAY ==
[2022-09-09 09:00] VITALS: BMI 30.4
[2022-09-09 09:34] LABS: Basophils # 0.2 K/mm3 (0-0.2); Basophils % 1.6 % (0.1-2.0); Eosinophils # 0.1 K/mm3 (0.0-0.4); Eosinophils % 0.7 % (0.1-12.0); Hematocrit 24.7 % (42.0-52.0); Hemoglobin 8.2 g/dL (14.1-18.0); Lymphocytes % 6.9 % (10-50); Mean Corpuscular Volume 85.1 fl (80-94); Mean Platelet Volume 9.8 fl (7.4-10.4); Monocytes # 0.7 K/mm3 (0.1-1.0); Monocytes % 4.9 % (1.7-9.3); Neutrophils # 12.5 K/mm3 (1.8-7.8); Platelet Count 118 K/mm3 (142-424); Red Blood Count 2.91 M/mm3 (4.60-6.20); Red Cell Distribution Width 18.5 % (11.5-17.5); White Blood Count 14.5 K/mm3 (4.8-10.8)
[2022-09-09 09:36] LABS: Chloride 100 mmol/L (98-107); Potassium 4.4 mmoL/L (3.5-5.1); Sodium 135 mmol/L (136-145)
[2022-09-09 09:38] LABS: Blood Urea Nitrogen 13 mg/dl (9-20); Creatinine Clearance Estimated 139 mL/min (50-200); Estimated Glomerular Filt Rate 100 ml/min (>60); GFR (African American) 121 ML/MIN (>60); MANUAL DIFFERENTIAL MANUAL DIFFERENTIAL (MANUAL DIFF)
[2022-09-09 09:39] LABS: Alanine Aminotransferase 22 U/L (12-78); Albumin Level 3.5 g/dl (3.5-5.0); Albumin/Globulin Ratio 1.3 (1.1-1.8); Alkaline Phosphatase 101 U/L (38-126); Anion Gap 10.4 mEq/L (5-15); Aspartate Amino Transferase 28 U/L (17-59); Calcium 8.4 mg/dl (8.4-10.2); Carbon Dioxide 29 mmol/L (22.0-30.0); Globulin 2.7 g/dL (1.3-3.2); Glucose 157 mg/dl (74-100); Total Protein,Serum 6.2 g/dl (6.3-8.2)
[2022-09-09 10:08] LABS: Anisocytosis 1+; Hypochromasia 1+; Lymphocytes % 41 % (10-50); Monocytes % 4 % (2-9); Neutrophils % 55 % (42-76); Platelet Estimate Slight Decrease; Total Cells Counted 100
== END 2022-09-09 09:44 | disposition home or self-care (01) ==
PROVIDERS: PCP Internal Medicine Adolescent Medicine; Visit Provider Student in an Organized Health Care Education/Training Program
DX: C91.00 Acute lymphoblastic leukemia not having achieved remission (principal); Z45.2 Encounter for adjustment and management of vascular access device
CPT/HCPCS: 36592; 80053; 85007; 85025

== ENCOUNTER 2022-09-12 08:12 | Outpatient (CLI) | payer OTHER, SELFPAY ==
[2022-09-12 08:15] VITALS: BMI 29.5
[2022-09-12 08:31] LABS: Basophils % 0.5 % (0.1-2.0); Eosinophils # 0.1 K/mm3 (0.0-0.4); Eosinophils % 0.5 % (0.1-12.0); Hemoglobin 8.2 g/dL (14.1-18.0); Lymphocytes % 11.6 % (10-50); Mean Corpuscular HGB Conc 32.6 g/dL (31.8-35.4); Mean Corpuscular Volume 85.8 fl (80-94); Mean Platelet Volume 9.6 fl (7.4-10.4); Monocytes # 0.4 K/mm3 (0.1-1.0); Monocytes % 3.9 % (1.7-9.3); Neutrophils # 7.4 K/mm3 (1.8-7.8); Neutrophils % 83.3 % (37.0-80.0); Platelet Count 190 K/mm3 (142-424); Red Blood Count 2.92 M/mm3 (4.60-6.20); Red Cell Distribution Width 19.5 % (11.5-17.5); White Blood Count 8.8 K/mm3 (4.8-10.8)
[2022-09-12 08:32] LABS: Chloride 102 mmol/L (98-107); Potassium 4.2 mmoL/L (3.5-5.1); Sodium 137 mmol/L (136-145)
[2022-09-12 08:34] LABS: Blood Urea Nitrogen 13 mg/dl (9-20); Creatinine Clearance Estimated 139 mL/min (50-200); Estimated Glomerular Filt Rate 100 ml/min (>60); GFR (African American) 121 ML/MIN (>60)
[2022-09-12 08:35] LABS: Alanine Aminotransferase 25 U/L (12-78); Albumin Level 3.5 g/dl (3.5-5.0); Albumin/Globulin Ratio 1.4 (1.1-1.8); Alkaline Phosphatase 102 U/L (38-126); Anion Gap 12.2 mEq/L (5-15); Aspartate Amino Transferase 29 U/L (17-59); Bilirubin,Total 0.8 mg/dl (0.2-1.3); Calcium 8.4 mg/dl (8.4-10.2); Carbon Dioxide 27 mmol/L (22.0-30.0); Globulin 2.5 g/dL (1.3-3.2); Glucose 165 mg/dl (74-100)
== END 2022-09-12 08:30 | disposition home or self-care (01) ==
LOC: INF 08:13
PROVIDERS: PCP Internal Medicine Adolescent Medicine; Visit Provider Student in an Organized Health Care Education/Training Program
DX: C91.00 Acute lymphoblastic leukemia not having achieved remission (principal); Z45.2 Encounter for adjustment and management of vascular access device
CPT/HCPCS: 36592; 80053; 85025

== ENCOUNTER 2022-09-14 08:22 | Outpatient (CLI) | payer OTHER, SELFPAY ==
[2022-09-14 08:23] VITALS: BMI 29.5
[2022-09-14 08:46] LABS: Basophils % 0.5 % (0.1-2.0); Eosinophils % 0.7 % (0.1-12.0); Hematocrit 26.2 % (42.0-52.0); Hemoglobin 8.2 g/dL (14.1-18.0); Lymphocytes # 0.8 K/mm3 (0.7-4.5); Lymphocytes % 15.3 % (10-50); Mean Corpuscular HGB Conc 31.5 g/dL (31.8-35.4); Mean Corpuscular Hemoglobin 27.9 pg (27.0-31.2); Mean Corpuscular Volume 88.5 fl (80-94); Monocytes # 0.3 K/mm3 (0.1-1.0); Monocytes % 5.5 % (1.7-9.3); Neutrophils # 3.9 K/mm3 (1.8-7.8); Neutrophils % 78.1 % (37.0-80.0); Platelet Count 205 K/mm3 (142-424); Red Blood Count 2.96 M/mm3 (4.60-6.20); Red Cell Distribution Width 20.7 % (11.5-17.5)
[2022-09-14 08:51] LABS: Alanine Aminotransferase 29 U/L (12-78); Albumin Level 3.6 g/dl (3.5-5.0); Albumin/Globulin Ratio 1.5 (1.1-1.8); Alkaline Phosphatase 97 U/L (38-126); Anion Gap 8.5 mEq/L (5-15); Aspartate Amino Transferase 33 U/L (17-59); Bilirubin,Total 0.9 mg/dl (0.2-1.3); Blood Urea Nitrogen 13 mg/dl (9-20); Calcium 8.5 mg/dl (8.4-10.2); Carbon Dioxide 28 mmol/L (22.0-30.0); Chloride 104 mmol/L (98-107); Creatinine Clearance Estimated 158 mL/min (50-200); Estimated Glomerular Filt Rate 116 ml/min (>60); GFR (African American) 141 ML/MIN (>60); Globulin 2.4 g/dL (1.3-3.2); Glucose 183 mg/dl (74-100); Potassium 4.5 mmoL/L (3.5-5.1); Sodium 136 mmol/L (136-145)
== END 2022-09-14 08:45 | disposition home or self-care (01) ==
LOC: INF 08:22
PROVIDERS: PCP Internal Medicine Adolescent Medicine; Visit Provider Student in an Organized Health Care Education/Training Program
DX: Z45.2 Encounter for adjustment and management of vascular access device (principal); C91.00 Acute lymphoblastic leukemia not having achieved remission
CPT/HCPCS: 36592; 80053; 85025

== ENCOUNTER 2022-09-21 08:00 | Outpatient (CLI) | payer OTHER, SELFPAY ==
[2022-09-21 08:12] VITALS: BMI 29.5
[2022-09-21 08:45] LABS: Basophils % 0.2 % (0.1-2.0); Hematocrit 25.5 % (42.0-52.0); Hemoglobin 8.6 g/dL (14.1-18.0); Lymphocytes # 0.1 K/mm3 (0.7-4.5); Lymphocytes % 6.9 % (10-50); Mean Corpuscular HGB Conc 33.7 g/dL (31.8-35.4); Mean Corpuscular Hemoglobin 29.2 pg (27.0-31.2); Mean Corpuscular Volume 86.5 fl (80-94); Mean Platelet Volume 9.1 fl (7.4-10.4); Monocytes % 1.5 % (1.7-9.3); Neutrophils # 1.6 K/mm3 (1.8-7.8); Neutrophils % 89.4 % (37.0-80.0); Platelet Count 79 K/mm3 (142-424); Red Blood Count 2.94 M/mm3 (4.60-6.20); Red Cell Distribution Width 21.3 % (11.5-17.5); White Blood Count 1.8 K/mm3 (4.8-10.8)
[2022-09-21 08:46] LABS: Alanine Aminotransferase 63 U/L (12-78); Albumin Level 3.4 g/dl (3.5-5.0); Albumin/Globulin Ratio 1.7 (1.1-1.8); Alkaline Phosphatase 76 U/L (38-126); Anion Gap 8.2 mEq/L (5-15); Aspartate Amino Transferase 40 U/L (17-59); Bilirubin,Total 2.3 mg/dl (0.2-1.3); Blood Urea Nitrogen 22 mg/dl (9-20); Carbon Dioxide 28 mmol/L (22.0-30.0); Chloride 101 mmol/L (98-107); Creatinine Clearance Estimated 185 mL/min (50-200); Estimated Glomerular Filt Rate 139 ml/min (>60); GFR (African American) 168 ML/MIN (>60); Glucose 170 mg/dl (74-100); Potassium 4.2 mmoL/L (3.5-5.1); Sodium 133 mmol/L (136-145); Total Protein,Serum 5.4 g/dl (6.3-8.2)
[2022-09-21 08:48] LABS: MANUAL DIFFERENTIAL MANUAL DIFFERENTIAL (MANUAL DIFF)
[2022-09-21 10:06] LABS: Lymphocytes % 7 % (10-50); Monocytes % 3 % (2-9); Neutrophils % 90 % (42-76); Platelet Estimate Marked Decrease; RBC Morphology Normal; Total Cells Counted 100
== END 2022-09-21 08:54 | disposition home or self-care (01) ==
PROVIDERS: PCP Internal Medicine Adolescent Medicine; Visit Provider Student in an Organized Health Care Education/Training Program
DX: C91.00 Acute lymphoblastic leukemia not having achieved remission (principal)
CPT/HCPCS: 36592; 80053; 85007; 85025

== ENCOUNTER 2022-09-23 07:56 | Outpatient (CLI) | payer OTHER, SELFPAY ==
[2022-09-23 08:12] VITALS: BMI 29.5
[2022-09-23 08:22] LABS: Basophils # 0.2 K/mm3 (0-0.2); Basophils % 0.6 % (0.1-2.0); Eosinophils # 0.7 K/mm3 (0.0-0.4); Eosinophils % 1.7 % (0.1-12.0); Hematocrit 23.8 % (42.0-52.0); Hemoglobin 8.1 g/dL (14.1-18.0); Lymphocytes % 0.1 % (10-50); Mean Corpuscular HGB Conc 34.1 g/dL (31.8-35.4); Mean Corpuscular Hemoglobin 29.1 pg (27.0-31.2); Mean Corpuscular Volume 85.4 fl (80-94); Mean Platelet Volume 10.1 fl (7.4-10.4); Monocytes # 0.2 K/mm3 (0.1-1.0); Monocytes % 0.5 % (1.7-9.3); Neutrophils # 38.6 K/mm3 (1.8-7.8); Neutrophils % 97.2 % (37.0-80.0); Platelet Count 54 K/mm3 (142-424); Red Blood Count 2.79 M/mm3 (4.60-6.20); Red Cell Distribution Width 21.5 % (11.5-17.5); White Blood Count 39.7 K/mm3 (4.8-10.8)
[2022-09-23 08:24] LABS: MANUAL DIFFERENTIAL MANUAL DIFFERENTIAL (MANUAL DIFF)
[2022-09-23 08:25] LABS: Chloride 98 mmol/L (98-107); Potassium 3.9 mmoL/L (3.5-5.1); Sodium 132 mmol/L (136-145)
[2022-09-23 08:28] LABS: Alanine Aminotransferase 50 U/L (12-78); Albumin Level 3.4 g/dl (3.5-5.0); Albumin/Globulin Ratio 1.7 (1.1-1.8); Alkaline Phosphatase 104 U/L (38-126); Anion Gap 8.9 mEq/L (5-15); Aspartate Amino Transferase 27 U/L (17-59); Bilirubin,Total 1.4 mg/dl (0.2-1.3); Blood Urea Nitrogen 18 mg/dl (9-20); Calcium 8.7 mg/dl (8.4-10.2); Carbon Dioxide 29 mmol/L (22.0-30.0); Creatinine Clearance Estimated 185 mL/min (50-200); Estimated Glomerular Filt Rate 139 ml/min (>60); GFR (African American) 168 ML/MIN (>60); Glucose 239 mg/dl (74-100); Total Protein,Serum 5.4 g/dl (6.3-8.2)
--- NOTE | 2022-09-23 08:29 | PC.NURSE ---
0829-pt d/c home with hgb 8.1 and plt 54;pt to return next week for lab checks.
[2022-09-23 08:43] LABS: Lymphocytes % 2 % (10-50); Monocytes % 5 % (2-9); Neutrophils % 93 % (42-76); Total Cells Counted 100
[2022-09-23 08:44] LABS: Anisocytosis 1+; Ovalocytes 1+; Platelet Estimate Marked Decrease
== END 2022-09-23 08:29 | disposition home or self-care (01) ==
LOC: INF 07:56
PROVIDERS: PCP Internal Medicine Adolescent Medicine; Visit Provider Student in an Organized Health Care Education/Training Program
DX: C85.90 Non-Hodgkin lymphoma, unspecified, unspecified site (principal); Z45.2 Encounter for adjustment and management of vascular access device
CPT/HCPCS: 36592; 80053; 85007; 85025

== ENCOUNTER 2022-09-23 08:39 | Outpatient (RCR) | payer OTHER, SELFPAY | END 2022-09-23 08:45 | disposition home or self-care (01) | LOC: PT 08:39 | PROVIDERS: PCP Internal Medicine Adolescent Medicine | DX: M25.311 Other instability, right shoulder (principal) | CPT/HCPCS: 97163 ==

== ENCOUNTER 2022-09-28 08:04 | Outpatient (CLI) | payer OTHER, SELFPAY ==
[2022-09-28 08:10] VITALS: BMI 29.9
[2022-09-28 08:23] LABS: Basophils # 0.1 K/mm3 (0-0.2); Basophils % 0.6 % (0.1-2.0); Eosinophils # 0.2 K/mm3 (0.0-0.4); Eosinophils % 0.8 % (0.1-12.0); Hematocrit 27.6 % (42.0-52.0); Hemoglobin 9.2 g/dL (14.1-18.0); Lymphocytes # 0.8 K/mm3 (0.7-4.5); Mean Corpuscular HGB Conc 33.3 g/dL (31.8-35.4); Mean Corpuscular Hemoglobin 29.8 pg (27.0-31.2); Mean Corpuscular Volume 89.6 fl (80-94); Mean Platelet Volume 10.8 fl (7.4-10.4); Monocytes # 0.5 K/mm3 (0.1-1.0); Monocytes % 2.7 % (1.7-9.3); Neutrophils # 18.8 K/mm3 (1.8-7.8); Neutrophils % 91.9 % (37.0-80.0); Red Blood Count 3.08 M/mm3 (4.60-6.20); White Blood Count 20.5 K/mm3 (4.8-10.8)
[2022-09-28 08:24] LABS: Red Cell Distribution Width 25.3 % (11.5-17.5)
[2022-09-28 08:25] LABS: Platelet Count 36 K/mm3 (142-424)
[2022-09-28 08:26] LABS: MANUAL DIFFERENTIAL MANUAL DIFFERENTIAL (MANUAL DIFF)
--- NOTE | 2022-09-28 08:28 | PC.NURSE ---
Lachelle Childress called RN at 0824 to report platelet level 36. RN repeated and verified pt name, , and lab value. Result called to Dr. Humphries, no new orders noted. Pt has standing orders for transfusion of blood or platelets if needed.
[2022-09-28 08:29] LABS: Alanine Aminotransferase 38 U/L (12-78); Albumin Level 3.6 g/dl (3.5-5.0); Albumin/Globulin Ratio 1.9 (1.1-1.8); Alkaline Phosphatase 175 U/L (38-126); Anion Gap 9.1 mEq/L (5-15); Aspartate Amino Transferase 28 U/L (17-59); Bilirubin,Total 1.8 mg/dl (0.2-1.3); Blood Urea Nitrogen 16 mg/dl (9-20); Calcium 8.4 mg/dl (8.4-10.2); Carbon Dioxide 28 mmol/L (22.0-30.0); Chloride 98 mmol/L (98-107); Creatinine Clearance Estimated 141 mL/min (50-200); Estimated Glomerular Filt Rate 100 ml/min (>60); GFR (African American) 121 ML/MIN (>60); Globulin 1.9 g/dL (1.3-3.2); Glucose 228 mg/dl (74-100); Potassium 4.1 mmoL/L (3.5-5.1); Sodium 131 mmol/L (136-145); Total Protein,Serum 5.5 g/dl (6.3-8.2)
[2022-09-28 08:46] LABS: Eosinophils % 1 % (0-3); Lymphocytes % 2 % (10-50); Monocytes % 4 % (2-9); Neutrophils % 93 % (42-76); Total Cells Counted 100
[2022-09-28 08:47] LABS: Hypochromasia 1+; Ovalocytes 1+
[2022-09-28 08:48] LABS: Anisocytosis 1+; Platelet Estimate Marked Decrease
== END 2022-09-28 08:29 | disposition home or self-care (01) ==
LOC: INF 08:05
PROVIDERS: PCP Internal Medicine Adolescent Medicine; Visit Provider Student in an Organized Health Care Education/Training Program
DX: C85.90 Non-Hodgkin lymphoma, unspecified, unspecified site (principal); Z45.2 Encounter for adjustment and management of vascular access device
CPT/HCPCS: 36592; 80053; 85007; 85025

== ENCOUNTER 2022-09-30 08:37 | Outpatient (CLI) | payer OTHER, SELFPAY ==
[2022-09-30 08:41] VITALS: BMI 29.9
[2022-09-30 08:57] LABS: Basophils # 0.1 K/mm3 (0-0.2); Basophils % 0.6 % (0.1-2.0); Eosinophils # 0.2 K/mm3 (0.0-0.4); Hematocrit 26.8 % (42.0-52.0); Hemoglobin 8.9 g/dL (14.1-18.0); Lymphocytes % 5.9 % (10-50); Mean Corpuscular HGB Conc 33.3 g/dL (31.8-35.4); Mean Corpuscular Hemoglobin 30.6 pg (27.0-31.2); Mean Corpuscular Volume 91.9 fl (80-94); Mean Platelet Volume 10.4 fl (7.4-10.4); Monocytes # 0.4 K/mm3 (0.1-1.0); Monocytes % 2.5 % (1.7-9.3); Neutrophils # 15.7 K/mm3 (1.8-7.8); Red Blood Count 2.91 M/mm3 (4.60-6.20); White Blood Count 17.5 K/mm3 (4.8-10.8)
[2022-09-30 09:02] LABS: Chloride 100 mmol/L (98-107); Potassium 4.3 mmoL/L (3.5-5.1); Sodium 135 mmol/L (136-145)
[2022-09-30 09:03] LABS: Red Cell Distribution Width 25.4 % (11.5-17.5)
[2022-09-30 09:04] LABS: Platelet Count 42 K/mm3 (142-424)
[2022-09-30 09:05] LABS: Alanine Aminotransferase 37 U/L (12-78); Albumin Level 3.5 g/dl (3.5-5.0); Albumin/Globulin Ratio 1.7 (1.1-1.8); Alkaline Phosphatase 171 U/L (38-126); Anion Gap 11.3 mEq/L (5-15); Aspartate Amino Transferase 31 U/L (17-59); Bilirubin,Total 1.4 mg/dl (0.2-1.3); Blood Urea Nitrogen 10 mg/dl (9-20); Calcium 8.5 mg/dl (8.4-10.2); Carbon Dioxide 28 mmol/L (22.0-30.0); Creatinine Clearance Estimated 161 mL/min (50-200); Estimated Glomerular Filt Rate 116 ml/min (>60); GFR (African American) 141 ML/MIN (>60); Globulin 2.1 g/dL (1.3-3.2); Glucose 248 mg/dl (74-100); Total Protein,Serum 5.6 g/dl (6.3-8.2)
[2022-09-30 09:07] LABS: MANUAL DIFFERENTIAL MANUAL DIFFERENTIAL (MANUAL DIFF)
--- NOTE | 2022-09-30 09:07 | PC.NURSE ---
john beverly from lab called a critical plt count of 42. name, and lab result verified and read back. pt has standing orders in place to transfuse plt and/or prbc. pt does not meet criteria at this time. labs faxed to [facility] provider. criticals called to [facility] MAHARAJ, no new orders at this time.
[2022-09-30 09:28] LABS: Anisocytosis 1+; Lymphocytes % 6 % (10-50); Macrocytosis 1+; Monocytes % 4 % (2-9); Neutrophils % 88 % (42-76); Ovalocytes 1+; Platelet Estimate Moderate Decrease; Total Cells Counted 100
== END 2022-09-30 09:00 | disposition home or self-care (01) ==
LOC: INF 08:38
PROVIDERS: PCP Internal Medicine Adolescent Medicine; Visit Provider Student in an Organized Health Care Education/Training Program
DX: C91.00 Acute lymphoblastic leukemia not having achieved remission (principal)
CPT/HCPCS: 36592; 80053; 85007; 85025

== ENCOUNTER 2022-10-03 08:47 | Outpatient (CLI) | payer OTHER, SELFPAY ==
[2022-10-03 08:51] VITALS: BMI 29.5
[2022-10-03 09:03] LABS: Basophils # 0.2 K/mm3 (0-0.2); Basophils % 1.1 % (0.1-2.0); Eosinophils # 0.3 K/mm3 (0.0-0.4); Eosinophils % 1.5 % (0.1-12.0); Hematocrit 26.5 % (42.0-52.0); Hemoglobin 8.8 g/dL (14.1-18.0); Lymphocytes # 1.1 K/mm3 (0.7-4.5); Lymphocytes % 6.8 % (10-50); Mean Corpuscular HGB Conc 33.2 g/dL (31.8-35.4); Mean Corpuscular Volume 90.2 fl (80-94); Mean Platelet Volume 9.7 fl (7.4-10.4); Monocytes # 0.4 K/mm3 (0.1-1.0); Monocytes % 2.4 % (1.7-9.3); Neutrophils # 14.5 K/mm3 (1.8-7.8); Neutrophils % 88.2 % (37.0-80.0); Platelet Count 70 K/mm3 (142-424); Red Blood Count 2.94 M/mm3 (4.60-6.20); Red Cell Distribution Width 26.4 % (11.5-17.5); White Blood Count 16.4 K/mm3 (4.8-10.8)
[2022-10-03 09:04] LABS: MANUAL DIFFERENTIAL MANUAL DIFFERENTIAL (MANUAL DIFF)
[2022-10-03 09:06] LABS: Chloride 104 mmol/L (98-107); Sodium 136 mmol/L (136-145)
[2022-10-03 09:07] LABS: Potassium 4.5 mmoL/L (3.5-5.1)
--- NOTE | 2022-10-03 09:07 | PC.NURSE ---
0907-pt d/c home hgb 8.8 plt 70 no blood products today
[2022-10-03 09:09] LABS: Alanine Aminotransferase 33 U/L (12-78); Albumin Level 3.9 g/dl (3.5-5.0); Albumin/Globulin Ratio 1.7 (1.1-1.8); Alkaline Phosphatase 147 U/L (38-126); Anion Gap 10.5 mEq/L (5-15); Aspartate Amino Transferase 32 U/L (17-59); Bilirubin,Total 1.1 mg/dl (0.2-1.3); Blood Urea Nitrogen 11 mg/dl (9-20); Calcium 8.5 mg/dl (8.4-10.2); Carbon Dioxide 26 mmol/L (22.0-30.0); Creatinine Clearance Estimated 123 mL/min (50-200); Estimated Glomerular Filt Rate 87 ml/min (>60); GFR (African American) 105 ML/MIN (>60); Globulin 2.3 g/dL (1.3-3.2); Glucose 172 mg/dl (74-100); Total Protein,Serum 6.2 g/dl (6.3-8.2)
[2022-10-03 10:32] LABS: Lymphocytes % 14 % (10-50); Monocytes % 3 % (2-9); Neutrophils % 83 % (42-76); Platelet Estimate Marked Decrease; RBC Morphology Normal; Total Cells Counted 100
== END 2022-10-03 09:07 | disposition home or self-care (01) ==
LOC: INF 08:48
PROVIDERS: PCP Internal Medicine Adolescent Medicine; Visit Provider Student in an Organized Health Care Education/Training Program
DX: C91.00 Acute lymphoblastic leukemia not having achieved remission (principal); Z45.2 Encounter for adjustment and management of vascular access device
CPT/HCPCS: 36592; 80053; 85007; 85025

== ENCOUNTER 2022-10-05 08:44 | Outpatient (CLI) | payer OTHER, SELFPAY ==
[2022-10-05 08:48] VITALS: BMI 29.9
[2022-10-05 09:16] LABS: Basophils # 0.1 K/mm3 (0-0.2); Basophils % 0.7 % (0.1-2.0); Eosinophils # 0.1 K/mm3 (0.0-0.4); Eosinophils % 0.8 % (0.1-12.0); Hematocrit 24.7 % (42.0-52.0); Lymphocytes % 8.6 % (10-50); Mean Corpuscular HGB Conc 32.5 g/dL (31.8-35.4); Mean Corpuscular Hemoglobin 30.1 pg (27.0-31.2); Mean Corpuscular Volume 92.7 fl (80-94); Mean Platelet Volume 10.5 fl (7.4-10.4); Monocytes # 0.4 K/mm3 (0.1-1.0); Monocytes % 3.3 % (1.7-9.3); Neutrophils # 10.2 K/mm3 (1.8-7.8); Neutrophils % 86.6 % (37.0-80.0); Platelet Count 62 K/mm3 (142-424); Red Blood Count 2.66 M/mm3 (4.60-6.20); White Blood Count 11.8 K/mm3 (4.8-10.8)
[2022-10-05 09:17] LABS: Red Cell Distribution Width 26.8 % (11.5-17.5)
[2022-10-05 09:18] LABS: Chol/HDL Ratio 2.3 (1-3.5); Cholesterol 108 mg/dl (140-200); HDL Cholesterol 47 mg/dl (40-60); MANUAL DIFFERENTIAL MANUAL DIFFERENTIAL (MANUAL DIFF); Triglycerides 204 mg/dl (30-150); VLDL Cholesterol 41 mg/dL (0-40)
[2022-10-05 09:19] LABS: Alanine Aminotransferase 29 U/L (12-78); Albumin Level 3.8 g/dl (3.5-5.0); Albumin/Globulin Ratio 1.8 (1.1-1.8); Alkaline Phosphatase 116 U/L (38-126); Anion Gap 9.4 mEq/L (5-15); Aspartate Amino Transferase 28 U/L (17-59); Blood Urea Nitrogen 16 mg/dl (9-20); Calcium 8.3 mg/dl (8.4-10.2); Carbon Dioxide 28 mmol/L (22.0-30.0); Chloride 102 mmol/L (98-107); Creatinine Clearance Estimated 141 mL/min (50-200); Estimated Glomerular Filt Rate 100 ml/min (>60); GFR (African American) 121 ML/MIN (>60); Globulin 2.1 g/dL (1.3-3.2); Glucose 223 mg/dl (74-100); Potassium 4.4 mmoL/L (3.5-5.1); Sodium 135 mmol/L (136-145); Total Protein,Serum 5.9 g/dl (6.3-8.2)
[2022-10-05 10:00] LABS: Anisocytosis 1+; Hypochromasia 1+; Lymphocytes % 11 % (10-50); Macrocytosis 1+; Monocytes % 12 % (2-9); Neutrophils % 77 % (42-76); Ovalocytes 1+; Platelet Estimate Moderate Decrease; Total Cells Counted 100
[2022-10-05 10:09] LABS: Direct LDL Cholesterol < 30.00 mg/dL (100-129)
[2022-10-05 10:11] LABS: Hemoglobin A1C 6.9 % (4.0-6.0)
== END 2022-10-05 09:00 | disposition home or self-care (01) ==
LOC: INF 08:44
PROVIDERS: PCP Internal Medicine Adolescent Medicine; Visit Provider Student in an Organized Health Care Education/Training Program
DX: E11.41 Type 2 diabetes mellitus with diabetic mononeuropathy (principal); E78.2 Mixed hyperlipidemia; C92.00 Acute myeloblastic leukemia, not having achieved remission; Z79.84 Long term (current) use of oral hypoglycemic drugs
CPT/HCPCS: 36592; 80053; 80061; 83036; 85007; 85025

== ENCOUNTER 2022-10-12 08:31 | Outpatient (CLI) | payer OTHER, SELFPAY ==
[2022-10-12 08:33] VITALS: BMI 30.4
[2022-10-12 08:57] LABS: Basophils % 1.1 % (0.1-2.0); Chloride 112 mmol/L (98-107); Eosinophils % 1.4 % (0.1-12.0); Hematocrit 24.5 % (42.0-52.0); Hemoglobin 7.8 g/dL (14.1-18.0); Lymphocytes # 0.1 K/mm3 (0.7-4.5); Lymphocytes % 8.9 % (10-50); Mean Corpuscular HGB Conc 32.1 g/dL (31.8-35.4); Mean Corpuscular Volume 93.5 fl (80-94); Mean Platelet Volume 11.9 fl (7.4-10.4); Monocytes % 1.9 % (1.7-9.3); Neutrophils # 1.1 K/mm3 (1.8-7.8); Neutrophils % 86.6 % (37.0-80.0); Red Blood Count 2.62 M/mm3 (4.60-6.20); White Blood Count 1.3 K/mm3 (4.8-10.8)
[2022-10-12 08:58] LABS: Platelet Count 29 K/mm3 (142-424); Potassium 4.2 mmoL/L (3.5-5.1); Sodium 139 mmol/L (136-145)
[2022-10-12 08:59] LABS: MANUAL DIFFERENTIAL MANUAL DIFFERENTIAL (MANUAL DIFF)
[2022-10-12 09:00] LABS: Alanine Aminotransferase 53 U/L (12-78); Albumin Level 3.5 g/dl (3.5-5.0); Albumin/Globulin Ratio 1.7 (1.1-1.8); Alkaline Phosphatase 71 U/L (38-126); Anion Gap 10.2 mEq/L (5-15); Aspartate Amino Transferase 30 U/L (17-59); Bilirubin,Total 2.7 mg/dl (0.2-1.3); Blood Urea Nitrogen 31 mg/dl (9-20); Carbon Dioxide 21 mmol/L (22.0-30.0); Creatinine Clearance Estimated 123 mL/min (50-200); Estimated Glomerular Filt Rate 87 ml/min (>60); GFR (African American) 105 ML/MIN (>60); Globulin 2.1 g/dL (1.3-3.2); Total Protein,Serum 5.6 g/dl (6.3-8.2)
[2022-10-12 09:01] LABS: Calcium 8.2 mg/dl (8.4-10.2); Glucose 272 mg/dl (74-100)
[2022-10-12 11:01] LABS: Lymphocytes % 12 % (10-50); Monocytes % 4 % (2-9); Neutrophils % 84 % (42-76); Total Cells Counted 25
[2022-10-12 11:03] LABS: Anisocytosis 1+; Hypochromasia 1+
[2022-10-12 11:04] LABS: Ovalocytes 1+; Platelet Estimate Marked Decrease
== END 2022-10-12 09:10 | disposition home or self-care (01) ==
LOC: INF 08:32
PROVIDERS: PCP Internal Medicine Adolescent Medicine; Visit Provider Student in an Organized Health Care Education/Training Program
DX: Z45.2 Encounter for adjustment and management of vascular access device (principal); C91.00 Acute lymphoblastic leukemia not having achieved remission
CPT/HCPCS: 36592; 80053; 85007; 85025

== ENCOUNTER 2022-10-14 07:57 | Outpatient (CLI) | payer OTHER, SELFPAY ==
[2022-10-14] VITALS (10 sets, daily range): BP systolic 112–140; BP diastolic 60–76; PULSE 71–86; RESP 16–18; TEMP 36.1–36.7; O2SAT 100; BMI 30.4
[2022-10-14 08:23] LABS: Basophils % 0.2 % (0.1-2.0); Eosinophils # 0.1 K/mm3 (0.0-0.4); Eosinophils % 0.8 % (0.1-12.0); Lymphocytes # 0.3 K/mm3 (0.7-4.5); Lymphocytes % 3.9 % (10-50); Mean Corpuscular HGB Conc 33.3 g/dL (31.8-35.4); Mean Corpuscular Hemoglobin 29.9 pg (27.0-31.2); Mean Platelet Volume 12.9 fl (7.4-10.4); Monocytes # 0.1 K/mm3 (0.1-1.0); Monocytes % 0.8 % (1.7-9.3); Neutrophils # 6.5 K/mm3 (1.8-7.8); Neutrophils % 94.2 % (37.0-80.0); Red Blood Count 1.99 M/mm3 (4.60-6.20); Red Cell Distribution Width 22.8 % (11.5-17.5); White Blood Count 6.9 K/mm3 (4.8-10.8)
[2022-10-14 08:25] LABS: Hematocrit 17.9 % (42.0-52.0); Platelet Count 14 K/mm3 (142-424)
[2022-10-14 08:27] LABS: MANUAL DIFFERENTIAL MANUAL DIFFERENTIAL (MANUAL DIFF)
[2022-10-14 08:32] LABS: Chloride 105 mmol/L (98-107); Potassium 3.9 mmoL/L (3.5-5.1); Sodium 135 mmol/L (136-145)
[2022-10-14 08:34] LABS: Blood Urea Nitrogen 27 mg/dl (9-20); Creatinine Clearance Estimated 139 mL/min (50-200); Estimated Glomerular Filt Rate 100 ml/min (>60); GFR (African American) 121 ML/MIN (>60)
[2022-10-14 08:35] LABS: Alanine Aminotransferase 38 U/L (12-78); Albumin Level 3.2 g/dl (3.5-5.0); Albumin/Globulin Ratio 1.7 (1.1-1.8); Alkaline Phosphatase 77 U/L (38-126); Anion Gap 7.9 mEq/L (5-15); Aspartate Amino Transferase 28 U/L (17-59); Bilirubin,Total 2.1 mg/dl (0.2-1.3); Carbon Dioxide 26 mmol/L (22.0-30.0); Globulin 1.9 g/dL (1.3-3.2); Glucose 233 mg/dl (74-100); Total Protein,Serum 5.1 g/dl (6.3-8.2)
[2022-10-14 08:41] LABS: Lymphocytes % 4 % (10-50); Monocytes % 4 % (2-9); Neutrophils % 92 % (42-76); Platelet Estimate Marked Decrease; RBC Morphology Normal; Total Cells Counted 100
--- NOTE | 2022-10-14 10:23 | PC.NURSE ---
1015-BLOOD TRANSFUSION STARTED AT 100ML/HR AT THIS TIME.
--- NOTE | 2022-10-14 11:12 | PC.NURSE ---
1045-RATE INCREASED TO 150ML/HR AT THIS TIME.
--- NOTE | 2022-10-14 11:26 | PC.NURSE ---
1115-BLOOD INCREASED TO 200ML/HR AT THIS TIME.
--- NOTE | 2022-10-14 12:21 | PC.NURSE ---
INCREASED RATE TO 250ML/HR AT 1130
== END 2022-10-14 13:05 | disposition home or self-care (01) ==
LOC: INF 07:57
PROVIDERS: PCP Internal Medicine Adolescent Medicine; Visit Provider Student in an Organized Health Care Education/Training Program
DX: C91.00 Acute lymphoblastic leukemia not having achieved remission (principal)
CPT/HCPCS: 36430; 80053; 85007; 85025; 86850; P9016

== ENCOUNTER 2022-10-17 08:22 | Outpatient (CLI) | payer OTHER, SELFPAY ==
[2022-10-17 08:24] VITALS: BMI 30.4
[2022-10-17 08:46] LABS: Eosinophils % 1.3 % (0.1-12.0); Lymphocytes # 0.3 K/mm3 (0.7-4.5); Lymphocytes % 53.3 % (10-50); Mean Corpuscular HGB Conc 33.1 g/dL (31.8-35.4); Mean Corpuscular Volume 87.8 fl (80-94); Mean Platelet Volume 10.4 fl (7.4-10.4); Monocytes % 1.6 % (1.7-9.3); Neutrophils # 0.2 K/mm3 (1.8-7.8); Neutrophils % 43.8 % (37.0-80.0); Red Blood Count 1.31 M/mm3 (4.60-6.20); Red Cell Distribution Width 22.4 % (11.5-17.5)
[2022-10-17 08:51] LABS: Chloride 105 mmol/L (98-107); Sodium 137 mmol/L (136-145)
[2022-10-17 08:52] LABS: Potassium 4.5 mmoL/L (3.5-5.1)
--- NOTE | 2022-10-17 08:52 | PC.NURSE ---
0852-Emilia beverly called rn at 0852 to report wbc level 0.6, hgb 3.8 and plt 4. Rn repeated and verified pt name, , and lab values.REsult called to will await new orders.
[2022-10-17 08:53] LABS: Hematocrit 11.5 % (42.0-52.0); White Blood Count 0.6 K/mm3 (4.8-10.8)
[2022-10-17 08:54] LABS: Alanine Aminotransferase 35 U/L (12-78); Alkaline Phosphatase 77 U/L (38-126); Aspartate Amino Transferase 27 U/L (17-59); Bilirubin,Total 1.6 mg/dl (0.2-1.3); Blood Urea Nitrogen 19 mg/dl (9-20); Creatinine Clearance Estimated 123 mL/min (50-200); Estimated Glomerular Filt Rate 87 ml/min (>60); GFR (African American) 105 ML/MIN (>60); Platelet Count 4 K/mm3 (142-424)
[2022-10-17 08:55] LABS: Albumin Level 3.6 g/dl (3.5-5.0); Albumin/Globulin Ratio 1.9 (1.1-1.8); Anion Gap 13.5 mEq/L (5-15); Calcium 8.5 mg/dl (8.4-10.2); Carbon Dioxide 23 mmol/L (22.0-30.0); Globulin 1.9 g/dL (1.3-3.2); Glucose 165 mg/dl (74-100); MANUAL DIFFERENTIAL MANUAL DIFFERENTIAL (MANUAL DIFF); Total Protein,Serum 5.5 g/dl (6.3-8.2)
--- NOTE | 2022-10-17 09:00 | PC.NURSE ---
0900-called and had paged for critical values;will wait for call back.
--- NOTE | 2022-10-17 09:40 | PC.NURSE ---
0940-called and got a hold of 's rn;gave critical hgb 3.8 and plt 4; pt to go to er and be transferred to bmt clinic at [facility].
[2022-10-17 10:05] VITALS: BP 114/86; PULSE 74; RESP 20; O2SAT 99
[2022-10-17 10:40] LABS: Eosinophils % 4 % (0-3); Lymphocytes % 64 % (10-50); Monocytes % 8 % (2-9); Neutrophils % 24 % (42-76); Platelet Estimate Marked Decrease; Total Cells Counted 25
[2022-10-17 10:41] LABS: RBC Morphology Normal
[2022-10-17 11:11] LABS: Hemoglobin 3.8 g/dL (14.1-18.0)
== END 2022-10-17 10:05 | disposition home or self-care (01) ==
LOC: INF 08:22
PROVIDERS: PCP Internal Medicine Adolescent Medicine; Visit Provider Student in an Organized Health Care Education/Training Program
DX: C91.00 Acute lymphoblastic leukemia not having achieved remission (principal); Z45.2 Encounter for adjustment and management of vascular access device
CPT/HCPCS: 36592; 80053; 85007; 85025

== ENCOUNTER 2022-10-17 09:50 | Emergency (ER) | payer OTHER, SELFPAY ==
[2022-10-17] VITALS (7 sets, daily range): BP systolic 114–130; BP diastolic 46–64; PULSE 78–86; RESP 14–18; TEMP 36.6; O2SAT 97–100; BMI 30.8
--- NOTE | 2022-10-17 10:02 | HMH.EDGENADL ---
Discharge Plan Disposition Patient Disposition: Xfer Short-Term Hosp Condition: Good Prescriptions Prescriptions: No Action omeprazole 20 mg capsule,delayed release(DR/EC) 20 mg PO HS losartan 100 MG tablet 100 mg PO DAILY atorvastatin 40 MG tablet 40 mg PO HS famotidine 20 MG tablet 20 mg PO BID ascorbic acid (vitamin C) 500 MG tablet 500 mg PO BID ergocalciferol (vitamin D2) 50,000 UNIT capsule 50,000 unit PO WEEKLY glycopyrrolate-formoterol 10.7 GM HFA aerosol inhaler 2 puff IH BID albuterol sulfate 2.5 MG/NEB solution for nebulization 2.5 mg IH Q6H albuterol sulfate 8.5 GM HFA aerosol inhaler 2 puff IH Q4HP PRN (Reason: Shortness Of Breath) Label Comments: INHALE TWO PUFFS BY MOUTH EVERY 4 HOURS NEEDED fluoxetine 20 MG capsule 20 mg PO DAILY metformin 500 MG tablet 1,000 mg PO BIDWMEAL prochlorperazine maleate 10 MG tablet 10 mg PO TIDP PRN (Reason: Vertigo) 5 Days Qty: 15 0RF scopolamine base 1 EACH patch 3 day 1 each TD DIRECTED Referrals Follow up/Referrals: Fox Chávez MD [Primary Care Provider] - See instructions Clinical Impressions Clinical Impression: Pancytopenia due to chemotherapy, ALL (acute lymphoblastic leukemia), Symptomatic anemia Discharge ED Provider: Gloria Nevarez General Adult HPI General Chief complaint: Weakness Stated complaint: Severe anemia Time Seen by Provider: 10/17/22 09:54 History of Present Illness HPI narrative: This patient is a 57-year-old male with a history of acute lymphoblastic leukemia on chemotherapy, chronic respiratory failure on 2 L nasal cannula, TIA, presenting to the emergency department for evaluation because his blood counts are low. He states that he had chemo approximate 1 week ago and he has been feeling generally weak ever since. He states that this happened after his last chemotherapy treatment, and he was transferred to , where they gave him transfusions of blood and platelets. On chart review, his hematocrit today was 11 and his platelet count was 4. He denies any other concerns, such as fevers, chills, chest pain, shortness of breath, abdominal pain, nausea, changes in bowel movements, or other concerns. He has had nausea. On review of systems, he also notes that he has had nosebleeds in the morning over the last several days and a right subconjunctival hemorrhage. His last blood transfusion was on Monday. Related Data Home Medications Medication Instructions Recorded Confirmed omeprazole 20 mg capsule,delayed 20 mg PO HS acid reflux 03/13/19 10/14/22 release atorvastatin 40 mg tablet 40 mg PO HS Cholesterol 07/12/21 10/14/22 losartan 100 mg tablet 100 mg PO DAILY Hypertension 07/12/21 10/14/22 ascorbic acid (vitamin C) 500 mg 500 mg PO BID Supplement 01/23/22 10/14/22 tablet ergocalciferol (vitamin D2) 1,250 50,000 unit PO WEEKLY Supplement 01/23/22 10/14/22 mcg (50,000 unit) capsule famotidine 20 mg tablet 20 mg PO BID Acid reflux 01/23/22 10/14/22 glycopyrrolate 9 mcg-formoterol 2 puff inhalation BID COPD 01/23/22 10/14/22 4.8 mcg HFA aerosol inhaler albuterol sulfate 2.5 mg/3 mL 2.5 mg inhalation Q6H COPD 01/24/22 10/14/22 (0.083 %) solution for nebulization albuterol sulfate 90 mcg/actuation 2 puff inhalation Q4HP PRN 01/24/22 10/14/22 aerosol inhaler Shortness Of Breath fluoxetine 20 mg capsule 20 mg PO DAILY Depression 01/24/22 10/14/22 metformin 500 mg tablet 1,000 mg PO BIDWMEAL Diabetes 02/08/22 10/14/22 scopolamine base 1 mg over 3 days 1 each transdermal DIRECTED 04/15/22 10/14/22 transdermal patch Nausea & vomiting Previous Rx's Medication Instructions Recorded prochlorperazine maleate 10 mg 10 mg PO TIDP PRN Vertigo 5 days 02/13/22 tablet #15 tabs Allergies Allergy/AdvReac Type Severity Reaction Status Date / Time No Known Allergies Allergy Verified 11/30/21 13:28 [facility] Disclaimer:
--- NOTE | 2022-10-17 10:10 | PC.NURSE ---
CALLING [facility] FOR PT CONSULT
--- NOTE | 2022-10-17 10:17 | PC.NURSE ---
ZURI MAHARAJ speaking with [facility]
--- NOTE | 2022-10-17 10:25 | PC.NURSE ---
pt accepted to ER per dr. faulkner
--- NOTE | 2022-10-17 10:28 | ECG_ITS ---
APPROVED REPORT Exam: Resting ECG HR:77 bpm ECG Measurements Heart Rate 77 AXES NM 146 P 38 QRSd 103 QRS 18 QT 391 T 74 QTc 423 Conclusion SINUS RHYTHM NONSPECIFIC ST & T-WAVE ABNORMALITY BORDERLINE ECG UNCONFIRMED REPORT Electronically signed by : Fox Chávez MD 10/17/2022 19:45:34
--- NOTE | 2022-10-17 10:35 | HMH.EDGENADL ---
Discharge Plan Disposition Patient Disposition: Xfer Short-Term Hosp Condition: Good Prescriptions Prescriptions: No Action omeprazole 20 mg capsule,delayed release(DR/EC) 20 mg PO HS losartan 100 MG tablet 100 mg PO DAILY atorvastatin 40 MG tablet 40 mg PO HS famotidine 20 MG tablet 20 mg PO BID ascorbic acid (vitamin C) 500 MG tablet 500 mg PO BID ergocalciferol (vitamin D2) 50,000 UNIT capsule 50,000 unit PO WEEKLY glycopyrrolate-formoterol 10.7 GM HFA aerosol inhaler 2 puff IH BID albuterol sulfate 2.5 MG/NEB solution for nebulization 2.5 mg IH Q6H albuterol sulfate 8.5 GM HFA aerosol inhaler 2 puff IH Q4HP PRN (Reason: Shortness Of Breath) Label Comments: INHALE TWO PUFFS BY MOUTH EVERY 4 HOURS NEEDED fluoxetine 20 MG capsule 20 mg PO DAILY metformin 500 MG tablet 1,000 mg PO BIDWMEAL prochlorperazine maleate 10 MG tablet 10 mg PO TIDP PRN (Reason: Vertigo) 5 Days Qty: 15 0RF scopolamine base 1 EACH patch 3 day 1 each TD DIRECTED Referrals Follow up/Referrals: Fox Chávez MD [Primary Care Provider] - See instructions Clinical Impressions Clinical Impression: Pancytopenia due to chemotherapy, ALL (acute lymphoblastic leukemia), Symptomatic anemia Discharge ED Provider: Gloria Nevarez General Adult HPI General Chief complaint: Weakness Stated complaint: Severe anemia Time Seen by Provider: 10/17/22 09:54 Mode of Arrival: Ambulatory Source of Information: Patient and Spouse Limitations: No Limitations Description of Symptoms (Recalled from ER Triage Doc. by RN): Pt reports being sent down from infusion clinic for low hemoglobin, reportedly in 3s; pt pale, feels tired, reports having previously been transferred for anemia and transfusion Related Data Home Medications Medication Instructions Recorded Confirmed omeprazole 20 mg capsule,delayed 20 mg PO HS acid reflux 03/13/19 10/14/22 release atorvastatin 40 mg tablet 40 mg PO HS Cholesterol 07/12/21 10/14/22 losartan 100 mg tablet 100 mg PO DAILY Hypertension 07/12/21 10/14/22 ascorbic acid (vitamin C) 500 mg 500 mg PO BID Supplement 01/23/22 10/14/22 tablet ergocalciferol (vitamin D2) 1,250 50,000 unit PO WEEKLY Supplement 01/23/22 10/14/22 mcg (50,000 unit) capsule famotidine 20 mg tablet 20 mg PO BID Acid reflux 01/23/22 10/14/22 glycopyrrolate 9 mcg-formoterol 2 puff inhalation BID COPD 01/23/22 10/14/22 4.8 mcg HFA aerosol inhaler albuterol sulfate 2.5 mg/3 mL 2.5 mg inhalation Q6H COPD 01/24/22 10/14/22 (0.083 %) solution for nebulization albuterol sulfate 90 mcg/actuation 2 puff inhalation Q4HP PRN 01/24/22 10/14/22 aerosol inhaler Shortness Of Breath fluoxetine 20 mg capsule 20 mg PO DAILY Depression 01/24/22 10/14/22 metformin 500 mg tablet 1,000 mg PO BIDWMEAL Diabetes 02/08/22 10/14/22 scopolamine base 1 mg over 3 days 1 each transdermal DIRECTED 04/15/22 10/14/22 transdermal patch Nausea & vomiting Previous Rx's Medication Instructions Recorded prochlorperazine maleate 10 mg 10 mg PO TIDP PRN Vertigo 5 days 02/13/22 tablet #15 tabs Allergies Allergy/AdvReac Type Severity Reaction Status Date / Time No Known Allergies Allergy Verified 11/30/21 13:28 [facility] Disclaimer: The information contained in this section may have been updated after the patient was seen, as this information can be updated by other users. Medical History Anemia Cancer COPD (chronic obstructive pulmonary disease) COVID-19 Diabetes mellitus Facial nerve palsy History of chemotherapy Hyperlipemia Hypertension Mediastinal mass On home oxygen therapy TIA (transient ischemic attack) Surgical History H/O colonoscopy Family History Other No significant family history
[2022-10-17 10:38] LABS: Basophils % 0.2 % (0.1-2.0); Eosinophils % 0.8 % (0.1-12.0); Lymphocytes # 0.3 K/mm3 (0.7-4.5); Lymphocytes % 44.6 % (10-50); Mean Corpuscular HGB Conc 34.5 g/dL (31.8-35.4); Mean Corpuscular Hemoglobin 29.2 pg (27.0-31.2); Mean Corpuscular Volume 84.8 fl (80-94); Mean Platelet Volume 13.6 fl (7.4-10.4); Monocytes % 3.4 % (1.7-9.3); Neutrophils # 0.3 K/mm3 (1.8-7.8); Red Blood Count 1.51 M/mm3 (4.60-6.20); Red Cell Distribution Width 22.1 % (11.5-17.5)
[2022-10-17 10:38] LABS: Alanine Aminotransferase 32 U/L (12-78); Albumin Level 3.4 g/dl (3.5-5.0); Albumin/Globulin Ratio 1.7 (1.1-1.8); Alkaline Phosphatase 81 U/L (38-126); Anion Gap 11.5 mEq/L (5-15); Aspartate Amino Transferase 26 U/L (17-59); Bilirubin,Total 1.6 mg/dl (0.2-1.3); Blood Urea Nitrogen 20 mg/dl (9-20); Calcium 8.4 mg/dl (8.4-10.2); Carbon Dioxide 26 mmol/L (22.0-30.0); Chloride 102 mmol/L (98-107); Creatinine Clearance Estimated 128 mL/min (50-200); Estimated Glomerular Filt Rate 87 ml/min (>60); GFR (African American) 105 ML/MIN (>60); Glucose 158 mg/dl (74-100); Potassium 4.5 mmoL/L (3.5-5.1); Sodium 135 mmol/L (136-145); Total Protein,Serum 5.4 g/dl (6.3-8.2)
--- NOTE | 2022-10-17 10:42 | PC.NURSE ---
Covid/flu swab sent to lab
--- NOTE | 2022-10-17 10:42 | PC.NURSE ---
Spouse at BS, pt lying on ED stretcher with no needs at this time. Call light within reach
[2022-10-17 10:43] LABS: Activated Partial Thrombo Time 25.7 seconds (22.8-30.6); INR 1.18 (0.9-1.1); Prothrombin Time 12.6 seconds (10.1-12.5)
[2022-10-17 10:57] LABS: Hematocrit 12.8 % (42.0-52.0); Platelet Count 4 K/mm3 (142-424); White Blood Count 0.6 K/mm3 (4.8-10.8)
--- NOTE | 2022-10-17 10:57 | PC.NURSE ---
LAB CALLED WITH CRITICAL LAB VALUES WBC 0.6, HEMOGLOBIN 4.4, HEMATOCRIT 12.8, PLATELETS 4. ER AWARE.
[2022-10-17 10:58] LABS: Hemoglobin 4.4 g/dL (14.1-18.0)
[2022-10-17 11:02] LABS: Coronavirus 19, PCR Not Detected (NotDetected); Influenza A, PCR Not Detected (NotDetected); Influenza B, PCR Not Detected (NotDetected)
--- NOTE | 2022-10-17 11:54 | PC.NURSE ---
CALL [facility] TO GET PT TRANSFERRED TO [facility] ED
--- NOTE | 2022-10-17 12:01 | PC.NURSE ---
Rounded on patient, no other needs at this time. Aware that we are awaiting to be transferred to [facility] ER.
--- NOTE | 2022-10-17 13:39 | PC.NURSE ---
Rounded on patient, patient given a urinal.
--- NOTE | 2022-10-17 13:48 | PC.NURSE ---
Readjusted pt on ED stretcher with assistance from Elida Adam. No other needs at this time
--- NOTE | 2022-10-17 13:50 | PC.NURSE ---
pt had 725 cc urine output
--- NOTE | 2022-10-17 14:06 | PC.NURSE ---
[facility] IS HERE TO TRANSFER PT TO [facility] ED
--- NOTE | 2022-10-17 14:06 | PC.NURSE ---
report to [facility] EMT Overall, no further questions, pt given mask for neutropenic precautions
== END 2022-10-17 14:08 | disposition short-term general hospital (02) ==
PROVIDERS: Emergency Provider Emergency Medicine; PCP Internal Medicine Adolescent Medicine
DX: D61.810 Antineoplastic chemotherapy induced pancytopenia (principal); D64.9 Anemia, unspecified; C91.00 Acute lymphoblastic leukemia not having achieved remission; J96.20 Acute and chronic respiratory failure, unspecified whether with hypoxia or hypercapnia; Z86.73 Personal history of transient ischemic attack (TIA), and cerebral infarction without residual deficits; Z99.81 Dependence on supplemental oxygen; J44.9 Chronic obstructive pulmonary disease, unspecified; Z86.16 Personal history of COVID-19; E11.9 Type 2 diabetes mellitus without complications; E78.5 Hyperlipidemia, unspecified; I10 Essential (primary) hypertension
CPT/HCPCS: 80053; 85025; 85610; 85730; 86850; 93005; 99285; C9803; U0003; U0005

== ENCOUNTER 2022-10-26 08:50 | Outpatient (CLI) | payer OTHER, SELFPAY ==
[2022-10-26 08:54] VITALS: BMI 29.9
[2022-10-26 09:06] LABS: Basophils % 0.7 % (0.1-2.0); Eosinophils # 0.6 K/mm3 (0.0-0.4); Eosinophils % 14.5 % (0.1-12.0); Hematocrit 26.2 % (42.0-52.0); Hemoglobin 8.7 g/dL (14.1-18.0); Lymphocytes # 0.8 K/mm3 (0.7-4.5); Lymphocytes % 19.2 % (10-50); Mean Corpuscular HGB Conc 33.4 g/dL (31.8-35.4); Mean Corpuscular Hemoglobin 27.5 pg (27.0-31.2); Mean Corpuscular Volume 82.4 fl (80-94); Monocytes # 0.3 K/mm3 (0.1-1.0); Monocytes % 6.2 % (1.7-9.3); Neutrophils # 2.6 K/mm3 (1.8-7.8); Neutrophils % 59.3 % (37.0-80.0); Red Blood Count 3.18 M/mm3 (4.60-6.20); Red Cell Distribution Width 19.3 % (11.5-17.5); White Blood Count 4.4 K/mm3 (4.8-10.8)
[2022-10-26 09:12] LABS: Platelet Count 25 K/mm3 (142-424)
[2022-10-26 09:14] LABS: Chloride 104 mmol/L (98-107); Potassium 4.6 mmoL/L (3.5-5.1); Sodium 136 mmol/L (136-145)
[2022-10-26 09:16] LABS: Alanine Aminotransferase 40 U/L (12-78); Aspartate Amino Transferase 34 U/L (17-59); Blood Urea Nitrogen 19 mg/dl (9-20); Creatinine Clearance Estimated 112 mL/min (50-200); Estimated Glomerular Filt Rate 77 ml/min (>60); GFR (African American) 93 ML/MIN (>60)
[2022-10-26 09:17] LABS: Albumin/Globulin Ratio 1.7 (1.1-1.8); Alkaline Phosphatase 114 U/L (38-126); Anion Gap 8.6 mEq/L (5-15); Calcium 8.6 mg/dl (8.4-10.2); Carbon Dioxide 28 mmol/L (22.0-30.0); Globulin 2.3 g/dL (1.3-3.2); Glucose 185 mg/dl (74-100); Total Protein,Serum 6.3 g/dl (6.3-8.2)
--- NOTE | 2022-10-26 10:59 | PC.NURSE ---
at 0911, renny danielson called critical lab result of plt 25. lab result, name and verified and read back. pt has standing orders for transfusions but does not meet criteria at this time. notified and no new orders.
== END 2022-10-26 09:15 | disposition home or self-care (01) ==
PROVIDERS: PCP Internal Medicine Adolescent Medicine; Visit Provider Student in an Organized Health Care Education/Training Program
DX: C91.00 Acute lymphoblastic leukemia not having achieved remission (principal)
CPT/HCPCS: 36592; 80053; 85025

== ENCOUNTER 2022-10-28 08:24 | Outpatient (CLI) | payer OTHER, SELFPAY ==
[2022-10-28 08:26] VITALS: BMI 29.9
[2022-10-28 08:48] LABS: Basophils % 0.4 % (0.1-2.0); Chloride 105 mmol/L (98-107); Eosinophils # 0.5 K/mm3 (0.0-0.4); Eosinophils % 18.7 % (0.1-12.0); Hematocrit 23.2 % (42.0-52.0); Hemoglobin 7.8 g/dL (14.1-18.0); Lymphocytes # 0.6 K/mm3 (0.7-4.5); Lymphocytes % 23.1 % (10-50); Mean Corpuscular HGB Conc 33.6 g/dL (31.8-35.4); Mean Corpuscular Hemoglobin 28.5 pg (27.0-31.2); Mean Corpuscular Volume 84.8 fl (80-94); Mean Platelet Volume 9.6 fl (7.4-10.4); Monocytes # 0.2 K/mm3 (0.1-1.0); Monocytes % 8.6 % (1.7-9.3); Neutrophils # 1.2 K/mm3 (1.8-7.8); Neutrophils % 49.1 % (37.0-80.0); Red Blood Count 2.73 M/mm3 (4.60-6.20); Red Cell Distribution Width 21.7 % (11.5-17.5); Sodium 137 mmol/L (136-145); White Blood Count 2.4 K/mm3 (4.8-10.8)
[2022-10-28 08:49] LABS: Platelet Count 33 K/mm3 (142-424); Potassium 4.2 mmoL/L (3.5-5.1)
[2022-10-28 08:51] LABS: Alanine Aminotransferase 49 U/L (12-78); Albumin Level 3.7 g/dl (3.5-5.0); Albumin/Globulin Ratio 1.8 (1.1-1.8); Alkaline Phosphatase 92 U/L (38-126); Anion Gap 8.2 mEq/L (5-15); Aspartate Amino Transferase 41 U/L (17-59); Bilirubin,Total 0.7 mg/dl (0.2-1.3); Blood Urea Nitrogen 16 mg/dl (9-20); Carbon Dioxide 28 mmol/L (22.0-30.0); Creatinine Clearance Estimated 141 mL/min (50-200); Estimated Glomerular Filt Rate 100 ml/min (>60); GFR (African American) 121 ML/MIN (>60); Globulin 2.1 g/dL (1.3-3.2); Total Protein,Serum 5.8 g/dl (6.3-8.2)
[2022-10-28 08:52] LABS: Calcium 7.9 mg/dl (8.4-10.2); Glucose 205 mg/dl (74-100)
--- NOTE | 2022-10-28 10:24 | PC.NURSE ---
at 0848, rebeca madden from lab called critical lab result of plt 33. name, and lab result was verified and read back. pt has standing orders for transfusion. pt does not meet criteria at this time. notified and no new orders given.
== END 2022-10-28 09:00 | disposition home or self-care (01) ==
LOC: INF 08:24
PROVIDERS: PCP Internal Medicine Adolescent Medicine; Visit Provider Student in an Organized Health Care Education/Training Program
DX: C91.00 Acute lymphoblastic leukemia not having achieved remission (principal); Z45.2 Encounter for adjustment and management of vascular access device
CPT/HCPCS: 36592; 80053; 85025

== ENCOUNTER 2022-10-31 08:15 | Outpatient (CLI) | payer OTHER, SELFPAY ==
[2022-10-31 08:18] VITALS: BMI 29.9
[2022-10-31 08:49] LABS: Basophils % 0.7 % (0.1-2.0); Eosinophils # 0.2 K/mm3 (0.0-0.4); Eosinophils % 10.7 % (0.1-12.0); Hematocrit 25.6 % (42.0-52.0); Hemoglobin 8.4 g/dL (14.1-18.0); Lymphocytes # 0.5 K/mm3 (0.7-4.5); Lymphocytes % 32.4 % (10-50); Mean Corpuscular HGB Conc 32.8 g/dL (31.8-35.4); Mean Corpuscular Hemoglobin 28.5 pg (27.0-31.2); Mean Platelet Volume 9.3 fl (7.4-10.4); Monocytes # 0.2 K/mm3 (0.1-1.0); Monocytes % 11.8 % (1.7-9.3); Neutrophils # 0.7 K/mm3 (1.8-7.8); Neutrophils % 44.4 % (37.0-80.0); Platelet Count 63 K/mm3 (142-424); Red Blood Count 2.94 M/mm3 (4.60-6.20); Red Cell Distribution Width 23.5 % (11.5-17.5); White Blood Count 1.5 K/mm3 (4.8-10.8)
[2022-10-31 09:23] LABS: Chloride 103 mmol/L (98-107); Potassium 4.3 mmoL/L (3.5-5.1); Sodium 136 mmol/L (136-145)
[2022-10-31 09:25] LABS: Blood Urea Nitrogen 15 mg/dl (9-20); Creatinine Clearance Estimated 112 mL/min (50-200); Estimated Glomerular Filt Rate 77 ml/min (>60); GFR (African American) 93 ML/MIN (>60)
[2022-10-31 09:26] LABS: Alanine Aminotransferase 44 U/L (12-78); Albumin Level 3.7 g/dl (3.5-5.0); Albumin/Globulin Ratio 1.7 (1.1-1.8); Alkaline Phosphatase 88 U/L (38-126); Anion Gap 8.3 mEq/L (5-15); Aspartate Amino Transferase 37 U/L (17-59); Bilirubin,Total 0.9 mg/dl (0.2-1.3); Calcium 8.3 mg/dl (8.4-10.2); Carbon Dioxide 29 mmol/L (22.0-30.0); Globulin 2.2 g/dL (1.3-3.2); Glucose 161 mg/dl (74-100); Total Protein,Serum 5.9 g/dl (6.3-8.2)
== END 2022-10-31 08:55 | disposition home or self-care (01) ==
LOC: INF 08:15
PROVIDERS: PCP Internal Medicine Adolescent Medicine; Visit Provider Student in an Organized Health Care Education/Training Program
DX: C91.00 Acute lymphoblastic leukemia not having achieved remission (principal); Z45.2 Encounter for adjustment and management of vascular access device
CPT/HCPCS: 36592; 80053; 85025

== ENCOUNTER 2022-11-02 08:32 | Outpatient (CLI) | payer OTHER, SELFPAY ==
[2022-11-02 08:38] VITALS: BMI 29.9
[2022-11-02 08:59] LABS: Basophils % 0.4 % (0.1-2.0); Eosinophils # 0.1 K/mm3 (0.0-0.4); Eosinophils % 5.9 % (0.1-12.0); Hematocrit 26.1 % (42.0-52.0); Hemoglobin 8.4 g/dL (14.1-18.0); Lymphocytes # 0.5 K/mm3 (0.7-4.5); Mean Corpuscular HGB Conc 32.3 g/dL (31.8-35.4); Mean Corpuscular Hemoglobin 28.4 pg (27.0-31.2); Mean Corpuscular Volume 87.7 fl (80-94); Mean Platelet Volume 9.3 fl (7.4-10.4); Monocytes # 0.2 K/mm3 (0.1-1.0); Monocytes % 14.4 % (1.7-9.3); Neutrophils # 0.6 K/mm3 (1.8-7.8); Neutrophils % 43.3 % (37.0-80.0); Platelet Count 76 K/mm3 (142-424); Red Blood Count 2.98 M/mm3 (4.60-6.20); Red Cell Distribution Width 23.7 % (11.5-17.5); White Blood Count 1.4 K/mm3 (4.8-10.8)
[2022-11-02 09:07] LABS: Alanine Aminotransferase 43 U/L (12-78); Albumin Level 3.8 g/dl (3.5-5.0); Albumin/Globulin Ratio 1.8 (1.1-1.8); Alkaline Phosphatase 87 U/L (38-126); Anion Gap 8.2 mEq/L (5-15); Aspartate Amino Transferase 36 U/L (17-59); Bilirubin,Total 1.3 mg/dl (0.2-1.3); Blood Urea Nitrogen 15 mg/dl (9-20); Calcium 8.5 mg/dl (8.4-10.2); Carbon Dioxide 29 mmol/L (22.0-30.0); Chloride 102 mmol/L (98-107); Creatinine Clearance Estimated 125 mL/min (50-200); Estimated Glomerular Filt Rate 87 ml/min (>60); GFR (African American) 105 ML/MIN (>60); Globulin 2.1 g/dL (1.3-3.2); Glucose 175 mg/dl (74-100); Potassium 4.2 mmoL/L (3.5-5.1); Sodium 135 mmol/L (136-145); Total Protein,Serum 5.9 g/dl (6.3-8.2)
== END 2022-11-02 09:00 | disposition home or self-care (01) ==
LOC: INF 08:33
PROVIDERS: PCP Internal Medicine Adolescent Medicine; Visit Provider Student in an Organized Health Care Education/Training Program
DX: C91.00 Acute lymphoblastic leukemia not having achieved remission (principal)
CPT/HCPCS: 36592; 80053; 85025

== ENCOUNTER 2022-11-04 08:19 | Outpatient (CLI) | payer OTHER, SELFPAY ==
[2022-11-04 08:23] VITALS: BMI 29.9
[2022-11-04 09:01] LABS: Basophils % 0.2 % (0.1-2.0); Eosinophils # 0.1 K/mm3 (0.0-0.4); Eosinophils % 7.7 % (0.1-12.0); Hematocrit 25.3 % (42.0-52.0); Hemoglobin 8.3 g/dL (14.1-18.0); Lymphocytes # 0.4 K/mm3 (0.7-4.5); Lymphocytes % 27.5 % (10-50); Mean Corpuscular HGB Conc 32.9 g/dL (31.8-35.4); Mean Corpuscular Hemoglobin 28.8 pg (27.0-31.2); Mean Corpuscular Volume 87.7 fl (80-94); Mean Platelet Volume 9.4 fl (7.4-10.4); Monocytes # 0.2 K/mm3 (0.1-1.0); Monocytes % 12.4 % (1.7-9.3); Neutrophils # 0.8 K/mm3 (1.8-7.8); Neutrophils % 52.3 % (37.0-80.0); Platelet Count 100 K/mm3 (142-424); Red Blood Count 2.89 M/mm3 (4.60-6.20); Red Cell Distribution Width 23.6 % (11.5-17.5); White Blood Count 1.5 K/mm3 (4.8-10.8)
[2022-11-04 09:06] LABS: Alanine Aminotransferase 41 U/L (12-78); Albumin Level 3.8 g/dl (3.5-5.0); Albumin/Globulin Ratio 1.9 (1.1-1.8); Alkaline Phosphatase 86 U/L (38-126); Anion Gap 8.9 mEq/L (5-15); Aspartate Amino Transferase 36 U/L (17-59); Bilirubin,Total 1.4 mg/dl (0.2-1.3); Blood Urea Nitrogen 24 mg/dl (9-20); Calcium 8.1 mg/dl (8.4-10.2); Carbon Dioxide 28 mmol/L (22.0-30.0); Chloride 101 mmol/L (98-107); Creatinine Clearance Estimated 125 mL/min (50-200); Estimated Glomerular Filt Rate 87 ml/min (>60); GFR (African American) 105 ML/MIN (>60); Glucose 180 mg/dl (74-100); Potassium 3.9 mmoL/L (3.5-5.1); Sodium 134 mmol/L (136-145); Total Protein,Serum 5.8 g/dl (6.3-8.2)
== END 2022-11-04 09:10 | disposition home or self-care (01) ==
LOC: INF 08:19
PROVIDERS: PCP Internal Medicine Adolescent Medicine; Visit Provider Student in an Organized Health Care Education/Training Program
DX: C91.00 Acute lymphoblastic leukemia not having achieved remission (principal); Z45.2 Encounter for adjustment and management of vascular access device
CPT/HCPCS: 36592; 80053; 85025

== ENCOUNTER 2022-11-07 08:19 | Outpatient (CLI) | payer OTHER, SELFPAY ==
[2022-11-07 08:25] VITALS: BMI 29.9
[2022-11-07 08:41] LABS: Basophils % 0.4 % (0.1-2.0); Eosinophils # 0.1 K/mm3 (0.0-0.4); Eosinophils % 4.7 % (0.1-12.0); Hematocrit 26.3 % (42.0-52.0); Hemoglobin 8.6 g/dL (14.1-18.0); Lymphocytes # 0.5 K/mm3 (0.7-4.5); Lymphocytes % 25.6 % (10-50); Mean Corpuscular HGB Conc 32.8 g/dL (31.8-35.4); Mean Corpuscular Hemoglobin 29.7 pg (27.0-31.2); Mean Corpuscular Volume 90.5 fl (80-94); Mean Platelet Volume 8.9 fl (7.4-10.4); Monocytes # 0.2 K/mm3 (0.1-1.0); Monocytes % 12.2 % (1.7-9.3); Neutrophils # 1.1 K/mm3 (1.8-7.8); Neutrophils % 57.1 % (37.0-80.0); Platelet Count 109 K/mm3 (142-424); Red Blood Count 2.91 M/mm3 (4.60-6.20); Red Cell Distribution Width 24.2 % (11.5-17.5)
[2022-11-07 08:48] LABS: Alanine Aminotransferase 43 U/L (12-78); Albumin Level 3.7 g/dl (3.5-5.0); Albumin/Globulin Ratio 1.9 (1.1-1.8); Alkaline Phosphatase 90 U/L (38-126); Anion Gap 9.9 mEq/L (5-15); Aspartate Amino Transferase 44 U/L (17-59); Bilirubin,Total 1.5 mg/dl (0.2-1.3); Blood Urea Nitrogen 13 mg/dl (9-20); Calcium 8.2 mg/dl (8.4-10.2); Carbon Dioxide 28 mmol/L (22.0-30.0); Chloride 101 mmol/L (98-107); Creatinine Clearance Estimated 112 mL/min (50-200); Estimated Glomerular Filt Rate 77 ml/min (>60); GFR (African American) 93 ML/MIN (>60); Glucose 156 mg/dl (74-100); Potassium 3.9 mmoL/L (3.5-5.1); Sodium 135 mmol/L (136-145); Total Protein,Serum 5.7 g/dl (6.3-8.2)
== END 2022-11-07 08:50 | disposition home or self-care (01) ==
LOC: INF 08:20
PROVIDERS: PCP Internal Medicine Adolescent Medicine; Visit Provider Student in an Organized Health Care Education/Training Program
DX: C91.00 Acute lymphoblastic leukemia not having achieved remission (principal)
CPT/HCPCS: 36592; 80053; 85025

== ENCOUNTER 2022-11-09 08:26 | Outpatient (CLI) | payer OTHER, SELFPAY ==
[2022-11-09 08:31] VITALS: BMI 29.9
[2022-11-09 08:48] LABS: Basophils % 0.5 % (0.1-2.0); Eosinophils # 0.1 K/mm3 (0.0-0.4); Eosinophils % 2.8 % (0.1-12.0); Hematocrit 28.6 % (42.0-52.0); Hemoglobin 9.1 g/dL (14.1-18.0); Lymphocytes # 0.5 K/mm3 (0.7-4.5); Lymphocytes % 21.5 % (10-50); Mean Corpuscular Hemoglobin 29.4 pg (27.0-31.2); Mean Platelet Volume 9.9 fl (7.4-10.4); Monocytes # 0.3 K/mm3 (0.1-1.0); Monocytes % 10.6 % (1.7-9.3); Neutrophils # 1.6 K/mm3 (1.8-7.8); Neutrophils % 64.7 % (37.0-80.0); Platelet Count 104 K/mm3 (142-424); Red Blood Count 3.11 M/mm3 (4.60-6.20); Red Cell Distribution Width 25.1 % (11.5-17.5); White Blood Count 2.4 K/mm3 (4.8-10.8)
[2022-11-09 08:55] LABS: Alanine Aminotransferase 54 U/L (12-78); Albumin Level 3.8 g/dl (3.5-5.0); Albumin/Globulin Ratio 1.9 (1.1-1.8); Alkaline Phosphatase 89 U/L (38-126); Aspartate Amino Transferase 46 U/L (17-59); Bilirubin,Total 1.5 mg/dl (0.2-1.3); Blood Urea Nitrogen 12 mg/dl (9-20); Calcium 8.2 mg/dl (8.4-10.2); Carbon Dioxide 29 mmol/L (22.0-30.0); Chloride 103 mmol/L (98-107); Creatinine Clearance Estimated 141 mL/min (50-200); Estimated Glomerular Filt Rate 100 ml/min (>60); GFR (African American) 121 ML/MIN (>60); Glucose 161 mg/dl (74-100); Total Protein,Serum 5.8 g/dl (6.3-8.2)
[2022-11-09 08:56] LABS: Sodium 135 mmol/L (136-145)
== END 2022-11-09 08:55 | disposition home or self-care (01) ==
LOC: INF 08:27
PROVIDERS: PCP Internal Medicine Adolescent Medicine; Visit Provider Student in an Organized Health Care Education/Training Program
DX: Z45.2 Encounter for adjustment and management of vascular access device (principal); C91.00 Acute lymphoblastic leukemia not having achieved remission
CPT/HCPCS: 36592; 80053; 85025

== ENCOUNTER 2022-11-16 08:42 | Outpatient (CLI) | payer OTHER, SELFPAY ==
[2022-11-16 08:47] VITALS: BMI 29.9
[2022-11-16 08:58] LABS: Basophils # 0.2 K/mm3 (0-0.2); Basophils % 0.5 % (0.1-2.0); Eosinophils % 2.7 % (0.1-12.0); Hematocrit 35.7 % (42.0-52.0); Hemoglobin 11.5 g/dL (14.1-18.0); Lymphocytes # 0.2 K/mm3 (0.7-4.5); Lymphocytes % 0.6 % (10-50); Mean Corpuscular HGB Conc 32.3 g/dL (31.8-35.4); Mean Corpuscular Hemoglobin 30.1 pg (27.0-31.2); Mean Corpuscular Volume 93.1 fl (80-94); Mean Platelet Volume 9.5 fl (7.4-10.4); Monocytes # 0.1 K/mm3 (0.1-1.0); Monocytes % 0.4 % (1.7-9.3); Neutrophils % 95.9 % (37.0-80.0); Platelet Count 73 K/mm3 (142-424); Red Blood Count 3.83 M/mm3 (4.60-6.20); Red Cell Distribution Width 21.4 % (11.5-17.5); White Blood Count 36.5 K/mm3 (4.8-10.8)
[2022-11-16 09:08] LABS: Alanine Aminotransferase 70 U/L (12-78); Albumin/Globulin Ratio 2.2 (1.1-1.8); Alkaline Phosphatase 100 U/L (38-126); Aspartate Amino Transferase 36 U/L (17-59); Bilirubin,Total 3.3 mg/dl (0.2-1.3); Blood Urea Nitrogen 29 mg/dl (9-20); Calcium 8.8 mg/dl (8.4-10.2); Carbon Dioxide 27 mmol/L (22.0-30.0); Chloride 96 mmol/L (98-107); Creatinine Clearance Estimated 112 mL/min (50-200); Estimated Glomerular Filt Rate 77 ml/min (>60); GFR (African American) 93 ML/MIN (>60); Globulin 1.8 g/dL (1.3-3.2); Glucose 150 mg/dl (74-100); Sodium 132 mmol/L (136-145); Total Protein,Serum 5.8 g/dl (6.3-8.2)
[2022-11-16 09:14] LABS: MANUAL DIFFERENTIAL MANUAL DIFFERENTIAL (MANUAL DIFF)
[2022-11-16 09:46] LABS: Lymphocytes % 1 % (10-50); Monocytes % 3 % (2-9); Neutrophils % 96 % (42-76); Platelet Estimate Moderate Decrease; Total Cells Counted 100
[2022-11-16 09:47] LABS: RBC Morphology Normal
== END 2022-11-16 09:23 | disposition home or self-care (01) ==
LOC: INF 08:42
PROVIDERS: PCP Internal Medicine Adolescent Medicine; Visit Provider Student in an Organized Health Care Education/Training Program
DX: C91.00 Acute lymphoblastic leukemia not having achieved remission (principal)
CPT/HCPCS: 36592; 80053; 85007; 85025

== ENCOUNTER 2022-11-18 08:53 | Outpatient (CLI) | payer OTHER, SELFPAY ==
[2022-11-18 08:55] VITALS: BMI 29.9
[2022-11-18 09:10] LABS: Basophils # 0.1 K/mm3 (0-0.2); Basophils % 0.5 % (0.1-2.0); Eosinophils # 0.2 K/mm3 (0.0-0.4); Eosinophils % 0.9 % (0.1-12.0); Hematocrit 29.7 % (42.0-52.0); Hemoglobin 9.8 g/dL (14.1-18.0); Lymphocytes # 0.6 K/mm3 (0.7-4.5); Lymphocytes % 2.3 % (10-50); Mean Corpuscular Hemoglobin 30.2 pg (27.0-31.2); Mean Corpuscular Volume 91.5 fl (80-94); Mean Platelet Volume 10.7 fl (7.4-10.4); Monocytes # 0.2 K/mm3 (0.1-1.0); Monocytes % 0.8 % (1.7-9.3); Neutrophils # 26.2 K/mm3 (1.8-7.8); Neutrophils % 95.6 % (37.0-80.0); Platelet Count 59 K/mm3 (142-424); Red Blood Count 3.24 M/mm3 (4.60-6.20); Red Cell Distribution Width 21.3 % (11.5-17.5); White Blood Count 27.4 K/mm3 (4.8-10.8)
[2022-11-18 09:13] LABS: MANUAL DIFFERENTIAL MANUAL DIFFERENTIAL (MANUAL DIFF)
[2022-11-18 09:14] LABS: Chloride 98 mmol/L (98-107); Potassium 3.7 mmoL/L (3.5-5.1); Sodium 134 mmol/L (136-145)
[2022-11-18 09:17] LABS: Alanine Aminotransferase 67 U/L (12-78); Albumin Level 3.7 g/dl (3.5-5.0); Albumin/Globulin Ratio 1.9 (1.1-1.8); Alkaline Phosphatase 151 U/L (38-126); Anion Gap 11.7 mEq/L (5-15); Aspartate Amino Transferase 43 U/L (17-59); Blood Urea Nitrogen 18 mg/dl (9-20); Carbon Dioxide 28 mmol/L (22.0-30.0); Creatinine Clearance Estimated 125 mL/min (50-200); Estimated Glomerular Filt Rate 87 ml/min (>60); GFR (African American) 105 ML/MIN (>60); Globulin 1.9 g/dL (1.3-3.2); Total Protein,Serum 5.6 g/dl (6.3-8.2)
[2022-11-18 09:18] LABS: Calcium 8.3 mg/dl (8.4-10.2); Glucose 137 mg/dl (74-100)
[2022-11-18 10:06] LABS: Anisocytosis 1+; Lymphocytes % 6 % (10-50); Macrocytosis 1+; Neutrophils % 94 % (42-76); Ovalocytes 1+; Platelet Estimate Marked Decrease; Total Cells Counted 100
== END 2022-11-18 09:15 | disposition home or self-care (01) ==
LOC: INF 08:53
PROVIDERS: PCP Internal Medicine Adolescent Medicine; Visit Provider Student in an Organized Health Care Education/Training Program
DX: Z45.2 Encounter for adjustment and management of vascular access device (principal); C91.00 Acute lymphoblastic leukemia not having achieved remission
CPT/HCPCS: 36592; 80053; 85007; 85025

== ENCOUNTER 2022-11-23 08:14 | Outpatient (CLI) | payer OTHER, SELFPAY ==
[2022-11-23 08:17] VITALS: BMI 29.9
[2022-11-23 08:27] LABS: Basophils # 0.3 K/mm3 (0-0.2); Basophils % 0.6 % (0.1-2.0); Eosinophils # 0.2 K/mm3 (0.0-0.4); Eosinophils % 0.5 % (0.1-12.0); Hemoglobin 9.3 g/dL (14.1-18.0); Lymphocytes # 0.4 K/mm3 (0.7-4.5); Lymphocytes % 1.1 % (10-50); Mean Corpuscular HGB Conc 32.1 g/dL (31.8-35.4); Mean Corpuscular Hemoglobin 30.5 pg (27.0-31.2); Mean Platelet Volume 10.6 fl (7.4-10.4); Monocytes # 0.6 K/mm3 (0.1-1.0); Monocytes % 1.4 % (1.7-9.3); Neutrophils # 40.1 K/mm3 (1.8-7.8); Neutrophils % 96.4 % (37.0-80.0); Platelet Count 59 K/mm3 (142-424); Red Blood Count 3.05 M/mm3 (4.60-6.20); Red Cell Distribution Width 23.4 % (11.5-17.5)
[2022-11-23 08:29] LABS: White Blood Count 41.6 K/mm3 (4.8-10.8)
--- NOTE | 2022-11-23 08:29 | PC.NURSE ---
0829-renny danielson called rn at 0829 to report wbc 41.6. Rn repeated and verified pt name, , and lab value. result called to no new orders at this time .
[2022-11-23 08:30] LABS: MANUAL DIFFERENTIAL MANUAL DIFFERENTIAL (MANUAL DIFF)
[2022-11-23 08:36] LABS: Alanine Aminotransferase 62 U/L (12-78); Albumin Level 4.3 g/dl (3.5-5.0); Albumin/Globulin Ratio 2.3 (1.1-1.8); Alkaline Phosphatase 262 U/L (38-126); Anion Gap 13.9 mEq/L (5-15); Aspartate Amino Transferase 58 U/L (17-59); Bilirubin,Total 1.1 mg/dl (0.2-1.3); Blood Urea Nitrogen 20 mg/dl (9-20); Calcium 8.5 mg/dl (8.4-10.2); Carbon Dioxide 25 mmol/L (22.0-30.0); Chloride 97 mmol/L (98-107); Creatinine Clearance Estimated 161 mL/min (50-200); Estimated Glomerular Filt Rate 116 ml/min (>60); GFR (African American) 141 ML/MIN (>60); Globulin 1.9 g/dL (1.3-3.2); Glucose 308 mg/dl (74-100); Potassium 3.9 mmoL/L (3.5-5.1); Sodium 132 mmol/L (136-145); Total Protein,Serum 6.2 g/dl (6.3-8.2)
[2022-11-23 08:47] LABS: Anisocytosis 1+; Hypochromasia 1+; Lymphocytes % 9 % (10-50); Macrocytosis 1+; Monocytes % 1 % (2-9); Neutrophils % 84 % (42-76); Ovalocytes 1+; Total Cells Counted 100
[2022-11-23 08:48] LABS: Platelet Estimate Marked Decrease
== END 2022-11-23 08:30 | disposition home or self-care (01) ==
LOC: INF 08:14
PROVIDERS: PCP Internal Medicine Adolescent Medicine; Visit Provider Student in an Organized Health Care Education/Training Program
DX: C91.00 Acute lymphoblastic leukemia not having achieved remission (principal); Z45.2 Encounter for adjustment and management of vascular access device
CPT/HCPCS: 36592; 80053; 85007; 85025

== ENCOUNTER 2022-11-25 08:08 | Outpatient (CLI) | payer OTHER, SELFPAY ==
[2022-11-25 08:14] VITALS: BMI 30.2
[2022-11-25 08:29] LABS: Basophils # 0.2 K/mm3 (0-0.2); Basophils % 0.8 % (0.1-2.0); Eosinophils # 0.2 K/mm3 (0.0-0.4); Hematocrit 30.1 % (42.0-52.0); Lymphocytes # 0.4 K/mm3 (0.7-4.5); Lymphocytes % 1.8 % (10-50); Mean Corpuscular HGB Conc 33.4 g/dL (31.8-35.4); Mean Corpuscular Hemoglobin 31.3 pg (27.0-31.2); Mean Corpuscular Volume 93.7 fl (80-94); Mean Platelet Volume 10.5 fl (7.4-10.4); Monocytes # 0.3 K/mm3 (0.1-1.0); Monocytes % 1.5 % (1.7-9.3); Neutrophils # 19.3 K/mm3 (1.8-7.8); Neutrophils % 94.9 % (37.0-80.0); Platelet Count 60 K/mm3 (142-424); Red Blood Count 3.21 M/mm3 (4.60-6.20); Red Cell Distribution Width 23.1 % (11.5-17.5); White Blood Count 20.3 K/mm3 (4.8-10.8)
[2022-11-25 08:31] LABS: MANUAL DIFFERENTIAL MANUAL DIFFERENTIAL (MANUAL DIFF)
[2022-11-25 08:37] LABS: Alanine Aminotransferase 74 U/L (12-78); Albumin Level 4.1 g/dl (3.5-5.0); Albumin/Globulin Ratio 2.3 (1.1-1.8); Alkaline Phosphatase 214 U/L (38-126); Aspartate Amino Transferase 55 U/L (17-59); Bilirubin,Total 1.4 mg/dl (0.2-1.3); Blood Urea Nitrogen 30 mg/dl (9-20); Calcium 8.4 mg/dl (8.4-10.2); Carbon Dioxide 25 mmol/L (22.0-30.0); Chloride 92 mmol/L (98-107); Creatinine Clearance Estimated 142 mL/min (50-200); Estimated Glomerular Filt Rate 100 ml/min (>60); GFR (African American) 121 ML/MIN (>60); Globulin 1.8 g/dL (1.3-3.2); Glucose 339 mg/dl (74-100); Sodium 129 mmol/L (136-145); Total Protein,Serum 5.9 g/dl (6.3-8.2)
[2022-11-25 08:51] LABS: Lymphocytes % 2 % (10-50); Monocytes % 2 % (2-9); Neutrophils % 92 % (42-76); Nucleated Red Blood Cells 2; Total Cells Counted 100
[2022-11-25 08:52] LABS: Platelet Estimate Moderate Decrease
[2022-11-25 08:53] LABS: Anisocytosis 1+; Macrocytosis 1+; Ovalocytes 1+
== END 2022-11-25 08:38 | disposition home or self-care (01) ==
LOC: INF 08:08
PROVIDERS: PCP Internal Medicine Adolescent Medicine; Visit Provider Student in an Organized Health Care Education/Training Program
DX: C91.00 Acute lymphoblastic leukemia not having achieved remission (principal); Z45.2 Encounter for adjustment and management of vascular access device
CPT/HCPCS: 36592; 80053; 85007; 85025

== ENCOUNTER 2022-11-28 08:26 | Outpatient (CLI) | payer OTHER, SELFPAY ==
[2022-11-28 08:30] VITALS: BMI 29.9
[2022-11-28 08:49] LABS: Basophils # 0.1 K/mm3 (0-0.2); Basophils % 0.9 % (0.1-2.0); Eosinophils # 0.2 K/mm3 (0.0-0.4); Eosinophils % 1.8 % (0.1-12.0); Hematocrit 30.9 % (42.0-52.0); Hemoglobin 10.2 g/dL (14.1-18.0); Lymphocytes # 0.9 K/mm3 (0.7-4.5); Lymphocytes % 11.3 % (10-50); Mean Corpuscular HGB Conc 33.1 g/dL (31.8-35.4); Mean Corpuscular Hemoglobin 30.8 pg (27.0-31.2); Mean Corpuscular Volume 92.9 fl (80-94); Mean Platelet Volume 10.6 fl (7.4-10.4); Monocytes # 0.1 K/mm3 (0.1-1.0); Monocytes % 1.8 % (1.7-9.3); Neutrophils # 6.7 K/mm3 (1.8-7.8); Neutrophils % 84.2 % (37.0-80.0); Platelet Count 55 K/mm3 (142-424); Red Blood Count 3.32 M/mm3 (4.60-6.20)
[2022-11-28 08:56] LABS: Alanine Aminotransferase 77 U/L (12-78); Albumin Level 3.6 g/dl (3.5-5.0); Alkaline Phosphatase 134 U/L (38-126); Aspartate Amino Transferase 37 U/L (17-59); Blood Urea Nitrogen 21 mg/dl (9-20); Calcium 8.1 mg/dl (8.4-10.2); Carbon Dioxide 27 mmol/L (22.0-30.0); Chloride 97 mmol/L (98-107); Creatinine Clearance Estimated 141 mL/min (50-200); Estimated Glomerular Filt Rate 100 ml/min (>60); GFR (African American) 121 ML/MIN (>60); Globulin 1.8 g/dL (1.3-3.2); Glucose 128 mg/dl (74-100); Sodium 131 mmol/L (136-145); Total Protein,Serum 5.4 g/dl (6.3-8.2)
== END 2022-11-28 09:05 | disposition home or self-care (01) ==
LOC: INF 08:27
PROVIDERS: PCP Internal Medicine Adolescent Medicine; Visit Provider Student in an Organized Health Care Education/Training Program
DX: Z45.2 Encounter for adjustment and management of vascular access device (principal); C91.00 Acute lymphoblastic leukemia not having achieved remission
CPT/HCPCS: 36592; 80053; 85025

== ENCOUNTER 2022-11-30 08:24 | Outpatient (CLI) | payer OTHER, SELFPAY ==
[2022-11-30 08:29] VITALS: BMI 29.9
[2022-11-30 08:55] LABS: Basophils % 0.4 % (0.1-2.0); Eosinophils # 0.2 K/mm3 (0.0-0.4); Eosinophils % 1.8 % (0.1-12.0); Hematocrit 28.8 % (42.0-52.0); Hemoglobin 9.2 g/dL (14.1-18.0); Lymphocytes # 0.8 K/mm3 (0.7-4.5); Lymphocytes % 9.2 % (10-50); Mean Corpuscular Hemoglobin 30.3 pg (27.0-31.2); Mean Corpuscular Volume 94.7 fl (80-94); Mean Platelet Volume 9.9 fl (7.4-10.4); Monocytes # 0.3 K/mm3 (0.1-1.0); Neutrophils # 6.9 K/mm3 (1.8-7.8); Neutrophils % 85.5 % (37.0-80.0); Platelet Count 51 K/mm3 (142-424); Red Blood Count 3.04 M/mm3 (4.60-6.20); Red Cell Distribution Width 23.1 % (11.5-17.5); White Blood Count 8.1 K/mm3 (4.8-10.8)
[2022-11-30 08:57] LABS: MANUAL DIFFERENTIAL MANUAL DIFFERENTIAL (MANUAL DIFF)
[2022-11-30 08:59] LABS: Alanine Aminotransferase 78 U/L (12-78); Albumin Level 3.6 g/dl (3.5-5.0); Alkaline Phosphatase 119 U/L (38-126); Aspartate Amino Transferase 43 U/L (17-59); Bilirubin,Total 0.9 mg/dl (0.2-1.3); Blood Urea Nitrogen 14 mg/dl (9-20); Calcium 8.4 mg/dl (8.4-10.2); Carbon Dioxide 31 mmol/L (22.0-30.0); Chloride 96 mmol/L (98-107); Creatinine Clearance Estimated 161 mL/min (50-200); Estimated Glomerular Filt Rate 116 ml/min (>60); GFR (African American) 141 ML/MIN (>60); Globulin 1.8 g/dL (1.3-3.2); Glucose 161 mg/dl (74-100); Sodium 132 mmol/L (136-145); Total Protein,Serum 5.4 g/dl (6.3-8.2)
[2022-11-30 09:45] LABS: Anisocytosis 1+; Lymphocytes % 14 % (10-50); Macrocytosis 1+; Monocytes % 3 % (2-9); Neutrophils % 83 % (42-76); Platelet Estimate Moderate Decrease; Total Cells Counted 100
[2022-11-30 09:46] LABS: Hypochromasia 1+; Ovalocytes 1+
== END 2022-11-30 09:00 | disposition home or self-care (01) ==
PROVIDERS: PCP Internal Medicine Adolescent Medicine; Visit Provider Student in an Organized Health Care Education/Training Program
DX: C91.00 Acute lymphoblastic leukemia not having achieved remission (principal)
CPT/HCPCS: 36592; 80053; 85007; 85025

== ENCOUNTER 2022-12-02 08:31 | Outpatient (CLI) | payer OTHER, SELFPAY ==
[2022-12-02 08:32] VITALS: BMI 29.9
[2022-12-02 08:49] LABS: Basophils % 0.4 % (0.1-2.0); Eosinophils # 0.2 K/mm3 (0.0-0.4); Eosinophils % 3.1 % (0.1-12.0); Hematocrit 26.6 % (42.0-52.0); Hemoglobin 8.5 g/dL (14.1-18.0); Lymphocytes # 0.8 K/mm3 (0.7-4.5); Lymphocytes % 11.6 % (10-50); Mean Corpuscular Hemoglobin 30.4 pg (27.0-31.2); Mean Corpuscular Volume 95.1 fl (80-94); Mean Platelet Volume 10.1 fl (7.4-10.4); Monocytes # 0.2 K/mm3 (0.1-1.0); Monocytes % 3.5 % (1.7-9.3); Neutrophils # 5.5 K/mm3 (1.8-7.8); Neutrophils % 81.5 % (37.0-80.0); Platelet Count 59 K/mm3 (142-424); Red Cell Distribution Width 23.2 % (11.5-17.5); White Blood Count 6.8 K/mm3 (4.8-10.8)
[2022-12-02 08:55] LABS: Alanine Aminotransferase 61 U/L (12-78); Albumin Level 3.8 g/dl (3.5-5.0); Alkaline Phosphatase 116 U/L (38-126); Anion Gap 11.5 mEq/L (5-15); Aspartate Amino Transferase 38 U/L (17-59); Blood Urea Nitrogen 16 mg/dl (9-20); Calcium 8.7 mg/dl (8.4-10.2); Carbon Dioxide 28 mmol/L (22.0-30.0); Chloride 98 mmol/L (98-107); Creatinine Clearance Estimated 141 mL/min (50-200); Estimated Glomerular Filt Rate 100 ml/min (>60); GFR (African American) 121 ML/MIN (>60); Globulin 1.9 g/dL (1.3-3.2); Glucose 155 mg/dl (74-100); Potassium 4.5 mmoL/L (3.5-5.1); Sodium 133 mmol/L (136-145); Total Protein,Serum 5.7 g/dl (6.3-8.2)
== END 2022-12-02 08:54 | disposition home or self-care (01) ==
LOC: INF 08:31
PROVIDERS: PCP Internal Medicine Adolescent Medicine; Visit Provider Student in an Organized Health Care Education/Training Program
DX: C91.00 Acute lymphoblastic leukemia not having achieved remission (principal)
CPT/HCPCS: 36592; 80053; 85025

== ENCOUNTER 2022-12-05 08:07 | Outpatient (CLI) | payer OTHER, SELFPAY ==
[2022-12-05 08:11] VITALS: BMI 29.9
[2022-12-05 08:28] LABS: Basophils % 0.3 % (0.1-2.0); Eosinophils # 0.2 K/mm3 (0.0-0.4); Eosinophils % 4.8 % (0.1-12.0); Hematocrit 27.2 % (42.0-52.0); Hemoglobin 8.5 g/dL (14.1-18.0); Lymphocytes # 0.7 K/mm3 (0.7-4.5); Lymphocytes % 16.4 % (10-50); Mean Corpuscular HGB Conc 31.1 g/dL (31.8-35.4); Mean Corpuscular Hemoglobin 30.1 pg (27.0-31.2); Mean Corpuscular Volume 96.7 fl (80-94); Monocytes # 0.2 K/mm3 (0.1-1.0); Monocytes % 5.4 % (1.7-9.3); Neutrophils # 2.9 K/mm3 (1.8-7.8); Platelet Count 68 K/mm3 (142-424); Red Blood Count 2.81 M/mm3 (4.60-6.20); Red Cell Distribution Width 24.1 % (11.5-17.5)
[2022-12-05 08:32] LABS: Chloride 99 mmol/L (98-107); Potassium 4.5 mmoL/L (3.5-5.1); Sodium 135 mmol/L (136-145)
[2022-12-05 08:35] LABS: Alanine Aminotransferase 48 U/L (12-78); Albumin Level 4.1 g/dl (3.5-5.0); Albumin/Globulin Ratio 2.1 (1.1-1.8); Alkaline Phosphatase 95 U/L (38-126); Anion Gap 14.5 mEq/L (5-15); Aspartate Amino Transferase 36 U/L (17-59); Blood Urea Nitrogen 17 mg/dl (9-20); Calcium 8.8 mg/dl (8.4-10.2); Carbon Dioxide 26 mmol/L (22.0-30.0); Creatinine Clearance Estimated 112 mL/min (50-200); Estimated Glomerular Filt Rate 77 ml/min (>60); GFR (African American) 93 ML/MIN (>60); Glucose 156 mg/dl (74-100); Total Protein,Serum 6.1 g/dl (6.3-8.2)
== END 2022-12-05 08:35 | disposition home or self-care (01) ==
LOC: INF 08:07
PROVIDERS: Student in an Organized Health Care Education/Training Program; PCP Internal Medicine Adolescent Medicine; Visit Provider Student in an Organized Health Care Education/Training Program
DX: C91.00 Acute lymphoblastic leukemia not having achieved remission (principal)
CPT/HCPCS: 36592; 80053; 85025

== ENCOUNTER 2022-12-07 08:18 | Outpatient (CLI) | payer OTHER, SELFPAY ==
[2022-12-07 08:20] VITALS: BMI 29.9
[2022-12-07 08:35] LABS: Basophils % 0.3 % (0.1-2.0); Eosinophils # 0.1 K/mm3 (0.0-0.4); Eosinophils % 4.8 % (0.1-12.0); Hematocrit 23.7 % (42.0-52.0); Lymphocytes # 0.5 K/mm3 (0.7-4.5); Lymphocytes % 20.5 % (10-50); Mean Corpuscular HGB Conc 33.6 g/dL (31.8-35.4); Mean Corpuscular Hemoglobin 32.6 pg (27.0-31.2); Mean Corpuscular Volume 97.1 fl (80-94); Mean Platelet Volume 9.6 fl (7.4-10.4); Monocytes # 0.1 K/mm3 (0.1-1.0); Monocytes % 4.5 % (1.7-9.3); Neutrophils # 1.8 K/mm3 (1.8-7.8); Neutrophils % 69.8 % (37.0-80.0); Platelet Count 70 K/mm3 (142-424); Red Blood Count 2.44 M/mm3 (4.60-6.20); Red Cell Distribution Width 24.6 % (11.5-17.5); White Blood Count 2.6 K/mm3 (4.8-10.8)
[2022-12-07 08:37] LABS: Chloride 101 mmol/L (98-107); Potassium 4.1 mmoL/L (3.5-5.1); Sodium 135 mmol/L (136-145)
[2022-12-07 08:40] LABS: Alanine Aminotransferase 42 U/L (12-78); Albumin Level 3.9 g/dl (3.5-5.0); Alkaline Phosphatase 88 U/L (38-126); Anion Gap 12.1 mEq/L (5-15); Aspartate Amino Transferase 35 U/L (17-59); Bilirubin,Total 1.2 mg/dl (0.2-1.3); Blood Urea Nitrogen 22 mg/dl (9-20); Carbon Dioxide 26 mmol/L (22.0-30.0); Creatinine Clearance Estimated 102 mL/min (50-200); Estimated Glomerular Filt Rate 69 ml/min (>60); GFR (African American) 83 ML/MIN (>60); Total Protein,Serum 5.9 g/dl (6.3-8.2)
[2022-12-07 08:41] LABS: Calcium 8.6 mg/dl (8.4-10.2); Glucose 161 mg/dl (74-100)
== END 2022-12-07 08:44 | disposition home or self-care (01) ==
LOC: INF 08:18
PROVIDERS: PCP Internal Medicine Adolescent Medicine; Visit Provider Student in an Organized Health Care Education/Training Program
DX: Z45.2 Encounter for adjustment and management of vascular access device (principal); C81.00 Nodular lymphocyte predominant Hodgkin lymphoma, unspecified site
CPT/HCPCS: 36592; 80053; 85025

== ENCOUNTER 2022-12-09 08:15 | Outpatient (CLI) | payer OTHER, SELFPAY ==
[2022-12-09 08:18] VITALS: BMI 35.5
[2022-12-09 08:32] LABS: Basophils % 0.6 % (0.1-2.0); Eosinophils # 0.2 K/mm3 (0.0-0.4); Eosinophils % 8.3 % (0.1-12.0); Hematocrit 25.5 % (42.0-52.0); Lymphocytes # 0.4 K/mm3 (0.7-4.5); Lymphocytes % 19.6 % (10-50); Mean Corpuscular HGB Conc 31.6 g/dL (31.8-35.4); Mean Corpuscular Hemoglobin 30.9 pg (27.0-31.2); Mean Corpuscular Volume 97.7 fl (80-94); Mean Platelet Volume 8.8 fl (7.4-10.4); Monocytes # 0.2 K/mm3 (0.1-1.0); Neutrophils # 1.4 K/mm3 (1.8-7.8); Neutrophils % 64.5 % (37.0-80.0); Platelet Count 72 K/mm3 (142-424); Red Blood Count 2.61 M/mm3 (4.60-6.20); Red Cell Distribution Width 24.1 % (11.5-17.5); White Blood Count 2.2 K/mm3 (4.8-10.8)
[2022-12-09 08:35] LABS: Chloride 102 mmol/L (98-107); Sodium 137 mmol/L (136-145)
[2022-12-09 08:36] LABS: Potassium 4.1 mmoL/L (3.5-5.1)
[2022-12-09 08:38] LABS: Alanine Aminotransferase 41 U/L (12-78); Albumin Level 3.9 g/dl (3.5-5.0); Alkaline Phosphatase 87 U/L (38-126); Anion Gap 15.1 mEq/L (5-15); Aspartate Amino Transferase 36 U/L (17-59); Bilirubin,Total 1.4 mg/dl (0.2-1.3); Blood Urea Nitrogen 15 mg/dl (9-20); Calcium 8.5 mg/dl (8.4-10.2); Carbon Dioxide 24 mmol/L (22.0-30.0); Creatinine Clearance Estimated 148 mL/min (50-200); Estimated Glomerular Filt Rate 87 ml/min (>60); GFR (African American) 105 ML/MIN (>60); Glucose 139 mg/dl (74-100); Total Protein,Serum 5.9 g/dl (6.3-8.2)
== END 2022-12-09 08:45 | disposition home or self-care (01) ==
LOC: INF 08:15
PROVIDERS: PCP Internal Medicine Adolescent Medicine; Visit Provider Student in an Organized Health Care Education/Training Program
DX: Z45.2 Encounter for adjustment and management of vascular access device (principal); C91.00 Acute lymphoblastic leukemia not having achieved remission
CPT/HCPCS: 36592; 80053; 85025

== ENCOUNTER 2022-12-12 08:23 | Outpatient (CLI) | payer OTHER, SELFPAY ==
[2022-12-12 08:26] VITALS: BMI 29.9
[2022-12-12 08:43] LABS: Basophils % 0.3 % (0.1-2.0); Eosinophils # 0.2 K/mm3 (0.0-0.4); Hematocrit 25.4 % (42.0-52.0); Hemoglobin 8.1 g/dL (14.1-18.0); Lymphocytes # 0.5 K/mm3 (0.7-4.5); Lymphocytes % 22.7 % (10-50); Mean Corpuscular HGB Conc 31.7 g/dL (31.8-35.4); Mean Corpuscular Hemoglobin 30.9 pg (27.0-31.2); Mean Corpuscular Volume 97.6 fl (80-94); Mean Platelet Volume 10.2 fl (7.4-10.4); Monocytes # 0.2 K/mm3 (0.1-1.0); Monocytes % 9.8 % (1.7-9.3); Neutrophils # 1.2 K/mm3 (1.8-7.8); Neutrophils % 58.1 % (37.0-80.0); Platelet Count 65 K/mm3 (142-424); Red Cell Distribution Width 24.2 % (11.5-17.5); White Blood Count 2.1 K/mm3 (4.8-10.8)
[2022-12-12 08:49] LABS: Chloride 103 mmol/L (98-107); Sodium 137 mmol/L (136-145)
[2022-12-12 08:52] LABS: Alanine Aminotransferase 37 U/L (12-78); Albumin Level 3.8 g/dl (3.5-5.0); Alkaline Phosphatase 93 U/L (38-126); Aspartate Amino Transferase 42 U/L (17-59); Bilirubin,Total 1.5 mg/dl (0.2-1.3); Blood Urea Nitrogen 11 mg/dl (9-20); Carbon Dioxide 27 mmol/L (22.0-30.0); Creatinine Clearance Estimated 125 mL/min (50-200); Estimated Glomerular Filt Rate 87 ml/min (>60); GFR (African American) 105 ML/MIN (>60); Globulin 1.9 g/dL (1.3-3.2); Total Protein,Serum 5.7 g/dl (6.3-8.2)
[2022-12-12 08:53] LABS: Calcium 8.4 mg/dl (8.4-10.2); Glucose 148 mg/dl (74-100)
--- NOTE | 2022-12-12 09:43 | PC.NURSE ---
0849-pt ok to d/c home plt 65 and hgb 8.1
== END 2022-12-12 08:49 | disposition home or self-care (01) ==
LOC: INF 08:23
PROVIDERS: PCP Internal Medicine Adolescent Medicine; Visit Provider Student in an Organized Health Care Education/Training Program
DX: C91.00 Acute lymphoblastic leukemia not having achieved remission (principal)
CPT/HCPCS: 36592; 80053; 85025

== ENCOUNTER 2022-12-30 08:29 | Outpatient (CLI) | payer OTHER, SELFPAY ==
[2022-12-30 08:35] VITALS: BMI 29.9
[2022-12-30 08:46] LABS: Basophils % 0.1 % (0.1-2.0); Eosinophils # 0.1 K/mm3 (0.0-0.4); Eosinophils % 5.7 % (0.1-12.0); Hematocrit 28.7 % (42.0-52.0); Hemoglobin 9.4 g/dL (14.1-18.0); Lymphocytes # 0.6 K/mm3 (0.7-4.5); Lymphocytes % 37.8 % (10-50); Mean Corpuscular HGB Conc 32.8 g/dL (31.8-35.4); Mean Corpuscular Hemoglobin 31.5 pg (27.0-31.2); Mean Corpuscular Volume 96.1 fl (80-94); Mean Platelet Volume 9.7 fl (7.4-10.4); Monocytes # 0.1 K/mm3 (0.1-1.0); Monocytes % 6.2 % (1.7-9.3); Neutrophils # 0.8 K/mm3 (1.8-7.8); Neutrophils % 50.2 % (37.0-80.0); Red Blood Count 2.99 M/mm3 (4.60-6.20); Red Cell Distribution Width 21.6 % (11.5-17.5); White Blood Count 1.5 K/mm3 (4.8-10.8)
--- NOTE | 2022-12-30 08:57 | PC.NURSE ---
0857-john beverly called rn at 0857 to reprot plt level 35. Rn repeated and verified pt name, , and lab value.Result called to at [facility] no new orders received;pt d/c home.
[2022-12-30 08:58] LABS: Platelet Count 35 K/mm3 (142-424)
[2022-12-30 08:59] LABS: Chloride 101 mmol/L (98-107); Potassium 4.5 mmoL/L (3.5-5.1); Sodium 135 mmol/L (136-145)
[2022-12-30 09:01] LABS: Blood Urea Nitrogen 25 mg/dl (9-20); Creatinine Clearance Estimated 141 mL/min (50-200); Estimated Glomerular Filt Rate 100 ml/min (>60); GFR (African American) 121 ML/MIN (>60)
[2022-12-30 09:02] LABS: Alanine Aminotransferase 50 U/L (12-78); Albumin Level 3.6 g/dl (3.5-5.0); Albumin/Globulin Ratio 1.8 (1.1-1.8); Alkaline Phosphatase 81 U/L (38-126); Anion Gap 13.5 mEq/L (5-15); Aspartate Amino Transferase 47 U/L (17-59); Bilirubin,Total 0.8 mg/dl (0.2-1.3); Calcium 8.5 mg/dl (8.4-10.2); Carbon Dioxide 25 mmol/L (22.0-30.0); Glucose 158 mg/dl (74-100); Total Protein,Serum 5.6 g/dl (6.3-8.2)
== END 2022-12-30 09:00 | disposition home or self-care (01) ==
LOC: INF 08:29
PROVIDERS: PCP Internal Medicine Adolescent Medicine; Visit Provider Student in an Organized Health Care Education/Training Program
DX: C91.00 Acute lymphoblastic leukemia not having achieved remission (principal); Z45.2 Encounter for adjustment and management of vascular access device
CPT/HCPCS: 36592; 80053; 85025

== ENCOUNTER 2023-01-02 08:21 | Outpatient (CLI) | payer OTHER, SELFPAY ==
[2023-01-02 08:24] VITALS: BMI 29.9
[2023-01-02 08:37] LABS: Basophils % 0.5 % (0.1-2.0); Eosinophils # 0.1 K/mm3 (0.0-0.4); Eosinophils % 3.6 % (0.1-12.0); Hemoglobin 9.2 g/dL (14.1-18.0); Lymphocytes # 0.6 K/mm3 (0.7-4.5); Lymphocytes % 44.9 % (10-50); Mean Corpuscular HGB Conc 34.1 g/dL (31.8-35.4); Mean Corpuscular Hemoglobin 32.1 pg (27.0-31.2); Mean Corpuscular Volume 94.2 fl (80-94); Mean Platelet Volume 11.2 fl (7.4-10.4); Monocytes # 0.1 K/mm3 (0.1-1.0); Monocytes % 10.3 % (1.7-9.3); Neutrophils # 0.5 K/mm3 (1.8-7.8); Neutrophils % 40.7 % (37.0-80.0); Red Blood Count 2.87 M/mm3 (4.60-6.20); Red Cell Distribution Width 22.3 % (11.5-17.5); White Blood Count 1.3 K/mm3 (4.8-10.8)
[2023-01-02 08:38] LABS: Platelet Count 18 K/mm3 (142-424)
[2023-01-02 08:46] LABS: Alanine Aminotransferase 41 U/L (12-78); Albumin Level 3.6 g/dl (3.5-5.0); Albumin/Globulin Ratio 1.9 (1.1-1.8); Alkaline Phosphatase 75 U/L (38-126); Aspartate Amino Transferase 35 U/L (17-59); Bilirubin,Total 0.6 mg/dl (0.2-1.3); Blood Urea Nitrogen 14 mg/dl (9-20); Calcium 8.4 mg/dl (8.4-10.2); Carbon Dioxide 25 mmol/L (22.0-30.0); Chloride 98 mmol/L (98-107); Creatinine Clearance Estimated 141 mL/min (50-200); Estimated Glomerular Filt Rate 100 ml/min (>60); GFR (African American) 121 ML/MIN (>60); Globulin 1.9 g/dL (1.3-3.2); Glucose 140 mg/dl (74-100); Sodium 135 mmol/L (136-145); Total Protein,Serum 5.5 g/dl (6.3-8.2)
--- NOTE | 2023-01-02 08:46 | PC.NURSE ---
Emilia Adam called critical lab results at 0837. plt of 18. name, and lab result verified and repeated. Pt has standing orders in place for transfusions. pt does not meet criteria at this time. notified and no new orders at this time.
== END 2023-01-02 08:40 | disposition home or self-care (01) ==
LOC: INF 08:22
PROVIDERS: PCP Internal Medicine Adolescent Medicine; Visit Provider Student in an Organized Health Care Education/Training Program
DX: Z45.2 Encounter for adjustment and management of vascular access device (principal); C91.00 Acute lymphoblastic leukemia not having achieved remission
CPT/HCPCS: 36592; 80053; 85025

== ENCOUNTER 2023-01-04 08:17 | Outpatient (CLI) | payer OTHER, SELFPAY ==
[2023-01-04 08:20] VITALS: BMI 29.9
[2023-01-04 08:35] LABS: Basophils % 0.2 % (0.1-2.0); Eosinophils # 0.1 K/mm3 (0.0-0.4); Eosinophils % 3.5 % (0.1-12.0); Hematocrit 26.1 % (42.0-52.0); Hemoglobin 8.8 g/dL (14.1-18.0); Lymphocytes # 0.7 K/mm3 (0.7-4.5); Lymphocytes % 45.9 % (10-50); Mean Corpuscular HGB Conc 33.7 g/dL (31.8-35.4); Mean Corpuscular Volume 95.1 fl (80-94); Monocytes # 0.1 K/mm3 (0.1-1.0); Monocytes % 9.6 % (1.7-9.3); Neutrophils # 0.6 K/mm3 (1.8-7.8); Neutrophils % 40.7 % (37.0-80.0); Red Blood Count 2.74 M/mm3 (4.60-6.20); Red Cell Distribution Width 22.8 % (11.5-17.5); White Blood Count 1.4 K/mm3 (4.8-10.8)
[2023-01-04 08:37] LABS: Platelet Count 12 K/mm3 (142-424)
[2023-01-04 08:42] LABS: Chloride 96 mmol/L (98-107); Potassium 4.1 mmoL/L (3.5-5.1); Sodium 135 mmol/L (136-145)
[2023-01-04 08:45] LABS: Alanine Aminotransferase 38 U/L (12-78); Albumin Level 3.5 g/dl (3.5-5.0); Albumin/Globulin Ratio 1.8 (1.1-1.8); Alkaline Phosphatase 79 U/L (38-126); Anion Gap 16.1 mEq/L (5-15); Aspartate Amino Transferase 39 U/L (17-59); Bilirubin,Total 0.7 mg/dl (0.2-1.3); Blood Urea Nitrogen 16 mg/dl (9-20); Carbon Dioxide 27 mmol/L (22.0-30.0); Creatinine Clearance Estimated 141 mL/min (50-200); Estimated Glomerular Filt Rate 100 ml/min (>60); GFR (African American) 121 ML/MIN (>60); Globulin 1.9 g/dL (1.3-3.2); Total Protein,Serum 5.4 g/dl (6.3-8.2)
--- NOTE | 2023-01-04 08:45 | PC.NURSE ---
Lachelle Childress called RN at 0837 to report platelet count 12. RN repeated and verified pt name, , and lab value. Result called to Dr. Coronado, no new orders noted. pt has standing orders for platelet transfusion if plt are below 10.
[2023-01-04 08:46] LABS: Calcium 8.4 mg/dl (8.4-10.2); Glucose 127 mg/dl (74-100)
== END 2023-01-04 08:45 | disposition home or self-care (01) ==
LOC: INF 08:18
PROVIDERS: PCP Internal Medicine Adolescent Medicine; Visit Provider Student in an Organized Health Care Education/Training Program
DX: C91.00 Acute lymphoblastic leukemia not having achieved remission (principal)
CPT/HCPCS: 36592; 80053; 85025; 96523

== ENCOUNTER 2023-01-06 08:40 | Outpatient (CLI) | payer OTHER, SELFPAY ==
[2023-01-06] VITALS (8 sets, daily range): BP systolic 103–140; BP diastolic 65–70; PULSE 71–88; RESP 16–18; TEMP 36.7–37.1; O2SAT 99–100; BMI 29.9
[2023-01-06 09:00] LABS: Basophils % 0.2 % (0.1-2.0); Eosinophils # 0.1 K/mm3 (0.0-0.4); Eosinophils % 4.6 % (0.1-12.0); Hematocrit 24.9 % (42.0-52.0); Hemoglobin 8.1 g/dL (14.1-18.0); Lymphocytes # 0.6 K/mm3 (0.7-4.5); Mean Corpuscular HGB Conc 32.4 g/dL (31.8-35.4); Mean Corpuscular Hemoglobin 31.8 pg (27.0-31.2); Mean Corpuscular Volume 98.2 fl (80-94); Mean Platelet Volume 9.6 fl (7.4-10.4); Monocytes # 0.2 K/mm3 (0.1-1.0); Monocytes % 13.1 % (1.7-9.3); Neutrophils # 0.5 K/mm3 (1.8-7.8); Red Blood Count 2.53 M/mm3 (4.60-6.20); White Blood Count 1.4 K/mm3 (4.8-10.8)
[2023-01-06 09:06] LABS: Platelet Count 9 K/mm3 (142-424)
[2023-01-06 09:08] LABS: Chloride 95 mmol/L (98-107); Sodium 135 mmol/L (136-145)
[2023-01-06 09:09] LABS: Potassium 4.1 mmoL/L (3.5-5.1)
[2023-01-06 09:11] LABS: Alanine Aminotransferase 33 U/L (12-78); Albumin Level 3.4 g/dl (3.5-5.0); Albumin/Globulin Ratio 1.9 (1.1-1.8); Alkaline Phosphatase 72 U/L (38-126); Anion Gap 14.1 mEq/L (5-15); Aspartate Amino Transferase 32 U/L (17-59); Bilirubin,Total 0.6 mg/dl (0.2-1.3); Blood Urea Nitrogen 19 mg/dl (9-20); Carbon Dioxide 30 mmol/L (22.0-30.0); Creatinine Clearance Estimated 141 mL/min (50-200); Estimated Glomerular Filt Rate 100 ml/min (>60); GFR (African American) 121 ML/MIN (>60); Globulin 1.8 g/dL (1.3-3.2); Total Protein,Serum 5.2 g/dl (6.3-8.2)
[2023-01-06 09:12] LABS: Calcium 8.2 mg/dl (8.4-10.2); Glucose 134 mg/dl (74-100)
== END 2023-01-06 12:25 | disposition home or self-care (01) ==
LOC: INF 08:40
PROVIDERS: PCP Internal Medicine Adolescent Medicine; Visit Provider Student in an Organized Health Care Education/Training Program
DX: C91.00 Acute lymphoblastic leukemia not having achieved remission (principal)
CPT/HCPCS: 36430; 80053; 85025; 86900; 86901; P9034

== ENCOUNTER 2023-01-09 08:24 | Outpatient (CLI) | payer OTHER, SELFPAY ==
[2023-01-09 08:27] VITALS: BMI 30.4
[2023-01-09 08:41] LABS: Basophils % 0.3 % (0.1-2.0); Eosinophils # 0.1 K/mm3 (0.0-0.4); Eosinophils % 5.1 % (0.1-12.0); Hematocrit 26.9 % (42.0-52.0); Hemoglobin 8.8 g/dL (14.1-18.0); Lymphocytes # 0.8 K/mm3 (0.7-4.5); Lymphocytes % 45.2 % (10-50); Mean Corpuscular HGB Conc 32.5 g/dL (31.8-35.4); Mean Corpuscular Hemoglobin 32.7 pg (27.0-31.2); Mean Corpuscular Volume 100.3 fl (80-94); Mean Platelet Volume 10.9 fl (7.4-10.4); Monocytes # 0.3 K/mm3 (0.1-1.0); Monocytes % 18.5 % (1.7-9.3); Neutrophils # 0.6 K/mm3 (1.8-7.8); Neutrophils % 30.9 % (37.0-80.0); Red Blood Count 2.68 M/mm3 (4.60-6.20); Red Cell Distribution Width 23.7 % (11.5-17.5); White Blood Count 1.8 K/mm3 (4.8-10.8)
[2023-01-09 08:42] LABS: Platelet Count 16 K/mm3 (142-424)
[2023-01-09 08:48] LABS: Chloride 98 mmol/L (98-107); Potassium 3.7 mmoL/L (3.5-5.1); Sodium 136 mmol/L (136-145)
[2023-01-09 08:50] LABS: Alanine Aminotransferase 42 U/L (12-78); Alkaline Phosphatase 87 U/L (38-126); Aspartate Amino Transferase 42 U/L (17-59); Bilirubin,Total 0.4 mg/dl (0.2-1.3); Blood Urea Nitrogen 7 mg/dl (9-20); Creatinine Clearance Estimated 139 mL/min (50-200); Estimated Glomerular Filt Rate 100 ml/min (>60); GFR (African American) 121 ML/MIN (>60)
[2023-01-09 08:51] LABS: Albumin Level 3.4 g/dl (3.5-5.0); Albumin/Globulin Ratio 1.8 (1.1-1.8); Anion Gap 15.7 mEq/L (5-15); Calcium 8.2 mg/dl (8.4-10.2); Carbon Dioxide 26 mmol/L (22.0-30.0); Globulin 1.9 g/dL (1.3-3.2); Glucose 115 mg/dl (74-100); Total Protein,Serum 5.3 g/dl (6.3-8.2)
--- NOTE | 2023-01-09 09:45 | PC.NURSE ---
0841- Karley Holland called critical lab results to Jasson Rosales RN. Plt of 16. Name, and lab results read back and verified by RN. Pt has standing orders in place for transfusion an does not meet criteria at this time. notified and no new orders.
== END 2023-01-09 08:45 | disposition home or self-care (01) ==
LOC: INF 08:24
PROVIDERS: PCP Internal Medicine Adolescent Medicine; Visit Provider Student in an Organized Health Care Education/Training Program
DX: C91.00 Acute lymphoblastic leukemia not having achieved remission (principal)
CPT/HCPCS: 36592; 80053; 85025

== ENCOUNTER 2023-01-10 14:21 | Outpatient (CLI) | payer OTHER, SELFPAY ==
[2023-01-10 14:24] VITALS: BMI 29.9
--- NOTE | 2023-01-10 14:30 | PC.NURSE ---
pt here to have blood drawn for possible platelet transfusion. Pt had appt with specialist at . nurse called unit and explained that pt was seen there today for an appt and testing and had blood work done. Pt plt level noted at 9 at , no seating was available for pt to get platelet transfusion until 330pm. Pt/family does not wish to wait for infusion at and would rather come to [facility] to have blood drawn and get platelet transfusion in the am. Blood drawn to obtain a platelet level per Radha Diggs RN from pts picc line. Specimen sent to lab for analysis.
[2023-01-10 14:54] LABS: Platelet Count 11 K/mm3 (142-424)
--- NOTE | 2023-01-10 15:03 | PC.NURSE ---
Karley Holland called Radha Diggs RN to report platelet level 11. RN repeated and verified pt name, , and lab value. Result called to Dr. Kristel Coronado, no new orders noted at this time. pt to return in am for lab check.
== END 2023-01-10 15:09 | disposition home or self-care (01) ==
PROVIDERS: PCP Internal Medicine Adolescent Medicine; Visit Provider Student in an Organized Health Care Education/Training Program
DX: C91.00 Acute lymphoblastic leukemia not having achieved remission (principal)
CPT/HCPCS: 36592; 85049

== ENCOUNTER 2023-01-11 08:27 | Outpatient (CLI) | payer OTHER, SELFPAY ==
[2023-01-11 08:29] VITALS: BMI 29.9
[2023-01-11 08:47] LABS: Eosinophils # 0.1 K/mm3 (0.0-0.4); Eosinophils % 4.9 % (0.1-12.0); Hematocrit 25.4 % (42.0-52.0); Hemoglobin 8.6 g/dL (14.1-18.0); Lymphocytes # 1.1 K/mm3 (0.7-4.5); Mean Corpuscular HGB Conc 33.6 g/dL (31.8-35.4); Mean Corpuscular Hemoglobin 33.8 pg (27.0-31.2); Mean Corpuscular Volume 100.4 fl (80-94); Mean Platelet Volume 10.9 fl (7.4-10.4); Monocytes # 0.6 K/mm3 (0.1-1.0); Monocytes % 20.9 % (1.7-9.3); Neutrophils # 0.9 K/mm3 (1.8-7.8); Neutrophils % 34.2 % (37.0-80.0); Red Blood Count 2.53 M/mm3 (4.60-6.20); White Blood Count 2.7 K/mm3 (4.8-10.8)
[2023-01-11 08:49] LABS: Platelet Count 10 K/mm3 (142-424)
[2023-01-11 08:50] LABS: MANUAL DIFFERENTIAL MANUAL DIFFERENTIAL (MANUAL DIFF)
[2023-01-11 08:52] LABS: Alanine Aminotransferase 34 U/L (12-78); Albumin Level 3.3 g/dl (3.5-5.0); Albumin/Globulin Ratio 1.7 (1.1-1.8); Alkaline Phosphatase 89 U/L (38-126); Anion Gap 16.8 mEq/L (5-15); Aspartate Amino Transferase 35 U/L (17-59); Bilirubin,Total 0.4 mg/dl (0.2-1.3); Blood Urea Nitrogen 7 mg/dl (9-20); Calcium 8.3 mg/dl (8.4-10.2); Carbon Dioxide 26 mmol/L (22.0-30.0); Chloride 98 mmol/L (98-107); Creatinine Clearance Estimated 161 mL/min (50-200); Estimated Glomerular Filt Rate 116 ml/min (>60); GFR (African American) 141 ML/MIN (>60); Globulin 1.9 g/dL (1.3-3.2); Glucose 104 mg/dl (74-100); Potassium 3.8 mmoL/L (3.5-5.1); Sodium 137 mmol/L (136-145); Total Protein,Serum 5.2 g/dl (6.3-8.2)
[2023-01-11 09:14] LABS: Anisocytosis 1+; Hypochromasia 2+; Lymphocytes % 43 % (10-50); Macrocytosis 1+; Microcytosis 1+; Monocytes % 6 % (2-9); Neutrophils % 51 % (42-76); Platelet Estimate Marked Decrease; Total Cells Counted 100
== END 2023-01-11 09:00 | disposition home or self-care (01) ==
LOC: INF 08:27
PROVIDERS: PCP Internal Medicine Adolescent Medicine; Visit Provider Student in an Organized Health Care Education/Training Program
DX: C91.00 Acute lymphoblastic leukemia not having achieved remission (principal)
CPT/HCPCS: 36592; 80053; 85007; 85025

== ENCOUNTER 2023-01-13 08:19 | Outpatient (CLI) | payer OTHER, SELFPAY ==
[2023-01-13 08:21] VITALS: BMI 30.4
[2023-01-13 08:34] LABS: Basophils % 0.6 % (0.1-2.0); Eosinophils # 0.2 K/mm3 (0.0-0.4); Eosinophils % 5.9 % (0.1-12.0); Hematocrit 27.5 % (42.0-52.0); Hemoglobin 9.3 g/dL (14.1-18.0); Lymphocytes # 1.6 K/mm3 (0.7-4.5); Lymphocytes % 42.2 % (10-50); Mean Corpuscular HGB Conc 33.6 g/dL (31.8-35.4); Mean Corpuscular Hemoglobin 33.5 pg (27.0-31.2); Mean Corpuscular Volume 99.6 fl (80-94); Mean Platelet Volume 11.8 fl (7.4-10.4); Monocytes # 1.1 K/mm3 (0.1-1.0); Monocytes % 28.5 % (1.7-9.3); Neutrophils # 0.9 K/mm3 (1.8-7.8); Neutrophils % 22.8 % (37.0-80.0); Red Blood Count 2.77 M/mm3 (4.60-6.20); Red Cell Distribution Width 24.2 % (11.5-17.5); White Blood Count 3.8 K/mm3 (4.8-10.8)
[2023-01-13 08:39] LABS: Platelet Count 10 K/mm3 (142-424)
[2023-01-13 08:40] LABS: MANUAL DIFFERENTIAL MANUAL DIFFERENTIAL (MANUAL DIFF)
[2023-01-13 08:53] LABS: Alanine Aminotransferase 34 U/L (12-78); Albumin Level 3.4 g/dl (3.5-5.0); Albumin/Globulin Ratio 1.9 (1.1-1.8); Alkaline Phosphatase 104 U/L (38-126); Aspartate Amino Transferase 47 U/L (17-59); Bilirubin,Total 0.3 mg/dl (0.2-1.3); Blood Urea Nitrogen 4 mg/dl (9-20); Calcium 8.3 mg/dl (8.4-10.2); Carbon Dioxide 28 mmol/L (22.0-30.0); Chloride 97 mmol/L (98-107); Creatinine Clearance Estimated 139 mL/min (50-200); Estimated Glomerular Filt Rate 100 ml/min (>60); GFR (African American) 121 ML/MIN (>60); Globulin 1.8 g/dL (1.3-3.2); Glucose 91 mg/dl (74-100); Sodium 136 mmol/L (136-145); Total Protein,Serum 5.2 g/dl (6.3-8.2)
[2023-01-13 09:26] LABS: Eosinophils % 3 % (0-3); Lymphocytes % 60 % (10-50); Monocytes % 13 % (2-9); Neutrophils % 24 % (42-76); Platelet Estimate Marked Decrease; RBC Morphology Normal; Total Cells Counted 100
--- NOTE | 2023-01-13 10:21 | PC.NURSE ---
at 0838 Karley Holland from lab called critical results to Diamond Brewster RN, Plt 10. Name, and lab results verified and read back by RN. pt has standing orders in place for transfusions and does not meet criteria at this time. Labs faxed to MD office and no new orders at this time.
== END 2023-01-13 08:40 | disposition home or self-care (01) ==
LOC: INF 08:20
PROVIDERS: PCP Internal Medicine Adolescent Medicine; Visit Provider Student in an Organized Health Care Education/Training Program
DX: C91.00 Acute lymphoblastic leukemia not having achieved remission (principal)
CPT/HCPCS: 36592; 80053; 85007; 85025

== ENCOUNTER 2023-01-16 08:25 | Outpatient (CLI) | payer OTHER, SELFPAY ==
[2023-01-16 08:37] VITALS: BMI 29.9
[2023-01-16 08:44] LABS: Basophils # 0.2 K/mm3 (0-0.2); Basophils % 1.3 % (0.1-2.0); Eosinophils # 0.4 K/mm3 (0.0-0.4); Eosinophils % 3.1 % (0.1-12.0); Hematocrit 30.5 % (42.0-52.0); Lymphocytes # 5.6 K/mm3 (0.7-4.5); Lymphocytes % 46.8 % (10-50); Mean Corpuscular HGB Conc 32.7 g/dL (31.8-35.4); Mean Corpuscular Hemoglobin 33.3 pg (27.0-31.2); Mean Corpuscular Volume 101.8 fl (80-94); Monocytes % 25.3 % (1.7-9.3); Neutrophils # 2.8 K/mm3 (1.8-7.8); Neutrophils % 23.5 % (37.0-80.0); Red Cell Distribution Width 24.3 % (11.5-17.5); White Blood Count 11.9 K/mm3 (4.8-10.8)
--- NOTE | 2023-01-16 08:44 | PC.NURSE ---
0844-Emilia beverly called rn to report critical platelet level 11. RN repeated and verified pt name,, and critical lab value.RN called [facility] and left message for md; no new orders at this time.
[2023-01-16 08:45] LABS: Platelet Count 11 K/mm3 (142-424)
[2023-01-16 08:47] LABS: MANUAL DIFFERENTIAL MANUAL DIFFERENTIAL (MANUAL DIFF)
[2023-01-16 08:53] LABS: Chloride 96 mmol/L (98-107); Potassium 3.9 mmoL/L (3.5-5.1); Sodium 135 mmol/L (136-145)
[2023-01-16 08:56] LABS: Alanine Aminotransferase 40 U/L (12-78); Albumin Level 3.5 g/dl (3.5-5.0); Albumin/Globulin Ratio 1.8 (1.1-1.8); Alkaline Phosphatase 146 U/L (38-126); Anion Gap 14.9 mEq/L (5-15); Aspartate Amino Transferase 59 U/L (17-59); Bilirubin,Total 0.4 mg/dl (0.2-1.3); Blood Urea Nitrogen 4 mg/dl (9-20); Calcium 9.4 mg/dl (8.4-10.2); Carbon Dioxide 28 mmol/L (22.0-30.0); Creatinine Clearance Estimated 94 mL/min (50-200); Estimated Glomerular Filt Rate 62 ml/min (>60); GFR (African American) 76 ML/MIN (>60); Globulin 1.9 g/dL (1.3-3.2); Glucose 126 mg/dl (74-100); Total Protein,Serum 5.4 g/dl (6.3-8.2)
[2023-01-16 09:31] LABS: Corrected White Blood Count 11.2 K/mm3 (4.8-10.8); Eosinophils % 4 % (0-3); Lymphocytes % 39 % (10-50); Macrocytosis 1+; Monocytes % 24 % (2-9); Neutrophils % 26 % (42-76); Nucleated Red Blood Cells 6; Total Cells Counted 100
[2023-01-16 09:32] LABS: Anisocytosis 1+; Platelet Estimate Marked Decrease
== END 2023-01-16 08:50 | disposition home or self-care (01) ==
LOC: INF 08:26
PROVIDERS: PCP Internal Medicine Adolescent Medicine; Visit Provider Student in an Organized Health Care Education/Training Program
DX: C91.00 Acute lymphoblastic leukemia not having achieved remission (principal)
CPT/HCPCS: 36592; 80053; 85007; 85025